=== PATIENT | female | born 1955 | race Caucasian/White ===

== ENCOUNTER 2023-04-01 21:32 | Emergency (ER) | payer MEDICARE, MEDICAID, SELFPAY ==
[2023-04-01 21:34] VITALS: BP 179/71; PULSE 70; RESP 16; TEMP 36.4; O2SAT 98
--- NOTE | 2023-04-01 21:51 | PC.NURSE ---
patient states that she had a stroke in October and since that time has been bounced around from place to place . She was at [facility] in [place], and recently moved into [facility]. Patient states that she has had this rash for several months, it is slightly painful when she walks currently, only because she has scratched open a small spot on the bottom of her right foot. She has been applying a topical salve but is unsure of the name. It has not helped.
--- NOTE | 2023-04-02 01:35 | ED_ITS ---
HPI - General Adult General Chief complaint: Skin/Abscess/Foreign Body Stated complaint: RED, SWOLLEN FEET Time Seen by Provider: 04/01/23 21:45 Source: patient Mode of arrival: ambulance History of Present Illness HPI narrative: The patient presented to the ER with bilateral feet irritation and itching that been going on at least since July last year she denies any fever chills or any new injury She mentioned that she was prescribed a cream by her primary care doctor that did not help and she denies any other concerns Related Data Previous Rx's Medication Instructions Recorded clocortolone pivalate 0.1 % 1 applic topical DAILY #45 grams 04/01/23 topical cream (Cloderm) Allergies Allergy/AdvReac Type Severity Reaction Status Date / Time Sulfa (Sulfonamide Allergy Severe Verified 04/01/23 21:37 Antibiotics) Tetanus Vaccines and Toxoid Allergy Severe Verified 04/01/23 21:38 Review of Systems ROS Status of ROS 10 or more systems reviewed and unremarkable except as noted in history and below [facility] Medical History (Updated 04/01/23 @ 21:54 by Linda Bennett MD) Exam Narrative Exam Narrative: Nurses notes and vital signs reviewed and patient is not hypoxic. General: Well-appearing and in no apparent distress. Skin: Warm, dry, no pallor noted. No rash. Head: Normocephalic, atraumatic. Neck: Supple, non-tender. Eye: Pupils are equal, round and EOMI. No scleral icterus. Ears, Nose, Mouth, and Throat: TM are clear, no nasal mucosal hypertrophy. Oral mucosa is moist, no posterior oropharynx erythema, uvula is mid-line Cardiovascular: Regular Rate and Rhythm without murmur, gallop or rub. Respiratory: No accessory muscle use or respiratory distress. Lungs are clear to auscultation, no wheezing, rales or rhonchi Chest Wall: no tenderness Back: No midline thoracic or lumbar vertebral tenderness. No CVA tenderness Musculoskeletal: normal ROM, no calf or popliteal tenderness, no lower extremity edema/swelling, on the dorsum of both feet the patient have dry erythematous rash that is chronic mostly GI: Abdomen is soft, non-distended. Normal bowel sounds. No masses appreciated. No tenderness to palpation. No rebound, guarding, or rigidity noted. Neurological: A&O x4. No cranial nerve dysfunction observed. No truncal ataxia. Moves all extremities. Sensation intact. Psychiatric: Cooperative and interactive. Normal mood and affect. Constitutional Vital Signs, click to edit/add: Last Vital Signs Temp 97.5 F L 04/01/23 21:34 Pulse 70 04/01/23 21:34 Resp 16 04/01/23 21:34 BP 179/71 H 04/01/23 21:34 Pulse Ox 98 04/01/23 21:34 O2 Del Method Room Air 04/01/23 21:34 Course Vital Signs Vital signs: Vital Signs Temperature 97.5 F L 04/01/23 21:34 Pulse Rate 70 04/01/23 21:34 Respiratory Rate 16 04/01/23 21:34 Blood Pressure 179/71 H 04/01/23 21:34 Pulse Oximetry 98 04/01/23 21:34 Oxygen Delivery Method Room Air 04/01/23 21:34 Temperature 97.5 F L 04/01/23 21:34 Pulse Rate 70 04/01/23 21:34 Respiratory Rate 16 04/01/23 21:34 Blood Pressure 179/71 H 04/01/23 21:34 Pulse Oximetry 98 04/01/23 21:34 Oxygen Delivery Method Room Air 04/01/23 21:34 Medical Decision Making [facility] Narrative Medical decision making narrative: The patient examination shows possible eczema Right now the patient will be treated with steroid cream with medium potency and she is to follow-up with her doctor for any new concern The patient is to follow up with primary care physician in next 2-3 days or to return to the emergency department should any of the signs or symptoms worsen or new symptoms develop. The patient agrees with the following Diagnosis and Treatment plan and the patient will be discharged home. Discharge Plan Discharge Chief Complaint: Skin/Abscess/Foreign Body Clinical Impression: Dermatitis Patient Disposition: Home, Self-Care Time of Disposition Decision: 21:52 Condition: Good Mode of Transportation: Private Vehicle Prescriptions / Home Meds: New clocortolone pivalate [Cloderm] 0.1 % cream 1 applic topical DAILY Qty: 45 0RF Rx Instructions: for 10 days Instructions: Dermatitis (ED) Stand Alone Forms: Portal Instructions Referrals: SHEREEN DUENAS [Primary Care Provider] - 1 week Discharge Date/Time: 04/01/23 22:30
== END 2023-04-01 22:30 | disposition home or self-care (01) ==
PROVIDERS: Emergency Provider Emergency Medicine; PCP Family Medicine
DX: L30.9 Dermatitis, unspecified (principal)
CPT/HCPCS: 99283

== ENCOUNTER 2023-07-15 12:25 | Outpatient (OUT) | payer MEDICARE, MEDICAID, SELFPAY ==
--- NOTE | 2023-07-15 12:36 | US_ITS ---
The [address] [address] Patient Name: RAMIRO HUSSEIN MRN: [id number] date: 1955 Sex: F Assigned Patient Location: [place] Current Patient Location: Accession/Order Number: [id number] Exam Date: 07/15/2023 12:45 Report Date: 07/18/2023 07:07 At the request of: JOHN LOWERY Procedure: US thyroid EXAMINATION: US thyroid HISTORY: Multiple Thyroid Nodules COMPARISON: No relevant comparison available. FINDINGS: RIGHT LOBE: Homogeneous echotexture and contains an 8 mm TR 4 nodule within inferior pole and a 9 mm TR 2 nodule within mid body. In addition there are multiple small colloid cysts and nodules. Lobe size: 5.4 x 1.6 x 1.8 cm LEFT LOBE: Homogeneous echotexture and contains an 8 mm TR 4 nodule within inferior pole. Contains several additional small colloid cysts and nodules. Lobe size: 5.0 x 1.4 x 1.5 cm ISTHMUS: Normal size and echotexture. Thickness: 2 mm US/US thyroid IMPRESSION: 1. Multiple small nodules and colloid cysts bilaterally with most notable consisting of an 8 mm TR 4 nodule within the right lobe and an 8 mm TR 4 nodule within left lobe. Follow-up in 2 years is recommended. TR4 (moderately suspicious): If > 1.0 cm, follow-up ultrasound in 1, 2, 3, and 5 years. If > 1.5 cm, fine needle aspiration (FNA). Electronically authenticated by: BAL GALVEZ Date: 07/18/2023 07:07
== END 2023-07-15 12:26 | disposition home or self-care (01) ==
LOC: US 12:26
PROVIDERS: PCP Family Medicine; Visit Provider Psychiatry & Neurology Neurology
DX: E04.2 Nontoxic multinodular goiter (principal)
CPT/HCPCS: 76536

== ENCOUNTER 2023-11-15 20:00 | Outpatient (REF) | payer MEDICARE, MEDICAID, SELFPAY ==
--- OUTSIDE RECORDS SUMMARY | 2023-11-16 01:23 | XMS_ITS | CCD ---
Author Name Unknown Address [id number] [place] [address] Organization [facility] Care Team Providers Care Fiberline Supervisor Name Role Phone PROVIDER, UNKNOWN Attending Unavailable PROVIDER, UNKNOWN Admitting Unavailable NON STAFF Primary Care Provider Unavailayo e MD Stewart Carlton Admit Provider MD Stewart Carlton Attending Provider KAROLINA Silvestre Other Provider Unavailable KAROLINA Menendez Other Provider Unavailable KRAOLINA Mercado Other Provider Unavailable KAROLINA Oliveira Other Provider Unavailable KAROLINA Ho Other Provider Unavailable KAROLINA Elias Other Provider Unavailable MD Daren Limon Other Provider MD Jose Dasilva Other Provider VALE Hernández Other Provider DO Marlen Reaves Other Provider MD Vinayak Taveras Other Provider [phone] DO Rick Babcock Other Provider MD Sidney Rader Other Provider MD Kassidy Treviño Other Provider David, ANP-BC Gaby Other Provider MD Hussain Salomon Other Provider MD David Staley Other Provider MD Crystal Meléndez Other Provider MD Marciano Weeks Other Provider DO Amrit Acosta Other Provider MD Winston Skinner Other Provider MD Reji Hawkins Other Provider PAOLA Fragoso Other Provider MD Brian New Other Provider MD Owen Chadwick Other Provider MD Diomedes Auguste Other Provider DO Lara Rojas Other Provider DO Alberto Dias Other Provider DO Alfredo Green Other Provider [phone] VALE Baker Other Provider DO Delvin eBltrán Other Provider MD Diana Eubanks Other Provider VALE Beltran Other Provider [phone] KAROLINA Carvalho Other Provider Unavailable Stewart Carlton Admitting Unavailable Stewart Carlton Attending Unavailable NON STAFF Primary Care Unavailable Kaur Silvestre Consulting Unavailable Gearmali, Cathryn Consulting Unavailable Belkis Mercado Consulting Unavailable Densrao, Genie Consulting Unavailable Georgia, Luz Marina Consulting Unavailable Jada, Michell Consulting Unavailable Massouh, Rafik Consulting Unavailable Brown, Jose K Consulting Unavailable Dials, Uma M Consulting Unavailable Jelly, Ronobir Consulting Unavailable Nitin, Vinayak Consulting Unavailable Linddeepali Rick Consulting UnavailSidney Goyal Consulting Unavailable Hudson Kassidy Consulting Unavailable Gaby Hernandez Consulting Unavailable Hussain Salomon Consulting Unavailable David Staley Consulting Unavailable Crystal Meléndez Consulting Unavailable Marciano Weeks Consulting Unavailable Amrit Acosta Consulting Unavailable Winston Skinner Consulting Unavailable Reji Hawkins Consulting Unavailable Kirstin Fragoso Consulting Unavailable Brian New Consulting Unavailab Owen Melton Consulting Unavailable Diomedes Auguste Consulting Unavailable Lara Rojas Consulting Unavailable Alberto Dias Consulting Unavailable Alfredo Green Consulting Unavailable Afua Baker Unavailable Delvin Beltrán Consulting Unavailable Diana Eubanks Consulting Unavailable Rajwinder Beltran Consulting Unavailable Irene Carvalho Consulting Unavailable Allergies Allergy Classification Reported Allergen(s) Allergy Type Date of Onset Reaction(s) Facility (2 sources) Sulfonamides (Antibiotic); Translations: [Sulfa (Sulfonamide Antibiotics)] Propensity to adverse reactions 3 Unknown Reaction [facility] (2 sources) Tetanus Vaccines and Toxoid; Translations: [Tetanus Vaccines and Toxoid] Propensity to adverse reactions 3 Swelling [facility] Medications Current Medications Medication Drug Class(es) Dates Sig (Normalized) Sig (Original) acetaminophen 500 mg oral tablet (1 source) Start: 11-15-2022 take 500 mg by mouth every four hours Acetaminophen Active 500 MG PO Q4H 0 November 15, 2022 12:00am aspirin 81 mg chewable tablet (2 sources) Platelet Aggregation Inhibitor, Nonsteroidal Anti-inflammatory Drug Start: 10-25-2022 End: 11-15-2022 take 1 tablet by mouth once daily Aspirin (Children's Aspirin) 81 mg Tablet,Chewable Active 81 MG PO Daily 0 November 15, 2022 12:00am calcium carbonate 1250 mg oral tablet (2 sources) Start: 10-25-2022 End: 11-15-2022 Calcium Carbonate (Oyster Shell Calcium 500) 500 mg calcium (1,250 mg) Tablet Active 500 MG PO Daily 0 November 15, 2022 12:00am diclofenac sodium 0.01 mg/mg topical gel (1 source) Nonsteroidal Anti-inflammatory Drug Start: 11-15-2022 apply 2 g topically twice daily Diclofenac Sodium Active 2 GM TOPICAL Twice daily 0 November 15, 2022 12:00am docusate sodium 100 mg oral capsule (1 source) Start: 11-15-2022 take 100 mg by mouth twice daily Docusate Sodium Active 100 MG PO Twice daily 0 November 15, 2022 12:00am famotidine 20 mg oral tablet (2 sources) Histamine-2 Receptor Antagonist Start: 11-15-2022 take 20 mg by mouth once daily Famotidine Active 20 MG PO Daily 0 November 15, 2022 12:00am Start: 10-25-2022 End: 11-15-2022 take 20 mg by mouth twice daily Famotidine Discontinued 20 MG PO Twice daily October 25, 2022 1:00am November 15, 2022 3:04pm lactulose 667 mg/ml oral solution (1 source) Osmotic Laxative Start: 11-15-2022 take 30 g by mouth once daily Lactulose Active 30 GM PO Daily 0 November 15, 2022 12:00am Lanolin Sxcfbqp-Wz-I.Pet-C eres (Minerin Creme) Cream (1 source) Start: 11-15-2022 Lanolin Lqqllwe-Cn-Z.Pet- [place] (Minerin Creme) Cream Active 1 APPLIC TOPICAL Daily 0 November 15, 2022 12:00am lidocaine 0.04 mg/mg medicated patch (1 source) Antiarrhythmic, Amide Local Anesthetic Start: 11-15-2022 apply 1 dose topically once daily Lidocaine (Lidocaine Pain Relief) 4 % Adhesive Patch,Medicated Active 1 PATCH TOPICAL Daily 0 November 15, 2022 12:00am magnesium oxide 400 mg oral tablet (2 sources) Start: 10-25-2022 End: 11-15-2022 take 400 mg by mouth once daily Magnesium Oxide Active 400 MG PO Daily 0 November 15, 2022 12:00am metoprolol tartrate 50 mg oral tablet (2 sources) beta-Adrenergic Curtis Start: 10-25-2022 End: 11-15-2022 take 50 mg by mouth twice daily Metoprolol Tartrate Active 50 MG PO Twice daily 0 November 15, 2022 12:00am Multivitamin With Folic Acid (Thera) 400 mcg Tablet (1 source) Start: 11-15-2022 take 1 tablet by mouth once daily Multivitamin With Folic Acid (Thera) 400 mcg Tablet Active 1 TAB PO Daily 0 November 15, 2022 12:00am NIFEdipine 90 mg osmotic 24 hr extended release oral tablet (2 sources) Dihydropyridine Calcium Channel Curtis Start: 11-15-2022 take 1 tablet by mouth once daily Nifedipine (Procardia Xl) 90 mg Tablet Extended Release 24hr Active 90 MG PO Daily 0 November 15, 2022 12:00am Start: 10-25-2022 End: 11-15-2022 Nifedipine (Nifedical Xl) 60 mg Tablet Extended Release 24hr Discontinued 90 MG PO Daily October 25, 2022 1:00am November 15, 2022 3:04pm potassium chloride 10 meq extended release oral tablet (2 sources) Start: 10-25-2022 End: 11-15-2022 Potassium Chloride (Klor-Con 10) 10 mEq Tablet Extended Release Active 10 MEQ PO Daily 0 November 15, 2022 12:00am ticagrelor 90 mg oral tablet (2 sources) Start: 10-25-2022 End: 11-15-2022 take 1 tablet by mouth twice daily Ticagrelor (Brilinta) 90 mg Tablet Active 90 MG PO Twice daily 0 November 15, 2022 12:00am traZODone hydrochloride 50 mg oral tablet (1 source) Serotonin Reuptake Inhibitor Start: 11-15-2022 take 50 mg by mouth once daily at bedtime Trazodone Active 50 MG PO Daily at bedtime 0 November 15, 2022 12:00am triamcinolone acetonide 5 mg/ml topical cream (2 sources) Corticosteroid Start: 11-15-2022 Triamcinolone Acetonide Active 1 APPLIC TOPICAL Twice daily 0 November 15, 2022 12:00am Start: 10-25-2022 End: 11-15-2022 Triamcinolone Acetonide (Thien alog) 0.5 % Cream Discontinued 1 APPLIC TOPICAL Daily October 25, 2022 1:00am November 15, 2022 3:04pm vitamin b12 1 mg oral tablet (2 sources) Vitamin B12 Start: 10-25-2022 End: 11-15-2022 take 1000 ug by mouth once daily Cyanocobalamin (Vitamin B-12) Active 1000 MCG PO Daily 0 November 15, 2022 12:00am Completed/Discontinued Medications Medication Drug Class(es) Dates Sig (Normalized) Sig (Original) [id number] 200 actuat albuterol 0.09 mg/actuat metered dose inhaler (1 source) beta2-Adrenergic Agonist Start: 10-25-2022 End: 11-15-2022 take 1 puff(s) by inhalation every four hours Albuterol Sulfate (Ventolin Hfa) 90 mcg/actuation Hfa Aerosol Inhaler Discontinued 2 PUFF INHALATION Q4H October 25, 2022 1:00am November 15, 2022 3:04pm gabapentin 100 mg oral capsule (1 source) Anti-epileptic Agent Start: 10-25-2022 End: 11-15-2022 take 100 mg by mouth three times daily Gabapentin Discontinued 100 MG PO Three times daily October 25, 2022 1:00am November 15, 2022 3:04pm Multivitamin preparation (1 source) Start: 10-25-2022 End: 11-15-2022 take 1 tablet by mouth once daily Multivitamin Discontinued 1 TAB PO Daily October 25, 2022 1:00am November 15, 2022 3:04pm Problems Problem Classification Problem Date Documented Da te Episodic/Chronic Acute cerebrovascular disease (7 sources) Aphasia; Translations: [Cerebral infarction, unspecified] Onset: 10-25-2022 10-26-2022 Chronic Administrative/social admission (3 sources) Other reduced mobility; Translations: [Impaired mobility and activities of daily living] Onset: 10-25-2022 10-26-2022 Episodic Anxiety disorders (3 sources) Anxiety; Translations: [Anxiety disorder, unspecified] Onset: 10-25-2022 10-26-2022 Chronic Essential hypertension (3 sources) Hypertensive disorder; Translations: [Essential (primary) hypertension] Onset: 10-25-2022 10-26-2022 Chronic Fluid and electrolyte disorders (3 sources) Chronic hyponatremia; Translations: [Hypo-osmolality and hyponatremia] Onset: 10-25-2022 10-26-2022 Episodic Other gastrointestinal disorders (1 source) Oropharyngeal dysphagia; Translations: [Dysphagia, oropharyngeal phase] 10-26-2022 Episodic Other gastrointestinal disorders (2 sources) Dysphagia, oropharyngeal phase; Translations: [Dysphagia, oropharyngeal phase] Onset: 10-25-2022 11-18-2022 Episodic Other hereditary and degenerative nervous system conditions (1 source) Impaired cognition; Translations: [Mild cognitive impairment, so stated] 10-26-2022 Chronic Other hereditary and degenerative nervous system conditions (2 sources) Mild cognitive impairment, so stated; Translations: [Mild cognitive impairment, so stated] Onset: 10-25-2022 11-18-2022 Chronic Other nervous system disorders (1 source) Aphasia; Translations: [Aphasia] Onset: 10-25-2022 Chronic Other nervous system disorders (1 source) Gait apraxia; 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] 10-26-2022 Episodic Other nervous system disorders (2 sources) Apraxia; 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 dysfunction] Onset: 10-25-2022 11-18-2022 Episodic Paralysis (3 sources) Right hemiplegia; Translations: [Hemiplegia, unspecified affecting right dominant side] Onset: 10-25-2022 10-26-2022 Chronic Residual codes; unclassified (2 sources) Current drinker; Translations: [Chronic alcohol use] 10-26-2022 Episodic Residual codes; unclassified (1 source) Other specified health status; Translations: [Other specified health status] Onset: 10-25-2022 Episodic Unclassified (1 source) Cerebral infarction due to unspecified occlusion or stenosis of left carotid arteries; Translations: [Cerebral infarction due to unspecified occlusion or stenosis of left carotid arteries] Onset: 10-25-2022 Unclassified (1 source) Alcohol use, unspecified, uncomplicated; Translations: [Alcohol use, unspecified, uncomplicated] Onset: 10-25-2022 Results Test Name Value Interpretation Reference Range Facility Basic Metabolic Panelon 11-03 Anion gap [Moles/Vol] 12.8 mmol/L Normal 6.0-15.0 [facility] Comment on above: Performed By: #### C BC, BMP #### [facility] [address] Calcium [Mass/Vol] 10.5 mg/dL High 8.6-10.3 [facility] Comment on above: Performed By: #### C BC, BMP #### [facility] [address] [place] [address] [place] Chloride [Moles/Vol] 102 mmol/L Normal 98-[address] [facility] Comment on above: Performed By: #### C BC, BMP #### [facility] [address] [place] [address] [facility] CO2 [Moles/Vol] 26.2 mmol/L Normal 21.0-31.0 [facility] Comment on above: Performed By: #### C BC, BMP #### [facility] [address] [place] [id number] [place] Creatinine [Mass/Vol] 0.53 mg/dL Low 0.60-1.20 [facility] Comment on above: Performed By: #### C BC, BMP #### [place] [address] [place] Creatinine Clr Calc Pharmacy 52.90 Normal [facility] Comment on above: Result Comment: PERF ORMED BY: [place] [address] PATHOLOGIST DESIGN/ANIMATION INSTRUCTOR LOLA BURGER M.D. Performed By: #### C BC, BMP #### [place] [address] [place] GFR/1.73 sq M.predicted MDRD (S/P/Bld) [Vol rate/Area] mL/min/{1.73_m2} Normal [facility] Comment on above: Performed By: #### C BC, BMP #### [address] Glucose [Mass/Vol] 101 mg/dL Normal 74-109 [facility] Comment on above: Result Comment: [facility] Glucose Reference Range is dependent on time and content of last meal. Glucose of more than 200 mg/dL in a nonstressed, ambulatory subject supports the diagnosis of Diabetes Mellitus. ADA recommended reference range Performed By: #### C BC, BMP #### [address] Potassium [Moles/Vol] 4.0 mmol/L Normal 3.5-5.1 [facility] Comment on above: Performed By: #### C BC, BMP #### [address] Sodium [Moles/Vol] 137 mmol/L Normal 136-145 [facility] Comment on above: Performed By: #### C BC, BMP #### [address] Urea nitrogen [Mass/Vol] 15 mg/dL Normal 7-25 [facility] Comment on above: Performed By: #### C BC, BMP #### [place] [address] [place] Basophils Auto (Bld) [#/Vol] Ordered By: Kendra Stern on 11-16-2022 Basophils (Bld) [#/Vol] 0.0 10*3/uL 0.0-0.2 [facility] Basophils/100 WBC Auto (Bld) Ordered By: Kendra Stern on 11-16-2022 Basophils/100 WBC (Bld) 0.4 % . [facility] COVID-19 Antigenon COVID-19 Antigen Comment collect today for poss SNF placement 11/16 vs 11/17. Healthcare Worker?: N Reference Range: Negative Negative results, from patients with symptom onset beyond five days, should be treated as presumptive and confirmation with a molecular assay, if necessary, for patient management, may be performed. Negative results do not rule out COVID-19 and should not be used as the sole basis for treatment or patient management decisions, including infection control decisions. Negative results should be considered in the context of a patient's recent exposures, history and the presence of clinical signs and symptoms consistent with COVID-19. The Nory SARS Antigen KAREN does not differentiate between SARS-CoV and SARS-CoV-2. This test was developed and its performance characteristic determined by [facility] and validated at [facility]. This test has not been FDA cleared or approved. This test has been authorized by FDA under an Emergency Use Authorization (EUA). This test has been validated in accordance with the FDA's Guidance Document (Policy for Diagnostics Testing in Laboratories Certified to Perform High Complexity Testing under CLIA prior to Emergency Use Authorization for Coronavirus Disease-2019 during the Public Health Emergency) issued on December 06, 2019. This test is only authorized for the duration of time the declaration that circumstances exist justifying the authorization of the emergency use of in vitro diagnostic tests for detection of SARS-CoV-2 virus and/or diagnosis of COVID-19 infection under section 564(b)(1) of the Act, 21 U.S.C. 360bbb-3(b)(1), unless the authorization is terminated or revoked sooner. SARS-CoV+SARS-CoV-2 (COVID-19) Ag [Presence] in Respiratory specimen by Rapid immunoassay Negative for SARS Antigen by KAREN PERFORMED BY: [facility] [place] [address] PATHOLOGIST DESIGN/ANIMATION INSTRUCTOR LOLA BURGER M.D. Normal [facility] Comment on above: Performed By: #### C OVID-19 NORY, SOFIANEG #### [facility] [address] [place] [address] [place] COVID-19 SOFIAOrdered By: Luz Carlton on 11-16-2022 SARS-CoV+SARS-CoV-2 (COVID-19) Ag IA.rapid Ql (Resp) Negative Negative [facility] Comment on above: This is a duplicate Nory SARS Antigen (KAREN) result to be used for statistical tracking purpose only. Calcium [Mass/volume] in Ser um or PlasmaOrdered By: Kendra Stern on 11-16-2022 Calcium [Mass/Vol] 10.5 mg/dL 8.6-10.3 [facility] Carbon dioxide, total [Moles /volume] in Serum or PlasmaOrdered By: Kendra Stern on 11-16-2022 CO2 [Moles/Vol] 26.2 mmol/L 21.0-31.0 [facility] Chloride [Moles/volume] in S sbaine or PlasmaOrdered By: Kendra Stern on 11-16-2022 Chloride [Moles/Vol] 102 mmol/L 98-[address] [facility] Complete Blood Count Auto Di ffon 11-16-2022 Basophils (Bld) [#/Vol] 0.0 10*3/uL Normal 0.0-0.2 [facility] Comment on above: Result Comment: PERF ORMED BY: [place] [address] PATHOLOGIST DESIGN/ANIMATION INSTRUCTOR LOLA BURGER M.D. Performed By: #### C BC, BMP #### [facility] [address] [place] [address] [place] Basophils/100 WBC (Bld) 0.4 % Normal . [facility] Comment on above: Performed By: #### C BC, BMP #### [facility] [address] [place] [address] [place] Eosinophils (Bld) [#/Vol] 0.1 10*3/uL Normal 0.0-0.45 [facility] Comment on above: Performed By: #### C BC, BMP #### [address] Eosinophils/100 WBC (Bld) 1.5 % Normal . [facility] Comment on above: Performed By: #### C BC, BMP #### [address] Erythrocyte distribution width (RBC) [Ratio] 14.7 % Normal 11.9-15.3 [facility] Comment on above: Performed By: #### C BC, BMP #### [address] Hematocrit (Bld) [Volume fraction] 33.0 % Low 34.0-46.4 [facility] Comment on above: Performed By: #### C BC, BMP #### [address] Hemoglobin (Bld) [Mass/Vol] 11.1 g/dL Low 11.8-15.4 [facility] Comment on above: Performed By: #### C BC, BMP #### [address] Lymphocytes (Bld) [#/Vol] 1.0 10*3/uL Normal 1.00-4.8 [facility] Comment on above: Performed By: #### C BC, BMP #### [address] Lymphocytes/100 WBC (Bld) 21.5 % Normal . [facility] Comment on above: Performed By: #### C BC, BMP #### [address] MCH (RBC) [Entitic mass] 29.5 pg Normal 24.7-34.3 [facility] Comment on above: Performed By: #### C BC, BMP #### [address] MCV (RBC) [Entitic vol] 88.0 fL Normal 80-100 [facility] Comment on above: Performed By: #### C BC, BMP #### [facility] [address] Mean Corpuscular HGB Conc 33.5 g/dL Normal 32.0-35.0 [facility] Comment on above: Performed By: #### C BC, BMP #### [facility] [address] [place] [address] [place] Monocytes (Bld) [#/Vol] 0.5 10*3/uL Normal 0.0-0.8 [facility] Comment on above: Performed By: #### C BC, BMP #### [facility] [address] [place] [address] [place] Monocytes/100 WBC (Bld) 11.3 % Normal . [facility] Comment on above: Performed By: #### C BC, BMP #### [facility] [address] Neutrophils (Bld) [#/Vol] 2.9 10*3/uL Normal 1.8-7.7 [facility] Comment on above: Performed By: #### C BC, BMP #### [facility] [address] [place] [address] [place] Neutrophils/100 WBC (Bld) 65.3 % Normal . [facility] Comment on above: Performed By: #### C BC, BMP #### [facility] [address] [place] [address] [place] NRBC% 0.1 /100{WBC} Normal 0-0.5 [facility] Comment on above: Performed By: #### C BC, BMP #### [facility] [address] [place] [address] [place] Platelet mean volume (Bld) [Entitic vol] 7.2 fL Normal 6.3-10.7 [facility] Comment on above: Performed By: #### C BC, BMP #### [facility] [address] [place] [id number] [place] Platelets (Bld) [#/Vol] 364 10*3/uL Normal 150-450 [facility] Comment on above: Performed By: #### C BC, BMP #### [facility] [address] RBC (Bld) [#/Vol] 3.75 10*6/uL Normal 3.60-5.00 [facility] Comment on above: Performed By: #### C BC, BMP #### [facility] [address] [place] [id number] [facility] WBC (Bld) [#/Vol] 4.5 10*3/uL Normal 3.8-11.6 [facility] Comment on above: Performed By: #### C BC, BMP #### [facility] [address] [place] [id number] [facility] Creatinine [Mass/volume] in Serum or PlasmaOrdered By: Kendra Stern on 11-16-2022 Creatinine [Mass/Vol] 0.53 mg/dL 0.60-1.20 [facility] Eosinophils Auto (Bld) [#/Vo l]Ordered By: Kendra Stern on 11-16-2022 Eosinophils (Bld) [#/Vol] 0.1 10*3/uL 0.0-0.45 [facility] Eosinophils/100 WBC Auto (Bl d)Ordered By: Kendra Stern on 11-16-2022 Eosinophils/100 WBC (Bld) 1.5 % . [facility] Erythrocyte distribution wid th Auto (RBC) [Ratio]Ordered By: Kendra Stern on 11-16-2022 Erythrocyte distribution width (RBC) [Ratio] 14.7 % 11.9-15.3 [facility] Glucose [Mass/volume] in Ser um or PlasmaOrdered By: Kendra Stern on 11-16-2022 Glucose [Mass/Vol] 101 mg/dL 74-109 [facility] Comment on above: ADA recommended refe rence rangeRandom Glucose Reference Range is dependent on time and content of last meal. Glucose of more than 200 mg/dL in a nonstressed, ambulatory subject supports the diagnosis of Diabetes Mellitus. Hematocrit Auto (Bld) [Volum e fraction]Ordered By: Kendra Stern on 11-16-2022 Hematocrit (Bld) [Volume fraction] 33.0 % 34.0-46.4 [facility] Hemoglobin [Mass/volume] in BloodOrdered By: Kendra Stern on 11-16-2022 Hemoglobin (Bld) [Mass/Vol] 11.1 g/dL 11.8-15.4 [facility] Laboratory - Chemistry and C hemistry - challengeOrdered By: Kendra Stern on 11-16-2022 GFR/1.73 sq M.predicted MDRD (S/P/Bld) [Vol rate/Area] mL/min/{1.73_m2} [facility] Leukocytes [#/volume] correc zuleika for nucleated erythrocytes in Blood by Automated counOrdered By: Kendra Stern on 11-16-2022 WBC corrected for nucl RBC Auto (Bld) [#/Vol] 4.5 10*3/uL 3.8-11.6 [facility] Lymphocytes Auto (Bld) [#/Vo l]Ordered By: Kendra Stern on 11-16-2022 Lymphocytes (Bld) [#/Vol] 1.0 10*3/uL 1.00-4.8 [facility] Lymphocytes/100 WBC Auto (Bl d)Ordered By: Kendra Stern on 11-16-2022 Lymphocytes/100 WBC (Bld) 21.5 % . [facility] MCH Auto (RBC) [Entitic mass ]Ordered By: Kendra Stern on 11-16-2022 MCH (RBC) [Entitic mass] 29.5 pg 24.7-34.3 [facility] MCHC Auto (RBC) [Mass/Vol]Or dered By: Kendra Stern on 11-16-2022 MCHC (RBC) [Mass/Vol] 33.5 g/dL 32.0-35.0 [facility] MCV Auto (RBC) [Entitic vol] Ordered By: Kendra Stern on 11-16-2022 MCV (RBC) [Entitic vol] 88.0 fL 80-100 [facility] Monocytes Auto (Bld) [#/Vol] Ordered By: Kendra Stern on 11-16-2022 Monocytes (Bld) [#/Vol] 0.5 10*3/uL 0.0-0.8 [facility] Monocytes/100 WBC Auto (Bld) Ordered By: Kendra Stern on 11-16-2022 Monocytes/100 WBC (Bld) 11.3 % . [facility] Neutrophils Auto (Bld) [#/Vo l]Ordered By: Kendra Stern on 11-16-2022 Neutrophils (Bld) [#/Vol] 2.9 10*3/uL 1.8-7.7 [facility] Neutrophils/100 WBC Auto (Bl d)Ordered By: Kendra Stern on 11-16-2022 Neutrophils/100 WBC (Bld) 65.3 % . [facility] No Panel InformationOrdered By: Stewart Carlton on 11-16-2022 SARS Antigen (LFIA) [facility] No Panel InformationOrdered By: Kendra Stern on 11-16-2022 Pharmacy Creatinine Clearance (Chem 52.90 [facility] Nucleated erythrocytes [Pres ence] in Blood by Automated countOrdered By: Kendra Stern on 11-16-2022 Nucleated RBC Auto Ql (Bld) 0.1 /100{WBC} 0-0.5 [facility] Platelet mean volume Auto (B ld) [Entitic vol]Ordered By: Kendra Stern on 11-16-2022 Platelet mean volume (Bld) [Entitic vol] 7.2 fL 6.3-10.7 [facility] Platelets Auto (Bld) [#/Vol] Ordered By: Kendra Stern on 11-16-2022 Platelets (Bld) [#/Vol] 364 10*3/uL 150-450 [facility] Potassium [Moles/volume] in Serum or PlasmaOrdered By: Kendra Stern on 11-16-2022 Potassium [Moles/Vol] 4.0 mmol/L 3.5-5.1 [facility] RBC Auto (Bld) [#/Vol]Ordere d By: Kendra Stern on 11-16-2022 RBC (Bld) [#/Vol] 3.75 10*6/uL 3.60-5.00 [facility] Serum or plasma anion gap de terminationOrdered By: Kendra Stern on 11-16-2022 Anion gap [Moles/Vol] 12.8 mmol/L 6.0-15.0 [facility] Sodium [Moles/volume] in Ser um or PlasmaOrdered By: Kendra Stern on 11-16-2022 Sodium [Moles/Vol] 137 mmol/L 136-145 [facility] Nory Ag Negativeon 11-17-19 Nory Ag Negative Negative Normal Negative [facility] Comment on above: Result Comment: This is a duplicate Nory SARS Antigen (KAREN) result to be used for statistical tracking purpose only. PERFORMED BY: [place] [address] PATHOLOGIST DESIGN/ANIMATION INSTRUCTOR LOLA BURGER M.D. Performed By: #### C OVID-19 NORY, SOFIANEG #### [facility] [address] Urea nitrogen [Mass/volume] in Serum or PlasmaOrdered By: Kendra Stern on 11-16-2022 Urea nitrogen [Mass/Vol] 15 mg/dL 7-25 [facility] WBC Auto (Bld) [#/Vol]Ordere d By: Kendra Stern on 11-16-2022 WBC (Bld) [#/Vol] 4.5 10*3/uL 3.8-11.[address] [facility] [address] head/brain wo conon 11-11 CT head/brain wo con [facility] [place] [address] [place] [address] CT Scan Report Signed Patient: Gilma Mock MR#: [id number] 37 : 1955 Acct:[id number] Age/Sex: 67 / F ADM Date: 10/25/22 Loc: Room: 2K4630-7 Type: ADM IN Attending Dr: Stewart Carlton MD Copies to: Stewart Carlton MD Ordering Provider: Stewart Carlton MD Date of Service: 11/11/22 CT/CT head/brain wo con: interval with h/o SAH, ? resolved. CT BRAIN WITHOUT CONTRAST: CLINICAL HISTORY: Outside CT brain 10/19/2022 COMPARISON: Reevaluate subarachnoid hemorrhage TECHNIQUE: Contiguous axial unenhanced images were obtained through the brain. This CT exam was performed using one or more following dose reduction techniques: Automated exposure control, adjustment of the mA and/or kV according to patient size, or use of iterative reconstruction technique. FINDINGS: The previously identified subarachnoid hemorrhage involving the left frontal lobe appears to have resolved. No new midline shift, transtentorial herniation, hemorrhage or hematoma. Cortical atrophy with chronic microvascular ischemic changes. Posterior fossa appears unremarkable. Visualized intraorbital contents demonstrate no acute findings. Partially visualized right maxillary sinus disease. The surrounding soft tissues are normal. CT/CT head/brain wo con IMPRESSION: PREVIOUSLY IDENTIFIED SUBARACHNOID HEMORRHAGE INVOLVING THE LEFT FRONTAL LOBE APPEARS TO HAVE RESOLVED. NO NEW AREAS OF HEMORRHAGE, MIDLINE SHIFT OR TRANSTENTORIAL HERNIATION IS SEEN. Impression dictated by: Stewart Royal Jr., D.O.11/11/2022 12:12 PM Dictation Location: [place] [address] Transcribed By: [facility] 11/11/22 1212 Dictated By: Stewart Royal Jr, DO 11/11/22 1210 Signed By: 11/11/22 1212 Normal [facility] Basic Metabolic Panelon Anion gap [Moles/Vol] 13.8 mmol/L Normal 6.0-15.0 [facility] Comment on above: Performed By: #### C BC, BMP #### [facility] [address] [place] [address] [place] Calcium [Mass/Vol] 9.9 mg/dL Normal 8.2-10.2 [facility] Comment on above: Performed By: #### C BC, BMP #### [facility] [address] [place] [address] [place] Chloride [Moles/Vol] 99 mmol/L Normal 95-[address] [facility] Comment on above: Performed By: #### C BC, BMP #### [facility] [address] [place] [address] [place] CO2 [Moles/Vol] 24.0 mmol/L Normal 22.0-30.0 [facility] Comment on above: Performed By: #### C BC, BMP #### [facility] [address] Creatinine [Mass/Vol] 0.74 mg/dL Normal 0.44-1.03 [facility] Comment on above: Performed By: #### C BC, BMP #### [address] Creatinine Clr Calc Pharmacy 52.90 [facility] Comment on above: Result Comment: PERF ORMED BY: [place] [address] PATHOLOGIST DESIGN/ANIMATION INSTRUCTOR LOLA BURGER M.D. Performed By: #### C BC, BMP #### [address] Estimated GFR ( Tea > 60 [facility] Comment on above: Result Comment: GFR estimated reference range: According to KDOQI guidelines, <60 ml/min/1.73m2 is sufficient to diagnose a patient with chronic kidney disease. Performed By: #### C BC, BMP #### [address] Estimated GFR (Non- Am > 60 [facility] Comment on above: Performed By: #### C BC, BMP #### [address] Glucose [Mass/Vol] 198 mg/dL High 70-100 [facility] Comment on above: Result Comment: [place] Glucose Reference Range is dependent on time and content of last meal. Glucose of more than 200 mg/dL in a nonstressed, ambulatory subject supports the diagnosis of Diabetes Mellitus. ADA recommended reference range Performed By: #### C BC, BMP #### [address] Potassium [Moles/Vol] 3.8 mmol/L Normal 3.5-5.1 [facility] Comment on above: Performed By: #### C BC, BMP #### [place] [address] [place] Sodium [Moles/Vol] 133 mmol/L Low 136-146 [facility] Comment on above: Performed By: #### C BC, BMP #### [facility] [address] Urea nitrogen [Mass/Vol] 13 mg/dL Normal 9-23 [facility] Comment on above: Performed By: #### C BC, BMP #### [facility] [address] Bilirubin Test strip Ql (U)O rdered By: Kendra Stern on 11-09-2022 Bilirubin Ql (U) Negative Negative [facility] Color Auto (U)Ordered By: Nav Stern on 11-09-2022 Color (U) Yellow Yellow [facility] Complete Blood Count Auto Di ffon 11-09-2022 Basophils (Bld) [#/Vol] 0.0 10*3/uL Normal 0.0-0.2 [facility] Comment on above: Result Comment: PERF ORMED BY: [facility] [address] [place] [address] PATHOLOGIST DESIGN/ANIMATION INSTRUCTOR LOLA BURGER M.D. Performed By: #### C BC, BMP #### [facility] [address] Basophils/100 WBC (Bld) 0.5 % Normal . [facility] Comment on above: Performed By: #### C BC, BMP #### [facility] [address] [place] [address] [place] Eosinophils (Bld) [#/Vol] 0.1 10*3/uL Normal 0.0-0.45 [facility] Comment on above: Performed By: #### C BC, BMP #### [facility] [address] [place] [address] [place] Eosinophils/100 WBC (Bld) 1.3 % Normal . [facility] Comment on above: Performed By: #### C BC, BMP #### [facility] [address] Erythrocyte distribution width (RBC) [Ratio] 14.7 % Normal 11.9-15.3 [facility] Comment on above: Performed By: #### C BC, BMP #### [facility] [address] Hematocrit (Bld) [Volume fraction] 31.8 % Low 34.0-46.4 [facility] Comment on above: Performed By: #### C BC, BMP #### [facility] [address] Hemoglobin (Bld) [Mass/Vol] 10.7 g/dL Low 11.8-15.4 [facility] Comment on above: Performed By: #### C BC, BMP #### [facility] [address] Lymphocytes (Bld) [#/Vol] 1.3 10*3/uL Normal 1.00-4.8 [facility] Comment on above: Performed By: #### C BC, BMP #### [address] Lymphocytes/100 WBC (Bld) 17.1 % Normal . [facility] Comment on above: Performed By: #### C BC, BMP #### [facility] [address] MCH (RBC) [Entitic mass] 29.7 pg Normal 24.7-34.3 [facility] Comment on above: Performed By: #### C BC, BMP #### [address] MCV (RBC) [Entitic vol] 88.2 fL Normal 80-100 [facility] Comment on above: Performed By: #### C BC, BMP #### [facility] [address] Mean Corpuscular HGB Conc 33.6 g/dL Normal 32.0-35.0 [facility] Comment on above: Performed By: #### C BC, BMP #### [address] Monocytes (Bld) [#/Vol] 0.7 10*3/uL Normal 0.0-0.8 [facility] Comment on above: Performed By: #### C BC, BMP #### [facility] [address] [place] [address] [place] Monocytes/100 WBC (Bld) 9.6 % Normal . [facility] Comment on above: Performed By: #### C BC, BMP #### [facility] [address] [place] [address] [place] Neutrophils (Bld) [#/Vol] 5.3 10*3/uL Normal 1.8-7.7 [facility] Comment on above: Performed By: #### C BC, BMP #### [facility] [address] [place] [address] [facility] Neutrophils/100 WBC (Bld) 71.5 % Normal . [facility] Comment on above: Performed By: #### C BC, BMP #### [facility] [address] NRBC% 0.0 /100{WBC} Normal 0-0.5 [facility] Comment on above: Performed By: #### C BC, BMP #### [facility] [address] [place] [id number] [place] Platelet mean volume (Bld) [Entitic vol] 7.3 fL Normal 6.3-10.7 [facility] Comment on above: Performed By: #### C BC, BMP #### [facility] [address] [place] [address] [place] Platelets (Bld) [#/Vol] 404 10*3/uL Normal 150-450 [facility] Comment on above: Performed By: #### C BC, BMP #### [facility] [address] [place] [address] [place] RBC (Bld) [#/Vol] 3.60 10*6/uL Normal 3.60-5.00 [facility] Comment on above: Performed By: #### C BC, BMP #### [facility] [address] [place] [address] [place] WBC (Bld) [#/Vol] 7.5 10*3/uL Normal 3.8-11.6 [facility] Comment on above: Performed By: #### C BC, BMP #### [facility] [address] [place] [id number] [place] Estimated glomerular filtrat ion rate (GFR) non- AmericanOrdered By: Stewart Carlton on 11-09-2022 GFR/1.73 sq M.predicted among non-blacks MDRD (S/P/Bld) [Vol rate/Area] > 60 mL/Min [facility] Ketones Auto test strip (U) [Mass/Vol]Ordered By: Kendra Stern on 11-09-2022 Ketones (U) [Mass/Vol] Negative Negative [facility] Nitrite Test strip Ql (U)Ord ered By: Kendra Stern on 11-09-2022 Nitrite Ql (U) Negative Negative [facility] No Panel InformationOrdered By: Stewart Carlton on 11-09-2022 Estimated GFR () > 60 mL/Min [facility] Comment on above: GFR estimated refere nce range: According to KDOQI guidelines, <60 ml/min/1.73m2 is sufficient to diagnose a patient with chronic kidney disease. Protein Auto test strip (U) [Mass/Vol]Ordered By: Kendra Stern on 11-09-2022 Protein (U) [Mass/Vol] Negative Negative [facility] Specific gravity Auto test s trip (U) [Rel density]Ordered By: Kendra Stern on 11-09-2022 Specific gravity (U) [Rel density] 1.007 1.001-1.030 [facility] Urinalysison 11-09-2022 Appearance (U) Clear Normal Clear [facility] Comment on above: Order Comment: Name Collection Type:: Clean-Voided Midstream Performed By: #### U A #### [facility] [address] [place] [id number] [place] Bilirubin,Urine Negative Normal Negative [facility] Comment on above: Order Comment: Name Collection Type:: Clean-Voided Midstream Performed By: #### U A #### [facility] [address] [place] [id number] [place] Color (U) Yellow Normal Yellow [facility] Comment on above: Order Comment: Name Collection Type:: Clean-Voided Midstream Performed By: #### U A #### [facility] [address] Glucose Ql (U) Normal Normal Normal [facility] Comment on above: Order Comment: Name Collection Type:: Clean-Voided Midstream Performed By: #### U A #### [facility] [address] Ketones Ql (U) Negative Normal Negative [facility] Comment on above: Order Comment: Name Collection Type:: Clean-Voided Midstream Performed By: #### U A #### [address] Leukocyte esterase Test strip Ql (U) Negative Normal Negative [facility] Comment on above: Order Comment: Name Collection Type:: Clean-Voided Midstream Performed By: #### U A #### [place] [address] [place] Nitrite,Urine Negative Normal Negative [facility] Comment on above: Order Comment: Name Collection Type:: Clean-Voided Midstream Performed By: #### U A #### [place] [address] [place] Occult Blood,Urine Negative Normal Negative [facility] Comment on above: Order Comment: Name Collection Type:: Clean-Voided Midstream Result Comment: PERF ORMED BY: [place] [address] PATHOLOGIST DESIGN/ANIMATION INSTRUCTOR LOLA BURGER M.D. Performed By: #### U A #### [facility] [address] [place] [address] [place] pH (U) 6.5 [pH] Normal 5.0-9.0 [facility] Comment on above: Order Comment: Name Collection Type:: Clean-Voided Midstream Performed By: #### U A #### [facility] [address] [place] [address] [place] Protein,Urine Negative Normal Negative [facility] Comment on above: Order Comment: Name Collection Type:: Clean-Voided Midstream Performed By: #### U A #### [facility] [address] [place] [id number] [facility] Specificy Jermyn,Urine 1.007 Normal 1.001-1.030 [facility] Comment on above: Order Comment: Name Collection Type:: Clean-Voided Midstream Performed By: #### U A #### [facility] [address] Urobilinogen,Urine Normal Normal Normal [facility] Comment on above: Order Comment: Name Collection Type:: Clean-Voided Midstream Performed By: #### U A #### [facility] [address] Urine clarity by refractomet ry automatedOrdered By: Kendra Stern on 11-09-2022 Clarity Refractometry automated (U) Clear Clear [facility] Urine glucose measurement by automated test strip (mass/volume)Ordered By: Kendra Stern on 11-09-2022 Glucose Auto test strip (U) [Mass/Vol] Normal mg/dL Normal [facility] Urine hemoglobin detection b y automated test stripOrdered By: Kendra Stern on 11-09-2022 Hemoglobin Auto test strip Ql (U) Negative Negative [facility] Urine leukocyte esterase det ection by automated test stripOrdered By: Kendra Stern on 11-09-2022 Leukocyte esterase Auto test strip Ql (U) Negative Negative [facility] Urobilinogen Auto test strip (U) [Mass/Vol]Ordered By: Kendra Stern on 11-09-2022 Urobilinogen (U) [Mass/Vol] Normal mg/dL Normal [facility] pH Auto test strip (U)Ordere d By: Kendra Stern on 11-09-2022 pH (U) 6.5 [pH] 5.0-9.0 [facility] Sodiumon 11-01-2022 Sodium [Moles/Vol] 133 mmol/L Low 136-146 [facility] Comment on above: Result Comment: PERF ORMED BY: [facility] [address] [place] [address] PATHOLOGIST DESIGN/ANIMATION INSTRUCTOR JIANLAN SUN M.D. Performed By: #### C BC, BMP #### [facility] [address] Basic Metabolic Panelon 10-07 Anion gap [Moles/Vol] 11.2 mmol/L Normal 6.0-15.0 [facility] Comment on above: Performed By: #### B MP, CBC #### [facility] [address] Calcium [Mass/Vol] 9.3 mg/dL Normal 8.2-10.2 [facility] Comment on above: Performed By: #### B MP, CBC #### [facility] [address] Chloride [Moles/Vol] 97 mmol/L Normal 95-[address] [facility] Comment on above: Performed By: #### B MP, CBC #### [facility] [address] CO2 [Moles/Vol] 24.7 mmol/L Normal 22.0-30.0 [facility] Comment on above: Performed By: #### B MP, CBC #### [facility] [address] Creatinine [Mass/Vol] 0.58 mg/dL Normal 0.44-1.03 [facility] Comment on above: Performed By: #### B MP, CBC #### [address] Creatinine Clr Calc Pharmacy 52.90 [facility] Comment on above: Result Comment: PERF ORMED BY: [place] [address] PATHOLOGIST DESIGN/ANIMATION INSTRUCTOR LOLA BURGER M.D. Performed By: #### B MP, CBC #### [address] Estimated GFR ( Tea > 60 Normal [facility] Comment on above: Result Comment: GFR estimated reference range: According to KDOQI guidelines, <60 ml/min/1.73m2 is sufficient to diagnose a patient with chronic kidney disease. Performed By: #### B MP, CBC #### [facility] [address] Estimated GFR (Non- Am > 60 Normal [facility] Comment on above: Performed By: #### B MP, CBC #### [facility] [address] Glucose [Mass/Vol] 112 mg/dL High 70-100 [facility] Comment on above: Result Comment: [place] Glucose Reference Range is dependent on time and content of last meal. Glucose of more than 200 mg/dL in a nonstressed, ambulatory subject supports the diagnosis of Diabetes Mellitus. ADA recommended reference range Performed By: #### B MP, CBC #### [address] Potassium [Moles/Vol] 3.9 mmol/L Normal 3.5-5.1 [facility] Comment on above: Performed By: #### B MP, CBC #### [address] Sodium [Moles/Vol] 129 mmol/L Low 136-146 [facility] Comment on above: Performed By: #### B MP, CBC #### [address] Urea nitrogen [Mass/Vol] 11 mg/dL Normal 9-23 [facility] Comment on above: Performed By: #### B MP, CBC #### [address] Complete Blood Count Auto Di ffon 10-30-2022 Basophils (Bld) [#/Vol] 0.0 10*3/uL Normal 0.0-0.2 [facility] Comment on above: Result Comment: PERF ORMED BY: [place] [address] PATHOLOGIST DESIGN/ANIMATION INSTRUCTOR LOLA BURGER M.D. Performed By: #### B MP, CBC #### [place] [address] [place] Basophils/100 WBC (Bld) 0.5 % Normal . [facility] Comment on above: Performed By: #### B MP, CBC #### [facility] [address] [place] [address] [place] Eosinophils (Bld) [#/Vol] 0.0 10*3/uL Normal 0.0-0.45 [facility] Comment on above: Performed By: #### B MP, CBC #### [facility] [address] Eosinophils/100 WBC (Bld) 0.2 % Normal . [facility] Comment on above: Performed By: #### B MP, CBC #### [facility] [address] Erythrocyte distribution width (RBC) [Ratio] 14.4 % Normal 11.9-15.3 [facility] Comment on above: Performed By: #### B MP, CBC #### [facility] [address] Hematocrit (Bld) [Volume fraction] 33.1 % Low 34.0-46.4 [facility] Comment on above: Performed By: #### B MP, CBC #### [facility] [address] [place] [address] [place] Hemoglobin (Bld) [Mass/Vol] 11.1 g/dL Low 11.8-15.4 [facility] Comment on above: Performed By: #### B MP, CBC #### [facility] [address] [place] [address] [place] Lymphocytes (Bld) [#/Vol] 0.6 10*3/uL Low 1.00-4.8 [facility] Comment on above: Performed By: #### B MP, CBC #### [facility] [address] [place] [address] [place] Lymphocytes/100 WBC (Bld) 6.7 % Normal . [facility] Comment on above: Performed By: #### B MP, CBC #### [facility] [address] MCH (RBC) [Entitic mass] 30.0 pg Normal 24.7-34.3 [facility] Comment on above: Performed By: #### B MP, CBC #### [facility] [address] MCV (RBC) [Entitic vol] 89.9 fL Normal 80-100 [facility] Comment on above: Performed By: #### B MP, CBC #### [facility] [address] Mean Corpuscular HGB Conc 33.4 g/dL Normal 32.0-35.0 [facility] Comment on above: Performed By: #### B MP, CBC #### [facility] [address] [place] [address] [place] Monocytes (Bld) [#/Vol] 0.7 10*3/uL Normal 0.0-0.8 [facility] Comment on above: Performed By: #### B MP, CBC #### [facility] [address] [place] [address] [place] Monocytes/100 WBC (Bld) 7.7 % Normal . [facility] Comment on above: Performed By: #### B MP, CBC #### [facility] [address] [place] [address] [place] Neutrophils (Bld) [#/Vol] 8.1 10*3/uL High 1.8-7.7 [facility] Comment on above: Performed By: #### B MP, CBC #### [facility] [address] [place] [id number] [place] Neutrophils/100 WBC (Bld) 84.9 % Normal . [facility] Comment on above: Performed By: #### B MP, CBC #### [facility] [address] [place] [address] [place] NRBC% 0.0 /100{WBC} Normal 0-0.5 [facility] Comment on above: Performed By: #### B MP, CBC #### [facility] [address] Platelet mean volume (Bld) [Entitic vol] 6.7 fL Normal 6.3-10.7 [facility] Comment on above: Performed By: #### B MP, CBC #### [facility] [address] Platelets (Bld) [#/Vol] 633 10*3/uL High 150-450 [facility] Comment on above: Performed By: #### B MP, CBC #### [facility] [address] RBC (Bld) [#/Vol] 3.69 10*6/uL Normal 3.60-5.00 [facility] Comment on above: Performed By: #### B MP, CBC #### [facility] [address] WBC (Bld) [#/Vol] 9.6 10*3/uL Normal 3.8-11.6 [facility] Comment on above: Performed By: #### B MP, CBC #### [facility] [address] Albumin [Mass/volume] in Ser um or PlasmaOrdered By: Stewart Carlton on 10-26-2022 Albumin [Mass/Vol] 2.6 g/dL 3.2-5.5 [facility] Alkaline phosphatase [Enzyma tic activity/volume] in Serum or PlasmaOrdered By: Stewart Carlton on 10-26-2022 ALP [Catalytic activity/Vol] 80 U/L 32-92 [facility] Aspartate aminotransferase [ Enzymatic activity/volume] in Serum or PlasmaOrdered By: Stewart Carlton on 10-26-2022 AST [Catalytic activity/Vol] 24 U/L 10-42 [facility] Bilirubin.total [Mass/volume ] in Serum or PlasmaOrdered By: Stewart Carlton on 10-26-2022 Bilirubin [Mass/Vol] 0.4 mg/dL 0.3-1.[address] [facility] Complete Blood Count Auto Di ffon 10-26-2022 Basophils (Bld) [#/Vol] 0.0 10*3/uL Normal 0.0-0.2 [facility] Comment on above: Result Comment: PERF ORMED BY: [place] [address] PATHOLOGIST DESIGN/ANIMATION INSTRUCTOR LOLA BURGER M.D. Performed By: #### C BC, BMP #### [facility] [address] [place] [address] [place] Basophils/100 WBC (Bld) 0.4 % Normal . [facility] Comment on above: Performed By: #### C BC, BMP #### [facility] [address] [place] [address] [place] Eosinophils (Bld) [#/Vol] 0.0 10*3/uL Normal 0.0-0.45 [facility] Comment on above: Performed By: #### C BC, BMP #### [facility] [address] [place] [address] [place] Eosinophils/100 WBC (Bld) 0.6 % Normal . [facility] Comment on above: Performed By: #### C BC, BMP #### [facility] [address] Erythrocyte distribution width (RBC) [Ratio] 14.3 % Normal 11.9-15.3 [facility] Comment on above: Performed By: #### C BC, BMP #### [facility] [address] [place] [address] [place] Hematocrit (Bld) [Volume fraction] 36.2 % Normal 34.0-46.4 [facility] Comment on above: Performed By: #### C BC, BMP #### [facility] [address] [place] [address] [place] Hemoglobin (Bld) [Mass/Vol] 12.3 g/dL Normal 11.8-15.4 [facility] Comment on above: Performed By: #### C BC, BMP #### [facility] [address] [place] [address] [place] Lymphocytes (Bld) [#/Vol] 0.7 10*3/uL Low 1.00-4.8 [facility] Comment on above: Performed By: #### C BC, BMP #### [facility] [address] [place] [address] [place] Lymphocytes/100 WBC (Bld) 8.8 % Normal . [facility] Comment on above: Performed By: #### C BC, BMP #### [facility] [address] MCH (RBC) [Entitic mass] 30.6 pg Normal 24.7-34.3 [facility] Comment on above: Performed By: #### C BC, BMP #### [facility] [address] MCV (RBC) [Entitic vol] 89.8 fL Normal 80-100 [facility] Comment on above: Performed By: #### C BC, BMP #### [facility] [address] Mean Corpuscular HGB Conc 34.0 g/dL Normal 32.0-35.0 [facility] Comment on above: Performed By: #### C BC, BMP #### [facility] [address] Monocytes (Bld) [#/Vol] 0.8 10*3/uL Normal 0.0-0.8 [facility] Comment on above: Performed By: #### C BC, BMP #### [facility] [address] [place] [address] [place] Monocytes/100 WBC (Bld) 9.8 % Normal . [facility] Comment on above: Performed By: #### C BC, BMP #### [facility] [address] Neutrophils (Bld) [#/Vol] 6.8 10*3/uL Normal 1.8-7.7 [facility] Comment on above: Performed By: #### C BC, BMP #### [facility] [address] [place] [address] [place] Neutrophils/100 WBC (Bld) 80.4 % Normal . [facility] Comment on above: Performed By: #### C BC, BMP #### [facility] [address] [place] [address] [place] NRBC% 0.0 /100{WBC} Normal 0-0.5 [facility] Comment on above: Performed By: #### C BC, BMP #### [facility] [address] Platelet mean volume (Bld) [Entitic vol] 6.8 fL Normal 6.3-10.7 [facility] Comment on above: Performed By: #### C BC, BMP #### [facility] [address] Platelets (Bld) [#/Vol] 591 10*3/uL High 150-450 [facility] Comment on above: Performed By: #### C BC, BMP #### [address] RBC (Bld) [#/Vol] 4.03 10*6/uL Normal 3.60-5.00 [facility] Comment on above: Performed By: #### C BC, BMP #### [address] WBC (Bld) [#/Vol] 8.4 10*3/uL Normal 3.8-11.6 [facility] Comment on above: Performed By: #### C BC, BMP #### [address] Comprehensive Metabolic Pane gabi 10-26-2022 Albumin [Mass/Vol] 2.6 g/dL Low 3.2-5.5 [facility] Comment on above: Performed By: #### C BC, CMP, PAB #### [facility] [address] [place] [address] Albumin/Globulin [Mass ratio] 0.6 {ratio} Normal [facility] Comment on above: Performed By: #### C BC, CMP, PAB #### [facility] [address] [place] [address] [place] ALP [Catalytic activity/Vol] 80 U/L Normal 32-92 [facility] Comment on above: Performed By: #### C BC, CMP, PAB #### [facility] [address] [place], [place] [id number] [facility] ALT [Catalytic activity/Vol] 24 U/L Normal 10-60 [facility] Comment on above: Performed By: #### C BC, CMP, PAB #### [facility] [address] [place] [id number] [place] Anion gap [Moles/Vol] 12.0 mmol/L Normal 6.0-15.0 [facility] Comment on above: Performed By: #### C BC, CMP, PAB #### [facility] [address] [place] [id number] [place] AST [Catalytic activity/Vol] 24 U/L Normal 10-42 [facility] Comment on above: Performed By: #### C BC, CMP, PAB #### [facility] [address] [place] [address] [place] Bilirubin [Mass/Vol] 0.4 mg/dL Normal 0.3-1.[address] [facility] Comment on above: Performed By: #### C BC, CMP, PAB #### [facility] [address] [place] [id number] [place] Calcium [Mass/Vol] 9.7 mg/dL Normal 8.2-10.2 [facility] Comment on above: Performed By: #### C BC, CMP, PAB #### [facility] [address] [place] [id number] [place] Chloride [Moles/Vol] 96 mmol/L Normal 95-[address] [facility] Comment on above: Performed By: #### C BC, CMP, PAB #### [facility] [address] [place] [id number] [place] CO2 [Moles/Vol] 25.2 mmol/L Normal 22.0-30.0 [facility] Comment on above: Performed By: #### C BC, CMP, PAB #### [facility] [address] [place] [id number] [place] Creatinine [Mass/Vol] 0.63 mg/dL Normal 0.44-1.03 [facility] Comment on above: Performed By: #### C BC, CMP, PAB #### [facility] [address] [place] [id number] [place] Creatinine Clr Calc Pharmacy 52.90 Normal [facility] Comment on above: Performed By: #### C BC, CMP, PAB #### [facility] [address] [place] [address] [place] Estimated GFR ( Tea > 60 Normal [facility] Comment on above: Result Comment: GFR estimated reference range: According to KDOQI guidelines, <60 ml/min/1.73m2 is sufficient to diagnose a patient with chronic kidney disease. Performed By: #### C BHAKTI CMP, PAB #### [facility] [address] Estimated GFR (Non- Am > 60 Normal [facility] Comment on above: Performed By: #### C LOUISA YA, PAB #### [facility] [address] Globulin (S) [Mass/Vol] 4.2 g/dL Normal [facility] Comment on above: Performed By: #### C LOUISA YA, PAB #### [facility] [address] Glucose [Mass/Vol] 107 mg/dL High 70-100 [facility] Comment on above: Result Comment: [place] Glucose Reference Range is dependent on time and content of last meal. Glucose of more than 200 mg/dL in a nonstressed, ambulatory subject supports the diagnosis of Diabetes Mellitus. ADA recommended reference range Performed By: #### C LOUISA YA, PAB #### [facility] [address] Potassium [Moles/Vol] 4.2 mmol/L Normal 3.5-5.1 [facility] Comment on above: Performed By: #### C LOUISA YA, PAB #### [facility] [address] Protein [Mass/Vol] 6.8 g/dL Normal 6.1-7.9 [facility] Comment on above: Performed By: #### C LOUISA YA, PAB #### [facility] [address] Sodium [Moles/Vol] 129 mmol/L Low 136-146 [facility] Comment on above: Performed By: #### C LOUISA YA, PAB #### [facility] [address] Urea nitrogen [Mass/Vol] 7 mg/dL Low 9-23 [facility] Comment on above: Performed By: #### C BC, CMP, PAB #### [facility] [address] Globulin Calc (S) [Mass/Vol] Ordered By: Stewart Carlton on 10-26-2022 Globulin (S) [Mass/Vol] 4.2 g/dL [facility] Prealbuminon 10-26-2022 Prealbumin [Mass/Vol] 7.9 mg/dL Low 18.0-38.0 [facility] Comment on above: Result Comment: PERF ORMED BY: [place] [address] PATHOLOGIST DESIGN/ANIMATION INSTRUCTOR LOLA BURGER M.D. Performed By: #### C BC, CMP, PAB #### [address] Prealbumin [Mass/volume] in Serum or PlasmaOrdered By: Stewart Carlton on 10-26-2022 Prealbumin [Mass/Vol] 7.9 mg/dL 18.0-38.0 [facility] Protein [Mass/volume] in Ser um or PlasmaOrdered By: Stewart Carlton on 10-26-2022 Protein [Mass/Vol] 6.8 g/dL 6.1-7.9 [facility] Serum or plasma alanine johnson otransferase measurement without P-5'-P (enzymatic activiOrdered By: Stewart Carlton on 10-26-2022 ALT No additional P-5'-P [Catalytic activity/Vol] 24 U/L 10-60 [facility] Serum or plasma albumin/glob ulin mass ratioOrdered By: Stewart Carlton on 10-26-2022 Albumin/Globulin [Mass ratio] 0.6 {ratio} [facility] Basic Metabolic Panelon 11-03 Anion gap [Moles/Vol] 16 mmol/L Normal 12-20 [facility] [place] [employer] Comment on above: Result Comment: Effe ctive 09/10/2019 reference range changed. Performed By: #### C BCAD, CMP, LIPD, TSH, GGT #### [facility] [address] [place], [place] [id number] Calcium [Mass/Vol] 10.1 mg/dL Normal 8.6-10.2 Lizzeth garcía [place] [employer] Comment on above: Performed By: #### C BCAD, CMP, LIPD, TSH, GGT #### [facility] [address] [place], [place] [id number] Chloride [Moles/Vol] 96 mmol/L Low 98-107 [facility] Comment on above: Performed By: #### C BCAD, CMP, LIPD, TSH, GGT #### [facility] [address] [place], [place] [id number] CO2 [Moles/Vol] 25 mmol/L Normal 20-[address] [facility] Comment on above: Performed By: #### C BCAD, CMP, LIPD, TSH, GGT #### [facility] [address] [place], [place] [id number] Creatinine [Mass/Vol] 0.6 mg/dL Normal 0.6-1.4 [facility] Comment on above: Performed By: #### C BCAD, CMP, LIPD, TSH, GGT #### [facility] [address] [place], [place] [id number] eGFRAA 124 mL/min/1.73m2 Normal >60 [facility] Specialist Comment on above: Performed By: #### C BCAD, CMP, LIPD, TSH, GGT #### [facility] [address] [place], [place] [id number] eGFRNAA 103 mL/min/1.73m2 Normal >60 [facility] Specialist Comment on above: Performed By: #### C BCAD, CMP, LIPD, TSH, GGT #### [facility] [address] [place], [place] [id number] Glucose [Mass/Vol] 143 mg/dL High 65-99 Lizzeth garcía [place] [employer] Comment on above: Result Comment: For FASTING Glucose --- ADA reference ranges: Normal 65-99 mg/dl Prediabetes 100-125 Diabetes >/= 126 Performed By: #### C BCAD, CMP, LIPD, TSH, GGT #### [facility] [address] [place], [place] [id number] Potassium [Moles/Vol] 4.3 mmol/L Normal 3.5-5.5 [facility] Comment on above: Performed By: #### C BCAD, CMP, LIPD, TSH, GGT #### [facility] [address] [place], [place] [id number] Sodium [Moles/Vol] 133 mmol/L Low 135-146 [facility] Comment on above: Performed By: #### C BCAD, CMP, LIPD, TSH, GGT #### [facility] [address] [place], [place] [id number] Urea nitrogen [Mass/Vol] 8 mg/dL Normal 7-[address] [facility] Comment on above: Performed By: #### C BCAD, CMP, LIPD, TSH, GGT #### [facility] [address] [place], [place] [id number] Magnesiumon 11-17-2021 Magnesium [Mass/Vol] 1.8 mg/dL Normal 1.5-2.3 [facility] Comment on above: Performed By: #### C BCAD, CMP, LIPD, TSH, GGT #### [facility] [address] [place], [place] [id number] Q - CMV AB (IGG,IGM)on 11-17 CYTOMEGALOVIRUS ANTIBODY (IGG) <0.[address] [facility] Comment on above: Order Comment: [facility] performed at: [employer], [facility], [address] [place] [address], [address] [place] [address], [phone], Space Systems Operations Superintendent: Jeffrey Leary MDQuest Collection Date/Time: [id number] Results Received Date/Time: [id number] Reported Date/Time: Result Comment: U/mL Interpretation ----- <0.60 Negative 0.60-0.69 Equivocal > or = 0.70 Positive A positive result indicates that the patient has antibody to CMV. It does not differentiate between an active or past infection. Performed By: #### C BCAD, CMP, LIPD, TSH, GGT #### [facility] [address] [place], [place] [id number] CYTOMEGALOVIRUS ANTIBODY (IGM) <30.00 Normal [facility] Specialist Comment on above: Order Comment: [facility] performed at: [employer], [facility], [address] [facility], [address] [place] [address], [phone], Space Systems Operations Superintendent: Jeffrey Will Collection Date/Time: [id number] Results Received Date/Time: [id number] Reported Date/Time: Result Comment: AU/m L Interpretation ----- <30.00 No Antibody Detected 30.00-34.99 Equivocal > or = 35.00 Antibody Detected Results from any one IgM assay should not be used as a sole determinant of a current or recent infection. Because an IgM test can yield false positive results and low level IgM antibody may persist for more than 12 months post infection, reliance on a single test result could be misleading. Acute infection is best diagnosed by demonstrating the conversion of IgG from negative to positive. If an acute infection is suspected, consider obtaining a new specimen and submit for both IgG and IgM testing in two or more weeks. Performed By: #### C BCAD, CMP, LIPD, TSH, GGT #### [facility] [address] [place], [place] [id number] Q - EBV NUCLEAR AG (EBNA) AB (IGG)on 11-17-2021 EBV NUCLEAR AG (EBNA) AB (IGG) 328.00 U/mL High [facility] [employer] Comment on above: Order Comment: [facility] performed at: [facility], [address] [facility], [address] [place] [address], [phone], Space Systems Operations Superintendent: Jeffrey Will Collection Date/Time: [id number] Results Received Date/Time: [id number] Reported Date/Time: Result Comment: U/mL Interpretation ---- <18.00 Negative 18.00-21.99 Equivocal >21.99 Positive Performed By: #### C BCAD, CMP, LIPD, TSH, GGT #### [facility] [address] [place], [place] [id number] Q - LYME DISEASE AB screen W /REFLEX TO IgG IgMon 11-17-2021 LYME AB SCREEN <0.90 Normal [facility] [employer] Comment on above: Order Comment: [facility] performed at: [facility], [address] , [address] [place] [address], [phone], Space Systems Operations Superintendent: Jeffrey Leary MDQuest Collection Date/Time: [id number] Results Received Date/Time: [id number] Reported Date/Time: Result Comment: Inde x Interpretation ----- < 0.90 Negative 0.90-1.09 Equivocal > 1.09 Positive As recommended by the Food and Drug Administration (FDA), all samples with positive or equivocal results in a Borrelia burgdorferi antibody screen will be tested using a blot method. Positive or equivocal screening test results should not be interpreted as truly positive until verified as such using a supplemental assay (e.g., B. burgdorferi blot). The screening test and/or blot for B. burgdorferi antibodies may be falsely negative in early stages of Lyme disease, including the period when erythema migrans is apparent. Performed By: #### C BCAD, CMP, LIPD, TSH, GGT #### [facility] [address] [place], [place] [id number] Q - RPR (MONITOR) W/RFX TITE Kike 11-17-2021 RPR (MONITOR) W/REFL TITER Non-Reactive Normal NON-REACTIVE [facility] [employer] Comment on above: Order Comment: [facility] performed at: [facility], [address], [address] [place] [address], [phone], Space Systems Operations Superintendent: Jeffrey Leary MDQuest Collection Date/Time: [id number] Results Received Date/Time: [id number] Reported Date/Time: Performed By: #### C BCAD, CMP, LIPD, TSH, GGT #### [facility] [address] [place], [place] [id number] Q - VITAMIN Sky 11-17-2021 ALPHA-TOCOPHEROL 10.7 mg/L Normal 5.7-19.9 [facility] Specialist Comment on above: Order Comment: [facility] performed at: [facility], [address] [address], [place], [place], , Space Systems Operations Superintendent: Richard Tarango M.D.,PhDQuest Collection Date/Time: [id number] Results Received Date/Time: [id number] Reported Date/Time: Result Comment: Leve ls of alpha-tocopherol <5 mg/L are consistent with Vitamin E deficiency in adults. Performed By: #### C BCAD, CMP, LIPD, TSH, GGT #### [facility] [address] [place], [place] [id number] 1.9 mg/L Normal <=4.3 [facility] Comment on above: Order Comment: [facility] performed at: [facility], [address], [place], [place], , Space Systems Operations Superintendent: Richard Tarango M.D.,PhDQuest Collection Date/Time: [id number] Results Received Date/Time: [id number] Reported Date/Time: Result Comment: Deonna min supplementation within 24 hours prior to blood draw may affect the accuracy of the results. This test was developed and its analytical performance characteristics have been determined by [facility] [place], [place]. It has not been cleared or approved by the U.S. Food and Drug Administration. This assay has been validated pursuant to the CLIA regulations and is used for clinical purposes. Performed By: #### C BCAD, CMP, LIPD, TSH, GGT #### [facility] [address] [place], [place] [id number] Q - ZINCon 11-17-2021 ZINC 58 mcg/dL Low 60-130 [facility] Software [employer] Comment on above: Order Comment: [facility] performed at: [facility], [facility], [address] [address], [place], [place], , Space Systems Operations Superintendent: Richard Tarango M.D.,PhD [facility] Date/Time: [id number] [facility] Results Received Date/Time: [facility] Reported Date/Time: Result Comment: This test was developed and its analytical performance characteristics have been determined by [facility] [place], [place]. It has not been cleared or approved by the U.S. Food and Drug Administration. This assay has been validated pursuant to the CLIA regulations and is used for clinical purposes. Performed By: #### 1 149T, 931X, 6646, 9928T, 945X, 8564X #### [facility] [address] [place] [address] SCREENING MAMMOGRAM W/EVAN, BILATERAL*on 11-17-2021 SCREENING MAMMOGRAM W/EVAN, BILATERAL* CLINICAL HISTORY: Screening Mammogram COMPARISON: Dating back to December 31, 2009 TECHNIQUE: 2D and 3D Tomosynthesis of the right and left breasts was performed. FINDINGS: Breast composition demonstrates scattered fibroglandular densities. No suspicious microcalcifications , asymmetry, architectural distortion, or associated features are present. Overall appearance is stable. IMPRESSION: BIRADS 1: Negative mammogram Board Certified Radiologist. Accredited by the ACR and FDA. MAMMOGRAPHY IS VERY IMPORTANT TO YOUR HEALTH. THE CURRENT [place] [employer] AND [employer] GUIDELINES RECOMMENDS ANNUAL MAMMOGRAPHY BEGINNING AT AGE 40 THIS FACILITY USES A REMINDER SYSTEM TO ENSURE ALL PATIENTS RECEIVE REMINDER NOTIFICATIONS AT THE APPROPRIATE TIME BASED ON THE RECOMMENDATIONS OF THIS EXAM. Report reported and signed by Stewart Martinez on 11/17/2021 1105 Normal [facility] [employer] XR Bone Density (DEXA)on XR Bone Density (DEXA) EXAM: Dual Femur Bone Density FINDINGS: Dual Femur bone density obtained with a iCopyright whole body system: RegionBMDYoung-Adul tAge-Matched Total(g/cm2)(%)T-Sc ore(%)Z-Score Mean0.23268-4.797-0 .2 Impression: The mean BMD and corresponding T-score indicated above indicate Low Bone Mass (Osteopenia) and places the patient at a mild to moderate increased risk for fracture. There may be a future risk of developing osteoporosis. EXAM: AP Lumbar Bone Density FINDINGS: AP Spine bone density obtained with a LumiyigEstrogen Gene Test whole body system: RegionBMDYoung-Adul tAge-Matched Total(g/cm2)(%)T-Sc ore(%)Z-Score L1-L41.4461200.7911 2.9 Impression: The mean BMD and corresponding T-score indicated above indicate Normal Bone Mass and places the patient no significant risk for fracture. This information can serve as a baseline with which to compare future studies. Comment: The T-score is the primary focus of the interpretation of a patient???s bone mineral density measurement. The T-score is the number of standard deviations an individual is above or below the mean value for a young female having normal bone mass. The WHO defines osteoporosis based on the T-score value??? +1.0 to ???0.9: Normal bone mass -1.0 to -2.5: Osteopenia and thus may be at future risk of fracture -2.6 to ???5: Osteoporosis and ???at significantly increased risk of fracture??? A Z-Score of -2.0 or lower is defined as ???below the expected range for age??? and a Z-Score above -2.0 is ???within the expected range for age.??? Osteoporosis cannot be diagnosed in men under the age of 50 on the basis of BMD alone. Per 2019 ISCD guidelines, Z-Scores (not T-Scores) are preferred when reporting data in premenopausal females and males less than 50 years of age. Report reported and signed by Stewart Martinez on 11/17/2021 0954 Normal [facility] [employer] Complete Blood Count with Au to Diffon 11-10-2021 Basophils (Bld) [#/Vol] 0.03 10*3/uL Normal 0.00-0.20 [facility] [employer] Comment on above: Performed By: #### C BCAD, CMP, LIPD, TSH, GGT #### [facility] [address] [place], [place] [id number] Basophils/100 WBC (Bld) 0.4 % Normal N [facility] Comment on above: Performed By: #### C BCAD, CMP, LIPD, TSH, GGT #### [facility] [address] [place], [place] [id number] Eosinophils (Bld) [#/Vol] 0.11 10*3/uL Normal 0.02-0.50 [facility] Specialist Comment on above: Performed By: #### C BCAD, CMP, LIPD, TSH, GGT #### [facility] [address] [place], [place] [id number] Eosinophils/100 WBC (Bld) 1.4 % Normal [facility] Comment on above: Performed By: #### C BCAD, CMP, LIPD, TSH, GGT #### [facility] [address] [place], [place] [id number] Erythrocyte distribution width (RBC) [Ratio] 13.2 % Normal 11.0-15.0 [facility] Comment on above: Performed By: #### C BCAD, CMP, LIPD, TSH, GGT #### [facility] [address] [place], [place] [id number] Hematocrit (Bld) [Volume fraction] 41.4 % Normal 35.0-47.0 [facility] Specialist Comment on above: Performed By: #### C BCAD, CMP, LIPD, TSH, GGT #### [facility] [address] [place], [place] [id number] Hemoglobin (Bld) [Mass/Vol] 14.7 g/dL Normal 11.6-15.5 [facility] Specialist Comment on above: Performed By: #### C BCAD, CMP, LIPD, TSH, GGT #### [facility] [address] [place], [place] [id number] Lymphocytes (Bld) [#/Vol] 1.1 10*3/uL Normal 0.9-3.9 [facility] Specialist Comment on above: Performed By: #### C BCAD, CMP, LIPD, TSH, GGT #### [facility] [address] [place], [place] [id number] Lymphocytes/100 WBC (Bld) 14.7 % Normal [facility] Comment on above: Performed By: #### C BCAD, CMP, LIPD, TSH, GGT #### [facility] [address] [place], [place] [id number] MCH (RBC) [Entitic mass] 31.8 pg Normal 27.0-33.[address] [facility] Comment on above: Performed By: #### C BCAD, CMP, LIPD, TSH, GGT #### [facility] [address] [place], [place] [id number] MCHC (RBC) [Mass/Vol] 35.5 g/dL Normal 32.0-36.0 [facility] Comment on above: Performed By: #### C BCAD, CMP, LIPD, TSH, GGT #### [facility] [address] [place], [place] [id number] MCV (RBC) [Entitic vol] 90 fL Normal 80-100 [facility] Comment on above: Performed By: #### C BCAD, CMP, LIPD, TSH, GGT #### [facility] [address] [place], [place] [id number] Monocytes (Bld) [#/Vol] 0.7 10*3/uL Normal 0.2-0.[address] [facility] Comment on above: Performed By: #### C BCAD, CMP, LIPD, TSH, GGT #### [facility] [address] [place], [place] [id number] Monocytes/100 WBC (Bld) 9.2 % Normal [facility] Comment on above: Performed By: #### C BCAD, CMP, LIPD, TSH, GGT #### [facility] [address] [place], [place] [id number] Neutrophils (Bld) [#/Vol] 5.7 10*3/uL Normal 1.5-7.[address] [facility] Comment on above: Performed By: #### C BCAD, CMP, LIPD, TSH, GGT #### [facility] [address] [place], [place] [id number] Neutrophils/100 WBC (Bld) 73.6 % Normal [facility] Comment on above: Performed By: #### C BCAD, CMP, LIPD, TSH, GGT #### [facility] [address] [place], [place] [id number] Platelet mean volume (Bld) [Entitic vol] 9.20 fL Normal 7.50-12.50 [facility] Comment on above: Performed By: #### C BCAD, CMP, LIPD, TSH, GGT #### [facility] [address] [place], [place] [id number] Platelets (Bld) [#/Vol] 309 10*3/uL Normal 140-400 [facility] Specialist Comment on above: Performed By: #### C BCAD, CMP, LIPD, TSH, GGT #### [facility] [address] [place], [place] [id number] RBC (Bld) [#/Vol] 4.62 10*6/uL Normal 3.90-5.20 [facility] Specialist Comment on above: Performed By: #### C BCAD, CMP, LIPD, TSH, GGT #### [facility] [address] [place], [place] [id number] RDW-SD 43.1 fL Normal 37.0-50.0 [facility] Specialist Comment on above: Performed By: #### C BCAD, CMP, LIPD, TSH, GGT #### [facility] [address] [place], [place] [id number] WBC (Bld) [#/Vol] 7.7 10*3/uL Normal 3.8-11.0 [facility] Software [employer] Comment on above: Performed By: #### C BCAD, CMP, LIPD, TSH, GGT #### [facility] [address] [place], [place] [id number] Comprehensive Metabolic Pane gabi 11-10-2021 Albumin [Mass/Vol] 4.9 g/dL Normal 3.6-5.1 [facility] Comment on above: Performed By: #### C BCAD, CMP, LIPD, TSH, GGT #### [facility] [address] [place], [place] [id number] Albumin/Globulin [Mass ratio] 1.7 {ratio} Normal 1.0-2.5 [facility] Specialist Comment on above: Performed By: #### C BCAD, CMP, LIPD, TSH, GGT #### [facility] [address] [place], [place] [id number] ALP [Catalytic activity/Vol] 85 U/L Normal 35-[address] [facility] Comment on above: Performed By: #### C BCAD, CMP, LIPD, TSH, GGT #### [facility] [address] [place], [place] [id number] ALT [Catalytic activity/Vol] 14 U/L Normal 6-[address] [facility] Comment on above: Result Comment: 08/05 Female reference range changed. Performed By: #### C BCAD, CMP, LIPD, TSH, GGT #### [facility] [address] [place], [place] [id number] Anion gap [Moles/Vol] 24 mmol/L High 12-20 [facility] Comment on above: Result Comment: Effe ctive 09/10/2019 reference range changed. Performed By: #### C BCAD, CMP, LIPD, TSH, GGT #### [facility] [address] [place], [place] [id number] AST [Catalytic activity/Vol] 22 U/L Normal 9-[address] [facility] Comment on above: Performed By: #### C BCAD, CMP, LIPD, TSH, GGT #### [facility] [address] [place], [place] [id number] Bilirubin [Mass/Vol] 0.62 mg/dL Normal 0.30-1.20 [facility] Comment on above: Performed By: #### C BCAD, CMP, LIPD, TSH, GGT #### [facility] [address] [place], [place] [id number] BUN/CREA 17 Ratio Normal 6-[address] [facility] Comment on above: Performed By: #### C BCAD, CMP, LIPD, TSH, GGT #### [facility] [address] [place], [place] [id number] Calcium [Mass/Vol] 10.4 mg/dL High 8.6-10.2 [facility] Comment on above: Performed By: #### C BCAD, CMP, LIPD, TSH, GGT #### [facility] [address], [place] [id number] Chloride [Moles/Vol] 90 mmol/L Low 98-107 [facility] Comment on above: Performed By: #### C BCAD, CMP, LIPD, TSH, GGT #### [facility] [address], [place] [id number] CO2 [Moles/Vol] 20 mmol/L Normal 20-[address] [facility] Comment on above: Performed By: #### C BCAD, CMP, LIPD, TSH, GGT #### [facility] [address], [place] [id number] Creatinine [Mass/Vol] 0.4 mg/dL Low 0.6-1.4 [facility] Comment on above: Performed By: #### C BCAD, CMP, LIPD, TSH, GGT #### [facility] [address], [place] [id number] eGFRAA 179 mL/min/1.73m2 Normal >60 [facility] Comment on above: Performed By: #### C BCAD, CMP, LIPD, TSH, GGT #### [facility] [address], [place] [id number] eGFRNAA 148 mL/min/1.73m2 Normal >60 [facility] Comment on above: Performed By: #### C BCAD, CMP, LIPD, TSH, GGT #### [facility] [address], [place] [id number] Globulin (S) [Mass/Vol] 2.9 g/dL Normal 1.9-3.7 [facility] Comment on above: Performed By: #### C BCAD, CMP, LIPD, TSH, GGT #### [facility] [address], [place] [id number] Glucose [Mass/Vol] 100 mg/dL High 65-99 [facility] Comment on above: Result Comment: For FASTING Glucose --- ADA reference ranges: Normal 65-99 mg/dl Prediabetes 100-125 Diabetes >/= 126 Performed By: #### C BCAD, CMP, LIPD, TSH, GGT #### [facility] [address], [place] [id number] Potassium [Moles/Vol] 4.4 mmol/L Normal 3.5-5.5 [facility] Comment on above: Performed By: #### C BCAD, CMP, LIPD, TSH, GGT #### [facility] [address], [place] [id number] Protein [Mass/Vol] 7.8 g/dL Normal 6.1-8.1 Lizzeth garcía [place] [employer] Comment on above: Performed By: #### C BCAD, CMP, LIPD, TSH, GGT #### [facility] [address], [place] [id number] Sodium [Moles/Vol] 130 mmol/L Low 135-146 Lizzeth garcía [place] [employer] Comment on above: Performed By: #### C BCAD, CMP, LIPD, TSH, GGT #### [facility] [address], [place] [id number] Urea nitrogen [Mass/Vol] 7 mg/dL Normal 7-25 [facility] [employer] Comment on above: Performed By: #### C BCAD, CMP, LIPD, TSH, GGT #### [facility] [address], [place] [id number] GGTon 11-10-2021 Gamma glutamyl transferase [Catalytic activity/Vol] 28 U/L Normal 5-36 [facility] Comment on above: Performed By: #### C BCAD, CMP, LIPD, TSH, GGT #### [facility] [address], [place] [id number] Lipid Panelon 11-10-2021 Cholesterol [Mass/Vol] 186 mg/dL Normal 125-[address] [facility] Comment on above: Result Comment: Low risk < 200mg/dL Borderline risk 201-239 mg/dl High risk > or equal to 240 Performed By: #### C BCAD, CMP, LIPD, TSH, GGT #### [facility] [address], [place] [id number] Cholesterol in HDL [Mass/Vol] 116 mg/dL Normal >40 [facility] [employer] Comment on above: Result Comment: High Cardiovascular Risk HDL <40 mg/dL Low Cardiovascular Risk HDL > or equal to 60 mg/dl Performed By: #### C BCAD, CMP, LIPD, TSH, GGT #### [facility] [address], [place] [id number] Cholesterol in LDL [Mass/Vol] 61 mg/dL Normal [facility] Comment on above: Result Comment: LDL ATP III CLASSIFICATION LDL less than 100 mg/dl Optimal LDL 100-129 mg/dl Near or above optimal LDL 130-159 Borderline high LDL 160-189 High LDL greater than 189 mg/dl Very High Performed By: #### C BCAD, CMP, LIPD, TSH, GGT #### [facility] [address], [place] [id number] Cholesterol in VLDL [Mass/Vol] 9 mg/dL Normal [facility] Comment on above: Performed By: #### C BCAD, CMP, LIPD, TSH, GGT #### [facility] [address], [place] [id number] Cholesterol.total/Choles terol in HDL [Mass ratio] 2 {ratio} Normal [facility] Comment on above: Performed By: #### C BCAD, CMP, LIPD, TSH, GGT #### [facility] [address], [place] [id number] Triglyceride [Mass/Vol] 47 mg/dL Normal 30-150 [facility] Comment on above: Result Comment: TRIG ATPIII CLASSIFICATIONS TRIG less than 150 mg/dl Normal TRIG 150-199 mg/dl Borderline High TRIG 200-500 mg/dl High TRIG greather than 500 mg/dl Very High Performed By: #### C BCAD, CMP, LIPD, TSH, GGT #### [facility] [address], [place] [id number] Q - AMMONIA,PLASMAon 022 Ammonia (P) [Moles/Vol] 32 umol/L Normal < OR = 72 [facility] Comment on above: Order Comment: [facility] performed at: [facility], [facility], [address] [facility], [address] [place] [address], [place], [address], Space Systems Operations Superintendent: Jeffrey Leary MD [facility] Collection Date/Time: [id number] [facility] Results Received Date/Time: [id number] [facility] Reported Date/Time: Performed By: #### 5 [id number] #### [facility] [address] [place] [address] Q - VITAMIN B1 (THIAMINE),BL OODon 11-10-2021 VITAMIN B1 (THIAMINE), BLOOD, LC/MS/MS 98 nmol/L Normal 78-185 [facility] Comment on above: Order Comment: [facility] performed at: [facility], [address], [place], [place], , Space Systems Operations Superintendent: Richard Tarango M.D.,PhDQuest Collection Date/Time: [id number] Results Received Date/Time: [id number] Reported Date/Time: Result Comment: Deonna min supplementation within 24 hours prior to blood draw may affect the accuracy of the results. This test was developed and its analytical performance characteristics have been determined by [employer] [place], [place]. It has not been cleared or approved by the U.S. Food and Drug Administration. This assay has been validated pursuant to the CLIA regulations and is used for clinical purposes. Performed By: #### C BCAD, CMP, LIPD, TSH, GGT #### [facility] [address], [place] [id number] Q - VITAMIN B2 (RIBOFLAVIN)o n 11-10-2021 VITAMIN B2 (RIBOFLAVIN), PLASMA TNP Normal [facility] Comment on above: Order Comment: [facility] performed at: [facility], [facility] [place], [address] , [place], [address], [employer] Systems Operations Superintendent: Shar Aggarwal M.D.[facility] Collection Date/Time: [id number] Results Received Date/Time: [id number] Reported Date/Time: Result Comment: TEST NOT PERFORMED No suitable specimen received. Please review the test requirements at [email or web address] Performed By: #### C BCAD, CMP, LIPD, TSH, GGT #### [facility] [address] [facility] [place] [id number] TSHon 11-10-2021 TSH 1.070 uIU/mL Normal 0.400-4.500 [facility] Comment on above: Performed By: #### C BCAD, CMP, LIPD, TSH, GGT #### [facility] [address], [place] [id number] Vitamin B12on 11-10-2021 Cobalamin (Vitamin B12) [Mass/Vol] 398 pg/mL Normal 211-946 [facility] Comment on above: Performed By: #### B 12 #### [facility] [address], [place] [id number] Vital Signs Date Time Vital Sign Value Performing Clinician Faci lity 11-18-2022 05:00-0400 Body temperature 98.2 [degF] [facility] 11-18-2022 05:00-0400 Diastolic blood pressure 82 mm[Hg] [facility] 11-18-2022 05:00-0400 Heart rate 74 /min [facility] 11-18-2022 05:00-0400 Respiratory rate 18 /min [facility] 11-18-2022 05:00-0400 SaO2% (BldA) [Mass fraction] 97 % [facility] 11-18-2022 05:00-0400 Systolic blood pressure 140 mm[Hg] [facility] 11-17-2022 08:05-0400 Body height 154.94 cm [facility] 11-14-2022 06:00-0400 Body weight 55.7 kg [facility] Encounters Encounter Date Encounter Type Care Provider Facility Start: 10-25-2022 End: 11-18-2022 Evaluation and management of inpatient Stewart Carlton Facility:[facility] Start: 10-25-2022 End: 11-18-2022 Evaluation and management of inpatient [facility] Work Phone: Start: 10-19-2022 End: 10-19-2022 ambulatory UNKNOWN PROVIDER Facility:[facility] Procedures Date Procedure Procedure Detail Performing Clinician Start: 11-16-2022 SARS Antigen (LFIA) Start: 11-11-2022 CT of head without contrast Plan of Treatment Date Care Activity Detail Author Start: 11-18-2022 [facility] Start: 10-26-2022 Administration of pr ophylactic treatment [facility] Start: 10-25-2022 [facility] Start: 10-25-2022 Hospital admission [facility] Start: 10-25-2022 Referral to clinical berry picker [facility] Patient referral [facility] Work Phone: Payers Date Payer Category Payer Medicare [id number] 2022 Self-pay 2022 Medicaid [id number] 2022 Unknown [id number] 1955 Unknown [id number] Unknown [id number] Social History Date Type Detail Facility Start: 10-26-2022 Tobacco smoking stat [facility] Smoker (finding) [facility] Start: 1955 Sex Assigned At Female F [facility] Goals Date Patient Goal Desired Activity /State Functional Status Date Assessment Result Facility 11-18-2022 Functional status Patient is Pro gressing Toward [facility] Work Phone: 10-25-2022 Functional status Disability Sta tus Patient is Progressing Toward Baseline [facility] Work Phone: Mental Status Date Assessment Result Facility 11-18-2022 Cognitive function Cognitive Sta tus Patient at Baseline [facility] Work Phone: Clinical Notes 10-26-2022 to 11-17-2022 Note Date & Type Note Facility 11-17-2022 Progress note Note Date/Time November 15, 2022 9:56am [facility] [address] [place] [address] Physiatry(Rehab) Progress Note Signed Patient: Gilma Mock MR#: [id number] : 1955 Acct:[id number] Age/Sex: 67 / F Adm Date: 3 Loc: 5T Room: 6I0898-8 Type: ADM IN Attending Dr: Stewart Carlton MD Copies to: ~ Date of Service: 11/15/2022 Subjective Subjective Narrative: Ms. Mock is a 67 year old female presenting to inpatient rehab for functional impairments related to acute CVA. Patient's past medical history is notable foralcohol abuse (drinks~6 beers a day), hypertension, cigarette smoking, depression. Apparently, patient was found confused with right-sided weakness by her family, LKW 3 days prior. She was brought to [place] emergency department. Initial NIH was 18. CT imaging demonstrated left ICA occlusion as well as left common carotid artery and right carotid bulb stenosis, which prompted a transfer to tertiary care center. MRI of the brain at [facility] demonstrated acute to subacute watershed infarct in the left COLE/MCA territory, as well as punctate focus of acute ischemia in the left caudate head and subarachnoid hemorrhage. She was taken for an emergent angioplasty and stent placement to the left ICA. Repeat CT of the head demonstrated stable subarachnoid hemorrhage. Echo is notable for hyperdynamic systolic function with ejection fraction over 70%. Patient has been hyponatremic throughout admission, which is a chronic issue. She has been asymptomatic requiring no correction. Interval history: Continues to improve. Progressing towards functional goals. Will likely need several weeks of additional therapy and would benefit tremendously. Chronic conditions stable. Review of Systems Review of Systems All other systems reviewed & are negative unless noted below or in HPI Exam Physical Exam Vital Signs: Temp Pulse Resp BP Pulse Ox O2 Del Method 98.6 F 73 15 117/73 98 Room Air 11/15/22 05:00 11/15/22 05:00 11/15/22 05:00 11/15/22 05:00 11/15/22 05:00 11/15/22 05:00 Narrative: Const General: cooperative, comfortable, no acute distress, cachectic Nutritional Appearance: Cachectic, sent Orientation: alert, awake and oriented to person and place HEENT Head: normal to inspection, normocephalic and atraumatic Ears: hearing grossly normal bilaterally Nose: external nose normal Face and sinus: normal facial exam Eyes General: appearance normal, both eyes and all related structures. Wears glasses. Pupils: PERRL EOM: EOM intact bilaterally Neck Neck: normal visual inspection, full ROM, no lymphadenopathy and trachea midline Neck mass: No Chest Chest palpation & inspection: normal inspection of the chest Resp Effort & Inspection: normal respiratory effort, able to speak in complete sentences, symmetric chest movement and no cough Auscultation: clear to auscultation bilaterally Cardio Jugular venous pressure: no JVD Rhythm: Regular rhythm and rate GI: Inspection: normal to inspection Palpation: soft, no hepatosplenomegaly and nontender Auscultation: normal bowel sounds Musc Cervical Spine: normal cervical lordosis and cervical ROM normal Thoracic/Lumbar Spine: thoraco-lumbar ROM normal Skin General: no rashes or lesions noted Neuro General: patient alert, oriented x2, moves all extremities. Resolving right hemiplegia Cranial Nerves: PERRL Speech: speech normal Extrem Other: Right-sided weakness. Right foot drop. Psych Appearance: grossly normal Mental Status: WNL Mood: congruent mood Affect: normal affect Speech and Movement: speech and movement normal Attitude: cooperative Insight: Limited Judgment: Limited Objective Labs 11/09/22 04:43 11/09/22 04:43 Medications and Allergies Allergies and Active Meds: Allergies Sulfa (Sulfonamide Antibiotics) Adverse Reaction (Verified 10/25/22 20:00) Unknown Reaction Tetanus Vaccines and Toxoid Adverse Reaction (Verified 10/25/22 20:13) Swelling Active Medications Generic Name Dose Route Start Last Admin Trade Name Freq PRN Reason Stop Dose Admin Acetaminophen 500 mg 10/25/22 19:50 11/07/22 07:48 Acetaminophen 500 Mg Tablet PO 10/25/23 19:49 500 mg Q4H PRN Administration Pain Al Hydrox/Mg Hydrox/Simethicone 30 ml 10/25/22 19:50 10/26/22 16:56 Mag Hydrox/Al Hydrox/Simeth 30 Ml Udc PO 10/25/23 19:49 30 ml Q4H PRN Administration Indigestion Albuterol 2 puff 10/25/22 19:55 Albuterol Hfa 60 Puff/8 Gram Inhaler INHALATION 10/25/23 19:54 Q4H PRN Wheezing Aspirin 81 mg 10/26/22 09:00 11/15/22 08:28 Aspirin 81 Mg Tab.Chew PO 10/26/23 08:59 81 mg DAILY ELI Administration Bisacodyl 10 mg 10/25/22 19:50 Bisacodyl 10 Mg Supp.Rect NC 10/25/23 19:49 DAILY PRN Constipation Calcium Carbonate 500 mg 10/26/22 09:00 11/15/22 08:27 Calcium Carbonate 500 Mg Tablet PO 10/26/23 08:59 500 mg DAILY ELI Administration Cyanocobalamin 1,000 mcg 10/26/22 09:00 11/15/22 08:28 Cyanocobalamin 1,000 Mcg Tablet PO 10/26/23 08:59 1,000 mcg DAILY ELI Administration Diclofenac Sodium 2 gm 11/01/22 09:55 Diclofenac Sodium 1% Gel 100 Gm Tube TOPICAL 11/01/23 20:59 BID PRN neck pain Diclofenac Sodium 2 gm 11/04/22 08:35 Diclofenac Sodium 1% Gel 100 Gm Tube TOPICAL 11/04/23 08:34 TID PRN Pain Docusate Sodium 100 mg 10/25/22 19:50 11/11/22 20:06 Docusate 100 Mg Capsule PO 10/25/23 19:49 100 mg BID PRN Administration Constipation Docusate Sodium 283 mg 10/25/22 19:50 Docusate Enema 283 Mg/5 Ml Enema NC 10/25/23 19:49 DAILY PRN Constipation Famotidine 20 mg 10/27/22 09:00 11/15/22 08:28 Famotidine 20 Mg Tablet PO 10/25/23 20:59 20 mg DAILY ELI Administration Hydralazine HCl 25 mg 10/25/22 20:45 Hydralazine 25 Mg Tablet PO 10/25/23 20:44 Q6H PRN hypertention Lactulose 30 gm 10/25/22 19:50 11/12/22 15:30 Lactulose 20 Gm/30 Ml Udc PO 10/25/23 19:49 30 gm DAILY PRN Administration Constipation Lidocaine 1 patch 11/03/22 09:00 11/15/22 08:29 Lidocaine 4% Adh..Patch TOPICAL 11/03/23 08:59 1 patch DAILY ELI Administration Magnesium Oxide 400 mg 10/26/22 09:00 11/15/22 08:27 Magnesium Oxide 400 Mg Tablet PO 10/26/23 08:59 400 mg DAILY ELI Administration Metoprolol Tartrate 50 mg 10/25/22 21:00 11/15/22 08:27 Metoprolol Tartrate 50 Mg Tablet PO 10/25/23 20:59 50 mg BID ELI Administration Multi-Ingredient Cream 1 applic 10/27/22 09:00 11/14/22 08:38 Lanolin Alcohol/Mo/W.Pet/[place] (Minerin) 454 Gm Jar TOPICAL 10/27/23 08:59 1 applic DAILY ELI Administration Multivitamins 1 tab 10/26/22 09:00 11/15/22 08:28 Multivitamin 1 Tab Tablet PO 10/26/23 08:59 1 tab DAILY ELI Administration Nifedipine 90 mg 10/26/22 09:00 11/15/22 08:27 Nifedipine Er.24hr 90 Mg Tab.Er.24 PO 10/26/23 08:59 90 mg DAILY ELI Administration Potassium Chloride 10 meq 10/26/22 09:00 11/15/22 08:27 Potassium Chloride Er 10 Meq Tablet.Er PO 10/26/23 08:59 10 meq DAILY ELI Administration Sennosides 2 tab 10/26/22 12:00 11/09/22 08:16 Sennosides 8.6 Mg Tablet PO 10/26/23 11:59 2 tab DAILY@12 PRN Administration If no BM in 2 days Sodium Chloride 0 ml 10/25/22 19:50 Sodium Chloride 0.9 % 10 Ml Syringe IV-PUSH 10/25/23 19:49 PRN PRN Flush Ticagrelor 90 mg 10/25/22 21:00 11/15/22 08:28 Ticagrelor 90 Mg Tablet PO 10/25/23 20:59 90 mg BID ELI Administration Trazodone HCl 50 mg 10/26/22 09:17 11/14/22 20:35 Trazodone 50 Mg Tablet PO 10/26/23 21:59 50 mg QHS PRN Administration Sleep Triamcinolone Acetonide 1 applic 11/11/22 21:00 11/14/22 20:35 Triamcinolone 0.5% Cream 15 Gm Tube TOPICAL 11/25/22 20:59 1 applic BID ELI Administration Assessment/Plan Assessment/Plan (1) Subarachnoid hemorrhage: Plan: PT to improve pt's strength, endurance, bed mobility, transfers (sit-stand), standing balance, gait quality on level surfaces and stairs, coordination and functional ADL skills. Will also work to improve pt's safety awareness during transfers and ambulation. OT for basic ADL re-training (bathing, dressing, toileting, continence, grooming, feeding, transferring), to increase activity tolerance and functional mobility and to evaluate for adaptive and assistive devices. Will work to improve pt's endurance and educate pt on fall prevention and energy conservationtechniques-pacing strategies and proper breathing techniques during functional tasks. Patient education Pressure ulcer prophylaxis; encourage mobilization, frequent postural changes, pressure-relief techniques DVT prophylaxis Encourage deep breathing exercise incentive spirometry. Monitor bladder. Toileting schedule. Continue current bladder management, with scans as needed and CIC if needed. Start bowel care program every day to obtain continence, prevent ileus. Maintain fall precautions Gait and balance retraining Provision of the necessary gait aids and functional adaptive equipment to enhance the patient's a functional holiness Encourage deep breathing exercises and incentive spirometry RD evaluation Ensure adequate nutrition and hydration Discharge planning. Code(s): I60.9 - Nontraumatic subarachnoid hemorrhage, unspecified Status: Acute (2) Cerebrovascular accident (CVA) due to occlusion of left carotid artery: Code(s): I63.232 - Cerebral infarction due to unspecified occlusion or stenosis of left carotid arteries Status: Acute (3) Anxiety: Code(s): F41.9 - Anxiety disorder, unspecified Status: Acute (4) HTN (hypertension): Code(s): I10 - Essential (primary) hypertension Status: Acute (5) Impaired mobility and activities of daily living: Code(s): Z74.09 - Other reduced mobility; Z78.9 - Other specified health status Status: Acute (6) Chronic hyponatremia: Code(s): E87.1 - Hypo-osmolality and hyponatremia Status: Acute (7) Chronic alcohol use: Code(s): F10.90 - Alcohol use, unspecified, uncomplicated Status: Acute (8) Right hemiplegia: Code(s): G81.91 - Hemiplegia, unspecified affecting right dominant side Status: Acute (9) Oropharyngeal dysphagia: Code(s): R13.12 - Dysphagia, oropharyngeal phase Status: Acute (10) Mild cognitive impairment: Code(s): G31.84 - Mild cognitive impairment of uncertain or unknown etiology Status: Acute (11) 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 * Progressing towards goals. * Hopeful for SNF placement, she'd continue to benefit from additional therapy as she recovers. Patient education Pressure ulcer prophylaxis; encourage mobilization, frequent postural changes, pressure-relief techniques Encourage deep breathing exercise incentive spirometry. Monitor bladder. Toileting schedule. Continue current bladder management, with scans as needed and CIC if needed. Start bowel care program every day to obtain continence, prevent ileus. Maintain fall precautions Gait and balance retraining Functional training and self-care and home management, including activities of daily living and instrumental activities of daily living Provision of the necessary gait aids and functional adaptive equipment to enhance the patient's a functional holiness Ensure adequate nutrition and hydration Sleep: Continues trazodone 50 mg at bedtime Pain: No issues Discharge planning: SNF v home with son. I spent greater than 15 minutes for services, including [id number] encounter with the patient, discussion of the case, plan of care, and exam; and [id number] activities, such as reviewing pertinent pension consultant documentation, recent therapy notes, laboratory and radiology studies, and discussion of case with care team including physician, nursing, upper caser, and therapists. More than 50 % of time was spent on patient/family counseling or coordination ofcare. Plan: I completed a substantive portion of this encounter, the medical decision makingportion of this note in its entirety, including Allied health note review, nursing note review, pension consultant note review, discussion with nursing and case management, and more than 50% of my time was spent on counseling and coordination of care, time spent 25 minutes Patient was personally seen by me, Dr. Carlton, on the day of encounter, reviewed the history and the relevant portions of the chart, including current orders, allied health and pension consultant notes, labs/imaging and performed bhagat elements of exam and I formulated the plan of care and facilitated the medical decision making. Documented By: Stewart Carlton MD 11/15/22 0956 Signed By: <Electronically signed by Stewart Carlton MD> 11/17/22 [address] [facility] Work Phone: [phone]) 384-461103-15-2023 Progress note Author Stewart Carlton [facility] November 17, 2022 2:47pm Note Date/Time November 17, 2022 12: 57pm [facility] [address] [place] [address] Physiatry(Rehab) Progress Note Signed Patient: Gilma oMck MR#: [id number] : 1955 Acct:[id number] Age/Sex: 67 / F Adm Date: 3 Loc: Room: [address] [place] [address] Type: ADM IN Attending Dr: Stewart Carlton MD Copies to: ~ Date of Service: 11/17/2022 Subjective Subjective Narrative: Ms. Mock is a 67 year old female presenting to inpatient rehab for functional impairments related to acute CVA. Patient's past medical history is notable foralcohol abuse (drinks~6 beers a day), hypertension, cigarette smoking, depression. Apparently, patient was found confused with right-sided weakness by her family, LKW 3 days prior. She was brought to [place] emergency department. Initial NIH was 18. CT imaging demonstrated left ICA occlusion as well as left common carotid artery and right carotid bulb stenosis, which prompted a transfer to tertiary care center. MRI of the brain at [facility] demonstrated acute to subacute watershed infarct in the left COLE/MCA territory, as well as punctate focus of acute ischemia in the left caudate head and subarachnoid hemorrhage. She was taken for an emergent angioplasty and stent placement to the left ICA. Repeat CT of the head demonstrated stable subarachnoid hemorrhage. Echo is notable for hyperdynamic systolic function with ejection fraction over 70%. Patient has been hyponatremic throughout admission, which is a chronic issue. She has been asymptomatic requiring no correction. Interval history: She reports 2 bouts of diarrhea this morning. Upon chart review, she recently did not receive any bowel meds. She is not really complaining of any abdominal pain, nausea, vomiting. Will just monitor for now. Otherwise, offers no complaints. Working with therapy, ambulatory 320 feet witha rolling walker, standby/contact-guard assist. Standby to contact-guard assistfor transfers and bed mobility. She is asking about group home facility placement, updated on current status. She was denied by her insurance company, even after a peer to peer. Appeal was submitted, awaiting updates. Chronic conditions stable. Exam Physical Exam Vital Signs: Temp Pulse Resp BP Pulse Ox O2 Del Method 98.1 F 66 16 142/80 H 98 Room Air 11/17/22 04:54 11/17/22 04:54 11/17/22 04:54 11/17/22 04:54 11/17/22 04:54 11/17/22 07:30 Narrative: Const General: cooperative, comfortable, no acute distress, cachectic Nutritional Appearance: Cachectic, sent Orientation: alert, awake and oriented to person and place Limitations: Confused, memory loss HEENT Head: normal to inspection, normocephalic and atraumatic Ears: hearing grossly normal bilaterally Nose: external nose normal Face and sinus: normal facial exam Eyes General: appearance normal, both eyes and all related structures. Wears glasses. Pupils: PERRL EOM: EOM intact bilaterally Neck Neck: normal visual inspection, full ROM, no lymphadenopathy and trachea midline Neck mass: No Chest Chest palpation & inspection: normal inspection of the chest Resp Effort & Inspection: normal respiratory effort, able to speak in complete sentences, symmetric chest movement and no cough Auscultation: clear to auscultation bilaterally Cardio Jugular venous pressure: no JVD Rhythm: Regular rhythm and rate GI: Inspection: normal to inspection Palpation: soft, no hepatosplenomegaly and nontender Auscultation: normal bowel sounds Musc Cervical Spine: normal cervical lordosis and cervical ROM normal Thoracic/Lumbar Spine: thoraco-lumbar ROM normal Skin General: no rashes or lesions noted Neuro General: patient alert, oriented x2, moves all extremities. Notable weakness inthe right upper and lower extremity Cranial Nerves: PERRL Speech: speech normal Extrem Other: Right-sided weakness. Right foot drop. Psych Appearance: grossly normal Mental Status: WNL Mood: congruent mood Affect: normal affect Speech and Movement: speech and movement normal Attitude: cooperative Insight: Limited Judgment: Limited Objective Labs 11/16/22 05:27 11/16/22 05:27 Labs: Laboratory Results - last 24 hr 11/16/22 12:15 SARS Antigen (LFIA) Negative Medications and Allergies Allergies and Active Meds: Allergies Sulfa (Sulfonamide Antibiotics) Adverse Reaction (Verified 10/25/22 20:00) Unknown Reaction Tetanus Vaccines and Toxoid Adverse Reaction (Verified 10/25/22 20:13) Swelling Active Medications Generic Name Dose Route Start Last Admin Trade Name Freq PRN Reason Stop Dose Admin Acetaminophen 500 mg 10/25/22 19:50 11/16/22 20:57 Acetaminophen 500 Mg Tablet PO 10/25/23 19:49 500 mg Q4H PRN Administration Pain Al Hydrox/Mg Hydrox/Simethicone 30 ml 10/25/22 19:50 10/26/22 16:56 Mag Hydrox/Al Hydrox/Simeth 30 Ml Udc PO 10/25/23 19:49 30 ml Q4H PRN Administration Indigestion Albuterol 2 puff 10/25/22 19:55 Albuterol Hfa 60 Puff/8 Gram Inhaler INHALATION 10/25/23 19:54 Q4H PRN Wheezing Aspirin 81 mg 10/26/22 09:00 11/17/22 08:19 Aspirin 81 Mg Tab.Chew PO 10/26/23 08:59 81 mg DAILY ELI Administration Bisacodyl 10 mg 10/25/22 19:50 Bisacodyl 10 Mg Supp.Rect NC 10/25/23 19:49 DAILY PRN Constipation Calcium Carbonate 500 mg 10/26/22 09:00 11/17/22 08:20 Calcium Carbonate 500 Mg Tablet PO 10/26/23 08:59 500 mg DAILY ELI Administration Cyanocobalamin 1,000 mcg 10/26/22 09:00 11/17/22 08:19 Cyanocobalamin 1,000 Mcg Tablet PO 10/26/23 08:59 1,000 mcg DAILY ELI Administration Diclofenac Sodium 2 gm 11/01/22 09:55 Diclofenac Sodium 1% Gel 100 Gm Tube TOPICAL 11/01/23 20:59 BID PRN neck pain Diclofenac Sodium 2 gm 11/04/22 08:35 Diclofenac Sodium 1% Gel 100 Gm Tube TOPICAL 11/04/23 08:34 TID PRN Pain Docusate Sodium 100 mg 10/25/22 19:50 11/11/22 20:06 Docusate 100 Mg Capsule PO 10/25/23 19:49 100 mg BID PRN Administration Constipation Docusate Sodium 283 mg 10/25/22 19:50 Docusate Enema 283 Mg/5 Ml Enema NC 10/25/23 19:49 DAILY PRN Constipation Famotidine 20 mg 10/27/22 09:00 11/17/22 08:19 Famotidine 20 Mg Tablet PO 10/25/23 20:59 20 mg DAILY ELI Administration Hydralazine HCl 25 mg 10/25/22 20:45 Hydralazine 25 Mg Tablet PO 10/25/23 20:44 Q6H PRN hypertention Lactulose 30 gm 10/25/22 19:50 11/12/22 15:30 Lactulose 20 Gm/30 Ml Udc PO 10/25/23 19:49 30 gm DAILY PRN Administration Constipation Lidocaine 1 patch 11/03/22 09:00 11/17/22 08:20 Lidocaine 4% Adh..Patch TOPICAL 11/03/23 08:59 1 patch DAILY ELI Administration Magnesium Oxide 400 mg 10/26/22 09:00 11/17/22 08:20 Magnesium Oxide 400 Mg Tablet PO 10/26/23 08:59 400 mg DAILY ELI Administration Metoprolol Tartrate 50 mg 10/25/22 21:00 11/17/22 08:20 Metoprolol Tartrate 50 Mg Tablet PO 10/25/23 20:59 50 mg BID ELI Administration Multi-Ingredient Cream 1 applic 10/27/22 09:00 11/17/22 08:21 Lanolin Alcohol/Mo/W.Pet/[place] (Minerin) 454 Gm Jar TOPICAL 10/27/23 08:59 1 applic DAILY ELI Administration Multivitamins 1 tab 10/26/22 09:00 11/17/22 08:20 Multivitamin 1 Tab Tablet PO 10/26/23 08:59 1 tab DAILY ELI Administration Nifedipine 90 mg 10/26/22 09:00 11/17/22 08:19 Nifedipine Er.24hr 90 Mg Tab.Er.24 PO 10/26/23 08:59 90 mg DAILY ELI Administration Potassium Chloride 10 meq 10/26/22 09:00 11/17/22 08:19 Potassium Chloride Er 10 Meq Tablet.Er PO 10/26/23 08:59 10 meq DAILY ELI Administration Sennosides 2 tab 10/26/22 12:00 11/09/22 08:16 Sennosides 8.6 Mg Tablet PO 10/26/23 11:59 2 tab DAILY@12 PRN Administration If no BM in 2 days Sodium Chloride 0 ml 10/25/22 19:50 Sodium Chloride 0.9 % 10 Ml Syringe IV-PUSH 10/25/23 19:49 PRN PRN Flush Ticagrelor 90 mg 10/25/22 21:00 11/17/22 08:20 Ticagrelor 90 Mg Tablet PO 10/25/23 20:59 90 mg BID ELI Administration Trazodone HCl 50 mg 10/26/22 09:17 11/16/22 20:57 Trazodone 50 Mg Tablet PO 10/26/23 21:59 50 mg QHS PRN Administration Sleep Triamcinolone Acetonide 1 applic 11/11/22 21:00 11/17/22 08:21 Triamcinolone 0.5% Cream 15 Gm Tube TOPICAL 11/25/22 20:59 1 applic BID ELI Administration Assessment/Plan Assessment/Plan (1) Subarachnoid hemorrhage: Plan: PT to improve pt's strength, endurance, bed mobility, transfers (sit-stand), standing balance, gait quality on level surfaces and stairs, coordination and functional ADL skills. Will also work to improve pt's safety awareness during transfers and ambulation. OT for basic ADL re-training (bathing, dressing, toileting, continence, grooming, feeding, transferring), to increase activity tolerance and functional mobility and to evaluate for adaptive and assistive devices. Will work to improve pt's endurance and educate pt on fall prevention and energy conservation techniques-pacing strategies and proper breathing techniques during functional tasks. Patient education Pressure ulcer prophylaxis; encourage mobilization, frequent postural changes, pressure-relief techniques DVT prophylaxis Encourage deep breathing exercise incentive spirometry. Monitor bladder. Toileting schedule. Continue current bladder management, with scans as needed and CIC if needed. Start bowel care program every day to obtain continence, prevent ileus. Maintain fall precautions Gait and balance retraining Provision of the necessary gait aids and functional adaptive equipment to enhance the patient's a functional holiness Encourage deep breathing exercises and incentive spirometry RD evaluation Ensure adequate nutrition and hydration Discharge planning. Code(s): I60.9 - Nontraumatic subarachnoid hemorrhage, unspecified Status: Acute (2) Cerebrovascular accident (CVA) due to occlusion of left carotid artery: Code(s): I63.232 - Cerebral infarction due to unspecified occlusion or stenosis of left carotid arteries Status: Acute (3) Anxiety: Code(s): F41.9 - Anxiety disorder, unspecified Status: Acute (4) HTN (hypertension): Code(s): I10 - Essential (primary) hypertension Status: Acute (5) Impaired mobility and activities of daily living: Code(s): Z74.09 - Other reduced mobility; Z78.9 - Other specified health status Status: Acute (6) Chronic hyponatremia: Code(s): E87.1 - Hypo-osmolality and hyponatremia Status: Acute (7) Chronic alcohol use: Code(s): F10.90 - Alcohol use, unspecified, uncomplicated Status: Acute (8) Right hemiplegia: Code(s): G81.91 - Hemiplegia, unspecified affecting right dominant side Status: Acute (9) Oropharyngeal dysphagia: Code(s): R13.12 - Dysphagia, oropharyngeal phase Status: Acute (10) Mild cognitive impairment: Code(s): G31.84 - Mild cognitive impairment of uncertain or unknown etiology Status: Acute (11) 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 * Few episodes of diarrhea today without other GI complaints. Monitor for now. * Denied SNF placement by insurance, upheld in a [id number]. Appeal submitted. Patient education Pressure ulcer prophylaxis; encourage mobilization, frequent postural changes, pressure-relief techniques DVT prophylaxis: Continue aspirin and Brilinta. No further pharmacologic prophylaxis due to subarachnoid hemorrhage. Encourage deep breathing exercise incentive spirometry. Monitor bladder. Toileting schedule. Continue current bladder management, with scans as needed and CIC if needed. Start bowel care program every day to obtain continence, prevent ileus. Maintain fall precautions Gait and balance retraining Functional training and self-care and home management, including activities of daily living and instrumental activities of daily living Provision of the necessary gait aids and functional adaptive equipment to enhance the patient's a functional holiness Ensure adequate nutrition and hydration Sleep: Continues trazodone 50 mg at bedtime Pain: No issues Discharge planning: [place] as soon as approved I spent greater than 15 minutes for services, including [id number] encounter with the patient, discussion of the case, plan of care, and exam; and [id number] activities, such as reviewing pertinent pension consultant documentation, recent therapy notes, laboratory and radiology studies, and discussion of case with care team including physician, nursing, upper caser, and therapists. More than 50 % of time was spent on patient/family counseling or coordination ofcare. I completed a substantive portion of this encounter, the medical decision makingportion of this note in its entirety, including Allied health note review, nursing note review, pension consultant note review, discussion with nursing and case management, and more than 50% of my time was spent on counseling and coordinationof care, time spent 24 minutes Patient was personally seen by me, Dr. Carlton, on the day of encounter, reviewed the history and the relevant portions of the chart, including current orders, allied health and pension consultant notes, labs/imaging and performed bhagat elements of exam and I formulated the plan of care and facilitated the medical decision making. Documented By: Kendra Stern APRN 11/17/22 1 256 Signed By: <Electronically signed by VALE Stern> 11/17/22 1321 <Electronically signed by Stewart Carlton MD> 11/17/22 [id number] [facility] Work Phone: [phone] Progress note Author Stewart Carlton [facility] November 16, 2022 3:27pm Note Date/Time November 16, 2022 2:0 7pm [facility] [address] [place] [address] Physiatry(Rehab) Progress Note Signed Patient: Gilma Mock MR#: [id number] : 1955 Acct:[id number] Age/Sex: 67 / F Adm Date: 3 Loc: Room: [address] [place] [address] Type: ADM IN Attending Dr: Stewart Carlton MD Copies to: ~ Date of Service: 11/16/2022 Subjective Subjective Narrative: Ms. Mock is a 67 year old female presenting to inpatient rehab for functional impairments related to acute CVA. Patient's past medical history is notable foralcohol abuse (drinks~6 beers a day), hypertension, cigarette smoking, depression. Apparently, patient was found confused with right-sided weakness by her family, LKW 3 days prior. She was brought to [place] emergency department. Initial NIH was 18. CT imaging demonstrated left ICA occlusion as well as left common carotid artery and right carotid bulb stenosis, which prompted a transfer to tertiary care center. MRI of the brain at [facility] demonstrated acute to subacute watershed infarct in the left COLE/MCA territory, as well as punctate focus of acute ischemia in the left caudate head and subarachnoid hemorrhage. She was taken for an emergent angioplasty and stent placement to the left ICA. Repeat CT of the head demonstrated stable subarachnoid hemorrhage. Echo is notable for hyperdynamic systolic function with ejection fraction over 70%. Patient has been hyponatremic throughout admission, which is a chronic issue. She has been asymptomatic requiring no correction. Interval history: She offers no complaints or concerns. Lower extremity itching seems to be improving topical steroid. She has no pain or discomfort. Her deficits are gradually resolving. She has better coordination of the right arm, strength is near baseline. She continues to work with therapy. Walking throughout the hallways with a wheeled walker, SBA from therapy. Able to go up and down some stairs. Standby assist for transfers. Awaiting SNF approval. Chronic conditions stable. Review of Systems Review of Systems All other systems reviewed & are negative unless noted below or in HPI Exam Physical Exam Vital Signs: Temp Pulse Resp BP Pulse Ox O2 Del Method 98.4 F 73 17 136/78 97 Room Air 11/16/22 06:21 11/16/22 06:21 11/16/22 06:21 11/16/22 06:21 11/16/22 06:21 11/16/22 07:30 Narrative: Const General: cooperative, comfortable, no acute distress, cachectic Nutritional Appearance: Cachectic, sent Orientation: alert, awake and oriented to person and place Limitations: Confused, memory loss HEENT Head: normal to inspection, normocephalic and atraumatic Ears: hearing grossly normal bilaterally Nose: external nose normal Face and sinus: normal facial exam Eyes General: appearance normal, both eyes and all related structures. Wears glasses. Pupils: PERRL EOM: EOM intact bilaterally Neck Neck: normal visual inspection, full ROM, no lymphadenopathy and trachea midline Neck mass: No Chest Chest palpation & inspection: normal inspection of the chest Resp Effort & Inspection: normal respiratory effort, able to speak in complete sentences, symmetric chest movement and no cough Auscultation: clear to auscultation bilaterally Cardio Jugular venous pressure: no JVD Rhythm: Regular rhythm and rate GI: Inspection: normal to inspection Palpation: soft, no hepatosplenomegaly and nontender Auscultation: normal bowel sounds Musc Cervical Spine: normal cervical lordosis and cervical ROM normal Thoracic/Lumbar Spine: thoraco-lumbar ROM normal Skin General: no rashes or lesions noted Neuro General: patient alert, oriented x2, moves all extremities. Notable weakness inthe right upper and lower extremity Cranial Nerves: PERRL Speech: speech normal Extrem Other: Right-sided weakness. Right foot drop. Psych Appearance: grossly normal Mental Status: WNL Mood: congruent mood Affect: normal affect Speech and Movement: speech and movement normal Attitude: cooperative Insight: Limited Judgment: Limited Objective Labs 11/16/22 05:27 11/16/22 05:27 Labs: Laboratory Results - last 24 hr 11/16/22 11/16/22 11/16/22 05:27 05:27 12:15 Corrected WBC 4.5 Uncorrected WBC Count 4.5 RBC 3.75 Hgb 11.1 L Hct 33.0 L MCV 88.0 MCH 29.5 MCHC 33.5 RDW 14.7 Plt Count 364 MPV 7.2 Neut % (Auto) 65.3 Lymph % (Auto) 21.5 [place] % (Auto) 11.3 Eos % (Auto) 1.5 Baso % (Auto) 0.4 Nucleat RBC Rel Count 0.1 Neut # (Auto) 2.9 Lymph # (Auto) 1.0 [place] # (Auto) 0.5 Eos # (Auto) 0.1 Baso # (Auto) 0.0 PHA Creatinine Clear 52.90 Sodium 137 Potassium 4.0 Chloride 102 Carbon Dioxide 26.2 Anion Gap 12.8 BUN 15 Creatinine 0.53 L Est GFR (CKD-EPI) > 60.0 Glucose 101 Calcium 10.5 H SARS Antigen (LFIA) Negative Medications and Allergies Allergies and Active Meds: Allergies Sulfa (Sulfonamide Antibiotics) Adverse Reaction (Verified 10/25/22 20:00) Unknown Reaction Tetanus Vaccines and Toxoid Adverse Reaction (Verified 10/25/22 20:13) Swelling Active Medications Generic Name Dose Route Start Last Admin Trade Name Freq PRN Reason Stop Dose Admin Acetaminophen 500 mg 10/25/22 19:50 11/15/22 20:33 Acetaminophen 500 Mg Tablet PO 10/25/23 19:49 500 mg Q4H PRN Administration Pain Al Hydrox/Mg Hydrox/Simethicone 30 ml 10/25/22 19:50 10/26/22 16:56 Mag Hydrox/Al Hydrox/Simeth 30 Ml Udc PO 10/25/23 19:49 30 ml Q4H PRN Administration Indigestion Albuterol 2 puff 10/25/22 19:55 Albuterol Hfa 60 Puff/8 Gram Inhaler INHALATION 10/25/23 19:54 Q4H PRN Wheezing Aspirin 81 mg 10/26/22 09:00 11/16/22 10:00 Aspirin 81 Mg Tab.Chew PO 10/26/23 08:59 81 mg DAILY ELI Administration Bisacodyl 10 mg 10/25/22 19:50 Bisacodyl 10 Mg Supp.Rect NC 10/25/23 19:49 DAILY PRN Constipation Calcium Carbonate 500 mg 10/26/22 09:00 11/16/22 09:59 Calcium Carbonate 500 Mg Tablet PO 10/26/23 08:59 500 mg DAILY ELI Administration Cyanocobalamin 1,000 mcg 10/26/22 09:00 11/16/22 09:59 Cyanocobalamin 1,000 Mcg Tablet PO 10/26/23 08:59 1,000 mcg DAILY ELI Administration Diclofenac Sodium 2 gm 11/01/22 09:55 Diclofenac Sodium 1% Gel 100 Gm Tube TOPICAL 11/01/23 20:59 BID PRN neck pain Diclofenac Sodium 2 gm 11/04/22 08:35 Diclofenac Sodium 1% Gel 100 Gm Tube TOPICAL 11/04/23 08:34 TID PRN Pain Docusate Sodium 100 mg 10/25/22 19:50 11/11/22 20:06 Docusate 100 Mg Capsule PO 10/25/23 19:49 100 mg BID PRN Administration Constipation Docusate Sodium 283 mg 10/25/22 19:50 Docusate Enema 283 Mg/5 Ml Enema NC 10/25/23 19:49 DAILY PRN Constipation Famotidine 20 mg 10/27/22 09:00 11/16/22 10:00 Famotidine 20 Mg Tablet PO 10/25/23 20:59 20 mg DAILY ELI Administration Hydralazine HCl 25 mg 10/25/22 20:45 Hydralazine 25 Mg Tablet PO 10/25/23 20:44 Q6H PRN hypertention Lactulose 30 gm 10/25/22 19:50 11/12/22 15:30 Lactulose 20 Gm/30 Ml Udc PO 10/25/23 19:49 30 gm DAILY PRN Administration Constipation Lidocaine 1 patch 11/03/22 09:00 11/16/22 10:01 Lidocaine 4% Adh..Patch TOPICAL 11/03/23 08:59 1 patch DAILY ELI Administration Magnesium Oxide 400 mg 10/26/22 09:00 11/16/22 09:59 Magnesium Oxide 400 Mg Tablet PO 10/26/23 08:59 400 mg DAILY ELI Administration Metoprolol Tartrate 50 mg 10/25/22 21:00 11/16/22 10:00 Metoprolol Tartrate 50 Mg Tablet PO 10/25/23 20:59 50 mg BID ELI Administration Multi-Ingredient Cream 1 applic 10/27/22 09:00 11/16/22 12:04 Lanolin Alcohol/Mo/W.Pet/[place] (Minerin) 454 Gm Jar TOPICAL 10/27/23 08:59 1 applic DAILY ELI Administration Multivitamins 1 tab 10/26/22 09:00 11/16/22 10:00 Multivitamin 1 Tab Tablet PO 10/26/23 08:59 1 tab DAILY ELI Administration Nifedipine 90 mg 10/26/22 09:00 11/16/22 09:59 Nifedipine Er.24hr 90 Mg Tab.Er.24 PO 10/26/23 08:59 90 mg DAILY ELI Administration Potassium Chloride 10 meq 10/26/22 09:00 11/16/22 09:59 Potassium Chloride Er 10 Meq Tablet.Er PO 10/26/23 08:59 10 meq DAILY ELI Administration Sennosides 2 tab 10/26/22 12:00 11/09/22 08:16 Sennosides 8.6 Mg Tablet PO 10/26/23 11:59 2 tab DAILY@12 PRN Administration If no BM in 2 days Sodium Chloride 0 ml 10/25/22 19:50 Sodium Chloride 0.9 % 10 Ml Syringe IV-PUSH 10/25/23 19:49 PRN PRN Flush Ticagrelor 90 mg 10/25/22 21:00 11/16/22 09:59 Ticagrelor 90 Mg Tablet PO 10/25/23 20:59 90 mg BID ELI Administration Trazodone HCl 50 mg 10/26/22 09:17 11/15/22 20:33 Trazodone 50 Mg Tablet PO 10/26/23 21:59 50 mg QHS PRN Administration Sleep Triamcinolone Acetonide 1 applic 11/11/22 21:00 11/16/22 12:04 Triamcinolone 0.5% Cream 15 Gm Tube TOPICAL 11/25/22 20:59 1 applic BID ELI Administration Assessment/Plan Assessment/Plan (1) Subarachnoid hemorrhage: Plan: PT to improve pt's strength, endurance, bed mobility, transfers (sit-stand), standing balance, gait quality on level surfaces and stairs, coordination and functional ADL skills. Will also work to improve pt's safety awareness during transfers and ambulation. OT for basic ADL re-training (bathing, dressing, toileting, continence, grooming, feeding, transferring), to increase activity tolerance and functional mobility and to evaluate for adaptive and assistive devices. Will work to improve pt's endurance and educate pt on fall prevention and energy conservation techniques-pacing strategies and proper breathing techniques during functional tasks. Patient education Pressure ulcer prophylaxis; encourage mobilization, frequent postural changes, pressure-relief techniques DVT prophylaxis Encourage deep breathing exercise incentive spirometry. Monitor bladder. Toileting schedule. Continue current bladder management, with scans as needed and CIC if needed. Start bowel care program every day to obtain continence, prevent ileus. Maintain fall precautions Gait and balance retraining Provision of the necessary gait aids and functional adaptive equipment to enhance the patient's a functional holiness Encourage deep breathing exercises and incentive spirometry RD evaluation Ensure adequate nutrition and hydration Discharge planning. Code(s): I60.9 - Nontraumatic subarachnoid hemorrhage, unspecified Status: Acute (2) Cerebrovascular accident (CVA) due to occlusion of left carotid artery: Code(s): I63.232 - Cerebral infarction due to unspecified occlusion or stenosis of left carotid arteries Status: Acute (3) Anxiety: Code(s): F41.9 - Anxiety disorder, unspecified Status: Acute (4) HTN (hypertension): Code(s): I10 - Essential (primary) hypertension Status: Acute (5) Impaired mobility and activities of daily living: Code(s): Z74.09 - Other reduced mobility; Z78.9 - Other specified health status Status: Acute (6) Chronic hyponatremia: Code(s): E87.1 - Hypo-osmolality and hyponatremia Status: Acute (7) Chronic alcohol use: Code(s): F10.90 - Alcohol use, unspecified, uncomplicated Status: Acute (8) Right hemiplegia: Code(s): G81.91 - Hemiplegia, unspecified affecting right dominant side Status: Acute (9) Oropharyngeal dysphagia: Code(s): R13.12 - Dysphagia, oropharyngeal phase Status: Acute (10) Mild cognitive impairment: Code(s): G31.84 - Mild cognitive impairment of uncertain or unknown etiology Status: Acute (11) 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 * Repeat labs reviewed. No significant abnormality noted. H&H stable, no leukocytosis. Platelets are back to normal at 364. * Her vital signs are stable. BP within normal limits. * DC to [facility] as soon as approved. Patient education Pressure ulcer prophylaxis; encourage mobilization, frequent postural changes, pressure-relief techniques DVT prophylaxis: Continue aspirin and Brilinta. No further pharmacologic prophylaxis due to subarachnoid hemorrhage. Encourage deep breathing exercise incentive spirometry. Monitor bladder. Toileting schedule. Continue current bladder management, with scans as needed and CIC if needed. Start bowel care program every day to obtain continence, prevent ileus. Maintain fall precautions Gait and balance retraining Functional training and self-care and home management, including activities of daily living and instrumental activities of daily living Provision of the necessary gait aids and functional adaptive equipment to enhance the patient's a functional holiness Ensure adequate nutrition and hydration Sleep: Continues trazodone 50 mg at bedtime Pain: No issues Discharge planning: [place] as soon as approved I spent greater than 15 minutes for services, including [id number] encounter with the patient, discussion of the case, plan of care, and exam; and [id number] activities, such as reviewing pertinent pension consultant documentation, recent therapy notes, laboratory and radiology studies, and discussion of case with care team including physician, nursing, upper caser, and therapists. More than 50 % of time was spent on patient/family counseling or coordination ofcare. I reviewed the history and the relevant portions of the chart, including currentorders, allied health and pension consultant notes, labs/imaging and plan of care as above. Documented By: Kendra Stern APRN 11/16/22 1 401 Signed By: <Electronically signed by VALE Stern> 11/16/22 1407 <Electronically signed by Stewart Carlton MD> 11/16/22 1529 [facility] Work Phone: 1(441) 958-182403-10-2023 Progress note Author Stewart Carlton [facility] November 12, 2022 2:43pm Note Date/Time November 11, 2022 2:13 pm [facility] [address] [place] [address] Physiatry(Rehab) Progress Note Signed Patient: Gilma Mock MR#: [id number] : 1955 Acct:[id number] Age/Sex: 67 / F Adm Date: 3 Loc: Room: [address] [place] [address] Type: ADM IN Attending Dr: Stewart Carlton MD Copies to: ~ Date of Service: 11/11/2022 Subjective Subjective Narrative: Ms. Mock is a 67 year old female presenting to inpatient rehab for functional impairments related to acute CVA. Patient's past medical history is notable foralcohol abuse (drinks~6 beers a day), hypertension, cigarette smoking, depression. Apparently, patient was found confused with right-sided weakness by her family, LKW 3 days prior. She was brought to [place] emergency department. Initial NIH was 18. CT imaging demonstrated left ICA occlusion as well as left common carotid artery and right carotid bulb stenosis, which prompted a transfer to tertiary care center. MRI of the brain at [facility] demonstrated acute to subacute watershed infarct in the left OCLE/MCA territory, as well as punctate focus of acute ischemia in the left caudate head and subarachnoid hemorrhage. She was taken for an emergent angioplasty and stent placement to the left ICA. Repeat CT of the head demonstrated stable subarachnoid hemorrhage. Echo is notable for hyperdynamic systolic function with ejection fraction over 70%. Patient has been hyponatremic throughout admission, which is a chronic issue. She has been asymptomatic requiring no correction. Interval history: Continues to complain of bilateral lower extremity itching, there are some scratch chavarria to lower legs. Nursing has been applying lanolin based ointment without much improvement. Will initiate on steroid cream. Otherwise, no issues. Denies pain. Vitals are stable. Appetite is appropriate. Moving bowels and bladder. Repeat head CT results reviewed. Chronic conditions stable. Review of Systems Review of Systems All other systems reviewed & are negative unless noted below or in HPI Exam Physical Exam Vital Signs: Temp Pulse Resp BP Pulse Ox O2 Del Method 97.0 F L 80 16 125/77 98 Room Air 11/11/22 06:19 11/11/22 06:19 11/11/22 06:19 11/11/22 06:19 11/11/22 06:19 11/11/22 08:53 Narrative: Const General: cooperative, comfortable, no acute distress, cachectic Nutritional Appearance: Cachectic, sent Orientation: alert, awake and oriented to person and place Limitations: Confused, memory loss HEENT Head: normal to inspection, normocephalic and atraumatic Ears: hearing grossly normal bilaterally Nose: external nose normal Face and sinus: normal facial exam Eyes General: appearance normal, both eyes and all related structures. Wears glasses. Pupils: PERRL EOM: EOM intact bilaterally Neck Neck: normal visual inspection, full ROM, no lymphadenopathy and trachea midline Neck mass: No Chest Chest palpation & inspection: normal inspection of the chest Resp Effort & Inspection: normal respiratory effort, able to speak in complete sentences, symmetric chest movement and no cough Auscultation: clear to auscultation bilaterally Cardio Jugular venous pressure: no JVD Rhythm: Regular rhythm and rate GI: Inspection: normal to inspection Palpation: soft, no hepatosplenomegaly and nontender Auscultation: normal bowel sounds Musc Cervical Spine: normal cervical lordosis and cervical ROM normal Thoracic/Lumbar Spine: thoraco-lumbar ROM normal Skin General: no rashes or lesions noted Neuro General: patient alert, oriented x2, moves all extremities. Notable weakness inthe right upper and lower extremity Cranial Nerves: PERRL Speech: speech normal Extrem Other: Right-sided weakness. Right foot drop. Psych Appearance: grossly normal Mental Status: WNL Mood: congruent mood Affect: normal affect Speech and Movement: speech and movement normal Attitude: cooperative Insight: Limited Judgment: Limited Objective Labs 11/09/22 04:43 11/09/22 04:43 Medications and Allergies Allergies and Active Meds: Allergies Sulfa (Sulfonamide Antibiotics) Adverse Reaction (Verified 10/25/22 20:00) Unknown Reaction Tetanus Vaccines and Toxoid Adverse Reaction (Verified 10/25/22 20:13) Swelling Active Medications Generic Name Dose Route Start Last Admin Trade Name Freq PRN Reason Stop Dose Admin Acetaminophen 500 mg 10/25/22 19:50 11/07/22 07:48 Acetaminophen 500 Mg Tablet PO 10/25/23 19:49 500 mg Q4H PRN Administration Pain Al Hydrox/Mg Hydrox/Simethicone 30 ml 10/25/22 19:50 10/26/22 16:56 Mag Hydrox/Al Hydrox/Simeth 30 Ml Udc PO 10/25/23 19:49 30 ml Q4H PRN Administration Indigestion Albuterol 2 puff 10/25/22 19:55 Albuterol Hfa 60 Puff/8 Gram Inhaler INHALATION 10/25/23 19:54 Q4H PRN Wheezing Aspirin 81 mg 10/26/22 09:00 11/11/22 08:58 Aspirin 81 Mg Tab.Chew PO 10/26/23 08:59 81 mg DAILY ELI Administration Bisacodyl 10 mg 10/25/22 19:50 Bisacodyl 10 Mg Supp.Rect NC 10/25/23 19:49 DAILY PRN Constipation Calcium Carbonate 500 mg 10/26/22 09:00 11/11/22 08:57 Calcium Carbonate 500 Mg Tablet PO 10/26/23 08:59 500 mg DAILY ELI Administration Cyanocobalamin 1,000 mcg 10/26/22 09:00 11/11/22 08:58 Cyanocobalamin 1,000 Mcg Tablet PO 10/26/23 08:59 1,000 mcg DAILY ELI Administration Diclofenac Sodium 2 gm 11/01/22 09:55 Diclofenac Sodium 1% Gel 100 Gm Tube TOPICAL 11/01/23 20:59 BID PRN neck pain Diclofenac Sodium 2 gm 11/04/22 08:35 Diclofenac Sodium 1% Gel 100 Gm Tube TOPICAL 11/04/23 08:34 TID PRN Pain Docusate Sodium 100 mg 10/25/22 19:50 11/10/22 20:26 Docusate 100 Mg Capsule PO 10/25/23 19:49 100 mg BID PRN Administration Constipation Docusate Sodium 283 mg 10/25/22 19:50 Docusate Enema 283 Mg/5 Ml Enema NC 10/25/23 19:49 DAILY PRN Constipation Famotidine 20 mg 10/27/22 09:00 11/11/22 08:58 Famotidine 20 Mg Tablet PO 10/25/23 20:59 20 mg DAILY ELI Administration Hydralazine HCl 25 mg 10/25/22 20:45 Hydralazine 25 Mg Tablet PO 10/25/23 20:44 Q6H PRN hypertention Lactulose 30 gm 10/25/22 19:50 Lactulose 20 Gm/30 Ml Udc PO 10/25/23 19:49 DAILY PRN Constipation Lidocaine 1 patch 11/03/22 09:00 11/11/22 08:58 Lidocaine 4% Adh..Patch TOPICAL 11/03/23 08:59 Not Given DAILY ELI Magnesium Oxide 400 mg 10/26/22 09:00 11/11/22 08:58 Magnesium Oxide 400 Mg Tablet PO 10/26/23 08:59 400 mg DAILY ELI Administration Metoprolol Tartrate 50 mg 10/25/22 21:00 11/11/22 08:58 Metoprolol Tartrate 50 Mg Tablet PO 10/25/23 20:59 50 mg BID ELI Administration Multi-Ingredient Cream 1 applic 10/27/22 09:00 11/11/22 08:58 Lanolin Alcohol/Mo/W.Pet/[place] (Minerin) 454 Gm Jar TOPICAL 10/27/23 08:59 1 applic DAILY ELI Administration Multivitamins 1 tab 10/26/22 09:00 11/11/22 08:58 Multivitamin 1 Tab Tablet PO 10/26/23 08:59 1 tab DAILY ELI Administration Nifedipine 90 mg 10/26/22 09:00 11/11/22 08:58 Nifedipine Er.24hr 90 Mg Tab.Er.24 PO 10/26/23 08:59 90 mg DAILY ELI Administration Potassium Chloride 10 meq 10/26/22 09:00 11/11/22 08:58 Potassium Chloride Er 10 Meq Tablet.Er PO 10/26/23 08:59 10 meq DAILY ELI Administration Sennosides 2 tab 10/26/22 12:00 11/09/22 08:16 Sennosides 8.6 Mg Tablet PO 10/26/23 11:59 2 tab DAILY@12 PRN Administration If no BM in 2 days Sodium Chloride 0 ml 10/25/22 19:50 Sodium Chloride 0.9 % 10 Ml Syringe IV-PUSH 10/25/23 19:49 PRN PRN Flush Ticagrelor 90 mg 10/25/22 21:00 11/11/22 08:58 Ticagrelor 90 Mg Tablet PO 10/25/23 20:59 90 mg BID ELI Administration Trazodone HCl 50 mg 10/26/22 09:17 11/10/22 20:26 Trazodone 50 Mg Tablet PO 10/26/23 21:59 50 mg QHS PRN Administration Sleep Triamcinolone Acetonide 1 applic 10/25/22 19:55 Triamcinolone 0.5% Cream 15 Gm Tube TOPICAL 10/25/23 19:54 DAILY PRN Rash Assessment/Plan Assessment/Plan (1) Subarachnoid hemorrhage: Plan: PT to improve pt's strength, endurance, bed mobility, transfers (sit-stand), standing balance, gait quality on level surfaces and stairs, coordination and functional ADL skills. Will also work to improve pt's safety awareness during transfers and ambulation. OT for basic ADL re-training (bathing, dressing, toileting, continence, grooming, feeding, transferring), to increase activity tolerance and functional mobility and to evaluate for adaptive and assistive devices. Will work to improve pt's endurance and educate pt on fall prevention and energy conservationtechniques-pacing strategies and proper breathing techniques during functional tasks. Patient education Pressure ulcer prophylaxis; encourage mobilization, frequent postural changes, pressure-relief techniques DVT prophylaxis Encourage deep breathing exercise incentive spirometry. Monitor bladder. Toileting schedule. Continue current bladder management, with scans as needed and CIC if needed. Start bowel care program every day to obtain continence, prevent ileus. Maintain fall precautions Gait and balance retraining Provision of the necessary gait aids and functional adaptive equipment to enhance the patient's a functional holiness Encourage deep breathing exercises and incentive spirometry RD evaluation Ensure adequate nutrition and hydration Discharge planning. Code(s): I60.9 - Nontraumatic subarachnoid hemorrhage, unspecified Status: Acute (2) Cerebrovascular accident (CVA) due to occlusion of left carotid artery: Code(s): I63.232 - Cerebral infarction due to unspecified occlusion or stenosis of left carotid arteries Status: Acute (3) Anxiety: Code(s): F41.9 - Anxiety disorder, unspecified Status: Acute (4) HTN (hypertension): Code(s): I10 - Essential (primary) hypertension Status: Acute (5) Impaired mobility and activities of daily living: Code(s): Z74.09 - Other reduced mobility; Z78.9 - Other specified health status Status: Acute (6) Chronic hyponatremia: Code(s): E87.1 - Hypo-osmolality and hyponatremia Status: Acute (7) Chronic alcohol use: Code(s): F10.90 - Alcohol use, unspecified, uncomplicated Status: Acute (8) Right hemiplegia: Code(s): G81.91 - Hemiplegia, unspecified affecting right dominant side Status: Acute (9) Oropharyngeal dysphagia: Code(s): R13.12 - Dysphagia, oropharyngeal phase Status: Acute (10) Mild cognitive impairment: Code(s): G31.84 - Mild cognitive impairment of uncertain or unknown etiology Status: Acute (11) 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 * Change triamcinolone cream to twice daily x7 to 14 days for atopic dermatitis. Continue applying moisturizing ointment to BLE. * Repeat head CT results are as follows: Previously identified SAH in the left frontal lobe appears to have resolved, no new areas of hemorrhage. Patient education Pressure ulcer prophylaxis; encourage mobilization, frequent postural changes, pressure-relief techniques DVT prophylaxis: Continue aspirin and Brilinta. No further pharmacologic prophylaxis due to subarachnoid hemorrhage. Encourage deep breathing exercise incentive spirometry. Monitor bladder. Toileting schedule. Continue current bladder management, with scans as needed and CIC if needed. Start bowel care program every day to obtain continence, prevent ileus. Maintain fall precautions Gait and balance retraining Functional training and self-care and home management, including activities of daily living and instrumental activities of daily living Provision of the necessary gait aids and functional adaptive equipment to enhance the patient's a functional holiness Ensure adequate nutrition and hydration Sleep: Continues trazodone 50 mg at bedtime Pain: No issues Discharge planning: SNF v home with son. I spent greater than 15 minutes for services, including [id number] encounter with the patient, discussion of the case, plan of care, and exam; and [id number] activities, such as reviewing pertinent pension consultant documentation, recent therapy notes, laboratory and radiology studies, and discussion of case with care team including physician, nursing, upper caser, and therapists. More than 50 % of time was spent on patient/family counseling or coordination ofcare. I completed a substantive portion of this encounter, the medical decision makingportion of this note in its entirety, including Allied health note review, nursing note review, pension consultant note review, discussion with nursing and case management, and more than 50% of my time was spent on counseling and coordination of care, time spent 23 minutes Patient was personally seen by me, Dr. Carlton, on the day of encounter, reviewed the history and the relevant portions of the chart, including current orders, allied health and pension consultant notes, labs/imaging and performed bhagat elements of exam and I formulated the plan of care and facilitated the medical decision making. CT head with resolved hemorrhage. Documented By: Kendra Stern APRN 11/11/22 1 410 Signed By: <Electronically signed by VALE Stern> 11/11/22 1424 <Electronically signed by Stewart Carlton MD> 11/12/22 1443 [facility] Work Phone: 1(794) 189-418403-09-2023 Progress note Author Stewart Carlton [facility] November 10, 2022 11:05pm Note Date/Time November 10, 2022 11:0 5pm [facility] [address] [place] [address] Physiatry(Rehab) Progress Note Signed Patient: Gilma Mock MR#: [id number] : 1955 Acct:[id number] Age/Sex: 67 / F Adm Date: 3 Loc: Room: 1L2852-9 Type: ADM IN Attending Dr: Stewart Carlton MD Copies to: ~ Date of Service: 11/09/2022 Subjective Subjective Narrative: Ms. Mock is a 67 year old female presenting to inpatient rehab for functional impairments related to acute CVA. Patient's past medical history is notable foralcohol abuse (drinks~6 beers a day), hypertension, cigarette smoking, depression. Apparently, patient was found confused with right-sided weakness by her family, LKW 3 days prior. She was brought to [place] emergency department. Initial NIH was 18. CT imaging demonstrated left ICA occlusion as well as left common carotid artery and right carotid bulb stenosis, which prompted a transfer to tertiary care center. MRI of the brain at [facility] demonstrated acute to subacute watershed infarct in the left COLE/MCA territory, as well as punctate focus of acute ischemia in the left caudate head and subarachnoid hemorrhage. She was taken for an emergent angioplasty and stent placement to the left ICA. Repeat CT of the head demonstrated stable subarachnoid hemorrhage. Echo is notable for hyperdynamic systolic function with ejection fraction over 70%. Patient has been hyponatremic throughout admission, which is a chronic issue. She has been asymptomatic requiring no correction. Interval history: BP stable. Cognition improving. Patient progressing towards goals. Ambulatory with assist. FI tomorrow. Chronic conditions stable. Review of Systems Review of Systems All other systems reviewed & are negative unless noted below or in HPI Exam Physical Exam Vital Signs: Temp Pulse Resp BP Pulse Ox O2 Del Method 98.1 F 80 16 132/58 L 98 Room Air 11/10/22 16:22 11/10/22 16:22 11/10/22 16:22 11/10/22 16:22 11/10/22 16:22 11/10/22 16:22 Narrative: Const General: cooperative, comfortable, no acute distress, cachectic Nutritional Appearance: Cachectic, sent Orientation: alert, awake and oriented to person and place Limitations: Confused, memory loss HEENT Head: normal to inspection, normocephalic and atraumatic Ears: hearing grossly normal bilaterally Nose: external nose normal Face and sinus: normal facial exam Eyes General: appearance normal, both eyes and all related structures. Wears glasses. Pupils: PERRL EOM: EOM intact bilaterally Neck Neck: normal visual inspection, full ROM, no lymphadenopathy and trachea midline Neck mass: No Chest Chest palpation & inspection: normal inspection of the chest Resp Effort & Inspection: normal respiratory effort, able to speak in complete sentences, symmetric chest movement and no cough Auscultation: clear to auscultation bilaterally Cardio Jugular venous pressure: no JVD Rhythm: Regular rhythm and rate GI: Inspection: normal to inspection Palpation: soft, no hepatosplenomegaly and nontender Auscultation: normal bowel sounds Musc Cervical Spine: normal cervical lordosis and cervical ROM normal Thoracic/Lumbar Spine: thoraco-lumbar ROM normal Skin General: no rashes or lesions noted Neuro General: patient alert, oriented x2, moves all extremities. Notable weakness inthe right upper and lower extremity Cranial Nerves: PERRL Speech: speech normal Extrem Other: Right-sided weakness. Right foot drop. Psych Appearance: grossly normal Mental Status: WNL Mood: congruent mood Affect: normal affect Speech and Movement: speech and movement normal Attitude: cooperative Insight: Limited Judgment: Limited Objective Labs 11/09/22 04:43 11/09/22 04:43 Medications and Allergies Allergies and Active Meds: Allergies Sulfa (Sulfonamide Antibiotics) Adverse Reaction (Verified 10/25/22 20:00) Unknown Reaction Tetanus Vaccines and Toxoid Adverse Reaction (Verified 10/25/22 20:13) Swelling Active Medications Generic Name Dose Route Start Last Admin Trade Name Freq PRN Reason Stop Dose Admin Acetaminophen 500 mg 10/25/22 19:50 11/07/22 07:48 Acetaminophen 500 Mg Tablet PO 10/25/23 19:49 500 mg Q4H PRN Administration Pain Al Hydrox/Mg Hydrox/Simethicone 30 ml 10/25/22 19:50 10/26/22 16:56 Mag Hydrox/Al Hydrox/Simeth 30 Ml Udc PO 10/25/23 19:49 30 ml Q4H PRN Administration Indigestion Albuterol 2 puff 10/25/22 19:55 Albuterol Hfa 60 Puff/8 Gram Inhaler INHALATION 10/25/23 19:54 Q4H PRN Wheezing Aspirin 81 mg 10/26/22 09:00 11/10/22 08:09 Aspirin 81 Mg Tab.Chew PO 10/26/23 08:59 81 mg DAILY ELI Administration Bisacodyl 10 mg 10/25/22 19:50 Bisacodyl 10 Mg Supp.Rect NC 10/25/23 19:49 DAILY PRN Constipation Calcium Carbonate 500 mg 10/26/22 09:00 11/10/22 08:09 Calcium Carbonate 500 Mg Tablet PO 10/26/23 08:59 500 mg DAILY ELI Administration Cyanocobalamin 1,000 mcg 10/26/22 09:00 11/10/22 08:09 Cyanocobalamin 1,000 Mcg Tablet PO 10/26/23 08:59 1,000 mcg DAILY ELI Administration Diclofenac Sodium 2 gm 11/01/22 09:55 Diclofenac Sodium 1% Gel 100 Gm Tube TOPICAL 11/01/23 20:59 BID PRN neck pain Diclofenac Sodium 2 gm 11/04/22 08:35 Diclofenac Sodium 1% Gel 100 Gm Tube TOPICAL 11/04/23 08:34 TID PRN Pain Docusate Sodium 100 mg 10/25/22 19:50 11/10/22 20:26 Docusate 100 Mg Capsule PO 10/25/23 19:49 100 mg BID PRN Administration Constipation Docusate Sodium 283 mg 10/25/22 19:50 Docusate Enema 283 Mg/5 Ml Enema NC 10/25/23 19:49 DAILY PRN Constipation Famotidine 20 mg 10/27/22 09:00 11/10/22 08:08 Famotidine 20 Mg Tablet PO 10/25/23 20:59 20 mg DAILY ELI Administration Hydralazine HCl 25 mg 10/25/22 20:45 Hydralazine 25 Mg Tablet PO 10/25/23 20:44 Q6H PRN hypertention Lactulose 30 gm 10/25/22 19:50 Lactulose 20 Gm/30 Ml Udc PO 10/25/23 19:49 DAILY PRN Constipation Lidocaine 1 patch 11/03/22 09:00 11/10/22 08:09 Lidocaine 4% Adh..Patch TOPICAL 11/03/23 08:59 Not Given DAILY ELI Magnesium Oxide 400 mg 10/26/22 09:00 11/10/22 08:08 Magnesium Oxide 400 Mg Tablet PO 10/26/23 08:59 400 mg DAILY ELI Administration Metoprolol Tartrate 50 mg 10/25/22 21:00 11/10/22 20:23 Metoprolol Tartrate 50 Mg Tablet PO 10/25/23 20:59 50 mg BID ELI Administration Multi-Ingredient Cream 1 applic 10/27/22 09:00 11/10/22 08:09 Lanolin Alcohol/Mo/W.Pet/[place] (Minerin) 454 Gm Jar TOPICAL 10/27/23 08:59 1 applic DAILY ELI Administration Multivitamins 1 tab 10/26/22 09:00 11/10/22 08:09 Multivitamin 1 Tab Tablet PO 10/26/23 08:59 1 tab DAILY ELI Administration Nifedipine 90 mg 10/26/22 09:00 11/10/22 08:08 Nifedipine Er.24hr 90 Mg Tab.Er.24 PO 10/26/23 08:59 90 mg DAILY ELI Administration Potassium Chloride 10 meq 10/26/22 09:00 11/10/22 08:09 Potassium Chloride Er 10 Meq Tablet.Er PO 10/26/23 08:59 10 meq DAILY ELI Administration Sennosides 2 tab 10/26/22 12:00 11/09/22 08:16 Sennosides 8.6 Mg Tablet PO 10/26/23 11:59 2 tab DAILY@12 PRN Administration If no BM in 2 days Sodium Chloride 0 ml 10/25/22 19:50 Sodium Chloride 0.9 % 10 Ml Syringe IV-PUSH 10/25/23 19:49 PRN PRN Flush Ticagrelor 90 mg 10/25/22 21:00 11/10/22 20:23 Ticagrelor 90 Mg Tablet PO 10/25/23 20:59 90 mg BID ELI Administration Trazodone HCl 50 mg 10/26/22 09:17 11/10/22 20:26 Trazodone 50 Mg Tablet PO 10/26/23 21:59 50 mg QHS PRN Administration Sleep Triamcinolone Acetonide 1 applic 10/25/22 19:55 Triamcinolone 0.5% Cream 15 Gm Tube TOPICAL 10/25/23 19:54 DAILY PRN Rash Assessment/Plan Assessment/Plan (1) Subarachnoid hemorrhage: Plan: PT to improve pt's strength, endurance, bed mobility, transfers (sit-stand), standing balance, gait quality on level surfaces and stairs, coordination and functional ADL skills. Will also work to improve pt's safety awareness during transfers and ambulation. OT for basic ADL re-training (bathing, dressing, toileting, continence, grooming, feeding, transferring), to increase activity tolerance and functional mobility and to evaluate for adaptive and assistive devices. Will work to improve pt's endurance and educate pt on fall prevention and energy conservationtechniques-pacing strategies and proper breathing techniques during functional tasks. Patient education Pressure ulcer prophylaxis; encourage mobilization, frequent postural changes, pressure-relief techniques DVT prophylaxis Encourage deep breathing exercise incentive spirometry. Monitor bladder. Toileting schedule. Continue current bladder management, with scans as needed and CIC if needed. Start bowel care program every day to obtain continence, prevent ileus. Maintain fall precautions Gait and balance retraining Provision of the necessary gait aids and functional adaptive equipment to enhance the patient's a functional holiness Encourage deep breathing exercises and incentive spirometry RD evaluation Ensure adequate nutrition and hydration Discharge planning. Code(s): I60.9 - Nontraumatic subarachnoid hemorrhage, unspecified Status: Acute (2) Cerebrovascular accident (CVA) due to occlusion of left carotid artery: Code(s): I63.232 - Cerebral infarction due to unspecified occlusion or stenosis of left carotid arteries Status: Acute (3) Anxiety: Code(s): F41.9 - Anxiety disorder, unspecified Status: Acute (4) HTN (hypertension): Code(s): I10 - Essential (primary) hypertension Status: Acute (5) Impaired mobility and activities of daily living: Code(s): Z74.09 - Other reduced mobility; Z78.9 - Other specified health status Status: Acute (6) Chronic hyponatremia: Code(s): E87.1 - Hypo-osmolality and hyponatremia Status: Acute (7) Chronic alcohol use: Code(s): F10.90 - Alcohol use, unspecified, uncomplicated Status: Acute (8) Right hemiplegia: Code(s): G81.91 - Hemiplegia, unspecified affecting right dominant side Status: Acute (9) Oropharyngeal dysphagia: Code(s): R13.12 - Dysphagia, oropharyngeal phase Status: Acute (10) Mild cognitive impairment: Code(s): G31.84 - Mild cognitive impairment of uncertain or unknown etiology Status: Acute (11) 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 * Continue current plan of care * FI tomorrow. * Repeat CT to eval SAH. Patient education Pressure ulcer prophylaxis; encourage mobilization, frequent postural changes, pressure-relief techniques DVT prophylaxis: Continue aspirin and Brilinta. No further pharmacologic prophylaxis due to subarachnoid hemorrhage. Encourage deep breathing exercise incentive spirometry. Monitor bladder. Toileting schedule. Continue current bladder management, with scans as needed and CIC if needed. Start bowel care program every day to obtain continence, prevent ileus. Maintain fall precautions Gait and balance retraining Functional training and self-care and home management, including activities of daily living and instrumental activities of daily living Provision of the necessary gait aids and functional adaptive equipment to enhance the patient's a functional holiness Ensure adequate nutrition and hydration Sleep: Continues trazodone 50 mg at bedtime Pain: No issues Discharge planning: SNF v home with son. Plan: I completed a substantive portion of this encounter, the medical decision makingportion of this note in its entirety, including Allied health note review, nursing note review, pension consultant note review, discussion with nursing and case management, and more than 50% of my time was spent on counseling and coordination of care, time spent 25 minutes Patient was personally seen by me, Dr. Carlton, on the day of encounter, reviewed the history and the relevant portions of the chart, including current orders, allied health and pension consultant notes, labs/imaging and performed bhagat elements of exam and I formulated the plan of care and facilitated the medical decision making. Documented By: Stewart Carlton MD 11/10/222302 Signed By: <Electronically signed by Stewart Carlton MD> 11/10/222304 [facility] Work Phone: [phone]) 297-164703-08-2023 Progress note Author Stewart Carlton [facility] November 10, 2022 9:55pm Note Date/Time November 10, 2022 2:18 pm [facility] [address] [place] [address] Physiatry(Rehab) Progress Note Signed Patient: Gilma Mock MR#: [id number] : 1955 Acct:[id number] Age/Sex: 67 / F Adm Date: 3 Loc: 5T Room: 6Q0038-0 Type: ADM IN Attending Dr: Stewart Carlton MD Copies to: ~ Date of Service: 11/10/2022 Subjective Subjective Narrative: Ms. Mock is a 67 year old female presenting to inpatient rehab for functional impairments related to acute CVA. Patient's past medical history is notable foralcohol abuse (drinks~6 beers a day), hypertension, cigarette smoking, depression. Apparently, patient was found confused with right-sided weakness by her family, LKW 3 days prior. She was brought to [place] emergency department. Initial NIH was 18. CT imaging demonstrated left ICA occlusion as well as left common carotid artery and right carotid bulb stenosis, which prompted a transfer to tertiary care center. MRI of the brain at [facility] demonstrated acute to subacute watershed infarct in the left COLE/MCA territory, as well as punctate focus of acute ischemia in the left caudate head and subarachnoid hemorrhage. She was taken for an emergent angioplasty and stent placement to the left ICA. Repeat CT of the head demonstrated stable subarachnoid hemorrhage. Echo is notable for hyperdynamic systolic function with ejection fraction over 70%. Patient has been hyponatremic throughout admission, which is a chronic issue. She has been asymptomatic requiring no correction. Interval history: Patient offers no complaints or concerns. Seems to be improving cognitively. Right-sided deficits are also resolving. Her vital signs remain within normal limits. Lab work is unremarkable. Observed while ambulating with a wheeled walker during PT session. Does requiresome cues from therapist but is able to walk household and community distances with SBA/CGA. She did have an FI with son this afternoon. Son wants to have the patient continue rehabilitation at a SNF. Patient seems to be agreeable to this also, although does state that she is doing very well physically. Referrals are beingmade by CM. Chronic conditions stable. Review of Systems Review of Systems All other systems reviewed & are negative unless noted below or in HPI Exam Physical Exam Vital Signs: Temp Pulse Resp BP Pulse Ox O2 Del Method 98.0 F 80 18 107/71 98 Room Air 11/10/22 04:25 11/10/22 04:25 11/10/22 04:25 11/10/22 04:25 11/10/22 04:25 11/10/22 10:41 Narrative: Const General: cooperative, comfortable, no acute distress, cachectic Nutritional Appearance: Cachectic, sent Orientation: alert, awake and oriented to person and place Limitations: Confused, memory loss HEENT Head: normal to inspection, normocephalic and atraumatic Ears: hearing grossly normal bilaterally Nose: external nose normal Face and sinus: normal facial exam Eyes General: appearance normal, both eyes and all related structures. Wears glasses. Pupils: PERRL EOM: EOM intact bilaterally Neck Neck: normal visual inspection, full ROM, no lymphadenopathy and trachea midline Neck mass: No Chest Chest palpation & inspection: normal inspection of the chest Resp Effort & Inspection: normal respiratory effort, able to speak in complete sentences, symmetric chest movement and no cough Auscultation: clear to auscultation bilaterally Cardio Jugular venous pressure: no JVD Rhythm: Regular rhythm and rate GI: Inspection: normal to inspection Palpation: soft, no hepatosplenomegaly and nontender Auscultation: normal bowel sounds Musc Cervical Spine: normal cervical lordosis and cervical ROM normal Thoracic/Lumbar Spine: thoraco-lumbar ROM normal Skin General: no rashes or lesions noted Neuro General: patient alert, oriented x2, moves all extremities. Notable weakness inthe right upper and lower extremity Cranial Nerves: PERRL Speech: speech normal Extrem Other: Right-sided weakness. Right foot drop. Psych Appearance: grossly normal Mental Status: WNL Mood: congruent mood Affect: normal affect Speech and Movement: speech and movement normal Attitude: cooperative Insight: Limited Judgment: Limited Objective Labs 11/09/22 04:43 11/09/22 04:43 Medications and Allergies Allergies and Active Meds: Allergies Sulfa (Sulfonamide Antibiotics) Adverse Reaction (Verified 10/25/22 20:00) Unknown Reaction Tetanus Vaccines and Toxoid Adverse Reaction (Verified 10/25/22 20:13) Swelling Active Medications Generic Name Dose Route Start Last Admin Trade Name Freq PRN Reason Stop Dose Admin Acetaminophen 500 mg 10/25/22 19:50 11/07/22 07:48 Acetaminophen 500 Mg Tablet PO 10/25/23 19:49 500 mg Q4H PRN Administration Pain Al Hydrox/Mg Hydrox/Simethicone 30 ml 10/25/22 19:50 10/26/22 16:56 Mag Hydrox/Al Hydrox/Simeth 30 Ml Udc PO 10/25/23 19:49 30 ml Q4H PRN Administration Indigestion Albuterol 2 puff 10/25/22 19:55 Albuterol Hfa 60 Puff/8 Gram Inhaler INHALATION 10/25/23 19:54 Q4H PRN Wheezing Aspirin 81 mg 10/26/22 09:00 11/10/22 08:09 Aspirin 81 Mg Tab.Chew PO 10/26/23 08:59 81 mg DAILY ELI Administration Bisacodyl 10 mg 10/25/22 19:50 Bisacodyl 10 Mg Supp.Rect NC 10/25/23 19:49 DAILY PRN Constipation Calcium Carbonate 500 mg 10/26/22 09:00 11/10/22 08:09 Calcium Carbonate 500 Mg Tablet PO 10/26/23 08:59 500 mg DAILY ELI Administration Cyanocobalamin 1,000 mcg 10/26/22 09:00 11/10/22 08:09 Cyanocobalamin 1,000 Mcg Tablet PO 10/26/23 08:59 1,000 mcg DAILY ELI Administration Diclofenac Sodium 2 gm 11/01/22 09:55 Diclofenac Sodium 1% Gel 100 Gm Tube TOPICAL 11/01/23 20:59 BID PRN neck pain Diclofenac Sodium 2 gm 11/04/22 08:35 Diclofenac Sodium 1% Gel 100 Gm Tube TOPICAL 11/04/23 08:34 TID PRN Pain Docusate Sodium 100 mg 10/25/22 19:50 Docusate 100 Mg Capsule PO 10/25/23 19:49 BID PRN Constipation Docusate Sodium 283 mg 10/25/22 19:50 Docusate Enema 283 Mg/5 Ml Enema NC 10/25/23 19:49 DAILY PRN Constipation Famotidine 20 mg 10/27/22 09:00 11/10/22 08:08 Famotidine 20 Mg Tablet PO 10/25/23 20:59 20 mg DAILY ELI Administration Hydralazine HCl 25 mg 10/25/22 20:45 Hydralazine 25 Mg Tablet PO 10/25/23 20:44 Q6H PRN hypertention Lactulose 30 gm 10/25/22 19:50 Lactulose 20 Gm/30 Ml Udc PO 10/25/23 19:49 DAILY PRN Constipation Lidocaine 1 patch 11/03/22 09:00 11/10/22 08:09 Lidocaine 4% Adh..Patch TOPICAL 11/03/23 08:59 Not Given DAILY ELI Magnesium Oxide 400 mg 10/26/22 09:00 11/10/22 08:08 Magnesium Oxide 400 Mg Tablet PO 10/26/23 08:59 400 mg DAILY ELI Administration Metoprolol Tartrate 50 mg 10/25/22 21:00 11/10/22 08:08 Metoprolol Tartrate 50 Mg Tablet PO 10/25/23 20:59 50 mg BID ELI Administration Multi-Ingredient Cream 1 applic 10/27/22 09:00 11/10/22 08:09 Lanolin Alcohol/Mo/W.Pet/[place] (Minerin) 454 Gm Jar TOPICAL 10/27/23 08:59 1 applic DAILY ELI Administration Multivitamins 1 tab 10/26/22 09:00 11/10/22 08:09 Multivitamin 1 Tab Tablet PO 10/26/23 08:59 1 tab DAILY ELI Administration Nifedipine 90 mg 10/26/22 09:00 11/10/22 08:08 Nifedipine Er.24hr 90 Mg Tab.Er.24 PO 10/26/23 08:59 90 mg DAILY ELI Administration Potassium Chloride 10 meq 10/26/22 09:00 11/10/22 08:09 Potassium Chloride Er 10 Meq Tablet.Er PO 10/26/23 08:59 10 meq DAILY ELI Administration Sennosides 2 tab 10/26/22 12:00 11/09/22 08:16 Sennosides 8.6 Mg Tablet PO 10/26/23 11:59 2 tab DAILY@12 PRN Administration If no BM in 2 days Sodium Chloride 0 ml 10/25/22 19:50 Sodium Chloride 0.9 % 10 Ml Syringe IV-PUSH 10/25/23 19:49 PRN PRN Flush Ticagrelor 90 mg 10/25/22 21:00 11/10/22 08:08 Ticagrelor 90 Mg Tablet PO 10/25/23 20:59 90 mg BID ELI Administration Trazodone HCl 50 mg 10/26/22 09:17 11/08/22 20:08 Trazodone 50 Mg Tablet PO 10/26/23 21:59 50 mg QHS PRN Administration Sleep Triamcinolone Acetonide 1 applic 10/25/22 19:55 Triamcinolone 0.5% Cream 15 Gm Tube TOPICAL 10/25/23 19:54 DAILY PRN Rash Assessment/Plan Assessment/Plan (1) Subarachnoid hemorrhage: Plan: PT to improve pt's strength, endurance, bed mobility, transfers (sit-stand), standing balance, gait quality on level surfaces and stairs, coordination and functional ADL skills. Will also work to improve pt's safety awareness during transfers and ambulation. OT for basic ADL re-training (bathing, dressing, toileting, continence, grooming, feeding, transferring), to increase activity tolerance and functional mobility and to evaluate for adaptive and assistive devices. Will work to improve pt's endurance and educate pt on fall prevention and energy conservationtechniques-pacing strategies and proper breathing techniques during functional tasks. Patient education Pressure ulcer prophylaxis; encourage mobilization, frequent postural changes, pressure-relief techniques DVT prophylaxis Encourage deep breathing exercise incentive spirometry. Monitor bladder. Toileting schedule. Continue current bladder management, with scans as needed and CIC if needed. Start bowel care program every day to obtain continence, prevent ileus. Maintain fall precautions Gait and balance retraining Provision of the necessary gait aids and functional adaptive equipment to enhance the patient's a functional holiness Encourage deep breathing exercises and incentive spirometry RD evaluation Ensure adequate nutrition and hydration Discharge planning. Code(s): I60.9 - Nontraumatic subarachnoid hemorrhage, unspecified Status: Acute (2) Cerebrovascular accident (CVA) due to occlusion of left carotid artery: Code(s): I63.232 - Cerebral infarction due to unspecified occlusion or stenosis of left carotid arteries Status: Acute (3) Anxiety: Code(s): F41.9 - Anxiety disorder, unspecified Status: Acute (4) HTN (hypertension): Code(s): I10 - Essential (primary) hypertension Status: Acute (5) Impaired mobility and activities of daily living: Code(s): Z74.09 - Other reduced mobility; Z78.9 - Other specified health status Status: Acute (6) Chronic hyponatremia: Code(s): E87.1 - Hypo-osmolality and hyponatremia Status: Acute (7) Chronic alcohol use: Code(s): F10.90 - Alcohol use, unspecified, uncomplicated Status: Acute (8) Right hemiplegia: Code(s): G81.91 - Hemiplegia, unspecified affecting right dominant side Status: Acute (9) Oropharyngeal dysphagia: Code(s): R13.12 - Dysphagia, oropharyngeal phase Status: Acute (10) Mild cognitive impairment: Code(s): G31.84 - Mild cognitive impairment of uncertain or unknown etiology Status: Acute (11) 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 * Neurological deficits continue to improve. Mental status is also improving. * Recent labs are unremarkable. Hyponatremia is improving, 133 * Family is requesting SNF placement, referrals are being made. Patient education Pressure ulcer prophylaxis; encourage mobilization, frequent postural changes, pressure-relief techniques DVT prophylaxis: Continue aspirin and Brilinta. No further pharmacologic prophylaxis due to subarachnoid hemorrhage. Encourage deep breathing exercise incentive spirometry. Monitor bladder. Toileting schedule. Continue current bladder management, with scans as needed and CIC if needed. Start bowel care program every day to obtain continence, prevent ileus. Maintain fall precautions Gait and balance retraining Functional training and self-care and home management, including activities of daily living and instrumental activities of daily living Provision of the necessary gait aids and functional adaptive equipment to enhance the patient's a functional holiness Ensure adequate nutrition and hydration Sleep: Continues trazodone 50 mg at bedtime Pain: No issues Discharge planning: Son is requesting SNF and insurance approval. I spent greater than 15 minutes for services, including [id number] encounter with the patient, discussion of the case, plan of care, and exam; and [id number] activities, such as reviewing pertinent pension consultant documentation, recent therapy notes, laboratory and radiology studies, and discussion of case with care team including physician, nursing, upper caser, and therapists. More than 50 % of time was spent on patient/family counseling or coordination ofcare. Plan: I completed a substantive portion of this encounter, the medical decision makingportion of this note in its entirety, including Allied health note review, nursing note review, pension consultant note review, discussion with nursing and case management, and more than 50% of my time was spent on counseling and coordination of care, time spent 25 minutes Patient was personally seen by me, Dr. Carlton, on the day of encounter, reviewed the history and the relevant portions of the chart, including current orders, allied health and pension consultant notes, labs/imaging and performed bhagat elements of exam and I formulated the plan of care and facilitated the medical decision making. Documented By: Kendra Stern APRN 11/10/22 1 409 Signed By: <Electronically signed by VALE Stern> 11/10/22 1418 <Electronically signed by Stewart Carlton MD> 11/10/22 [address] [facility] Work Phone: [phone]) 361-986203-06-2023 Progress note Author Stewart Carlton [facility] November 08, 2022 5:04pm Note Date/Time November 08, 2022 5:04 pm [facility] [address] [place] [address] Physiatry(Rehab) Progress Note Signed Patient: Gilma Mock MR#: [id number] : 1955 Acct:[id number] Age/Sex: 67 / F Adm Date: 3 Loc: Room: [address] [place] [address] Type: ADM IN Attending Dr: Stewart Carlton MD Copies to: ~ Date of Service: 11/08/2022 Subjective Subjective Narrative: Ms. Mock is a 67 year old female presenting to inpatient rehab for functional impairments related to acute CVA. Patient's past medical history is notable foralcohol abuse (drinks~6 beers a day), hypertension, cigarette smoking, depression. Apparently, patient was found confused with right-sided weakness by her family, LKW 3 days prior. She was brought to [place] emergency department. Initial NIH was 18. CT imaging demonstrated left ICA occlusion as well as left common carotid artery and right carotid bulb stenosis, which prompted a transfer to tertiary care center. MRI of the brain at [facility] demonstrated acute to subacute watershed infarct in the left COLE/MCA territory, as well as punctate focus of acute ischemia in the left caudate head and subarachnoid hemorrhage. She was taken for an emergent angioplasty and stent placement to the left ICA. Repeat CT of the head demonstrated stable subarachnoid hemorrhage. Echo is notable for hyperdynamic systolic function with ejection fraction over 70%. Patient has been hyponatremic throughout admission, which is a chronic issue. She has been asymptomatic requiring no correction. Interval history: Continues to improve. Vitals are stable. No acute events over the weekend. Still requires assistance with mobility and self-care. Cognition nearly back topremorbid baseline. Chronic conditions stable. Review of Systems Review of Systems All other systems reviewed & are negative unless noted below or in HPI Exam Physical Exam Vital Signs: Temp Pulse Resp BP Pulse Ox O2 Del Method 98.2 F 91 H 16 121/71 98 Room Air 11/08/22 16:06 11/08/22 16:06 11/08/22 16:06 11/08/22 16:06 11/08/22 16:06 11/08/22 16:06 Narrative: Const General: cooperative, comfortable, no acute distress, cachectic Nutritional Appearance: Cachectic, sent Orientation: alert, awake and oriented to person and place Limitations: Confused, memory loss HEENT Head: normal to inspection, normocephalic and atraumatic Ears: hearing grossly normal bilaterally Nose: external nose normal Face and sinus: normal facial exam Eyes General: appearance normal, both eyes and all related structures. Wears glasses. Pupils: PERRL EOM: EOM intact bilaterally Neck Neck: normal visual inspection, full ROM, no lymphadenopathy and trachea midline Neck mass: No Chest Chest palpation & inspection: normal inspection of the chest Resp Effort & Inspection: normal respiratory effort, able to speak in complete sentences, symmetric chest movement and no cough Auscultation: clear to auscultation bilaterally Cardio Jugular venous pressure: no JVD Rhythm: Regular rhythm and rate GI: Inspection: normal to inspection Palpation: soft, no hepatosplenomegaly and nontender Auscultation: normal bowel sounds Musc Cervical Spine: normal cervical lordosis and cervical ROM normal Thoracic/Lumbar Spine: thoraco-lumbar ROM normal Skin General: no rashes or lesions noted Neuro General: patient alert, oriented x2, moves all extremities. Notable weakness inthe right upper and lower extremity Cranial Nerves: PERRL Speech: speech normal Extrem Other: Right-sided weakness. Right foot drop. Psych Appearance: grossly normal Mental Status: WNL Mood: congruent mood Affect: normal affect Speech and Movement: speech and movement normal Attitude: cooperative Insight: Limited Judgment: Limited Objective Labs 10/30/22 06:31 11/01/22 05:35 Medications and Allergies Allergies and Active Meds: Allergies Sulfa (Sulfonamide Antibiotics) Adverse Reaction (Verified 10/25/22 20:00) Unknown Reaction Tetanus Vaccines and Toxoid Adverse Reaction (Verified 10/25/22 20:13) Swelling Active Medications Generic Name Dose Route Start Last Admin Trade Name Freq PRN Reason Stop Dose Admin Acetaminophen 500 mg 10/25/22 19:50 11/07/22 07:48 Acetaminophen 500 Mg Tablet PO 10/25/23 19:49 500 mg Q4H PRN Administration Pain Al Hydrox/Mg Hydrox/Simethicone 30 ml 10/25/22 19:50 10/26/22 16:56 Mag Hydrox/Al Hydrox/Simeth 30 Ml Udc PO 10/25/23 19:49 30 ml Q4H PRN Administration Indigestion Albuterol 2 puff 10/25/22 19:55 Albuterol Hfa 60 Puff/8 Gram Inhaler INHALATION 10/25/23 19:54 Q4H PRN Wheezing Aspirin 81 mg 10/26/22 09:00 11/08/22 08:34 Aspirin 81 Mg Tab.Chew PO 10/26/23 08:59 81 mg DAILY ELI Administration Bisacodyl 10 mg 10/25/22 19:50 Bisacodyl 10 Mg Supp.Rect NC 10/25/23 19:49 DAILY PRN Constipation Calcium Carbonate 500 mg 10/26/22 09:00 11/08/22 08:34 Calcium Carbonate 500 Mg Tablet PO 10/26/23 08:59 500 mg DAILY ELI Administration Cyanocobalamin 1,000 mcg 10/26/22 09:00 11/08/22 08:34 Cyanocobalamin 1,000 Mcg Tablet PO 10/26/23 08:59 1,000 mcg DAILY ELI Administration Diclofenac Sodium 2 gm 11/01/22 09:55 Diclofenac Sodium 1% Gel 100 Gm Tube TOPICAL 11/01/23 20:59 BID PRN neck pain Diclofenac Sodium 2 gm 11/04/22 08:35 Diclofenac Sodium 1% Gel 100 Gm Tube TOPICAL 11/04/23 08:34 TID PRN Pain Docusate Sodium 100 mg 10/25/22 19:50 Docusate 100 Mg Capsule PO 10/25/23 19:49 BID PRN Constipation Docusate Sodium 283 mg 10/25/22 19:50 Docusate Enema 283 Mg/5 Ml Enema NC 10/25/23 19:49 DAILY PRN Constipation Famotidine 20 mg 10/27/22 09:00 11/08/22 08:33 Famotidine 20 Mg Tablet PO 10/25/23 20:59 20 mg DAILY ELI Administration Hydralazine HCl 25 mg 10/25/22 20:45 Hydralazine 25 Mg Tablet PO 10/25/23 20:44 Q6H PRN hypertention Lactulose 30 gm 10/25/22 19:50 Lactulose 20 Gm/30 Ml Udc PO 10/25/23 19:49 DAILY PRN Constipation Lidocaine 1 patch 11/03/22 09:00 11/08/22 08:34 Lidocaine 4% Adh..Patch TOPICAL 11/03/23 08:59 1 patch DAILY [facility] Administration Magnesium Oxide 400 mg 10/26/22 09:00 11/08/22 08:33 Magnesium Oxide 400 Mg Tablet PO 10/26/23 08:59 400 mg DAILY ELI Administration Metoprolol Tartrate 50 mg 10/25/22 21:00 11/08/22 08:34 Metoprolol Tartrate 50 Mg Tablet PO 10/25/23 20:59 50 mg BID ELI Administration Multi-Ingredient Cream 1 applic 10/27/22 09:00 11/08/22 08:34 Lanolin Alcohol/Mo/W.Pet/[place] (Minerin) 454 Gm Jar TOPICAL 10/27/23 08:59 Not Given DAILY ELI Multivitamins 1 tab 10/26/22 09:00 11/08/22 08:33 Multivitamin 1 Tab Tablet PO 10/26/23 08:59 1 tab DAILY ELI Administration Nifedipine 90 mg 10/26/22 09:00 11/08/22 08:34 Nifedipine Er.24hr 90 Mg Tab.Er.24 PO 10/26/23 08:59 90 mg DAILY ELI Administration Potassium Chloride 10 meq 10/26/22 09:00 11/08/22 08:33 Potassium Chloride Er 10 Meq Tablet.Er PO 10/26/23 08:59 10 meq DAILY ELI Administration Sennosides 2 tab 10/26/22 12:00 10/31/22 08:53 Sennosides 8.6 Mg Tablet PO 10/26/23 11:59 2 tab DAILY@12 PRN Administration If no BM in 2 days Sodium Chloride 0 ml 10/25/22 19:50 Sodium Chloride 0.9 % 10 Ml Syringe IV-PUSH 10/25/23 19:49 PRN PRN Flush Ticagrelor 90 mg 10/25/22 21:00 11/08/22 08:34 Ticagrelor 90 Mg Tablet PO 10/25/23 20:59 90 mg BID ELI Administration Trazodone HCl 50 mg 10/26/22 09:17 11/07/22 20:11 Trazodone 50 Mg Tablet PO 10/26/23 21:59 50 mg QHS PRN Administration Sleep Triamcinolone Acetonide 1 applic 10/25/22 19:55 Triamcinolone 0.5% Cream 15 Gm Tube TOPICAL 10/25/23 19:54 DAILY PRN Rash Assessment/Plan Assessment/Plan (1) Subarachnoid hemorrhage: Plan: PT to improve pt's strength, endurance, bed mobility, transfers (sit-stand), standing balance, gait quality on level surfaces and stairs, coordination and functional ADL skills. Will also work to improve pt's safety awareness during transfers and ambulation. OT for basic ADL re-training (bathing, dressing, toileting, continence, grooming, feeding, transferring), to increase activity tolerance and functional mobility and to evaluate for adaptive and assistive devices. Will work to improve pt's endurance and educate pt on fall prevention and energy conservationtechniques-pacing strategies and proper breathing techniques during functional tasks. Patient education Pressure ulcer prophylaxis; encourage mobilization, frequent postural changes, pressure-relief techniques DVT prophylaxis Encourage deep breathing exercise incentive spirometry. Monitor bladder. Toileting schedule. Continue current bladder management, with scans as needed and CIC if needed. Start bowel care program every day to obtain continence, prevent ileus. Maintain fall precautions Gait and balance retraining Provision of the necessary gait aids and functional adaptive equipment to enhance the patient's a functional holiness Encourage deep breathing exercises and incentive spirometry RD evaluation Ensure adequate nutrition and hydration Discharge planning. Code(s): I60.9 - Nontraumatic subarachnoid hemorrhage, unspecified Status: Acute (2) Cerebrovascular accident (CVA) due to occlusion of left carotid artery: Code(s): I63.232 - Cerebral infarction due to unspecified occlusion or stenosis of left carotid arteries Status: Acute (3) Anxiety: Code(s): F41.9 - Anxiety disorder, unspecified Status: Acute (4) HTN (hypertension): Code(s): I10 - Essential (primary) hypertension Status: Acute (5) Impaired mobility and activities of daily living: Code(s): Z74.09 - Other reduced mobility; Z78.9 - Other specified health status Status: Acute (6) Chronic hyponatremia: Code(s): E87.1 - Hypo-osmolality and hyponatremia Status: Acute (7) Chronic alcohol use: Code(s): F10.90 - Alcohol use, unspecified, uncomplicated Status: Acute (8) Right hemiplegia: Code(s): G81.91 - Hemiplegia, unspecified affecting right dominant side Status: Acute (9) Oropharyngeal dysphagia: Code(s): R13.12 - Dysphagia, oropharyngeal phase Status: Acute (10) Mild cognitive impairment: Code(s): G31.84 - Mild cognitive impairment of uncertain or unknown etiology Status: Acute (11) 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 * Improving daily * Progressing towards goals * Repeat CBC and BMP tomorrow Patient education Pressure ulcer prophylaxis; encourage mobilization, frequent postural changes, pressure-relief techniques DVT prophylaxis: Continue aspirin and Brilinta. No further pharmacologic prophylaxis due to subarachnoid hemorrhage. Encourage deep breathing exercise incentive spirometry. Monitor bladder. Toileting schedule. Continue current bladder management, with scans as needed and CIC if needed. Start bowel care program every day to obtain continence, prevent ileus. Maintain fall precautions Gait and balance retraining Functional training and self-care and home management, including activities of daily living and instrumental activities of daily living Provision of the necessary gait aids and functional adaptive equipment to enhance the patient's a functional holiness Ensure adequate nutrition and hydration Sleep: Continues trazodone 50 mg at bedtime Pain: No issues Discharge planning: Home, possibly with son, in a week or 2, pending insurance recert Plan: I completed a substantive portion of this encounter, the medical decision makingportion of this note in its entirety, including Allied health note review, nursing note review, pension consultant note review, discussion with nursing and case management, and more than 50% of my time was spent on counseling and coordination of care, time spent 25 minutes Patient was personally seen by me, Dr. Carlton, on the day of encounter, reviewed the history and the relevant portions of the chart, including current orders, allied health and pension consultant notes, labs/imaging and performed bhagat elements of exam and I formulated the plan of care and facilitated the medical decision making. Documented By: Stewart Carlton MD 11/08/221702 Signed By: <Electronically signed by Stewart Carlton MD> 11/08/221703 [facility] Work Phone: 1([phone]) 198-325203-05-2023 Progress note Author Gaby Hernandez [facility] November 07, 2022 4:49pm Note Date/Time November 07, 2022 4:49 pm [facility] [address] [place] [address] Hospitalist Progress Note Signed Patient: Gilma Mock MR#: [id number] : 1955 Acct:[id number] Age/Sex: 67 / F Adm Date: 3 Loc: 5T Room: [address] [place] [address] Type: ADM IN Attending Dr: Stewart Carlton MD Copies to: ~ Date of Service: 11/06/2022 Subjective Subjective Narrative: Patient is seen and examined on follow-up. She continues to work with therapy. Vitals reviewed blood pressures are controlled, afebrile no hypoxia. Labs reviewed last from 10/30 mild anemia hemoglobin 11.1, BMP from 11/01 sodium at 133. Hyponatremia is reported as chronic. Patient endorses no significant complaints. Continues with right-sided weakness. Exam Physical Exam Vital Signs: Temp Pulse Resp BP Pulse Ox O2 Del Method 97.6 F 73 18 124/55 L 96 Room Air 11/06/22 13:10 11/06/22 13:10 11/06/22 13:10 11/06/22 13:10 11/06/22 13:10 11/06/22 13:10 Narrative: CONST- alert, in bed, no distress at rest CARD- RRR no abnormal heart tones PULM- dimin without wheeze or rhonchi, RA ABD- S/NT, NABS EXTREM- no edema BLE, calves nontender Neuromuscular?oriented x3, right-sided weakness, right facial droop, speech clear, oriented x2/3 Objective Lab Results 10/30/22 06:31 11/01/22 05:35 Meds Allergies and Active Meds Allergies Sulfa (Sulfonamide Antibiotics) Adverse Reaction (Verified 10/25/22 20:00) Unknown Reaction Tetanus Vaccines and Toxoid Adverse Reaction (Verified 10/25/22 20:13) Swelling Active Meds: Active Medications Generic Name Dose Route Start Last Admin Trade Name Freq PRN Reason Stop Dose Admin Acetaminophen 500 mg 10/25/22 19:50 11/04/22 21:28 Acetaminophen 500 Mg Tablet PO 10/25/23 19:49 500 mg Q4H PRN Administration Pain Al Hydrox/Mg Hydrox/Simethicone 30 ml 10/25/22 19:50 10/26/22 16:56 Mag Hydrox/Al Hydrox/Simeth 30 Ml Udc PO 10/25/23 19:49 30 ml Q4H PRN Administration Indigestion Albuterol 2 puff 10/25/22 19:55 Albuterol Hfa 60 Puff/8 Gram Inhaler INHALATION 10/25/23 19:54 Q4H PRN Wheezing Aspirin 81 mg 10/26/22 09:00 11/06/22 09:14 Aspirin 81 Mg Tab.Chew PO 10/26/23 08:59 81 mg DAILY ELI Administration Bisacodyl 10 mg 10/25/22 19:50 Bisacodyl 10 Mg Supp.Rect NC 10/25/23 19:49 DAILY PRN Constipation Calcium Carbonate 500 mg 10/26/22 09:00 11/06/22 09:14 Calcium Carbonate 500 Mg Tablet PO 10/26/23 08:59 500 mg DAILY ELI Administration Cyanocobalamin 1,000 mcg 10/26/22 09:00 11/06/22 09:14 Cyanocobalamin 1,000 Mcg Tablet PO 10/26/23 08:59 1,000 mcg DAILY ELI Administration Diclofenac Sodium 2 gm 11/01/22 09:55 Diclofenac Sodium 1% Gel 100 Gm Tube TOPICAL 11/01/23 20:59 BID PRN neck pain Diclofenac Sodium 2 gm 11/04/22 08:35 Diclofenac Sodium 1% Gel 100 Gm Tube TOPICAL 11/04/23 08:34 TID PRN Pain Docusate Sodium 100 mg 10/25/22 19:50 Docusate 100 Mg Capsule PO 10/25/23 19:49 BID PRN Constipation Docusate Sodium 283 mg 10/25/22 19:50 Docusate Enema 283 Mg/5 Ml Enema NC 10/25/23 19:49 DAILY PRN Constipation Famotidine 20 mg 10/27/22 09:00 11/06/22 09:14 Famotidine 20 Mg Tablet PO 10/25/23 20:59 20 mg DAILY ELI Administration Hydralazine HCl 25 mg 10/25/22 20:45 Hydralazine 25 Mg Tablet PO 10/25/23 20:44 Q6H PRN hypertention Lactulose 30 gm 10/25/22 19:50 Lactulose 20 Gm/30 Ml Udc PO 10/25/23 19:49 DAILY PRN Constipation Lidocaine 1 patch 11/03/22 09:00 11/06/22 09:14 Lidocaine 4% Adh..Patch TOPICAL 11/03/23 08:59 Not Given DAILY ELI Magnesium Oxide 400 mg 10/26/22 09:00 11/06/22 09:14 Magnesium Oxide 400 Mg Tablet PO 10/26/23 08:59 400 mg DAILY ELI Administration Metoprolol Tartrate 50 mg 10/25/22 21:00 11/06/22 09:13 Metoprolol Tartrate 50 Mg Tablet PO 10/25/23 20:59 50 mg BID ELI Administration Multi-Ingredient Cream 1 applic 10/27/22 09:00 11/06/22 09:14 Lanolin Alcohol/Mo/W.Pet/[place] (Minerin) 454 Gm Jar TOPICAL 10/27/23 08:59 1 applic DAILY ELI Administration Multivitamins 1 tab 10/26/22 09:00 11/06/22 09:14 Multivitamin 1 Tab Tablet PO 10/26/23 08:59 1 tab DAILY ELI Administration Nifedipine 90 mg 10/26/22 09:00 11/06/22 09:13 Nifedipine Er.24hr 90 Mg Tab.Er.24 PO 10/26/23 08:59 90 mg DAILY ELI Administration Potassium Chloride 10 meq 10/26/22 09:00 11/06/22 09:14 Potassium Chloride Er 10 Meq Tablet.Er PO 10/26/23 08:59 10 meq DAILY ELI Administration Sennosides 2 tab 10/26/22 12:00 10/31/22 08:53 Sennosides 8.6 Mg Tablet PO 10/26/23 11:59 2 tab DAILY@12 PRN Administration If no BM in 2 days Sodium Chloride 0 ml 10/25/22 19:50 Sodium Chloride 0.9 % 10 Ml Syringe IV-PUSH 10/25/23 19:49 PRN PRN Flush Ticagrelor 90 mg 10/25/22 21:00 11/06/22 09:14 Ticagrelor 90 Mg Tablet PO 10/25/23 20:59 90 mg BID ELI Administration Trazodone HCl 50 mg 10/26/22 09:17 11/05/22 20:15 Trazodone 50 Mg Tablet PO 10/26/23 21:59 50 mg QHS PRN Administration Sleep Triamcinolone Acetonide 1 applic 10/25/22 19:55 Triamcinolone 0.5% Cream 15 Gm Tube TOPICAL 10/25/23 19:54 DAILY PRN Rash A&P - Hospitalist Assessment/Plan (1) Right hemiplegia: (2) Cerebrovascular accident (CVA) due to occlusion of left carotid artery: (3) HTN (hypertension): (4) Chronic hyponatremia: Plan Cerebrovascular accident (CVA) due to occlusion of left carotid artery Right hemiplegia ? Further POC per PMR team for rehabilitative therapy post stroke, pain control bowel regimen, DVT PPx ?On Brilinta and aspirin Chronic conditions 1.Hypertension? metoprolol, Procardia 2.Anxiety/depression 3.Chronic alcohol use 4.Tobacco abuse 5.Chronic hyponatremia likely due to beer consumption?monitor sodium Documented By: HUY Quiles 3 [id number] Signed By: <Electronically signed by HUY Hernandez> 11/07/22 1640 [facility] Work Phone: 1([phone]) 548-675703-01-2023 Progress note Author Stewart Carlton [facility] November 03, 2022 9:27pm Note Date/Time November 03, 2022 9:27 pm [facility] [address] [place] [address] Physiatry(Rehab) Progress Note Signed Patient: Gilma Mock MR#: [id number] : 1955 Acct:[id number] Age/Sex: 67 / F Adm Date: 3 Loc: Room: [address] [place] [address] Type: ADM IN Attending Dr: Stewart Carlton MD Copies to: ~ Date of Service: 11/03/2022 Subjective Subjective Narrative: Ms. Mock is a 67 year old female presenting to inpatient rehab for functional impairments related to acute CVA. Patient's past medical history is notable foralcohol abuse (drinks~6 beers a day), hypertension, cigarette smoking, depression. Apparently, patient was found confused with right-sided weakness by her family, LKW 3 days prior. She was brought to [place] emergency department. Initial NIH was 18. CT imaging demonstrated left ICA occlusion as well as left common carotid artery and right carotid bulb stenosis, which prompted a transfer to tertiary care center. MRI of the brain at [facility] demonstrated acute to subacute watershed infarct in the left COLE/MCA territory, as well as punctate focus of acute ischemia in the left caudate head and subarachnoid hemorrhage. She was taken for an emergent angioplasty and stent placement to the left ICA. Repeat CT of the head demonstrated stable subarachnoid hemorrhage. Echo is notable for hyperdynamic systolic function with ejection fraction over 70%. Patient has been hyponatremic throughout admission, which is a chronic issue. She has been asymptomatic requiring no correction. Interval history: Improving. Vitals stable. See CM note for discussion with family. Continues to tolerate therapy. Walking 60'. Chronic conditions stable. Review of Systems Review of Systems All other systems reviewed & are negative unless noted below or in HPI Exam Physical Exam Vital Signs: Temp Pulse Resp BP Pulse Ox O2 Del Method 98.3 F 72 20 126/67 97 Room Air 11/03/22 15:04 11/03/22 15:04 11/03/22 15:04 11/03/22 15:04 11/03/22 15:04 11/03/22 15:04 Narrative: Const General: cooperative, comfortable, no acute distress, cachectic Nutritional Appearance: Cachectic, sent Orientation: alert, awake and oriented to person and place Limitations: Confused, memory loss HEENT Head: normal to inspection, normocephalic and atraumatic Ears: hearing grossly normal bilaterally Nose: external nose normal Face and sinus: normal facial exam Eyes General: appearance normal, both eyes and all related structures. Wears glasses. Pupils: PERRL EOM: EOM intact bilaterally Neck Neck: normal visual inspection, full ROM, no lymphadenopathy and trachea midline Neck mass: No Chest Chest palpation & inspection: normal inspection of the chest Resp Effort & Inspection: normal respiratory effort, able to speak in complete sentences, symmetric chest movement and no cough Auscultation: clear to auscultation bilaterally Cardio Jugular venous pressure: no JVD Rhythm: Regular rhythm and rate GI: Inspection: normal to inspection Palpation: soft, no hepatosplenomegaly and nontender Auscultation: normal bowel sounds Musc Cervical Spine: normal cervical lordosis and cervical ROM normal Thoracic/Lumbar Spine: thoraco-lumbar ROM normal Skin General: no rashes or lesions noted Neuro General: patient alert, oriented x2, moves all extremities. Notable weakness inthe right upper and lower extremity Cranial Nerves: PERRL Speech: speech normal Extrem Other: Right-sided weakness. Right foot drop. Psych Appearance: grossly normal Mental Status: WNL Mood: congruent mood Affect: normal affect Speech and Movement: speech and movement normal Attitude: cooperative Insight: Limited Judgment: Limited Objective Labs 10/30/22 06:31 11/01/22 05:35 Medications and Allergies Allergies and Active Meds: Allergies Sulfa (Sulfonamide Antibiotics) Adverse Reaction (Verified 10/25/22 20:00) Unknown Reaction Tetanus Vaccines and Toxoid Adverse Reaction (Verified 10/25/22 20:13) Swelling Active Medications Generic Name Dose Route Start Last Admin Trade Name Freq PRN Reason Stop Dose Admin Acetaminophen 500 mg 10/25/22 19:50 11/02/22 20:19 Acetaminophen 500 Mg Tablet PO 10/25/23 19:49 500 mg Q4H PRN Administration Pain Al Hydrox/Mg Hydrox/Simethicone 30 ml 10/25/22 19:50 10/26/22 16:56 Mag Hydrox/Al Hydrox/Simeth 30 Ml Udc PO 10/25/23 19:49 30 ml Q4H PRN Administration Indigestion Albuterol 2 puff 10/25/22 19:55 Albuterol Hfa 60 Puff/8 Gram Inhaler INHALATION 10/25/23 19:54 Q4H PRN Wheezing Aspirin 81 mg 10/26/22 09:00 11/03/22 09:47 Aspirin 81 Mg Tab.Chew PO 10/26/23 08:59 81 mg DAILY ELI Administration Bisacodyl 10 mg 10/25/22 19:50 Bisacodyl 10 Mg Supp.Rect NC 10/25/23 19:49 DAILY PRN Constipation Calcium Carbonate 500 mg 10/26/22 09:00 11/03/22 09:46 Calcium Carbonate 500 Mg Tablet PO 10/26/23 08:59 500 mg DAILY ELI Administration Cyanocobalamin 1,000 mcg 10/26/22 09:00 11/03/22 09:46 Cyanocobalamin 1,000 Mcg Tablet PO 10/26/23 08:59 1,000 mcg DAILY ELI Administration Diclofenac Sodium 2 gm 11/01/22 09:55 Diclofenac Sodium 1% Gel 100 Gm Tube TOPICAL 11/01/23 20:59 BID PRN neck pain Docusate Sodium 100 mg 10/25/22 19:50 Docusate 100 Mg Capsule PO 10/25/23 19:49 BID PRN Constipation Docusate Sodium 283 mg 10/25/22 19:50 Docusate Enema 283 Mg/5 Ml Enema NC 10/25/23 19:49 DAILY PRN Constipation Famotidine 20 mg 10/27/22 09:00 11/03/22 09:47 Famotidine 20 Mg Tablet PO 10/25/23 20:59 20 mg DAILY ELI Administration Hydralazine HCl 25 mg 10/25/22 20:45 Hydralazine 25 Mg Tablet PO 10/25/23 20:44 Q6H PRN hypertention Lactulose 30 gm 10/25/22 19:50 Lactulose 20 Gm/30 Ml Udc PO 10/25/23 19:49 DAILY PRN Constipation Lidocaine 1 patch 11/03/22 09:00 11/03/22 09:47 Lidocaine 4% Adh..Patch TOPICAL 11/03/23 08:59 Not Given DAILY ELI Magnesium Oxide 400 mg 10/26/22 09:00 11/03/22 09:46 Magnesium Oxide 400 Mg Tablet PO 10/26/23 08:59 400 mg DAILY ELI Administration Metoprolol Tartrate 50 mg 10/25/22 21:00 11/03/22 20:13 Metoprolol Tartrate 50 Mg Tablet PO 10/25/23 20:59 50 mg BID ELI Administration Multi-Ingredient Cream 1 applic 10/27/22 09:00 11/03/22 09:47 Lanolin Alcohol/Mo/W.Pet/[place] (Minerin) 454 Gm Jar TOPICAL 10/27/23 08:59 1 applic DAILY ELI Administration Multivitamins 1 tab 10/26/22 09:00 11/03/22 09:46 Multivitamin 1 Tab Tablet PO 10/26/23 08:59 1 tab DAILY ELI Administration Nifedipine 90 mg 10/26/22 09:00 11/03/22 09:46 Nifedipine Er.24hr 90 Mg Tab.Er.24 PO 10/26/23 08:59 90 mg DAILY ELI Administration Potassium Chloride 10 meq 10/26/22 09:00 11/03/22 09:47 Potassium Chloride Er 10 Meq Tablet.Er PO 10/26/23 08:59 10 meq DAILY ELI Administration Sennosides 2 tab 10/26/22 12:00 10/31/22 08:53 Sennosides 8.6 Mg Tablet PO 10/26/23 11:59 2 tab DAILY@12 PRN Administration If no BM in 2 days Sodium Chloride 0 ml 10/25/22 19:50 Sodium Chloride 0.9 % 10 Ml Syringe IV-PUSH 10/25/23 19:49 PRN PRN Flush Ticagrelor 90 mg 10/25/22 21:00 11/03/22 20:13 Ticagrelor 90 Mg Tablet PO 10/25/23 20:59 90 mg BID ELI Administration Trazodone HCl 50 mg 10/26/22 09:17 11/02/22 20:19 Trazodone 50 Mg Tablet PO 10/26/23 21:59 50 mg QHS PRN Administration Sleep Triamcinolone Acetonide 1 applic 10/25/22 19:55 Triamcinolone 0.5% Cream 15 Gm Tube TOPICAL 10/25/23 19:54 DAILY PRN Rash Assessment/Plan Assessment/Plan (1) Subarachnoid hemorrhage: Plan: PT to improve pt's strength, endurance, bed mobility, transfers (sit-stand), standing balance, gait quality on level surfaces and stairs, coordination and functional ADL skills. Will also work to improve pt's safety awareness during transfers and ambulation. OT for basic ADL re-training (bathing, dressing, toileting, continence, grooming, feeding, transferring), to increase activity tolerance and functional mobility and to evaluate for adaptive and assistive devices. Will work to improve pt's endurance and educate pt on fall prevention and energy conservationtechniques-pacing strategies and proper breathing techniques during functional tasks. Patient education Pressure ulcer prophylaxis; encourage mobilization, frequent postural changes, pressure-relief techniques DVT prophylaxis Encourage deep breathing exercise incentive spirometry. Monitor bladder. Toileting schedule. Continue current bladder management, with scans as needed and CIC if needed. Start bowel care program every day to obtain continence, prevent ileus. Maintain fall precautions Gait and balance retraining Provision of the necessary gait aids and functional adaptive equipment to enhance the patient's a functional holiness Encourage deep breathing exercises and incentive spirometry RD evaluation Ensure adequate nutrition and hydration Discharge planning. Code(s): I60.9 - Nontraumatic subarachnoid hemorrhage, unspecified Status: Acute (2) Cerebrovascular accident (CVA) due to occlusion of left carotid artery: Code(s): I63.232 - Cerebral infarction due to unspecified occlusion or stenosis of left carotid arteries Status: Acute (3) Anxiety: Code(s): F41.9 - Anxiety disorder, unspecified Status: Acute (4) HTN (hypertension): Code(s): I10 - Essential (primary) hypertension Status: Acute (5) Impaired mobility and activities of daily living: Code(s): Z74.09 - Other reduced mobility; Z78.9 - Other specified health status Status: Acute (6) Chronic hyponatremia: Code(s): E87.1 - Hypo-osmolality and hyponatremia Status: Acute (7) Chronic alcohol use: Code(s): F10.90 - Alcohol use, unspecified, uncomplicated Status: Acute (8) Right hemiplegia: Code(s): G81.91 - Hemiplegia, unspecified affecting right dominant side Status: Acute (9) Oropharyngeal dysphagia: Code(s): R13.12 - Dysphagia, oropharyngeal phase Status: Acute (10) Mild cognitive impairment: Code(s): G31.84 - Mild cognitive impairment of uncertain or unknown etiology Status: Acute (11) 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 * Improving daily * Progressing towards goals * Labs/vitals stable Patient education Pressure ulcer prophylaxis; encourage mobilization, frequent postural changes, pressure-relief techniques DVT prophylaxis: Continue aspirin and Brilinta. No further pharmacologic prophylaxis due to subarachnoid hemorrhage. Encourage deep breathing exercise incentive spirometry. Monitor bladder. Toileting schedule. Continue current bladder management, with scans as needed and CIC if needed. Start bowel care program every day to obtain continence, prevent ileus. Maintain fall precautions Gait and balance retraining Functional training and self-care and home management, including activities of daily living and instrumental activities of daily living Provision of the necessary gait aids and functional adaptive equipment to enhance the patient's a functional holiness Ensure adequate nutrition and hydration Sleep: Continues trazodone 50 mg at bedtime Pain: No issues Discharge planning: Home v. SNF Pending progress. Plan: I completed a substantive portion of this encounter, the medical decision makingportion of this note in its entirety, including Allied health note review, nursing note review, pension consultant note review, discussion with nursing and case management, and more than 50% of my time was spent on counseling and coordination of care, time spent 28 minutes Patient was personally seen by me, Dr. Carlton, on the day of encounter, reviewed the history and the relevant portions of the chart, including current orders, allied health and pension consultant notes, labs/imaging and performed bhagat elements of exam and I formulated the plan of care and facilitated the medical decision making. Documented By: Stewart Carlton MD 11/03/222124 Signed By: <Electronically signed by Stewart Carlton MD> 11/03/222126 [facility] Work Phone: 1(764) 628-777502-28-2023 Progress note Author Stewart Carlton [facility] November 02, 2022 3:07pm Note Date/Time November 02, 2022 10:32am [facility] [address] [place] [address] Physiatry(Rehab) Progress Note Signed Patient: Gilma Mock MR#: [id number] : 1955 Acct:[id number] Age/Sex: 67 / F Adm Date: 3 Loc: Room: [address] [place] [address] Type: ADM IN Attending Dr: Stewart Carlton MD Copies to: ~ <Kendra Stern APRN - Last Filed: 11/02/22 10:32> Date of Service: 11/02/2022 Subjective <Kendra Stern APRN - Last Filed: 11/02/22 10:32> Subjective Narrative: Ms. Mock is a 67 year old female presenting to inpatient rehab for functional impairments related to acute CVA. Patient's past medical history is notable foralcohol abuse (drinks~6 beers a day), hypertension, cigarette smoking, depression. Apparently, patient was found confused with right-sided weakness by her family, LKW 3 days prior. She was brought to [place] emergency department. Initial NIH was 18. CT imaging demonstrated left ICA occlusion as well as left common carotid artery and right carotid bulb stenosis, which prompted a transfer to tertiary care center. MRI of the brain at [facility] demonstrated acute to subacute watershed infarct in the left COLE/MCA territory, as well as punctate focus of acute ischemia in the left caudate head and subarachnoid hemorrhage. She was taken for an emergent angioplasty and stent placement to the left ICA. Repeat CT of the head demonstrated stable subarachnoid hemorrhage. Echo is notable for hyperdynamic systolic function with ejection fraction over 70%. Patient has been hyponatremic throughout admission, which is a chronic issue. She has been asymptomatic requiring no correction. Interval history: Patient seen and examined in her room. She is resting in bed quietly. No acutedistress noted. Continues to endorse right-sided neck pain, unsure if she received topical Voltaren today. Vitals remain within normal limits. She is afebrile. Denies shortness of breath or chest pain, her lung sounds are clear, heart RRR. Continues to tolerate therapy. Ambulates short distances with a walker and min assist, contact-guard to min assist for bed mobility and transfers. Chronic conditions stable. Review of Systems <Kendra Stern APRN - Last Filed: 11/02/22 10:32> Review of Systems All other systems reviewed & are negative unless noted below or in HPI Exam <Kendra Stern APRN - Last Filed: 11/02/22 10:32> Physical Exam Vital Signs: Temp Pulse Resp BP Pulse Ox O2 Del Method 97.4 F L 90 18 131/74 95 Room Air 11/02/22 09:39 11/02/22 09:39 11/02/22 09:39 11/02/22 09:39 11/02/22 09:39 11/02/22 09:39 Narrative: Const General: cooperative, comfortable, no acute distress, cachectic Nutritional Appearance: Cachectic, sent Orientation: alert, awake and oriented to person and place Limitations: Confused, memory loss HEENT Head: normal to inspection, normocephalic and atraumatic Ears: hearing grossly normal bilaterally Nose: external nose normal Face and sinus: normal facial exam Eyes General: appearance normal, both eyes and all related structures. Wears glasses. Pupils: PERRL EOM: EOM intact bilaterally Neck Neck: normal visual inspection, full ROM, no lymphadenopathy and trachea midline Neck mass: No Chest Chest palpation & inspection: normal inspection of the chest Resp Effort & Inspection: normal respiratory effort, able to speak in complete sentences, symmetric chest movement and no cough Auscultation: clear to auscultation bilaterally Cardio Jugular venous pressure: no JVD Rhythm: Regular rhythm and rate GI: Inspection: normal to inspection Palpation: soft, no hepatosplenomegaly and nontender Auscultation: normal bowel sounds Musc Cervical Spine: normal cervical lordosis and cervical ROM normal Thoracic/Lumbar Spine: thoraco-lumbar ROM normal Skin General: no rashes or lesions noted Neuro General: patient alert, oriented x2, moves all extremities. Notable weakness inthe right upper and lower extremity Cranial Nerves: PERRL Speech: speech normal Extrem Other: Right-sided weakness. Right foot drop. Psych Appearance: grossly normal Mental Status: WNL Mood: congruent mood Affect: normal affect Speech and Movement: speech and movement normal Attitude: cooperative Insight: Limited Judgment: Limited Objective <Kendra Stern APRN - Last Filed: 11/02/22 10:32> Labs 10/30/22 06:31 11/01/22 05:35 Medications and Allergies Allergies and Active Meds: Allergies Sulfa (Sulfonamide Antibiotics) Adverse Reaction (Verified 10/25/22 20:00) Unknown Reaction Tetanus Vaccines and Toxoid Adverse Reaction (Verified 10/25/22 20:13) Swelling Active Medications Generic Name Dose Route Start Last Admin Trade Name Freq PRN Reason Stop Dose Admin Acetaminophen 500 mg 10/25/22 19:50 11/01/22 09:18 Acetaminophen 500 Mg Tablet PO 10/25/23 19:49 500 mg Q4H PRN Administration Pain Al Hydrox/Mg Hydrox/Simethicone 30 ml 10/25/22 19:50 10/26/22 16:56 Mag Hydrox/Al Hydrox/Simeth 30 Ml Udc PO 10/25/23 19:49 30 ml Q4H PRN Administration Indigestion Albuterol 2 puff 10/25/22 19:55 Albuterol Hfa 60 Puff/8 Gram Inhaler INHALATION 10/25/23 19:54 Q4H PRN Wheezing Aspirin 81 mg 10/26/22 09:00 11/02/22 09:40 Aspirin 81 Mg Tab.Chew PO 10/26/23 08:59 81 mg DAILY ELI Administration Bisacodyl 10 mg 10/25/22 19:50 Bisacodyl 10 Mg Supp.Rect NC 10/25/23 19:49 DAILY PRN Constipation Calcium Carbonate 500 mg 10/26/22 09:00 11/02/22 09:41 Calcium Carbonate 500 Mg Tablet PO 10/26/23 08:59 500 mg DAILY ELI Administration Cyanocobalamin 1,000 mcg 10/26/22 09:00 11/02/22 09:40 Cyanocobalamin 1,000 Mcg Tablet PO 10/26/23 08:59 1,000 mcg DAILY ELI Administration Diclofenac Sodium 2 gm 11/01/22 09:55 Diclofenac Sodium 1% Gel 100 Gm Tube TOPICAL 11/01/23 20:59 BID PRN neck pain Docusate Sodium 100 mg 10/25/22 19:50 Docusate 100 Mg Capsule PO 10/25/23 19:49 BID PRN Constipation Docusate Sodium 283 mg 10/25/22 19:50 Docusate Enema 283 Mg/5 Ml Enema NC 10/25/23 19:49 DAILY PRN Constipation Famotidine 20 mg 10/27/22 09:00 11/02/22 09:41 Famotidine 20 Mg Tablet PO 10/25/23 20:59 20 mg DAILY ELI Administration Hydralazine HCl 25 mg 10/25/22 20:45 Hydralazine 25 Mg Tablet PO 10/25/23 20:44 Q6H PRN hypertention Lactulose 30 gm 10/25/22 19:50 Lactulose 20 Gm/30 Ml Udc PO 10/25/23 19:49 DAILY PRN Constipation Lidocaine 1 patch 11/03/22 09:00 Lidocaine 4% Adh..Patch TOPICAL 11/03/23 08:59 DAILY ELI Magnesium Oxide 400 mg 10/26/22 09:00 11/02/22 09:40 Magnesium Oxide 400 Mg Tablet PO 10/26/23 08:59 400 mg DAILY ELI Administration Metoprolol Tartrate 50 mg 10/25/22 21:00 11/02/22 09:40 Metoprolol Tartrate 50 Mg Tablet PO 10/25/23 20:59 50 mg BID ELI Administration Multi-Ingredient Cream 1 applic 10/27/22 09:00 11/02/22 09:41 Lanolin Alcohol/Mo/W.Pet/[place] (Minerin) 454 Gm Jar TOPICAL 10/27/23 08:59 1 applic DAILY ELI Administration Multivitamins 1 tab 10/26/22 09:00 11/02/22 09:40 Multivitamin 1 Tab Tablet PO 10/26/23 08:59 1 tab DAILY ELI Administration Nifedipine 90 mg 10/26/22 09:00 11/02/22 09:40 Nifedipine Er.24hr 90 Mg Tab.Er.24 PO 10/26/23 08:59 90 mg DAILY ELI Administration Potassium Chloride 10 meq 10/26/22 09:00 11/02/22 09:43 Potassium Chloride Er 10 Meq Tablet.Er PO 10/26/23 08:59 10 meq DAILY ELI Administration Sennosides 2 tab 10/26/22 12:00 10/31/22 08:53 Sennosides 8.6 Mg Tablet PO 10/26/23 11:59 2 tab DAILY@12 PRN Administration If no BM in 2 days Sodium Chloride 0 ml 10/25/22 19:50 Sodium Chloride 0.9 % 10 Ml Syringe IV-PUSH 10/25/23 19:49 PRN PRN Flush Ticagrelor 90 mg 10/25/22 21:00 11/02/22 09:40 Ticagrelor 90 Mg Tablet PO 10/25/23 20:59 90 mg BID ELI Administration Trazodone HCl 50 mg 10/26/22 09:17 11/01/22 20:10 Trazodone 50 Mg Tablet PO 10/26/23 21:59 50 mg QHS PRN Administration Sleep Triamcinolone Acetonide 1 applic 10/25/22 19:55 Triamcinolone 0.5% Cream 15 Gm Tube TOPICAL 10/25/23 19:54 DAILY PRN Rash Assessment/Plan <Kendra Stern APRN - Last Filed: 11/02/22 10:32> Assessment/Plan (1) Subarachnoid hemorrhage: Plan: PT to improve pt's strength, endurance, bed mobility, transfers (sit-stand), standing balance, gait quality on level surfaces and stairs, coordination and functional ADL skills. Will also work to improve pt's safety awareness during transfers and ambulation. OT for basic ADL re-training (bathing, dressing, toileting, continence, grooming, feeding, transferring), to increase activity tolerance and functional mobility and to evaluate for adaptive and assistive devices. Will work to improve pt's endurance and educate pt on fall prevention and energy conservationtechniques-pacing strategies and proper breathing techniques during functional tasks. Patient education Pressure ulcer prophylaxis; encourage mobilization, frequent postural changes, pressure-relief techniques DVT prophylaxis Encourage deep breathing exercise incentive spirometry. Monitor bladder. Toileting schedule. Continue current bladder management, with scans as needed and CIC if needed. Start bowel care program every day to obtain continence, prevent ileus. Maintain fall precautions Gait and balance retraining Provision of the necessary gait aids and functional adaptive equipment to enhance the patient's a functional holiness Encourage deep breathing exercises and incentive spirometry RD evaluation Ensure adequate nutrition and hydration Discharge planning. Code(s): I60.9 - Nontraumatic subarachnoid hemorrhage, unspecified Status: Acute (2) Cerebrovascular accident (CVA) due to occlusion of left carotid artery: Code(s): I63.232 - Cerebral infarction due to unspecified occlusion or stenosis of left carotid arteries Status: Acute (3) Anxiety: Code(s): F41.9 - Anxiety disorder, unspecified Status: Acute (4) HTN (hypertension): Code(s): I10 - Essential (primary) hypertension Status: Acute (5) Impaired mobility and activities of daily living: Code(s): Z74.09 - Other reduced mobility; Z78.9 - Other specified health status Status: Acute (6) Chronic hyponatremia: Code(s): E87.1 - Hypo-osmolality and hyponatremia Status: Acute (7) Chronic alcohol use: Code(s): F10.90 - Alcohol use, unspecified, uncomplicated Status: Acute (8) Right hemiplegia: Code(s): G81.91 - Hemiplegia, unspecified affecting right dominant side Status: Acute (9) Oropharyngeal dysphagia: Code(s): R13.12 - Dysphagia, oropharyngeal phase Status: Acute (10) Mild cognitive impairment: Code(s): G31.84 - Mild cognitive impairment of uncertain or unknown etiology Status: Acute (11) 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 * Lidoderm patch added for complaints of neck pain. She may also have acetaminophen as needed. * Tolerating therapy. Continues to walk short functional distances with a walker. * Lab recheck in a few days. Patient education Pressure ulcer prophylaxis; encourage mobilization, frequent postural changes, pressure-relief techniques DVT prophylaxis: Continue aspirin and Brilinta. No further pharmacologic prophylaxis due to subarachnoid hemorrhage. Encourage deep breathing exercise incentive spirometry. Monitor bladder. Toileting schedule. Continue current bladder management, with scans as needed and CIC if needed. Start bowel care program every day to obtain continence, prevent ileus. Maintain fall precautions Gait and balance retraining Functional training and self-care and home management, including activities of daily living and instrumental activities of daily living Provision of the necessary gait aids and functional adaptive equipment to enhance the patient's a functional holiness Ensure adequate nutrition and hydration Sleep: Start trazodone 50 mg at bedtime Pain: No issues Discharge planning: Home with family in 3 weeks due to extensive residual deficits. I spent greater than 15 minutes for services, including [id number] encounter with the patient, discussion of the case, plan of care, and exam; and [id number] activities, such as reviewing pertinent pension consultant documentation, recent therapy notes, laboratory and radiology studies, and discussion of case with care team including physician, nursing, upper caser, and therapists. More than 50 % of time was spent on patient/family counseling or coordination ofcare. <Stewart Carlton MD - Last Filed: 11/02/22 15:07> Assessment/Plan (1) Subarachnoid hemorrhage: Plan: PT to improve pt's strength, endurance, bed mobility, transfers (sit-stand), standing balance, gait quality on level surfaces and stairs, coordination and functional ADL skills. Will also work to improve pt's safety awareness during transfers and ambulation. OT for basic ADL re-training (bathing, dressing, toileting, continence, grooming, feeding, transferring), to increase activity tolerance and functional mobility and to evaluate for adaptive and assistive devices. Will work to improve pt's endurance and educate pt on fall prevention and energy conservationtechniques-pacing strategies and proper breathing techniques during functional tasks. Patient education Pressure ulcer prophylaxis; encourage mobilization, frequent postural changes, pressure-relief techniques DVT prophylaxis Encourage deep breathing exercise incentive spirometry. Monitor bladder. Toileting schedule. Continue current bladder management, with scans as needed and CIC if needed. Start bowel care program every day to obtain continence, prevent ileus. Maintain fall precautions Gait and balance retraining Provision of the necessary gait aids and functional adaptive equipment to enhance the patient's a functional holiness Encourage deep breathing exercises and incentive spirometry RD evaluation Ensure adequate nutrition and hydration Discharge planning. 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 Carlton, on the day of encounter, reviewed the history and the relevant portions of the chart, including current orders, allied health and pension consultant notes, labs/imaging and performed bhagat elements of exam and I formulated the plan of care and facilitated the medical decision making. Documented By: Kendra Stern APRN 11/02/22 1 026 Signed By: <Electronically signed by VALE Stern> 11/02/22 1032 <Electronically signed by Stewart Carlton MD> 11/02/22 1500 [facility] Work Phone: [phone] Progress note Author Stewart Carlton [facility] November 01, 2022 4:02pm Note Date/Time October 30, 2022 12:02pm [facility] [address] [place] [address] Physiatry(Rehab) Progress Note Signed Patient: Gilma Mock MR#: [id number] : 1955 Acct:[id number] Age/Sex: 67 / F Adm Date: 3 Loc: Room: 3P3466-8 Type: ADM IN Attending Dr: Stewart Carlton MD Copies to: ~ Date of Service: 10/30/2022 Subjective Subjective Narrative: Ms. Mock is a 67 year old female presenting to inpatient rehab for functional impairments related to acute CVA. Patient's past medical history is notable foralcohol abuse (drinks~6 beers a day), hypertension, cigarette smoking, depression. Apparently, patient was found confused with right-sided weakness by her family, LKW 3 days prior. She was brought to [place] emergency department. Initial NIH was 18. CT imaging demonstrated left ICA occlusion as well as left common carotid artery and right carotid bulb stenosis, which prompted a transfer to tertiary care center. MRI of the brain at [facility] demonstrated acute to subacute watershed infarct in the left COLE/MCA territory, as well as punctate focus of acute ischemia in the left caudate head and subarachnoid hemorrhage. She was taken for an emergent angioplasty and stent placement to the left ICA. Repeat CT of the head demonstrated stable subarachnoid hemorrhage. Echo is notable for hyperdynamic systolic function with ejection fraction over 70%. Patient has been hyponatremic throughout admission, which is a chronic issue. She has been asymptomatic requiring no correction. Interval history: She is seen and examined in her room this morning. She is alert and oriented toperson and place. Offers no complaints of pain or discomfort. States her back bothers her intermittently but feels fine now. Her appetite is adequate. She is drinking fluids. No GI/ complaints. Right-sided deficits appear to be improving slowly. She is ambulating ten +20 x 2 feet with a wheeled walker and min assist, gets fatigued fairly quickly. Requires standby to contact-guard/min assist for bed mobility and transfers. Chronic conditions stable. Review of Systems Review of Systems All other systems reviewed & are negative unless noted below or in HPI Exam Physical Exam Vital Signs: Temp Pulse Resp BP Pulse Ox O2 Del Method 98.4 F 72 18 125/72 94 L Room Air 10/30/22 06:11 10/30/22 06:11 10/30/22 06:11 10/30/22 06:11 10/30/22 06:11 10/30/22 07:30 Narrative: Const General: cooperative, comfortable, no acute distress, cachectic Nutritional Appearance: Cachectic, sent Orientation: alert, awake and oriented to person and place Limitations: Confused, memory loss HEENT Head: normal to inspection, normocephalic and atraumatic Ears: hearing grossly normal bilaterally Nose: external nose normal Face and sinus: normal facial exam Eyes General: appearance normal, both eyes and all related structures. Wears glasses. Pupils: PERRL EOM: EOM intact bilaterally Neck Neck: normal visual inspection, full ROM, no lymphadenopathy and trachea midline Neck mass: No Chest Chest palpation & inspection: normal inspection of the chest Resp Effort & Inspection: normal respiratory effort, able to speak in complete sentences, symmetric chest movement and no cough Auscultation: clear to auscultation bilaterally Cardio Jugular venous pressure: no JVD Rhythm: Regular rhythm and rate GI: Inspection: normal to inspection Palpation: soft, no hepatosplenomegaly and nontender Auscultation: normal bowel sounds Musc Cervical Spine: normal cervical lordosis and cervical ROM normal Thoracic/Lumbar Spine: thoraco-lumbar ROM normal Skin General: no rashes or lesions noted Neuro General: patient alert, oriented x2, moves all extremities. Notable weakness inthe right upper and lower extremity Cranial Nerves: PERRL Speech: speech normal Extrem Other: Right-sided weakness. Right foot drop. Psych Appearance: grossly normal Mental Status: WNL Mood: congruent mood Affect: normal affect Speech and Movement: speech and movement normal Attitude: cooperative Insight: Limited Judgment: Limited Objective Labs 10/30/22 06:31 10/30/22 06:31 Labs: Laboratory Results - last 24 hr 10/30/22 10/30/22 06:31 06:31 Corrected WBC 9.6 Uncorrected WBC Count 9.6 RBC 3.69 Hgb 11.1 L Hct 33.1 L MCV 89.9 MCH 30.0 MCHC 33.4 RDW 14.4 Plt Count 633 H MPV 6.7 Neut % (Auto) 84.9 Lymph % (Auto) 6.7 [place] % (Auto) 7.7 Eos % (Auto) 0.2 Baso % (Auto) 0.5 Nucleat RBC Rel Count 0.0 Neut # (Auto) 8.1 H Lymph # (Auto) 0.6 L [place] # (Auto) 0.7 Eos # (Auto) 0.0 Baso # (Auto) 0.0 PHA Creatinine Clear 52.90 Sodium 129 L Potassium 3.9 Chloride 97 Carbon Dioxide 24.7 Anion Gap 11.2 BUN 11 Creatinine 0.58 Est GFR ( Amer) > 60 Est GFR (Non-Af Amer) > 60 Glucose 112 H Calcium 9.3 Additional Results Results Comments: I reviewed clinical lab tests, radiology reports and obtained and summated medical records and have ordered follow up lab tests and imaging studies as needed for rehabilitation care. Medications and Allergies Allergies and Active Meds: Allergies Sulfa (Sulfonamide Antibiotics) Adverse Reaction (Verified 10/25/22 20:00) Unknown Reaction Tetanus Vaccines and Toxoid Adverse Reaction (Verified 10/25/22 20:13) Swelling Active Medications Generic Name Dose Route Start Last Admin Trade Name Freq PRN Reason Stop Dose Admin Acetaminophen 500 mg 10/25/22 19:50 10/28/22 21:36 Acetaminophen 500 Mg Tablet PO 10/25/23 19:49 500 mg Q4H PRN Administration Pain Al Hydrox/Mg Hydrox/Simethicone 30 ml 10/25/22 19:50 10/26/22 16:56 Mag Hydrox/Al Hydrox/Simeth 30 Ml Udc PO 10/25/23 19:49 30 ml Q4H PRN Administration Indigestion Albuterol 2 puff 10/25/22 19:55 Albuterol Hfa 60 Puff/8 Gram Inhaler INHALATION 10/25/23 19:54 Q4H PRN Wheezing Aspirin 81 mg 10/26/22 09:00 10/30/22 08:15 Aspirin 81 Mg Tab.Chew PO 10/26/23 08:59 81 mg DAILY ELI Administration Bisacodyl 10 mg 10/25/22 19:50 Bisacodyl 10 Mg Supp.Rect NC 10/25/23 19:49 DAILY PRN Constipation Calcium Carbonate 500 mg 10/26/22 09:00 10/30/22 08:15 Calcium Carbonate 500 Mg Tablet PO 10/26/23 08:59 500 mg DAILY ELI Administration Cyanocobalamin 1,000 mcg 10/26/22 09:00 10/30/22 08:14 Cyanocobalamin 1,000 Mcg Tablet PO 10/26/23 08:59 1,000 mcg DAILY ELI Administration Docusate Sodium 100 mg 10/25/22 19:50 Docusate 100 Mg Capsule PO 10/25/23 19:49 BID PRN Constipation Docusate Sodium 283 mg 10/25/22 19:50 Docusate Enema 283 Mg/5 Ml Enema NC 10/25/23 19:49 DAILY PRN Constipation Famotidine 20 mg 10/27/22 09:00 10/30/22 08:14 Famotidine 20 Mg Tablet PO 10/25/23 20:59 20 mg DAILY ELI Administration Hydralazine HCl 25 mg 10/25/22 20:45 Hydralazine 25 Mg Tablet PO 10/25/23 20:44 Q6H PRN hypertention Lactulose 30 gm 10/25/22 19:50 Lactulose 20 Gm/30 Ml Udc PO 10/25/23 19:49 DAILY PRN Constipation Magnesium Oxide 400 mg 10/26/22 09:00 10/30/22 08:14 Magnesium Oxide 400 Mg Tablet PO 10/26/23 08:59 400 mg DAILY ELI Administration Metoprolol Tartrate 50 mg 10/25/22 21:00 10/30/22 08:14 Metoprolol Tartrate 50 Mg Tablet PO 10/25/23 20:59 50 mg BID ELI Administration Multi-Ingredient Cream 1 applic 10/27/22 09:00 10/30/22 08:16 Lanolin Alcohol/Mo/W.Pet/[place] (Minerin) 454 Gm Jar TOPICAL 10/27/23 08:59 1 applic DAILY ELI Administration Multivitamins 1 tab 10/26/22 09:00 10/30/22 08:15 Multivitamin 1 Tab Tablet PO 10/26/23 08:59 1 tab DAILY ELI Administration Nifedipine 90 mg 10/26/22 09:00 10/30/22 08:15 Nifedipine Er.24hr 90 Mg Tab.Er.24 PO 10/26/23 08:59 90 mg DAILY ELI Administration Potassium Chloride 10 meq 10/26/22 09:00 10/30/22 08:14 Potassium Chloride Er 10 Meq Tablet.Er PO 10/26/23 08:59 10 meq DAILY ELI Administration Sennosides 2 tab 10/26/22 12:00 Sennosides 8.6 Mg Tablet PO 10/26/23 11:59 DAILY@12 PRN If no BM in 2 days Sodium Chloride 0 ml 10/25/22 19:50 Sodium Chloride 0.9 % 10 Ml Syringe IV-PUSH 10/25/23 19:49 PRN PRN Flush Ticagrelor 90 mg 10/25/22 21:00 10/30/22 08:14 Ticagrelor 90 Mg Tablet PO 10/25/23 20:59 90 mg BID ELI Administration Trazodone HCl 50 mg 10/26/22 09:17 10/28/22 21:36 Trazodone 50 Mg Tablet PO 10/26/23 21:59 50 mg QHS PRN Administration Sleep Triamcinolone Acetonide 1 applic 10/25/22 19:55 Triamcinolone 0.5% Cream 15 Gm Tube TOPICAL 10/25/23 19:54 DAILY PRN Rash Assessment/Plan Assessment/Plan (1) Subarachnoid hemorrhage: Plan: PT to improve pt's strength, endurance, bed mobility, transfers (sit-stand), standing balance, gait quality on level surfaces and stairs, coordination and functional ADL skills. Will also work to improve pt's safety awareness during transfers and ambulation. OT for basic ADL re-training (bathing, dressing, toileting, continence, grooming, feeding, transferring), to increase activity tolerance and functional mobility and to evaluate for adaptive and assistive devices. Will work to improve pt's endurance and educate pt on fall prevention and energy conservationtechniques-pacing strategies and proper breathing techniques during functional tasks. Patient education Pressure ulcer prophylaxis; encourage mobilization, frequent postural changes, pressure-relief techniques DVT prophylaxis Encourage deep breathing exercise incentive spirometry. Monitor bladder. Toileting schedule. Continue current bladder management, with scans as needed and CIC if needed. Start bowel care program every day to obtain continence, prevent ileus. Maintain fall precautions Gait and balance retraining Provision of the necessary gait aids and functional adaptive equipment to enhance the patient's a functional holiness Encourage deep breathing exercises and incentive spirometry RD evaluation Ensure adequate nutrition and hydration Discharge planning. Code(s): I60.9 - Nontraumatic subarachnoid hemorrhage, unspecified Status: Acute (2) Cerebrovascular accident (CVA) due to occlusion of left carotid artery: Code(s): I63.232 - Cerebral infarction due to unspecified occlusion or stenosis of left carotid arteries Status: Acute (3) Anxiety: Code(s): F41.9 - Anxiety disorder, unspecified Status: Acute (4) HTN (hypertension): Code(s): I10 - Essential (primary) hypertension Status: Acute (5) Impaired mobility and activities of daily living: Code(s): Z74.09 - Other reduced mobility; Z78.9 - Other specified health status Status: Acute (6) Chronic hyponatremia: Code(s): E87.1 - Hypo-osmolality and hyponatremia Status: Acute (7) Chronic alcohol use: Code(s): F10.90 - Alcohol use, unspecified, uncomplicated Status: Acute (8) Right hemiplegia: Code(s): G81.91 - Hemiplegia, unspecified affecting right dominant side Status: Acute (9) Oropharyngeal dysphagia: Code(s): R13.12 - Dysphagia, oropharyngeal phase Status: Acute (10) Mild cognitive impairment: Code(s): G31.84 - Mild cognitive impairment of uncertain or unknown etiology Status: Acute (11) 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 * Repeat lab work reviewed. Remains hyponatremic at 129, unchanged. CBC is notable for elevated platelet count at 633, slightly higher than previously. Otherwise unremarkable. * Neurodeficits appear to be improving. Right-sided weakness is less pronounced. Receptive aphasia is also marginally better. Patient education Pressure ulcer prophylaxis; encourage mobilization, frequent postural changes, pressure-relief techniques DVT prophylaxis: Continue aspirin and Brilinta. No further pharmacologic prophylaxis due to subarachnoid hemorrhage. Encourage deep breathing exercise incentive spirometry. Monitor bladder. Toileting schedule. Continue current bladder management, with scans as needed and CIC if needed. Start bowel care program every day to obtain continence, prevent ileus. Maintain fall precautions Gait and balance retraining Functional training and self-care and home management, including activities of daily living and instrumental activities of daily living Provision of the necessary gait aids and functional adaptive equipment to enhance the patient's a functional holiness Ensure adequate nutrition and hydration Sleep: Start trazodone 50 mg at bedtime Pain: No issues Discharge planning: Home with family in 3 weeks due to extensive residual deficits. I spent greater than 15 minutes for services, including [id number] encounter with the patient, discussion of the case, plan of care, and exam; and [id number] activities, such as reviewing pertinent pension consultant documentation, recent therapy notes, laboratory and radiology studies, and discussion of case with care team including physician, nursing, upper caser, and therapists. More than 50 % of time was spent on patient/family counseling or coordination ofcare. I reviewed the history and the relevant portions of the chart, including currentorders, allied health and pension consultant notes, labs/imaging and plan of care as above. Documented By: Kendra Stern APRN 10/30/22 1 157 Signed By: <Electronically signed by VALE Stern> 10/30/22 1202 <Electronically signed by Stewart Carlton MD> 11/01/22 [address] [facility] Work Phone: [phone]) 857-330002-27-2023 Progress note Author Stewart Carlton [facility] November 01, 2022 2:57pm Note Date/Time November 01, 2022 12:00pm [facility] [address] [place] [address] Physiatry(Rehab) Progress Note Signed Patient: Gilma Mock MR#: [id number] : 1955 Acct:[id number] Age/Sex: 67 / F Adm Date: 3 Loc: Room: [address] [place] [address] Type: ADM IN Attending Dr: Stewart Carlton MD Copies to: ~ <Kendra Stern APRN - Last Filed: 11/01/22 12:06> Date of Service: 11/01/2022 Subjective <Kendra Stern APRN - Last Filed: 11/01/22 12:06> Subjective Narrative: Ms. Mock is a 67 year old female presenting to inpatient rehab for functional impairments related to acute CVA. Patient's past medical history is notable foralcohol abuse (drinks~6 beers a day), hypertension, cigarette smoking, depression. Apparently, patient was found confused with right-sided weakness by her family, LKW 3 days prior. She was brought to [place] emergency department. Initial NIH was 18. CT imaging demonstrated left ICA occlusion as well as left common carotid artery and right carotid bulb stenosis, which prompted a transfer to tertiary care center. MRI of the brain at [facility] demonstrated acute to subacute watershed infarct in the left COLE/MCA territory, as well as punctate focus of acute ischemia in the left caudate head and subarachnoid hemorrhage. She was taken for an emergent angioplasty and stent placement to the left ICA. Repeat CT of the head demonstrated stable subarachnoid hemorrhage. Echo is notable for hyperdynamic systolic function with ejection fraction over 70%. Patient has been hyponatremic throughout admission, which is a chronic issue. She has been asymptomatic requiring no correction. Interval history: No acute events over the weekend. Patient is sitting up in bed on exam this morning. She is calm and cooperative with exam. Answers most assessment questions appropriately, although responses continue to be delayed; receptive/expressive aphasia persists. Right-sided neurodeficits are slowly improving though. She denies any pain or discomfort currently but did have some neck spasms/pain earlier. She can have topical medications as needed for her symptoms. Otherwise, no complaints. Her vital signs are within normal limits. Her appetite is good, she is drinking plenty of fluids. Moving bowels and bladder. Chronic conditions stable. Review of Systems <Kendra Stern APRN - Last Filed: 11/01/22 12:06> Review of Systems All other systems reviewed & are negative unless noted below or in HPI Exam <Kednra Stern APRN - Last Filed: 11/01/22 12:06> Physical Exam Vital Signs: Temp Pulse Resp BP Pulse Ox O2 Del Method 98.5 F 88 17 131/83 94 L Room Air 11/01/22 05:00 11/01/22 05:00 11/01/22 05:00 11/01/22 05:00 11/01/22 05:00 11/01/22 09:27 Narrative: Const General: cooperative, comfortable, no acute distress, cachectic Nutritional Appearance: Cachectic, sent Orientation: alert, awake and oriented to person and place Limitations: Confused, memory loss HEENT Head: normal to inspection, normocephalic and atraumatic Ears: hearing grossly normal bilaterally Nose: external nose normal Face and sinus: normal facial exam Eyes General: appearance normal, both eyes and all related structures. Wears glasses. Pupils: PERRL EOM: EOM intact bilaterally Neck Neck: normal visual inspection, full ROM, no lymphadenopathy and trachea midline Neck mass: No Chest Chest palpation & inspection: normal inspection of the chest Resp Effort & Inspection: normal respiratory effort, able to speak in complete sentences, symmetric chest movement and no cough Auscultation: clear to auscultation bilaterally Cardio Jugular venous pressure: no JVD Rhythm: Regular rhythm and rate GI: Inspection: normal to inspection Palpation: soft, no hepatosplenomegaly and nontender Auscultation: normal bowel sounds Musc Cervical Spine: normal cervical lordosis and cervical ROM normal Thoracic/Lumbar Spine: thoraco-lumbar ROM normal Skin General: no rashes or lesions noted Neuro General: patient alert, oriented x2, moves all extremities. Notable weakness inthe right upper and lower extremity Cranial Nerves: PERRL Speech: speech normal Extrem Other: Right-sided weakness. Right foot drop. Psych Appearance: grossly normal Mental Status: WNL Mood: congruent mood Affect: normal affect Speech and Movement: speech and movement normal Attitude: cooperative Insight: Limited Judgment: Limited Objective <Kendra Stern APRN - Last Filed: 11/01/22 12:06> Labs 10/30/22 06:31 11/01/22 05:35 Labs: Laboratory Results - last 24 hr 11/01/22 05:35 Sodium 133 L Additional Results Results Comments: I reviewed clinical lab tests, radiology reports and obtained and summated medical records and have ordered follow up lab tests and imaging studies as needed for rehabilitation care. Medications and Allergies Allergies and Active Meds: Allergies Sulfa (Sulfonamide Antibiotics) Adverse Reaction (Verified 10/25/22 20:00) Unknown Reaction Tetanus Vaccines and Toxoid Adverse Reaction (Verified 10/25/22 20:13) Swelling Active Medications Generic Name Dose Route Start Last Admin Trade Name Freq PRN Reason Stop Dose Admin Acetaminophen 500 mg 10/25/22 19:50 11/01/22 09:18 Acetaminophen 500 Mg Tablet PO 10/25/23 19:49 500 mg Q4H PRN Administration Pain Al Hydrox/Mg Hydrox/Simethicone 30 ml 10/25/22 19:50 10/26/22 16:56 Mag Hydrox/Al Hydrox/Simeth 30 Ml Udc PO 10/25/23 19:49 30 ml Q4H PRN Administration Indigestion Albuterol 2 puff 10/25/22 19:55 Albuterol Hfa 60 Puff/8 Gram Inhaler INHALATION 10/25/23 19:54 Q4H PRN Wheezing Aspirin 81 mg 10/26/22 09:00 11/01/22 09:11 Aspirin 81 Mg Tab.Chew PO 10/26/23 08:59 81 mg DAILY ELI Administration Bisacodyl 10 mg 10/25/22 19:50 Bisacodyl 10 Mg Supp.Rect NC 10/25/23 19:49 DAILY PRN Constipation Calcium Carbonate 500 mg 10/26/22 09:00 11/01/22 09:10 Calcium Carbonate 500 Mg Tablet PO 10/26/23 08:59 500 mg DAILY ELI Administration Cyanocobalamin 1,000 mcg 10/26/22 09:00 11/01/22 09:11 Cyanocobalamin 1,000 Mcg Tablet PO 10/26/23 08:59 1,000 mcg DAILY ELI Administration Diclofenac Sodium 2 gm 11/01/22 09:55 Diclofenac Sodium 1% Gel 100 Gm Tube TOPICAL 11/01/23 20:59 BID PRN neck pain Docusate Sodium 100 mg 10/25/22 19:50 Docusate 100 Mg Capsule PO 10/25/23 19:49 BID PRN Constipation Docusate Sodium 283 mg 10/25/22 19:50 Docusate Enema 283 Mg/5 Ml Enema NC 10/25/23 19:49 DAILY PRN Constipation Famotidine 20 mg 10/27/22 09:00 11/01/22 09:11 Famotidine 20 Mg Tablet PO 10/25/23 20:59 20 mg DAILY ELI Administration Hydralazine HCl 25 mg 10/25/22 20:45 Hydralazine 25 Mg Tablet PO 10/25/23 20:44 Q6H PRN hypertention Lactulose 30 gm 10/25/22 19:50 Lactulose 20 Gm/30 Ml Udc PO 10/25/23 19:49 DAILY PRN Constipation Magnesium Oxide 400 mg 10/26/22 09:00 11/01/22 09:11 Magnesium Oxide 400 Mg Tablet PO 10/26/23 08:59 400 mg DAILY ELI Administration Metoprolol Tartrate 50 mg 10/25/22 21:00 11/01/22 09:11 Metoprolol Tartrate 50 Mg Tablet PO 10/25/23 20:59 50 mg BID EIL Administration Multi-Ingredient Cream 1 applic 10/27/22 09:00 11/01/22 09:11 Lanolin Alcohol/Mo/W.Pet/[place] (Minerin) 454 Gm Jar TOPICAL 10/27/23 08:59 1 applic DAILY ELI Administration Multivitamins 1 tab 10/26/22 09:00 11/01/22 09:11 Multivitamin 1 Tab Tablet PO 10/26/23 08:59 1 tab DAILY ELI Administration Nifedipine 90 mg 10/26/22 09:00 11/01/22 09:10 Nifedipine Er.24hr 90 Mg Tab.Er.24 PO 10/26/23 08:59 90 mg DAILY ELI Administration Potassium Chloride 10 meq 10/26/22 09:00 11/01/22 09:11 Potassium Chloride Er 10 Meq Tablet.Er PO 10/26/23 08:59 10 meq DAILY ELI Administration Sennosides 2 tab 10/26/22 12:00 10/31/22 08:53 Sennosides 8.6 Mg Tablet PO 10/26/23 11:59 2 tab DAILY@12 PRN Administration If no BM in 2 days Sodium Chloride 0 ml 10/25/22 19:50 Sodium Chloride 0.9 % 10 Ml Syringe IV-PUSH 10/25/23 19:49 PRN PRN Flush Ticagrelor 90 mg 10/25/22 21:00 11/01/22 09:10 Ticagrelor 90 Mg Tablet PO 10/25/23 20:59 90 mg BID ELI Administration Trazodone HCl 50 mg 10/26/22 09:17 10/31/22 20:15 Trazodone 50 Mg Tablet PO 10/26/23 21:59 50 mg QHS PRN Administration Sleep Triamcinolone Acetonide 1 applic 10/25/22 19:55 Triamcinolone 0.5% Cream 15 Gm Tube TOPICAL 10/25/23 19:54 DAILY PRN Rash Assessment/Plan <Kendra Stern APRN - Last Filed: 11/01/22 12:06> Assessment/Plan (1) Subarachnoid hemorrhage: Plan: PT to improve pt's strength, endurance, bed mobility, transfers (sit-stand), standing balance, gait quality on level surfaces and stairs, coordination and functional ADL skills. Will also work to improve pt's safety awareness during transfers and ambulation. OT for basic ADL re-training (bathing, dressing, toileting, continence, grooming, feeding, transferring), to increase activity tolerance and functional mobility and to evaluate for adaptive and assistive devices. Will work to improve pt's endurance and educate pt on fall prevention and energy conservationtechniques-pacing strategies and proper breathing techniques during functional tasks. Patient education Pressure ulcer prophylaxis; encourage mobilization, frequent postural changes, pressure-relief techniques DVT prophylaxis Encourage deep breathing exercise incentive spirometry. Monitor bladder. Toileting schedule. Continue current bladder management, with scans as needed and CIC if needed. Start bowel care program every day to obtain continence, prevent ileus. Maintain fall precautions Gait and balance retraining Provision of the necessary gait aids and functional adaptive equipment to enhance the patient's a functional holiness Encourage deep breathing exercises and incentive spirometry RD evaluation Ensure adequate nutrition and hydration Discharge planning. Code(s): I60.9 - Nontraumatic subarachnoid hemorrhage, unspecified Status: Acute (2) Cerebrovascular accident (CVA) due to occlusion of left carotid artery: Code(s): I63.232 - Cerebral infarction due to unspecified occlusion or stenosis of left carotid arteries Status: Acute (3) Anxiety: Code(s): F41.9 - Anxiety disorder, unspecified Status: Acute (4) HTN (hypertension): Code(s): I10 - Essential (primary) hypertension Status: Acute (5) Impaired mobility and activities of daily living: Code(s): Z74.09 - Other reduced mobility; Z78.9 - Other specified health status Status: Acute (6) Chronic hyponatremia: Code(s): E87.1 - Hypo-osmolality and hyponatremia Status: Acute (7) Chronic alcohol use: Code(s): F10.90 - Alcohol use, unspecified, uncomplicated Status: Acute (8) Right hemiplegia: Code(s): G81.91 - Hemiplegia, unspecified affecting right dominant side Status: Acute (9) Oropharyngeal dysphagia: Code(s): R13.12 - Dysphagia, oropharyngeal phase Status: Acute (10) Mild cognitive impairment: Code(s): G31.84 - Mild cognitive impairment of uncertain or unknown etiology Status: Acute (11) 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 * Sodium level improved to 133 on recheck. Continue to trend. * Patient can have Voltaren gel to neck/back as needed for pain. * Insurance recert today. Patient would benefit from additional acute rehab time. Patient education Pressure ulcer prophylaxis; encourage mobilization, frequent postural changes, pressure-relief techniques DVT prophylaxis: Continue aspirin and Brilinta. No further pharmacologic prophylaxis due to subarachnoid hemorrhage. Encourage deep breathing exercise incentive spirometry. Monitor bladder. Toileting schedule. Continue current bladder management, with scans as needed and CIC if needed. Start bowel care program every day to obtain continence, prevent ileus. Maintain fall precautions Gait and balance retraining Functional training and self-care and home management, including activities of daily living and instrumental activities of daily living Provision of the necessary gait aids and functional adaptive equipment to enhance the patient's a functional holiness Ensure adequate nutrition and hydration Sleep: Start trazodone 50 mg at bedtime Pain: No issues Discharge planning: Home with family in 3 weeks due to extensive residual deficits. I spent greater than 15 minutes for services, including [id number] encounter with the patient, discussion of the case, plan of care, and exam; and [id number] activities, such as reviewing pertinent pension consultant documentation, recent therapy notes, laboratory and radiology studies, and discussion of case with care team including physician, nursing, upper caser, and therapists. More than 50 % of time was spent on patient/family counseling or coordination ofcare. <Stewart Carlton MD - Last Filed: 11/01/22 14:57> Assessment/Plan (1) Subarachnoid hemorrhage: (2) Cerebrovascular accident (CVA) due to occlusion of left carotid artery: (3) Anxiety: (4) HTN (hypertension): (5) Impaired mobility and activities of daily living: (6) Chronic hyponatremia: (7) Chronic alcohol use: (8) Right hemiplegia: (9) Oropharyngeal dysphagia: (10) Mild cognitive impairment: (11) Aphasia due to acute stroke: (12) Gait apraxia: Plan: I completed a substantive portion of this encounter, the medical decision makingportion of this note in its entirety, including Allied health note review, nursing note review, pension consultant note review, discussion with nursing and case management, and more than 50% of my time was spent on counseling and coordination of care, time spent 28 minutes Patient was personally seen by me, Dr. Carlton, on the day of encounter, reviewed the history and the relevant portions of the chart, including current orders, allied health and pension consultant notes, labs/imaging and performed bhagat elements of exam and I formulated the plan of care and facilitated the medical decision making. Sodium stable, she is progressing towards functional goals. Walking a short distance with therapy.. Documented By: Kendra Stern APRN 11/01/22 1 156 Signed By: <Electronically signed by VALE Stern> 11/01/22 1206 <Electronically signed by Stewart Carlton MD> 11/01/22 [address] [facility] Work Phone: 1(480) 476-978502-22-2023 Progress note Author Stewart Carlton [facility] October 27, 2022 1:17pm Note Date/Time October 27, 2022 1:17pm [facility] [address] [place] [address] Physiatry(Rehab) Progress Note Signed Patient: Gilma Mock MR#: [id number] : 1955 Acct:[id number] Age/Sex: 67 / F Adm Date: 3 Loc: Room: 9I0043-0 Type: ADM IN Attending Dr: Stewart Carlton MD Copies to: ~ Date of Service: 10/27/2022 Subjective Subjective Narrative: Ms. Mock is a 67 year old female presenting to inpatient rehab for functional impairments related to acute CVA. Patient's past medical history is notable foralcohol abuse (drinks~6 beers a day), hypertension, cigarette smoking, depression. Apparently, patient was found confused with right-sided weakness by her family, LKW 3 days prior. She was brought to [place] emergency department. Initial NIH was 18. CT imaging demonstrated left ICA occlusion as well as left common carotid artery and right carotid bulb stenosis, which prompted a transfer to tertiary care center. MRI of the brain at [facility] demonstrated acute to subacute watershed infarct in the left COLE/MCA territory, as well as punctate focus of acute ischemia in the left caudate head and subarachnoid hemorrhage. She was taken for an emergent angioplasty and stent placement to the left ICA. Repeat CT of the head demonstrated stable subarachnoid hemorrhage. Echo is notable for hyperdynamic systolic function with ejection fraction over 70%. Patient has been hyponatremic throughout admission, which is a chronic issue. She has been asymptomatic requiring no correction. Interval history: Mild to moderate cognitive impairment, discussed with speech therapy. She can ambulate 10 to 20 feet with significant assistance with from therapy. Requires cues. Chronic conditions stable. Review of Systems Review of Systems All other systems reviewed & are negative unless noted below or in HPI Exam Physical Exam Vital Signs: Temp Pulse Resp BP Pulse Ox O2 Del Method 97.8 F 65 20 124/85 96 Room Air 10/27/22 08:20 10/27/22 08:20 10/27/22 08:20 10/27/22 08:20 10/27/22 08:20 10/27/22 08:20 Narrative: Const General: cooperative, comfortable, no acute distress, cachectic Nutritional Appearance: Cachectic, sent Orientation: alert, awake and oriented to person and place Limitations: Confused, memory loss HEENT Head: normal to inspection, normocephalic and atraumatic Ears: hearing grossly normal bilaterally Nose: external nose normal Face and sinus: normal facial exam Eyes General: appearance normal, both eyes and all related structures. Wears glasses. Pupils: PERRL EOM: EOM intact bilaterally Neck Neck: normal visual inspection, full ROM, no lymphadenopathy and trachea midline Neck mass: No Chest Chest palpation & inspection: normal inspection of the chest Resp Effort & Inspection: normal respiratory effort, able to speak in complete sentences, symmetric chest movement and no cough Auscultation: clear to auscultation bilaterally Cardio Jugular venous pressure: no JVD Rhythm: Regular rhythm and rate GI: Inspection: normal to inspection Palpation: soft, no hepatosplenomegaly and nontender Auscultation: normal bowel sounds Musc Cervical Spine: normal cervical lordosis and cervical ROM normal Thoracic/Lumbar Spine: thoraco-lumbar ROM normal Skin General: no rashes or lesions noted Neuro General: patient alert, oriented x2, moves all extremities. Notable weakness inthe right upper and lower extremity Cranial Nerves: PERRL Speech: speech normal Extrem Other: Right-sided weakness. Right foot drop. Psych Appearance: grossly normal Mental Status: WNL Mood: congruent mood Affect: normal affect Speech and Movement: speech and movement normal Attitude: cooperative Insight: Limited Judgment: Limited Objective Labs 10/26/22 06:42 10/26/22 06:42 Medications and Allergies Allergies and Active Meds: Allergies Sulfa (Sulfonamide Antibiotics) Adverse Reaction (Verified 10/25/22 20:00) Unknown Reaction Tetanus Vaccines and Toxoid Adverse Reaction (Verified 10/25/22 20:13) Swelling Active Medications Generic Name Dose Route Start Last Admin Trade Name Freq PRN Reason Stop Dose Admin Acetaminophen 500 mg 10/25/22 19:50 Acetaminophen 500 Mg Tablet PO 10/25/23 19:49 Q4H PRN Pain Al Hydrox/Mg Hydrox/Simethicone 30 ml 10/25/22 19:50 10/26/22 16:56 Mag Hydrox/Al Hydrox/Simeth 30 Ml Udc PO 10/25/23 19:49 30 ml Q4H PRN Administration Indigestion Albuterol 2 puff 10/25/22 19:55 Albuterol Hfa 60 Puff/8 Gram Inhaler INHALATION 10/25/23 19:54 Q4H PRN Wheezing Aspirin 81 mg 10/26/22 09:00 10/27/22 08:07 Aspirin 81 Mg Tab.Chew PO 10/26/23 08:59 81 mg DAILY ELI Administration Bisacodyl 10 mg 10/25/22 19:50 Bisacodyl 10 Mg Supp.Rect NC 10/25/23 19:49 DAILY PRN Constipation Calcium Carbonate 500 mg 10/26/22 09:00 10/27/22 08:07 Calcium Carbonate 500 Mg Tablet PO 10/26/23 08:59 500 mg DAILY ELI Administration Cyanocobalamin 1,000 mcg 10/26/22 09:00 10/27/22 08:07 Cyanocobalamin 1,000 Mcg Tablet PO 10/26/23 08:59 1,000 mcg DAILY ELI Administration Docusate Sodium 100 mg 10/25/22 19:50 Docusate 100 Mg Capsule PO 10/25/23 19:49 BID PRN Constipation Docusate Sodium 283 mg 10/25/22 19:50 Docusate Enema 283 Mg/5 Ml Enema NC 10/25/23 19:49 DAILY PRN Constipation Famotidine 20 mg 10/27/22 09:00 10/27/22 08:08 Famotidine 20 Mg Tablet PO 10/25/23 20:59 20 mg DAILY ELI Administration Hydralazine HCl 25 mg 10/25/22 20:45 Hydralazine 25 Mg Tablet PO 10/25/23 20:44 Q6H PRN hypertention Lactulose 30 gm 10/25/22 19:50 Lactulose 20 Gm/30 Ml Udc PO 10/25/23 19:49 DAILY PRN Constipation Magnesium Oxide 400 mg 10/26/22 09:00 10/27/22 08:07 Magnesium Oxide 400 Mg Tablet PO 10/26/23 08:59 400 mg DAILY ELI Administration Metoprolol Tartrate 50 mg 10/25/22 21:00 10/27/22 08:08 Metoprolol Tartrate 50 Mg Tablet PO 10/25/23 20:59 50 mg BID ELI Administration Multi-Ingredient Cream 1 applic 10/27/22 09:00 10/27/22 08:08 Lanolin Alcohol/Mo/W.Pet/[place] (Minerin) 454 Gm Jar TOPICAL 10/27/23 08:59 1 applic DAILY ELI Administration Multivitamins 1 tab 10/26/22 09:00 10/27/22 08:07 Multivitamin 1 Tab Tablet PO 10/26/23 08:59 1 tab DAILY ELI Administration Nifedipine 90 mg 10/26/22 09:00 10/27/22 08:08 Nifedipine Er.24hr 90 Mg Tab.Er.24 PO 10/26/23 08:59 90 mg DAILY ELI Administration Potassium Chloride 10 meq 10/26/22 09:00 10/27/22 08:07 Potassium Chloride Er 10 Meq Tablet.Er PO 10/26/23 08:59 10 meq DAILY ELI Administration Sennosides 2 tab 10/26/22 12:00 Sennosides 8.6 Mg Tablet PO 10/26/23 11:59 DAILY@12 PRN If no BM in 2 days Sodium Chloride 0 ml 10/25/22 19:50 Sodium Chloride 0.9 % 10 Ml Syringe IV-PUSH 10/25/23 19:49 PRN PRN Flush Ticagrelor 90 mg 10/25/22 21:00 10/27/22 08:07 Ticagrelor 90 Mg Tablet PO 10/25/23 20:59 90 mg BID ELI Administration Trazodone HCl 50 mg 10/26/22 09:17 10/26/22 20:46 Trazodone 50 Mg Tablet PO 10/26/23 21:59 50 mg QHS PRN Administration Sleep Triamcinolone Acetonide 1 applic 10/25/22 19:55 Triamcinolone 0.5% Cream 15 Gm Tube TOPICAL 10/25/23 19:54 DAILY PRN Rash Assessment/Plan Assessment/Plan (1) Subarachnoid hemorrhage: Plan: PT to improve pt's strength, endurance, bed mobility, transfers (sit-stand), standing balance, gait quality on level surfaces and stairs, coordination and functional ADL skills. Will also work to improve pt's safety awareness during transfers and ambulation. OT for basic ADL re-training (bathing, dressing, toileting, continence, grooming, feeding, transferring), to increase activity tolerance and functional mobility and to evaluate for adaptive and assistive devices. Will work to improve pt's endurance and educate pt on fall prevention and energy conservationtechniques-pacing strategies and proper breathing techniques during functional tasks. Patient education Pressure ulcer prophylaxis; encourage mobilization, frequent postural changes, pressure-relief techniques DVT prophylaxis Encourage deep breathing exercise incentive spirometry. Monitor bladder. Toileting schedule. Continue current bladder management, with scans as needed and CIC if needed. Start bowel care program every day to obtain continence, prevent ileus. Maintain fall precautions Gait and balance retraining Provision of the necessary gait aids and functional adaptive equipment to enhance the patient's a functional holiness Encourage deep breathing exercises and incentive spirometry RD evaluation Ensure adequate nutrition and hydration Discharge planning. Code(s): I60.9 - Nontraumatic subarachnoid hemorrhage, unspecified Status: Acute (2) Cerebrovascular accident (CVA) due to occlusion of left carotid artery: Code(s): I63.232 - Cerebral infarction due to unspecified occlusion or stenosis of left carotid arteries Status: Acute (3) Anxiety: Code(s): F41.9 - Anxiety disorder, unspecified Status: Acute (4) HTN (hypertension): Code(s): I10 - Essential (primary) hypertension Status: Acute (5) Impaired mobility and activities of daily living: Code(s): Z74.09 - Other reduced mobility; Z78.9 - Other specified health status Status: Acute (6) Chronic hyponatremia: Code(s): E87.1 - Hypo-osmolality and hyponatremia Status: Acute (7) Chronic alcohol use: Code(s): F10.90 - Alcohol use, unspecified, uncomplicated Status: Acute (8) Right hemiplegia: Code(s): G81.91 - Hemiplegia, unspecified affecting right dominant side Status: Acute (9) Oropharyngeal dysphagia: Code(s): R13.12 - Dysphagia, oropharyngeal phase Status: Acute (10) Mild cognitive impairment: Code(s): G31.84 - Mild cognitive impairment of uncertain or unknown etiology Status: Acute (11) 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 * No acute events overnight. * Continue current management and plan of care. * Progressing towards functional goals. * Moderate cognitive impairment. Aphasic, receptive greater than expressive. Ambulating a short distance with significant assistance. Patient education Pressure ulcer prophylaxis; encourage mobilization, frequent postural changes, pressure-relief techniques DVT prophylaxis: Continue aspirin and Brilinta. No further pharmacologic prophylaxis due to subarachnoid hemorrhage. Encourage deep breathing exercise incentive spirometry. Monitor bladder. Toileting schedule. Continue current bladder management, with scans as needed and CIC if needed. Start bowel care program every day to obtain continence, prevent ileus. Maintain fall precautions Gait and balance retraining Functional training and self-care and home management, including activities of daily living and instrumental activities of daily living Provision of the necessary gait aids and functional adaptive equipment to enhance the patient's a functional holiness Ensure adequate nutrition and hydration Sleep: Start trazodone 50 mg at bedtime Pain: No issues Discharge planning: Home with family in 3 weeks due to extensive residual deficits. Plan: I completed a substantive portion of this encounter, the medical decision makingportion of this note in its entirety, including Allied health note review, nursing note review, pension consultant note review, discussion with nursing and case management, and more than 50% of my time was spent on counseling and coordination of care, time spent 25 minutes Patient was personally seen by me, Dr. Carlton, on the day of encounter, reviewed the history and the relevant portions of the chart, including current orders, allied health and pension consultant notes, labs/imaging and performed bhagat elements of exam and I formulated the plan of care and facilitated the medical decision making. Documented By: Stewart Carlton MD 10/27/221313 Signed By: <Electronically signed by Stewart Carlton MD> 10/27/226 [facility] Work Phone: 1(286) 409-975702-22-2023 Consult note Author Crystal Meléndez [facility] October 27, 2022 7:00am Note Date/Time October 26, 2022 2:02pm [facility] [address] [place] [address] Hospitalist Consult Note Signed Patient: Gilma Mock MR#: [id number] : 1955 Acct:[id number] Age/Sex: 67 / F Adm Date: 3 Loc: 5T Room: [address] [place] [address] Type: ADM IN Attending Dr: Stewart Carlton MD Copies to: NON STAFF MD Afua Wick, VALE Meléndez MD~ HPI DATE OF CONSULTATION: 10/26/22 REQUESTING PROVIDER: Stewart Carlton Consult Narrative Reason for Consult: Etoh abuse, HTN, Tobacco abuse, depression, CVA HPI: Ms. Gilma Mock is a 67-year-old female with a past medical history of hypertension, alcohol abuse, tobacco abuse and depression who initially presented to [place] emergency department after she was found confused with right-sided weakness by her family. Initial NIH score was 18. CT head/neck showed left COLE occlusion as well as left common carotid artery and right carotid bulb stenosis and patient was transferred to a tertiary care center. MRI of the brain at [facility] showed an acute to subacute watershed infarct in the left COLE/MCA territory as well as panctate focus of acute ischemia in the left caudate head and subarachnoid hemorrhage. She was taken for an emergent angioplasty and stent placement of the left ICA. Repeat CT of the head demonstrated stable subarachnoid hemorrhage. Echocardiogram showed an EF of 70%. She was also noted to be hyponatremia throughoutadmission, which is a chronic issue. She presented to our inpatient rehab for functional impairment related to the acute CVA. The hospitalist team has been consulted for medical management of hypertension and all other comorbidities. Patient seen and examined. Patient is resting comfortably in bed, reports continued right arm weakness, however able to tolerate physical therapy well. Denies chest pain or palpitation. No cough, dyspnea, or pain with inspiration. No abdominal pain or indigestion, constipation or diarrhea, nausea or vomiting. No dysuria or retention. No headache or dizziness. No fevers. Vitals reviewed, labs reviewed. Sodium of 129, which is chronic likely secondary to beer consumption. PMFSH Vaccinated for COVID-19?: Yes Medical History (Updated 10/26/22 @ 14:11 by Stewart Carlton MD) Anxiety Cerebrovascular accident (CVA) due to occlusion of left carotid artery Chronic alcohol use Depression HTN (hypertension) Visual impairment Surgical History (Updated 10/25/22 @ 20:12 by Shaniqua Montesinos RN) History of colonoscopy with polypectomy History of hysterectomy Family History (Updated 10/25/22 @ 20:12 by Shaniqua Montesinos RN) Other COPD (chronic obstructive pulmonary disease) Social History Smoking Status: Current every day smoker Tobacco Type: cigarettes Substance Use Type: None Meds Medications and Allergies Allergies Sulfa (Sulfonamide Antibiotics) Adverse Reaction (Verified 10/25/22 20:00) Unknown Reaction Tetanus Vaccines and Toxoid Adverse Reaction (Verified 10/25/22 20:13) Swelling Home Medications albuterol sulfate 90 mcg/actuation aerosol inhaler (Ventolin HFA) 2 puff inhalation Q4H PRN Wheezing 10/25/22 [History Confirmed 10/25/22] aspirin 81 mg chewable tablet 81 mg PO DAILY 10/25/22 [History Confirmed 10/25/22] calcium carbonate 500 mg calcium (1,250 mg) tablet 500 mg PO DAILY 10/25/22 [History Confirmed 10/25/22] cyanocobalamin (vitamin B-12) 1,000 mcg tablet (Vitamin B-12) 1,000 mcg PO DAILY10/25/22 [History Confirmed 10/25/22] famotidine 20 mg tablet 20 mg PO BID 10/25/22 [History Confirmed 10/25/22] gabapentin 100 mg capsule 100 mg PO TID 10/25/22 [History Confirmed 10/25/22] magnesium oxide 400 mg PO DAILY 10/25/22 [History Confirmed 10/25/22] metoprolol tartrate 50 mg tablet 50 mg PO BID 10/25/22 [History Confirmed 10/25/22] multivitamin 1 tab PO DAILY 10/25/22 [History Confirmed 10/25/22] nifedipine 60 mg tablet,extended release 24 hr 90 mg PO DAILY 10/25/22 [History Confirmed 10/25/22] potassium chloride 10 mEq tablet,extended release 10 meq PO DAILY 10/25/22 [History Confirmed 10/25/22] ticagrelor 90 mg tablet 90 mg PO BID 10/25/22 [History Confirmed 10/25/22] triamcinolone acetonide 0.5 % topical cream 1 applic topical DAILY PRN Rash 10/25/22 [History Confirmed 10/25/22] Active Medications: Active Medications Generic Name Dose Route Start Last Admin Trade Name Freq PRN Reason Stop Dose Admin Acetaminophen 500 mg 10/25/22 19:50 Acetaminophen 500 Mg Tablet PO 10/25/23 19:49 Q4H PRN Pain Al Hydrox/Mg Hydrox/Simethicone 30 ml 10/25/22 19:50 Mag Hydrox/Al Hydrox/Simeth 30 Ml Udc PO 10/25/23 19:49 Q4H PRN Indigestion Albuterol 2 puff 10/25/22 19:55 Albuterol Hfa 60 Puff/8 Gram Inhaler INHALATION 10/25/23 19:54 Q4H PRN Wheezing Aspirin 81 mg 10/26/22 09:00 10/26/22 09:05 Aspirin 81 Mg Tab.Chew PO 10/26/23 08:59 81 mg DAILY ELI Administration Bisacodyl 10 mg 10/25/22 19:50 Bisacodyl 10 Mg Supp.Rect NC 10/25/23 19:49 DAILY PRN Constipation Calcium Carbonate 500 mg 10/26/22 09:00 10/26/22 09:05 Calcium Carbonate 500 Mg Tablet PO 10/26/23 08:59 500 mg DAILY ELI Administration Cyanocobalamin 1,000 mcg 10/26/22 09:00 10/26/22 09:05 Cyanocobalamin 1,000 Mcg Tablet PO 10/26/23 08:59 1,000 mcg DAILY ELI Administration Docusate Sodium 100 mg 10/25/22 19:50 Docusate 100 Mg Capsule PO 10/25/23 19:49 BID PRN Constipation Docusate Sodium 283 mg 10/25/22 19:50 Docusate Enema 283 Mg/5 Ml Enema NC 10/25/23 19:49 DAILY PRN Constipation Famotidine 20 mg 10/25/22 21:00 10/26/22 09:04 Famotidine 20 Mg Tablet PO 10/25/23 20:59 20 mg BID ELI Administration Hydralazine HCl 25 mg 10/25/22 20:45 Hydralazine 25 Mg Tablet PO 10/25/23 20:44 Q6H PRN hypertention Lactulose 30 gm 10/25/22 19:50 Lactulose 20 Gm/30 Ml Udc PO 10/25/23 19:49 DAILY PRN Constipation Magnesium Oxide 400 mg 10/26/22 09:00 10/26/22 09:05 Magnesium Oxide 400 Mg Tablet PO 10/26/23 08:59 400 mg DAILY ELI Administration Metoprolol Tartrate 50 mg 10/25/22 21:00 10/26/22 09:04 Metoprolol Tartrate 50 Mg Tablet PO 10/25/23 20:59 50 mg BID ELI Administration Multivitamins 1 tab 10/26/22 09:00 10/26/22 09:04 Multivitamin 1 Tab Tablet PO 10/26/23 08:59 1 tab DAILY ELI Administration Nifedipine 90 mg 10/26/22 09:00 10/26/22 09:04 Nifedipine Er.24hr 90 Mg Tab.Er.24 PO 10/26/23 08:59 90 mg DAILY ELI Administration Potassium Chloride 10 meq 10/26/22 09:00 10/26/22 09:05 Potassium Chloride Er 10 Meq Tablet.Er PO 10/26/23 08:59 10 meq DAILY ELI Administration Sennosides 2 tab 10/26/22 12:00 Sennosides 8.6 Mg Tablet PO 10/26/23 11:59 DAILY@12 PRN If no BM in 2 days Sodium Chloride 0 ml 10/25/22 19:50 Sodium Chloride 0.9 % 10 Ml Syringe IV-PUSH 10/25/23 19:49 PRN PRN Flush Ticagrelor 90 mg 10/25/22 21:00 10/26/22 09:05 Ticagrelor 90 Mg Tablet PO 10/25/23 20:59 90 mg BID ELI Administration Trazodone HCl 50 mg 10/26/22 09:17 Trazodone 50 Mg Tablet PO 10/26/23 21:59 QHS PRN Sleep Triamcinolone Acetonide 1 applic 10/25/22 19:55 Triamcinolone 0.5% Cream 15 Gm Tube TOPICAL 10/25/23 19:54 DAILY PRN Rash Exam Physical Exam Vital Signs: Temp Pulse Resp BP Pulse Ox O2 Del Method 98.6 F 73 18 135/87 97 Room Air 10/26/22 05:00 10/26/22 05:00 10/26/22 05:00 10/26/22 05:00 10/26/22 05:00 10/26/22 07:30 Narrative: CONST-thin looking no acute distress. HEAD - Normocephalic and atraumatic EENT-Sclera nonicteric and conjunctive are nonerythemic, moist oral mucosa, pharynx clear NECK-Supple, no cervical lymphadenopathy CARDIAC-normal rate, regular rhythm, normal S1 & S2. PULM-clear without wheeze or rhonchi, RA, no accessory muscle use or cough noted ABD - Soft. Bowel sounds are normal. No distention No tenderness EXTREM-no edema BLE calves nontender SKIN-scattered bruising MS- MAEX4 spontaneously with equal with equal strength NEURO- A&Ox3 speech clear and tongue midline, equal facial symmetry no focal motor deficits PSYCH-Mood, affect and behavior appropriate Results Lab Results Labs: Laboratory Results - last 72 hr 10/26/22 06:42: PHA Creatinine Clear 52.90, Sodium 129 L, Potassium 4.2, Chloride 96, Carbon Dioxide 25.2, Anion Gap 12.0, BUN 7 L, Creatinine 0.63, Est GFR ( Amer) > 60, Est GFR (Non-Af Amer) > 60, Glucose 107 H, Calcium 9.7,Total Bilirubin 0.4, AST 24, ALT 24, Alkaline Phosphatase 80, Total Protein 6.8,Albumin 2.6 L, Globulin 4.2, Albumin/Globulin Ratio 0.6, Prealbumin 7.9 L 10/26/22 06:42: Corrected WBC 8.4, Uncorrected WBC Count 8.4, RBC 4.03, Hgb 12.3, Hct 36.2, MCV 89.8, MCH 30.6, MCHC 34.0, RDW 14.3, Plt Count 591 H, MPV 6.8, Neut % (Auto) 80.4, Lymph % (Auto) 8.8, [place] % (Auto) 9.8, Eos % (Auto) 0.6, Baso % (Auto) 0.4, Nucleat RBC Rel Count 0.0, Neut # (Auto) 6.8, Lymph # (Auto) 0.7 L, [place] # (Auto) 0.8, Eos # (Auto) 0.0, Baso # (Auto) 0.0 A&P - Hospitalist Assessment/Plan (1) Cerebrovascular accident (CVA) due to occlusion of left carotid artery: (2) Right hemiplegia: (3) Chronic alcohol use: (4) Chronic hyponatremia: (5) Subarachnoid hemorrhage: (6) HTN (hypertension): (7) Anxiety: (8) Impaired mobility and activities of daily living: Plan Cerebrovascular accident (CVA) due to occlusion of left carotid artery Right hemiplegia Impaired mobility and activities of daily living ?Plan of care for rehabilitation, PT/OT, DVT prophylaxis, bowel regimen per PM&Rteam ?On Brilinta and aspirin Chronic conditions 1.Hypertension?on metoprolol, Procardia 2.Anxiety/depression 3.Chronic alcohol use 4.Tobacco abuse 5. Chronic hyponatremia likely due to beer consumption?monitor sodium Documented By: Afua Baker APRN 10/26/22 1400 Signed By: <Electronically signed by VALE Baker> 10/26/22 1600 <Electronically signed by Crystal Meléndez MD> 10/27/22 0700 [facility] Work Phone: 1(295) 805-233102-21-2023 History and physical note Author Stewart Carlton [facility] October 26, 2022 2:11pm Note Date/Time October 26, 2022 8:50am [facility] [address] [place] [address] Physiatry (Rehab) H&P Signed Patient: Gilma Mock MR#: [id number] : 1955 Acct:[id number] Age/Sex: 67 / F Adm Date: 3 Loc: Room: 7O5331-7 Type: ADM IN Attending Dr: Stewart Carlton MD Copies to: NON STAFF VALE Soto MD~ <Kendra Stern APRN - Last Filed: 10/26/22 11:41> Date of Service: 10/26/2022 HPI <Kendra Stern APRN - Last Filed: 10/26/22 11:41> The patient was seen and examined on: 10/26/22 History of Present Illness: Ms. Mock is a 67 year old female presenting to inpatient rehab for functional impairments related to acute CVA. Patient's past medical history is notable foralcohol abuse (drinks~6 beers a day), hypertension, cigarette smoking, depression. Apparently, patient was found confused with right-sided weakness by her family, LKW 3 days prior. She was brought to [place] emergency department. Initial NIH was 18. CT imaging demonstrated left ICA occlusion as well as left common carotid artery and right carotid bulb stenosis, which prompted a transfer to tertiary care center. MRI of the brain at [facility] demonstrated acute to subacute watershed infarct in the left COLE/MCA territory, as well as punctate focus of acute ischemia in the left caudate head and subarachnoid hemorrhage. She was taken for an emergent angioplasty and stent placement to the left ICA. Repeat CT of the head demonstrated stable subarachnoid hemorrhage. Echo is notable for hyperdynamic systolic function with ejection fraction over 70%. Patient has been hyponatremic throughout admission, which is a chronic issue. She has been asymptomatic requiring no correction. On admission to rehab patient is alert and oriented to person and place. Has a degree of expressive/receptive aphasia. She has trouble recalling events preceding admission or symptoms she was having at that time. She endorses right-sided weakness, no visual disturbances, no facial droop, paresthesias, headache, dizziness, or lightheadedness. Her deficits are gradually improving. Overall, she is feeling well today. She denies any pain or discomfort. No shortness of breath or chest pain. No GI or complaints. Her vital signs arewithin normal limits. 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 She lives with a significant other. PMFSH <Kendra Stern APRN - Last Filed: 10/26/22 11:41> Vaccinated for COVID-19?: Yes Medical History (Updated 10/26/22 @ 14:11 by Stewart Carlton MD) Anxiety Cerebrovascular accident (CVA) due to occlusion of left carotid artery Chronic alcohol use Depression HTN (hypertension) Visual impairment Surgical History (Updated 10/25/22 @ 20:12 by Shaniqua Montesinos RN) History of colonoscopy with polypectomy History of hysterectomy Family History (Updated 10/25/22 @ 20:12 by Shaniqua Montesinos RN) Other COPD (chronic obstructive pulmonary disease) Social History Smoking Status: Current every day smoker Tobacco Type: cigarettes Substance Use Type: None Review of Systems <Kendra Stern APRN - Last Filed: 10/26/22 11:41> Review of Systems All other systems reviewed & are negative unless noted below or in HPI Meds <Kendra Stern APRN - Last Filed: 10/26/22 11:41> Medications and Allergies Allergies Sulfa (Sulfonamide Antibiotics) Adverse Reaction (Verified 10/25/22 20:00) Unknown Reaction Tetanus Vaccines and Toxoid Adverse Reaction (Verified 10/25/22 20:13) Swelling Home and Active Meds: Home Medications albuterol sulfate 90 mcg/actuation aerosol inhaler (Ventolin HFA) 2 puff inhalation Q4H PRN Wheezing 10/25/22 [History Confirmed 10/25/22] aspirin 81 mg chewable tablet 81 mg PO DAILY 10/25/22 [History Confirmed 10/25/22] calcium carbonate 500 mg calcium (1,250 mg) tablet 500 mg PO DAILY 10/25/22 [History Confirmed 10/25/22] cyanocobalamin (vitamin B-12) 1,000 mcg tablet (Vitamin B-12) 1,000 mcg PO DAILY10/25/22 [History Confirmed 10/25/22] famotidine 20 mg tablet 20 mg PO BID 10/25/22 [History Confirmed 10/25/22] gabapentin 100 mg capsule 100 mg PO TID 10/25/22 [History Confirmed 10/25/22] magnesium oxide 400 mg PO DAILY 10/25/22 [History Confirmed 10/25/22] metoprolol tartrate 50 mg tablet 50 mg PO BID 10/25/22 [History Confirmed 10/25/22] multivitamin 1 tab PO DAILY 10/25/22 [History Confirmed 10/25/22] nifedipine 60 mg tablet,extended release 24 hr 90 mg PO DAILY 10/25/22 [History Confirmed 10/25/22] potassium chloride 10 mEq tablet,extended release 10 meq PO DAILY 10/25/22 [History Confirmed 10/25/22] ticagrelor 90 mg tablet 90 mg PO BID 10/25/22 [History Confirmed 10/25/22] triamcinolone acetonide 0.5 % topical cream 1 applic topical DAILY PRN Rash 10/25/22 [History Confirmed 10/25/22] Active Medications Acetaminophen (Acetaminophen 500 Mg Tablet) 500 mg PO Q4H PRN PRN Reason: Pain Stop: 10/25/23 19:49 Al Hydrox/Mg Hydrox/Simethicone (Mag Hydrox/Al Hydrox/Simeth 30 Ml Udc) 30 ml PO Q4H PRN PRN Reason: Indigestion Stop: 10/25/23 19:49 Albuterol (Albuterol Hfa 60 Puff/8 Gram Inhaler) 2 puff INHALATION Q4H PRN PRN Reason: Wheezing Stop: 10/25/23 19:54 Aspirin (Aspirin 81 Mg Tab.Chew) 81 mg PO DAILY ELI Stop: 10/26/23 08:59 Bisacodyl (Bisacodyl 10 Mg Supp.Rect) 10 mg NC DAILY PRN PRN Reason: Constipation Stop: 10/25/23 19:49 Calcium Carbonate (Calcium Carbonate 500 Mg Tablet) 500 mg PO DAILY ELI Stop: 10/26/23 08:59 Cyanocobalamin (Cyanocobalamin 1,000 Mcg Tablet) 1,000 mcg PO DAILY ELI Stop: 10/26/23 08:59 Docusate Sodium (Docusate 100 Mg Capsule) 100 mg PO BID PRN PRN Reason: Constipation Stop: 10/25/23 19:49 Docusate Sodium (Docusate Enema 283 Mg/5 Ml Enema) 283 mg NC DAILY PRN PRN Reason: Constipation Stop: 10/25/23 19:49 Famotidine (Famotidine 20 Mg Tablet) 20 mg PO BID ELI Stop: 10/25/23 20:59 Last Admin: 10/25/22 21:37 Dose: 20 mg Hydralazine HCl (Hydralazine 25 Mg Tablet) 25 mg PO Q6H PRN PRN Reason: hypertention Stop: 10/25/23 20:44 Lactulose (Lactulose 20 Gm/30 Ml Udc) 30 gm PO DAILY PRN PRN Reason: Constipation Stop: 10/25/23 19:49 Magnesium Oxide (Magnesium Oxide 400 Mg Tablet) 400 mg PO DAILY ELI Stop: 10/26/23 08:59 Metoprolol Tartrate (Metoprolol Tartrate 50 Mg Tablet) 50 mg PO BID ELI Stop: 10/25/23 20:59 Last Admin: 10/25/22 21:37 Dose: 50 mg Multivitamins (Multivitamin 1 Tab Tablet) 1 tab PO DAILY [facility] Stop: 10/26/23 08:59 Nifedipine (Nifedipine Er.24hr 90 Mg Tab.Er.24) 90 mg PO DAILY ELI Stop: 10/26/23 08:59 Potassium Chloride (Potassium Chloride Er 10 Meq Tablet.Er) 10 meq PO DAILY ELI Stop: 02/21/24 08:59 Sennosides (Sennosides 8.6 Mg Tablet) 2 tab PO DAILY@12 PRN PRN Reason: If no BM in 2 days Stop: 10/26/23 11:59 Sodium Chloride (Sodium Chloride 0.9 % 10 Ml Syringe) 0 ml IV-PUSH PRN PRN PRN Reason: Flush Stop: 10/25/23 19:49 Ticagrelor (Ticagrelor 90 Mg Tablet) 90 mg PO BID ELI Stop: 10/25/23 20:59 Last Admin: 10/25/22 21:37 Dose: 90 mg Triamcinolone Acetonide (Triamcinolone 0.5% Cream 15 Gm Tube) 1 applic TOPICAL DAILY PRN PRN Reason: Rash Stop: 10/25/23 19:54 Exam <Knedra Stern APRN - Last Filed: 10/26/22 11:41> Physical Exam Vital Signs: Temp Pulse Resp BP Pulse Ox O2 Del Method 98.6 F 73 18 135/87 97 Room Air 10/26/22 05:00 10/26/22 05:00 10/26/22 05:00 10/26/22 05:00 10/26/22 05:00 10/26/22 07:30 Narrative: Const General: cooperative, comfortable, no acute distress, cachectic Nutritional Appearance: Cachectic, sent Orientation: alert, awake and oriented to person and place Limitations: Confused, memory loss HEENT Head: normal to inspection, normocephalic and atraumatic Ears: hearing grossly normal bilaterally Nose: external nose normal Face and sinus: normal facial exam Eyes General: appearance normal, both eyes and all related structures. Wears glasses. Pupils: PERRL EOM: EOM intact bilaterally Neck Neck: normal visual inspection, full ROM, no lymphadenopathy and trachea midline Neck mass: No Chest Chest palpation & inspection: normal inspection of the chest Resp Effort & Inspection: normal respiratory effort, able to speak in complete sentences, symmetric chest movement and no cough Auscultation: clear to auscultation bilaterally Cardio Jugular venous pressure: no JVD Rhythm: Regular rhythm and rate GI: Inspection: normal to inspection Palpation: soft, no hepatosplenomegaly and nontender Auscultation: normal bowel sounds Musc Cervical Spine: normal cervical lordosis and cervical ROM normal Thoracic/Lumbar Spine: thoraco-lumbar ROM normal Skin General: no rashes or lesions noted Neuro General: patient alert, oriented x2, moves all extremities. Notable weakness inthe right upper and lower extremity Cranial Nerves: PERRL Speech: speech normal Extrem Other: Right-sided weakness. Right foot drop. Psych Appearance: grossly normal Mental Status: WNL Mood: congruent mood Affect: normal affect Speech and Movement: speech and movement normal Attitude: cooperative Insight: Limited Judgment: Limited Results <Kendra Stern APRN - Last Filed: 10/26/22 11:41> Labs Labs: Laboratory Results - last 24 hr 10/26/22 10/26/22 06:42 06:42 Corrected WBC 8.4 Uncorrected WBC Count 8.4 RBC 4.03 Hgb 12.3 Hct 36.2 MCV 89.8 MCH 30.6 MCHC 34.0 RDW 14.3 Plt Count 591 H MPV 6.8 Neut % (Auto) 80.4 Lymph % (Auto) 8.8 [place] % (Auto) 9.8 Eos % (Auto) 0.6 Baso % (Auto) 0.4 Nucleat RBC Rel Count 0.0 Neut # (Auto) 6.8 Lymph # (Auto) 0.7 L [place] # (Auto) 0.8 Eos # (Auto) 0.0 Baso # (Auto) 0.0 PHA Creatinine Clear 52.90 Sodium 129 L Potassium 4.2 Chloride 96 Carbon Dioxide 25.2 Anion Gap 12.0 BUN 7 L Creatinine 0.63 Est GFR ( Amer) > 60 Est GFR (Non-Af Amer) > 60 Glucose 107 H Calcium 9.7 Total Bilirubin 0.4 AST 24 ALT 24 Alkaline Phosphatase 80 Total Protein 6.8 Albumin 2.6 L Globulin 4.2 Albumin/Globulin Ratio 0.6 Prealbumin 7.9 L <Stewart Carlton MD - Last Filed: 10/26/22 14:11> Additional Results Results Comment: I reviewed clinical lab tests, radiology reports and obtained and summated medical records and have ordered follow up lab tests and imaging studies as needed for rehabilitation care. Functional Status <Kendra Stern APRN - Last Filed: 10/26/22 11:41> Prior Level of Function Narrative: Previously independent Current Level of Function Narrative: Supervision for bed mobility, contact-guard assist for sitting to standing and chair to bed transfer. <Stewart Carlton MD - Last Filed: 10/26/22 14:11> Individualized Plan of Care Plan of Care: Individualized Overall Plan of Care: Admit Date/Time: 10/25/2022 Expected LOS: 3 weeks Expected Discharge Destination: Home Rehabilitation [facility]: 01.2 Primary Diagnosis: Left brain stroke right hemiplegia To have patient become more independent and to return home. Medical/ Functional Prognosis: Good Anticipated Functional Outcomes/Goals and Interventions: 1.Therapy Functional Outcome/Goal: Anticipate supervision bed mobility Anticipated interventions: Physician management, PT, OT, DELINQUENCY PREVENTION OFFICER, , Dietitian, RehabNursing, Case management 2. Therapy Functional Outcome/Goal: Anticipate supervision for transfers Anticipated interventions: Physician management, PT, OT, DELINQUENCY PREVENTION OFFICER, Case management, Dietitian, Rehab Nursing 3. Therapy Functional Outcome/Goal: Anticipate supervision for ambulation Anticipated interventions: Physician management, PT, OT, DELINQUENCY PREVENTION OFFICER Case management, Dietitian, Rehab Nursing 4.Therapy Functional Outcome/Goal: Anticipate supervision for self care Anticipated interventions: Physician management, PT, OT, DELINQUENCY PREVENTION OFFICER, Case management, Dietitian, Rehab Nursing 5.Therapy Functional Outcome/Goal: Anticipate supervision for functional communication and swallowing Anticipated interventions: Physician management, PT, OT, DELINQUENCY PREVENTION OFFICER, Case management, Dietitian, Rehab Nursing Required Therapy PT: 1 hour per day at least 5 days per week with additional therapy on as neededbasis. Comments: PT to improve pt's strength, endurance, bed mobility, transfers (sit-stand), standing balance, gait quality on level surfaces and stairs, coordination and functional ADL skills. Will also work to improve pt's safety awareness during transfers and ambulation. OT: 1 hour per day at least 5 days per week with additional therapy on as neededbasis. Comments: OT for basic ADL re-training (bathing, dressing, toileting, continence, grooming, feeding, transferring), to increase activity tolerance andfunctional mobility and to evaluate for adaptive and assistive devices. Will work to improve pt's endurance and educate pt on fall prevention and energy conservation techniques-pacing strategies and proper breathing techniques duringfunctional tasks. Speech/Language - 1 hour per day at least 5 days per week with additional therapy on as needed basis. Comments: DELINQUENCY PREVENTION OFFICER to evaluate and treat patient?s cognition, language and communication skills, assess swallow function. Other: Dietitian, Rehab nursing, Wound, P&O, Neuropsychology as needed RATIONALE FOR IRF ADMISSION: Patient has both medical and functional complexities that require 24 hour daily monitoring and intervention from Camp House[employer] as well as other consulting physicians including internal medicine as well as 24 hour daily sales consulting director nursing - for medical safe / optimal management. Patient requires interdisciplinary therapy team rehabilitation care including OT, PT, DELINQUENCY PREVENTION OFFICER, SW, Psychology, Rehab Nursing, requires and can tolerate at least 3 hours of daily OT and PT therapy at least 5 days weekly. The following medical conditions significantly impact the rehabilitation process andare being addressed daily and can not be managed at home or in a lesser intense medical setting: Refer to above problem oriented plan of care Assessment/Plan <Kendra Stern APRN - Last Filed: 10/26/22 11:41> (1) Subarachnoid hemorrhage: Code(s): I60.9 - Nontraumatic subarachnoid hemorrhage, unspecified Status: Acute (2) Cerebrovascular accident (CVA) due to occlusion of left carotid artery: Code(s): I63.232 - Cerebral infarction due to unspecified occlusion or stenosis of left carotid arteries Status: Acute (3) Anxiety: Code(s): F41.9 - Anxiety disorder, unspecified Status: Acute (4) HTN (hypertension): Code(s): I10 - Essential (primary) hypertension Status: Acute (5) Impaired mobility and activities of daily living: Code(s): Z74.09 - Other reduced mobility; Z78.9 - Other specified health status Status: Acute (6) Chronic hyponatremia: Code(s): E87.1 - Hypo-osmolality and hyponatremia Status: Acute (7) Chronic alcohol use: Code(s): F10.90 - Alcohol use, unspecified, uncomplicated Status: Acute (8) Right hemiplegia: Code(s): G81.91 - Hemiplegia, unspecified affecting right dominant side Status: Acute (9) Oropharyngeal dysphagia: Code(s): R13.12 - Dysphagia, oropharyngeal phase Status: Acute (10) Mild cognitive impairment: Code(s): G31.84 - Mild cognitive impairment of uncertain or unknown etiology Status: Acute (11) 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 * Continue aspirin and Brilinta per neurology orders * Monitor neurological symptoms closely, repeat head CT if warranted * Trend lecture lites. Known chronic hyponatremia, sodium level on admission 129. * Patient education Pressure ulcer prophylaxis; encourage mobilization, frequent postural changes, pressure-relief techniques DVT prophylaxis: Continue aspirin and Brilinta Encourage deep breathing exercise incentive spirometry. Monitor bladder. Toileting schedule. Continue current bladder management, with scans as needed and CIC if needed. Start bowel care program every day to obtain continence, prevent ileus. Maintain fall precautions Gait and balance retraining Functional training and self-care and home management, including activities of daily living and instrumental activities of daily living Provision of the necessary gait aids and functional adaptive equipment to enhance the patient's a functional holiness Ensure adequate nutrition and hydration Sleep: Start trazodone 50 mg at bedtime Pain: No issues Discharge planning: Home with family in 7-10 days. I spent greater than 35 minutes for services, including [id number] encounter with the patient, discussion of the case, plan of care, and exam; and [id number] activities, such as reviewing pertinent pension consultant documentation, recent therapy notes, laboratory and radiology studies, and discussion of case with care team including physician, nursing, upper caser, andtherapists. More than 50 % of time was spent on patient/family counseling or coordination ofcare. <Stewart Carlton MD - Last Filed: 10/26/22 14:11> (1) Subarachnoid hemorrhage: Plan: PT to improve pt's strength, endurance, bed mobility, transfers (sit-stand), standing balance, gait quality on level surfaces and stairs, coordination and functional ADL skills. Will also work to improve pt's safety awareness during transfers and ambulation. OT for basic ADL re-training (bathing, dressing, toileting, continence, grooming, feeding, transferring), to increase activity tolerance and functional mobility and to evaluate for adaptive and assistive devices. Will work to improve pt's endurance and educate pt on fall prevention and energy conservationtechniques-pacing strategies and proper breathing techniques during functional tasks. Patient education Pressure ulcer prophylaxis; encourage mobilization, frequent postural changes, pressure-relief techniques DVT prophylaxis Encourage deep breathing exercise incentive spirometry. Monitor bladder. Toileting schedule. Continue current bladder management, with scans as needed and CIC if needed. Start bowel care program every day to obtain continence, prevent ileus. Maintain fall precautions Gait and balance retraining Provision of the necessary gait aids and functional adaptive equipment to enhance the patient's a functional holiness Encourage deep breathing exercises and incentive spirometry RD evaluation Ensure adequate nutrition and hydration Discharge planning. 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 * Continue aspirin and Brilinta per neurology orders * Monitor neurological symptoms closely, repeat head CT if warranted * Trend electrolytes known chronic hyponatremia, sodium level on admission 129. Patient education Pressure ulcer prophylaxis; encourage mobilization, frequent postural changes, pressure-relief techniques DVT prophylaxis: Continue aspirin and Brilinta. No further pharmacologic prophylaxis due to subarachnoid hemorrhage. Encourage deep breathing exercise incentive spirometry. Monitor bladder. Toileting schedule. Continue current bladder management, with scans as needed and CIC if needed. Start bowel care program every day to obtain continence, prevent ileus. Maintain fall precautions Gait and balance retraining Functional training and self-care and home management, including activities of daily living and instrumental activities of daily living Provision of the necessary gait aids and functional adaptive equipment to enhance the patient's a functional holiness Ensure adequate nutrition and hydration Sleep: Start trazodone 50 mg at bedtime Pain: No issues Discharge planning: Home with family in 3 weeks. I spent greater than 35 minutes for services, including [id number] encounter with the patient, discussion of the case, plan of care, and exam; and [id number] activities, such as reviewing pertinent pension consultant documentation, recent therapy notes, laboratory and radiology studies, and discussion of case with care team including physician, nursing, upper caser, and therapists. More than 50 % of time was spent on patient/family counseling or coordination ofcare. Plan: I completed a substantive portion of this encounter, the medical decision makingportion of this note in its entirety, including Allied health note review, nursing note review, pension consultant note review, discussion with nursing and case management, and more than 50% of my time was spent on counseling and coordination of care, time spent 65 minutes Patient was personally seen by me, Dr. Carlton, on the day of encounter, within 24hours of rehab admission, reviewed the history and the relevant portions of the chart, including current orders, allied health and pension consultant notes, labs/imaging and performed bhagat elements of exam and I formulated the plan of care and facilitated the medical decision making. 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 -Allergies: Sulfa (Sulfonamide Antibiotics), Tetanus Vaccines and Toxoid. -Activity: Weight bearing as tolerated. -Diet: Low fat diet. -Eating strategies: Sit upright at 90 degrees with oral intake, alternate liquids/solids, small bites/sips, built up utensils, intermittent supervision with meals. -Key Sander recommendations: Boost Plus, 1 container, twice daily with meals (or your facility's equivalent). 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 Cerebrovascular accident (CVA) due to occlusion of left carotid artery Chronic alcohol use Chronic hyponatremia Gait apraxia HTN (hypertension) Impaired mobility and activities of daily living Mild cognitive impairment Oropharyngeal dysphagia Right hemiplegia Subarachnoid hemorrhage Additional Source Comments INFORMATION SOURCE (unrecogn ized section and content) DATE CREATED AUTHOR 11/25/2021 [facility] dical Specialist DATE CREATED AUTHOR AUTHOR'S ORGANIZ ATION 10/19/2022 [facility] DATE CREATED AUTHOR AUTHOR'S ORGANIZ ATION 11/30/2022 [facility] Care Teams (unrecognized sec tion and content) Team Status: Active Member Role Status Dates NON STAFF Primary Care Provider Active Team Status: Inactive Member Role Status Dates NON STAFF Primary Care Provider Active Stewart Carlton MD Admit Provider, Attending Provider A ctive Kaur Silvestre , KAROLINA Other Provider Active Cathryn Menendez , KAROLINA Other Provider Active Belkis Mercado , KAROLINA Other Provider Active Geine Oliveira RN Other Provider Active Luz Marina Ho RN Other Provider Active Michell Elias RN Other Provider Active Daren Limon MD Other Provider Active Jose Dasilva MD Other Provider Active Uma Hernández APRN Other Provider Active Marlen Reaves , DO Other Provider Active Vinayak Taveras MD Other Provider Active Rick Babcock , DO Other Provider Active Sidney Rader MD Other Provider Active Kassidy Treviño MD Other Provider Active Gaby Hernandez , ANP-BC Other Provider Active Hussain Salomon MD Other Provider Active David Staley MD Other Provider Active Crystal Meléndez MD Other Provider Active Marciano Weeks MD Other Provider Active Amrit Acosta , DO Other Provider Active Winston Skinner MD Other Provider Active Reji Hawkins MD Other Provider Active Kirstin Fragoso , ENTERPRISE SOFTWARE DEVELOPER-C Other Provider Active Brian New MD Other Provider Active Owen Chadwick MD Other Provider Active Diomedes Auguste MD Other Provider Active Lara Rojas , DO Other Provider Active Alberto Dias , DO Other Provider Active Alfredo Green , DO Other Provider Active Afua Baker APRN Other Provider Active Delvin Beltrán , DO Other Provider Active Diana Eubanks MD Other Provider Active Rajwinder Beltran APRN Other Provider Active Irene Carvalho RN Other Provider Active FOR RECORDS PERTAINING TO PATIENTS WHO ARE OR HAVE BEEN ENROLLED IN A CHEMICAL DEPENDENCY/SUBSTANCEABUSE PROGRAM, SOME INFORMATION MAY BE OMITTED. This clinical summary was aggregated from multiple sources. Caution should be exercised in using it in the provision of clinical care. This summary normalizes information from multiple sources, and as a consequence, information in this document may materially change the coding, format and clinical context of patient data. In addition, data may be omitted in some cases. CLINICAL DECISIONS SHOULD BE BASED ON THE PRIMARY CLINICAL RECORDS. [employer] [facility]. provides no warranty or guarantee of the accuracy or completeness of information in this document.
--- OUTSIDE RECORDS SUMMARY | 2023-11-16 07:33 | XMS_ITS | CCD ---
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 Name Role Phone PROVIDER, UNKNOWN Attending Unavailable PROVIDER, UNKNOWN Admitting Unavailable NON STAFF Primary Care Provider Unavailayo e MD Stewart Carlton Admit Provider MD Stewart Carlton Attending Provider KAROLINA Silvestre Other Provider Unavailable KAROLINA Menendez Other Provider Unavailable KAROLINA Mercado Other Provider Unavailable KAROLINA Oliveira Other Provider Unavailable KAROLINA Ho Other Provider Unavailable KAROLINA Elias Other Provider Unavailable MD Daren Limon Other Provider MD Jose Dasilva Other Provider VALE Hernández Other Provider DO Marlen Reaves Other Provider [phone] MD Vinayak Taveras Other Provider [phone] DO Rick Babcock Other Provider MD Sidney Rader Other Provider [phone] MD Kassidy Treviño Other Provider David, ANP-BC [...] Other Provider DO Alfredo Green Other Provider VALE Baker Other Provider DO Delvin Beltrán Other Provider [phone] MD Diana Eubanks Other Provider VALE Beltran Other Provider KAROLINA Carvalho Other Provider Unavailable Stewart Carlton [...] Propensity to adverse reactions 3 Unknown Reaction [facility] (2 sources) Tetanus Vaccines and Toxoid; Translations: [Tetanus Vaccines and Toxoid] Propensity to adverse reactions 3 Swelling [facility] Medications Current Medications Medication Drug Class(es) Dates [...] Daily 0 November 15, 2022 12:00am Lanolin Hbhzdei-Kt-C.Pet-C eres (Minerin Creme) Cream (1 source) Start: 11-15-2022 Lanolin Ifebfzr-Zp-N.Pet- Rolfe (Minerin Creme) Cream Active 1 APPLIC TOPICAL [...] Drug Class(es) Dates Sig (Normalized) Sig (Original) [id number] 200 actuat albuterol 0.09 mg/actuat metered dose [...] Anion gap [Moles/Vol] 12.8 mmol/L Normal 6.0-15.0 [facility] Comment on above: Performed By: #### C BC, BMP #### [facility] [address] Calcium [Mass/Vol] 10.5 mg/dL High 8.6-10.3 [facility] Comment on above: Performed By: #### C BC, BMP #### [facility] [address] [place] [address] [place] Chloride [Moles/Vol] 102 mmol/L Normal 98-107 [facility] Comment on above: Performed By: #### C BC, BMP #### [facility] [address] [place] [address] [facility] CO2 [Moles/Vol] 26.2 mmol/L Normal 21.0-31.[address] [facility] Comment on above: Performed By: #### C BC, BMP #### [facility] [address] [place] [id number] [place] Creatinine [Mass/Vol] 0.53 mg/dL Low 0.60-1.20 [facility] Comment on above: Performed By: #### C BC, BMP #### [place] [address] [place] Creatinine Clr Calc Pharmacy 52.90 Normal [facility] Comment on above: Result Comment: PERF ORMED BY: [place] [address] PATHOLOGIST AQUARIUM SPECIALIST LOLA BURGER M.D. Performed By: #### C BC, BMP #### [place] [address] [place] GFR/1.73 sq M.predicted MDRD (S/P/Bld) [Vol rate/Area] mL/min/{1.73_m2} Normal [facility] Comment on above: Performed By: #### C BC, BMP #### [address] Glucose [Mass/Vol] 101 mg/dL Normal 74-109 [facility] Comment on above: Result Comment: [facility] Glucose Reference Range is dependent on time and content of last meal. Glucose of more than 200 mg/dL in a nonstressed, ambulatory subject supports the diagnosis of Diabetes Mellitus. ADA recommended reference range Performed By: #### C BC, BMP #### [address] Potassium [Moles/Vol] 4.0 mmol/L Normal 3.5-5.1 [facility] Comment on above: Performed By: #### C BC, BMP #### [address] Sodium [Moles/Vol] 137 mmol/L Normal 136-145 [facility] Comment on above: Performed By: #### C BC, BMP #### [address] Urea nitrogen [Mass/Vol] 15 mg/dL Normal 7-25 [facility] Comment on above: Performed By: #### C BC, BMP #### [place] [address] [place] Basophils Auto (Bld) [#/Vol] Ordered By: Kendra Stern on 11-16-2022 Basophils (Bld) [#/Vol] 0.0 10*3/uL 0.0-0.2 [facility] Basophils/100 WBC Auto (Bld) Ordered By: Kendra Stern on 11-16-2022 Basophils/100 WBC (Bld) 0.4 % . F [facility] COVID-19 Antigenon COVID-19 Antigen Comment collect today [...] developed and its performance characteristic determined by [employer] and validated at [facility]. This test has not been FDA cleared [...] by KAREN PERFORMED BY: [facility] [address] PATHOLOGIST AQUARIUM SPECIALIST LOLA BURGER M.D. Normal [facility] Comment on above: Performed By: #### C OVID-19 NORY, SOFIANEG #### [facility] [address] [place] [address] [place] COVID-19 SOFIAOrdered By: Luz Carlton on 11-16-2022 SARS-CoV+SARS-CoV-2 (COVID-19) Ag IA.rapid Ql (Resp) Negative Negative [facility] Comment on above: This is a duplicate Nory SARS Antigen (KAREN) result to be used for statistical tracking purpose only. Calcium [Mass/volume] in Ser um or PlasmaOrdered By: Kendra Stern on 11-16-2022 Calcium [Mass/Vol] 10.5 mg/dL 8.6-10.3 [facility] Carbon dioxide, total [Moles /volume] in Serum or PlasmaOrdered By: Kendra Stern on 11-16-2022 CO2 [Moles/Vol] 26.2 mmol/L 21.0-31.[address] [facility] Chloride [Moles/volume] in S sabine or PlasmaOrdered By: Kendra Stern on 11-16-2022 Chloride [Moles/Vol] 102 mmol/L 98-107 [facility] Complete Blood Count Auto Di ffon 11-16-2022 Basophils (Bld) [#/Vol] 0.0 10*3/uL Normal 0.0-0.2 [facility] Comment on above: Result Comment: PERF ORMED BY: [place] [address] PATHOLOGIST AQUARIUM SPECIALIST LOLA BURGER M.D. Performed By: #### C BC, BMP #### [facility] [address] [place] [address] [place] Basophils/100 WBC (Bld) 0.4 % Normal . F [facility] Comment on above: Performed By: #### C BC, BMP #### [facility] [address] [place] [address] [place] Eosinophils (Bld) [#/Vol] 0.1 10*3/uL Normal 0.0-0.45 [facility] Comment on above: Performed By: #### C BC, BMP #### [address] Eosinophils/100 WBC (Bld) 1.5 % Normal . [facility] Comment on above: Performed By: #### C BC, BMP #### [address] Erythrocyte distribution width (RBC) [Ratio] 14.7 % Normal 11.9-15.3 [facility] Comment on above: Performed By: #### C BC, BMP #### [address] Hematocrit (Bld) [Volume fraction] 33.0 % Low 34.0-46.4 [facility] Comment on above: Performed By: #### C BC, BMP #### [address] Hemoglobin (Bld) [Mass/Vol] 11.1 g/dL Low 11.8-15.4 [facility] Comment on above: Performed By: #### C BC, BMP #### [address] Lymphocytes (Bld) [#/Vol] 1.0 10*3/uL Normal 1.00-4.8 [facility] Comment on above: Performed By: #### C BC, BMP #### [address] Lymphocytes/100 WBC (Bld) 21.5 % Normal . [facility] Comment on above: Performed By: #### C BC, BMP #### [address] MCH (RBC) [Entitic mass] 29.5 pg Normal 24.7-34.3 [facility] Comment on above: Performed By: #### C BC, BMP #### [address] MCV (RBC) [Entitic vol] 88.0 fL Normal 80-[address] [facility] Comment on above: Performed By: #### C BC, BMP #### [facility] [address] Mean Corpuscular HGB Conc 33.5 g/dL Normal 32.0-35.0 [facility] Comment on above: Performed By: #### C BC, BMP #### [facility] [address] [place] [address] [place] Monocytes (Bld) [#/Vol] 0.5 10*3/uL Normal 0.0-0.8 [facility] Comment on above: Performed By: #### C BC, BMP #### [facility] [address] [place] [address] [place] Monocytes/100 WBC (Bld) 11.3 % Normal . F [facility] Comment on above: Performed By: #### C BC, BMP #### [facility] [address] Neutrophils (Bld) [#/Vol] 2.9 10*3/uL Normal 1.8-7.7 [facility] Comment on above: Performed By: #### C BC, BMP #### [facility] [address] [place] [address] [place] Neutrophils/100 WBC (Bld) 65.3 % Normal . [facility] Comment on above: Performed By: #### C BC, BMP #### [facility] [address] [place] [address] [place] NRBC% 0.1 /100{WBC} Normal 0-0.5 [facility] Comment on above: Performed By: #### C BC, BMP #### [facility] [address] [place] [address] [place] Platelet mean volume (Bld) [Entitic vol] 7.2 fL Normal 6.3-10.7 [facility] Comment on above: Performed By: #### C BC, BMP #### [facility] [address] [place] [id number] [place] Platelets (Bld) [#/Vol] 364 10*3/uL Normal 150-450 [facility] Comment on above: Performed By: #### C BC, BMP #### [facility] [address] RBC (Bld) [#/Vol] 3.75 10*6/uL Normal 3.60-5.00 [facility] Comment on above: Performed By: #### C BC, BMP #### [facility] [address] [place] [id number] [facility] WBC (Bld) [#/Vol] 4.5 10*3/uL Normal 3.8-11.6 [facility] Comment on above: Performed By: #### C BC, BMP #### [facility] [address] [place] [id number] [facility] Creatinine [Mass/volume] in Serum or PlasmaOrdered By: Kendra Stern on 11-16-2022 Creatinine [Mass/Vol] 0.53 mg/dL 0.60-1.20 [facility] Eosinophils Auto (Bld) [#/Vo l]Ordered By: Kendra Stern on 11-16-2022 Eosinophils (Bld) [#/Vol] 0.1 10*3/uL 0.0-0.45 [facility] Eosinophils/100 WBC Auto (Bl d)Ordered By: Kendra Stern on 11-16-2022 Eosinophils/100 WBC (Bld) 1.5 % . [facility] Erythrocyte distribution wid th Auto (RBC) [Ratio]Ordered By: Kendra Stern on 11-16-2022 Erythrocyte distribution width (RBC) [Ratio] 14.7 % 11.9-15.3 [facility] Glucose [Mass/volume] in Ser um or PlasmaOrdered By: Kendra Stern on 11-16-2022 Glucose [Mass/Vol] 101 mg/dL 74-109 [facility] Comment on above: ADA recommended refe rence rangeRandom Glucose Reference Range is dependent on time and content of last meal. Glucose of more than 200 mg/dL in a nonstressed, ambulatory subject supports the diagnosis of Diabetes Mellitus. Hematocrit Auto (Bld) [Volum e fraction]Ordered By: Kendra Stern on 11-16-2022 Hematocrit (Bld) [Volume fraction] 33.0 % 34.0-46.4 [facility] Hemoglobin [Mass/volume] in BloodOrdered By: Kendra Stern on 11-16-2022 Hemoglobin (Bld) [Mass/Vol] 11.1 g/dL 11.8-15.4 [facility] Laboratory - Chemistry and C hemistry - challengeOrdered By: Kendra Stern on 11-16-2022 GFR/1.73 sq M.predicted MDRD (S/P/Bld) [Vol rate/Area] mL/min/{1.73_m2} [facility] Leukocytes [#/volume] correc zuleika for nucleated erythrocytes in Blood by Automated counOrdered By: Kendra Stern on 11-16-2022 WBC corrected for nucl RBC Auto (Bld) [#/Vol] 4.5 10*3/uL 3.8-11.6 [facility] Lymphocytes Auto (Bld) [#/Vo l]Ordered By: Kendra Stern on 11-16-2022 Lymphocytes (Bld) [#/Vol] 1.0 10*3/uL 1.00-4.8 [facility] Lymphocytes/100 WBC Auto (Bl d)Ordered By: Kendra Stern on 11-16-2022 Lymphocytes/100 WBC (Bld) 21.5 % . [facility] MCH Auto (RBC) [Entitic mass ]Ordered By: Kendra Stern on 11-16-2022 MCH (RBC) [Entitic mass] 29.5 pg 24.7-34.3 [facility] MCHC Auto (RBC) [Mass/Vol]Or dered By: Kendra Stern on 11-16-2022 MCHC (RBC) [Mass/Vol] 33.5 g/dL 32.0-35.0 [facility] MCV Auto (RBC) [Entitic vol] Ordered By: Kendra Stern on 11-16-2022 MCV (RBC) [Entitic vol] 88.0 fL 80-[address] [facility] Monocytes Auto (Bld) [#/Vol] Ordered By: Kendra Stern on 11-16-2022 Monocytes (Bld) [#/Vol] 0.5 10*3/uL 0.0-0.8 [facility] Monocytes/100 WBC Auto (Bld) Ordered By: Kendra Stern on 11-16-2022 Monocytes/100 WBC (Bld) 11.3 % . F [facility] Neutrophils Auto (Bld) [#/Vo l]Ordered By: Kendra Stern on 11-16-2022 Neutrophils (Bld) [#/Vol] 2.9 10*3/uL 1.8-7.7 [facility] Neutrophils/100 WBC Auto (Bl d)Ordered By: Kendra Stern on 11-16-2022 Neutrophils/100 WBC (Bld) 65.3 % . [facility] No Panel InformationOrdered By: Stewart Carlton on 11-16-2022 SARS Antigen (LFIA) [facility] No Panel InformationOrdered By: Kendra Stern on 11-16-2022 Pharmacy Creatinine Clearance (Chem 52.90 [facility] Nucleated erythrocytes [Pres ence] in Blood by Automated countOrdered By: Kendra Stern on 11-16-2022 Nucleated RBC Auto Ql (Bld) 0.1 /100{WBC} 0-0.5 [facility] Platelet mean volume Auto (B ld) [Entitic vol]Ordered By: Kendra Stern on 11-16-2022 Platelet mean volume (Bld) [Entitic vol] 7.2 fL 6.3-10.7 [facility] Platelets Auto (Bld) [#/Vol] Ordered By: Kendra Stern on 11-16-2022 Platelets (Bld) [#/Vol] 364 10*3/uL 150-450 [facility] Potassium [Moles/volume] in Serum or PlasmaOrdered By: Kendra Stern on 11-16-2022 Potassium [Moles/Vol] 4.0 mmol/L 3.5-5.1 [facility] RBC Auto (Bld) [#/Vol]Ordere d By: Kendra Stern on 11-16-2022 RBC (Bld) [#/Vol] 3.75 10*6/uL 3.60-5.00 [facility] Serum or plasma anion gap de terminationOrdered By: Kendra Stern on 11-16-2022 Anion gap [Moles/Vol] 12.8 mmol/L 6.0-15.0 [facility] Sodium [Moles/volume] in Ser um or PlasmaOrdered By: Kendra Stern on 11-16-2022 Sodium [Moles/Vol] 137 mmol/L 136-145 [facility] Nory Ag Negativeon 11-17-19 Nory Ag Negative Negative Normal Negative [facility] Comment on above: Result Comment: This is a duplicate Nory SARS Antigen (KAREN) result to be used for statistical tracking purpose only. PERFORMED BY: [place] [address] PATHOLOGIST AQUARIUM SPECIALIST LOLA BURGER M.D. Performed By: #### C OVID-19 NORY, SOFIANEG #### [facility] [address] Urea nitrogen [Mass/volume] in Serum or PlasmaOrdered By: Kendra Stern on 11-16-2022 Urea nitrogen [Mass/Vol] 15 mg/dL 7-25 [facility] WBC Auto (Bld) [#/Vol]Ordere d By: Kendra Stern on 11-16-2022 WBC (Bld) [#/Vol] 4.5 10*3/uL 3.8-11.6 [facility] CT head/brain wo conon 11-11 CT head/brain wo con [facility] Main [place] [address] [place] [address] CT Scan Report Signed Patient: Gilma Mock MR#: [id number] 37 : 1955 Acct:[id number] Age/Sex: 67 / F ADM Date: 10/25/22 Loc: Room: 7P5133-4 Type: ADM IN Attending Dr: Stewart Carlton [...] Royal Jr., D.O.11/11/2022 12:12 PM Dictation Location: [place] [address] Transcribed By: [facility] 11/11/22 1212 Dictated By: Stewart Royal Jr, DO 11/11/22 1210 Signed By: 11/11/22 1212 Normal [facility] Basic Metabolic Panelon Anion gap [Moles/Vol] 13.8 mmol/L Normal 6.0-15.0 [facility] Comment on above: Performed By: #### C BC, BMP #### [facility] [address] [place] [address] [place] Calcium [Mass/Vol] 9.9 mg/dL Normal 8.2-10.2 [facility] Comment on above: Performed By: #### C BC, BMP #### [facility] [address] [place] [address] [place] Chloride [Moles/Vol] 99 mmol/L Normal 95-114 [facility] Comment on above: Performed By: #### C BC, BMP #### [facility] [address] [place] [address] [place] CO2 [Moles/Vol] 24.0 mmol/L Normal 22.0-30.[address] [facility] Comment on above: Performed By: #### C BC, BMP #### [facility] [address] Creatinine [Mass/Vol] 0.74 mg/dL Normal 0.44-1.03 [facility] Comment on above: Performed By: #### C BC, BMP #### [address] Creatinine Clr Calc Pharmacy 52.90 [facility] Comment on above: Result Comment: PERF ORMED BY: [place] [address] PATHOLOGIST AQUARIUM SPECIALIST LOLA BURGER M.D. Performed By: #### C BC, BMP #### [address] Estimated GFR ( Tea > 60 [facility] Comment on above: Result Comment: GFR estimated reference range: According to KDOQI guidelines, <60 ml/min/1.73m2 is sufficient to diagnose a patient with chronic kidney disease. Performed By: #### C BC, BMP #### [address] Estimated GFR (Non- Am > 60 [facility] Comment on above: Performed By: #### C BC, BMP #### [address] Glucose [Mass/Vol] 198 mg/dL High 70-100 [facility] Comment on above: Result Comment: [place] Glucose Reference Range is dependent on time and content of last meal. Glucose of more than 200 mg/dL in a nonstressed, ambulatory subject supports the diagnosis of Diabetes Mellitus. ADA recommended reference range Performed By: #### C BC, BMP #### [address] Potassium [Moles/Vol] 3.8 mmol/L Normal 3.5-5.1 [facility] Comment on above: Performed By: #### C BC, BMP #### [place] [address] [place] Sodium [Moles/Vol] 133 mmol/L Low 136-146 [facility] Comment on above: Performed By: #### C BC, BMP #### [facility] [address] Urea nitrogen [Mass/Vol] 13 mg/dL Normal 9-23 [facility] Comment on above: Performed By: #### C BC, BMP #### [facility] [address] Bilirubin Test strip Ql (U)O rdered By: Kendra Stern on 11-09-2022 Bilirubin Ql (U) Negative Negative [facility] Color Auto (U)Ordered By: Nav Stern on 11-09-2022 Color (U) Yellow Yellow [facility] Complete Blood Count Auto Di ffon 11-09-2022 Basophils (Bld) [#/Vol] 0.0 10*3/uL Normal 0.0-0.2 [facility] Comment on above: Result Comment: PERF ORMED BY: [facility] [address] [place] [address] PATHOLOGIST AQUARIUM SPECIALIST LOLA BURGER M.D. Performed By: #### C BC, BMP #### [facility] [address] Basophils/100 WBC (Bld) 0.5 % Normal . [facility] Comment on above: Performed By: #### C BC, BMP #### [facility] [address] [place] [address] [place] Eosinophils (Bld) [#/Vol] 0.1 10*3/uL Normal 0.0-0.45 [facility] Comment on above: Performed By: #### C BC, BMP #### [facility] [address] [place] [address] [place] Eosinophils/100 WBC (Bld) 1.3 % Normal . [facility] Comment on above: Performed By: #### C BC, BMP #### [facility] [address] Erythrocyte distribution width (RBC) [Ratio] 14.7 % Normal 11.9-15.3 [facility] Comment on above: Performed By: #### C BC, BMP #### [facility] [address] Hematocrit (Bld) [Volume fraction] 31.8 % Low 34.0-46.4 [facility] Comment on above: Performed By: #### C BC, BMP #### [facility] [address] Hemoglobin (Bld) [Mass/Vol] 10.7 g/dL Low 11.8-15.4 [facility] Comment on above: Performed By: #### C BC, BMP #### [facility] [address] Lymphocytes (Bld) [#/Vol] 1.3 10*3/uL Normal 1.00-4.8 [facility] Comment on above: Performed By: #### C BC, BMP #### [address] Lymphocytes/100 WBC (Bld) 17.1 % Normal . [facility] Comment on above: Performed By: #### C BC, BMP #### [facility] [address] MCH (RBC) [Entitic mass] 29.7 pg Normal 24.7-34.3 [facility] Comment on above: Performed By: #### C BC, BMP #### [address] MCV (RBC) [Entitic vol] 88.2 fL Normal 80-[address] [facility] Comment on above: Performed By: #### C BC, BMP #### [facility] [address] Mean Corpuscular HGB Conc 33.6 g/dL Normal 32.0-35.0 [facility] Comment on above: Performed By: #### C BC, BMP #### [address] Monocytes (Bld) [#/Vol] 0.7 10*3/uL Normal 0.0-0.8 [facility] Comment on above: Performed By: #### C BC, BMP #### [facility] [address] [place] [address] [place] Monocytes/100 WBC (Bld) 9.6 % Normal . F [facility] Comment on above: Performed By: #### C BC, BMP #### [facility] [address] [place] [address] [place] Neutrophils (Bld) [#/Vol] 5.3 10*3/uL Normal 1.8-7.7 [facility] Comment on above: Performed By: #### C BC, BMP #### [facility] [address] [place] [address] [facility] Neutrophils/100 WBC (Bld) 71.5 % Normal . [facility] Comment on above: Performed By: #### C BC, BMP #### [facility] [address] NRBC% 0.0 /100{WBC} Normal 0-0.5 [facility] Comment on above: Performed By: #### C BC, BMP #### [facility] [address] [place] [id number] [place] Platelet mean volume (Bld) [Entitic vol] 7.3 fL Normal 6.3-10.7 [facility] Comment on above: Performed By: #### C BC, BMP #### [facility] [address] [place] [address] [place] Platelets (Bld) [#/Vol] 404 10*3/uL Normal 150-450 [facility] Comment on above: Performed By: #### C BC, BMP #### [facility] [address] [place] [address] [place] RBC (Bld) [#/Vol] 3.60 10*6/uL Normal 3.60-5.00 [facility] Comment on above: Performed By: #### C BC, BMP #### [facility] [address] [place] [address] [place] WBC (Bld) [#/Vol] 7.5 10*3/uL Normal 3.8-11.6 [facility] Comment on above: Performed By: #### C BC, BMP #### [facility] [address] [place] [id number] [place] Estimated glomerular filtrat ion rate (GFR) non- AmericanOrdered By: Stewart Carlton on 11-09-2022 GFR/1.73 sq M.predicted among non-blacks MDRD (S/P/Bld) [Vol rate/Area] > 60 mL/Min [facility] Ketones Auto test strip (U) [Mass/Vol]Ordered By: Kendra Stern on 11-09-2022 Ketones (U) [Mass/Vol] Negative Negative Fi [facility] Nitrite Test strip Ql (U)Ord ered By: Kendra Stern on 11-09-2022 Nitrite Ql (U) Negative Negative [facility] No Panel InformationOrdered By: Stewart Carlton on 11-09-2022 Estimated GFR () > 60 mL/Min [facility] Comment on above: GFR estimated refere nce range: According to KDOQI guidelines, <60 ml/min/1.73m2 is sufficient to diagnose a patient with chronic kidney disease. Protein Auto test strip (U) [Mass/Vol]Ordered By: Kendra Stern on 11-09-2022 Protein (U) [Mass/Vol] Negative Negative Fi [facility] Specific gravity Auto test s trip (U) [Rel density]Ordered By: Kendra Stern on 11-09-2022 Specific gravity (U) [Rel density] 1.007 1.001-1.030 [facility] Urinalysison 11-09-2022 Appearance (U) Clear Normal Clear [facility] Comment on above: Order Comment: Name Collection Type:: Clean-Voided Midstream Performed By: #### U A #### [facility] [address] [place] [id number] [place] Bilirubin,Urine Negative Normal Negative [facility] Comment on above: Order Comment: Name Collection Type:: Clean-Voided Midstream Performed By: #### U A #### [facility] [address] [place] [id number] [place] Color (U) Yellow Normal Yellow [facility] Comment on above: Order Comment: Name Collection Type:: Clean-Voided Midstream Performed By: #### U A #### [facility] [address] Glucose Ql (U) Normal Normal Normal [facility] Comment on above: Order Comment: Name Collection Type:: Clean-Voided Midstream Performed By: #### U A #### [facility] [address] Ketones Ql (U) Negative Normal Negative [facility] Comment on above: Order Comment: Name Collection Type:: Clean-Voided Midstream Performed By: #### U A #### [address] Leukocyte esterase Test strip Ql (U) Negative Normal Negative [facility] Comment on above: Order Comment: Name Collection Type:: Clean-Voided Midstream Performed By: #### U A #### [place] [address] [place] Nitrite,Urine Negative Normal Negative [facility] Comment on above: Order Comment: Name Collection Type:: Clean-Voided Midstream Performed By: #### U A #### [place] [address] [place] Occult Blood,Urine Negative Normal Negative [facility] Comment on above: Order Comment: Name Collection Type:: Clean-Voided Midstream Result Comment: PERF ORMED BY: [place] [address] PATHOLOGIST AQUARIUM SPECIALIST LOLA BURGER M.D. Performed By: #### U A #### [facility] [address] [place] [address] [place] pH (U) 6.5 [pH] Normal 5.0-9.0 [facility] Comment on above: Order Comment: Name Collection Type:: Clean-Voided Midstream Performed By: #### U A #### [facility] [address] [place] [address] [place] Protein,Urine Negative Normal Negative [facility] Comment on above: Order Comment: Name Collection Type:: Clean-Voided Midstream Performed By: #### U A #### [facility] [address] [id number] [facility] Specificy [place],Urine 1.007 Normal 1.001-1.030 [facility] Comment on above: Order Comment: Name Collection Type:: Clean-Voided Midstream Performed By: #### U A #### [facility] [address] Urobilinogen,Urine Normal Normal Normal [facility] Comment on above: Order Comment: Name Collection Type:: Clean-Voided Midstream Performed By: #### U A #### [facility] [address] Urine clarity by refractomet ry automatedOrdered By: Kendra Stern on 11-09-2022 Clarity Refractometry automated (U) Clear Clear [facility] Urine glucose measurement by automated test strip (mass/volume)Ordered By: Kendra Stern on 11-09-2022 Glucose Auto test strip (U) [Mass/Vol] Normal mg/dL Normal [facility] Urine hemoglobin detection b y automated test stripOrdered By: Kendra Stern on 11-09-2022 Hemoglobin Auto test strip Ql (U) Negative Negative [facility] Urine leukocyte esterase det ection by automated test stripOrdered By: Kendra Stern on 11-09-2022 Leukocyte esterase Auto test strip Ql (U) Negative Negative [facility] Urobilinogen Auto test strip (U) [Mass/Vol]Ordered By: Kendra Stern on 11-09-2022 Urobilinogen (U) [Mass/Vol] Normal mg/dL Normal [facility] pH Auto test strip (U)Ordere d By: Kendra Stern on 11-09-2022 pH (U) 6.5 [pH] 5.0-9.0 [facility] Sodiumon 11-01-2022 Sodium [Moles/Vol] 133 mmol/L Low 136-146 [facility] Comment on above: Result Comment: PERF ORMED BY: [facility] [address] [place] [address] PATHOLOGIST AQUARIUM SPECIALIST JIANLAN SUN M.D. Performed By: #### C BC, BMP #### [facility] [address] Basic Metabolic Panelon 10-07 Anion gap [Moles/Vol] 11.2 mmol/L Normal 6.0-15.0 [facility] Comment on above: Performed By: #### B MP, CBC #### [facility] [address] Calcium [Mass/Vol] 9.3 mg/dL Normal 8.2-10.2 [facility] Comment on above: Performed By: #### B MP, CBC #### [facility] [address] Chloride [Moles/Vol] 97 mmol/L Normal 95-114 [facility] Comment on above: Performed By: #### B MP, CBC #### [facility] [address] CO2 [Moles/Vol] 24.7 mmol/L Normal 22.0-30.[address] [facility] Comment on above: Performed By: #### B MP, CBC #### [facility] [address] Creatinine [Mass/Vol] 0.58 mg/dL Normal 0.44-1.03 [facility] Comment on above: Performed By: #### B MP, CBC #### [address] Creatinine Clr Calc Pharmacy 52.90 [facility] Comment on above: Result Comment: PERF ORMED BY: [place] [address] PATHOLOGIST AQUARIUM SPECIALIST LOLA BURGER M.D. Performed By: #### B MP, CBC #### [address] Estimated GFR ( Tea > 60 Normal [facility] Comment on above: Result Comment: GFR estimated reference range: According to KDOQI guidelines, <60 ml/min/1.73m2 is sufficient to diagnose a patient with chronic kidney disease. Performed By: #### B MP, CBC #### [facility] [address] Estimated GFR (Non- Am > 60 Normal [facility] Comment on above: Performed By: #### B MP, CBC #### [facility] [address] Glucose [Mass/Vol] 112 mg/dL High 70-100 [facility] Comment on above: Result Comment: [place] Glucose Reference Range is dependent on time and content of last meal. Glucose of more than 200 mg/dL in a nonstressed, ambulatory subject supports the diagnosis of Diabetes Mellitus. ADA recommended reference range Performed By: #### B MP, CBC #### [address] Potassium [Moles/Vol] 3.9 mmol/L Normal 3.5-5.1 [facility] Comment on above: Performed By: #### B MP, CBC #### [address] Sodium [Moles/Vol] 129 mmol/L Low 136-146 [facility] Comment on above: Performed By: #### B MP, CBC #### [address] Urea nitrogen [Mass/Vol] 11 mg/dL Normal 9-23 [facility] Comment on above: Performed By: #### B MP, CBC #### [address] Complete Blood Count Auto Di ffon 10-30-2022 Basophils (Bld) [#/Vol] 0.0 10*3/uL Normal 0.0-0.2 [facility] Comment on above: Result Comment: PERF ORMED BY: [place] [address] PATHOLOGIST AQUARIUM SPECIALIST LOLA BURGER M.D. Performed By: #### B MP, CBC #### [place] [address] [place] Basophils/100 WBC (Bld) 0.5 % Normal . F [facility] Comment on above: Performed By: #### B MP, CBC #### [facility] [address] [place] [address] [place] Eosinophils (Bld) [#/Vol] 0.0 10*3/uL Normal 0.0-0.45 [facility] Comment on above: Performed By: #### B MP, CBC #### [facility] [address] Eosinophils/100 WBC (Bld) 0.2 % Normal . [facility] Comment on above: Performed By: #### B MP, CBC #### [facility] [address] Erythrocyte distribution width (RBC) [Ratio] 14.4 % Normal 11.9-15.3 [facility] Comment on above: Performed By: #### B MP, CBC #### [facility] [address] Hematocrit (Bld) [Volume fraction] 33.1 % Low 34.0-46.4 [facility] Comment on above: Performed By: #### B MP, CBC #### [facility] [address] [place] [address] [place] Hemoglobin (Bld) [Mass/Vol] 11.1 g/dL Low 11.8-15.4 [facility] Comment on above: Performed By: #### B MP, CBC #### [facility] [address] [place] [address] [place] Lymphocytes (Bld) [#/Vol] 0.6 10*3/uL Low 1.00-4.8 [facility] Comment on above: Performed By: #### B MP, CBC #### [facility] [address] [place] [address] [place] Lymphocytes/100 WBC (Bld) 6.7 % Normal . [facility] Comment on above: Performed By: #### B MP, CBC #### [facility] [address] MCH (RBC) [Entitic mass] 30.0 pg Normal 24.7-34.3 [facility] Comment on above: Performed By: #### B MP, CBC #### [facility] [address] MCV (RBC) [Entitic vol] 89.9 fL Normal 80-[address] [facility] Comment on above: Performed By: #### B MP, CBC #### [facility] [address] Mean Corpuscular HGB Conc 33.4 g/dL Normal 32.0-35.0 [facility] Comment on above: Performed By: #### B MP, CBC #### [facility] [address] [place] [address] [place] Monocytes (Bld) [#/Vol] 0.7 10*3/uL Normal 0.0-0.8 [facility] Comment on above: Performed By: #### B MP, CBC #### [facility] [address] [place] [address] [place] Monocytes/100 WBC (Bld) 7.7 % Normal . F [facility] Comment on above: Performed By: #### B MP, CBC #### [facility] [address] [place] [address] [place] Neutrophils (Bld) [#/Vol] 8.1 10*3/uL High 1.8-7.7 [facility] Comment on above: Performed By: #### B MP, CBC #### [facility] [address] [place] [id number] [place] Neutrophils/100 WBC (Bld) 84.9 % Normal . [facility] Comment on above: Performed By: #### B MP, CBC #### [facility] [address] [place] [address] [place] NRBC% 0.0 /100{WBC} Normal 0-0.5 [facility] Comment on above: Performed By: #### B MP, CBC #### [facility] [address] Platelet mean volume (Bld) [Entitic vol] 6.7 fL Normal 6.3-10.7 [facility] Comment on above: Performed By: #### B MP, CBC #### [facility] [address] Platelets (Bld) [#/Vol] 633 10*3/uL High 150-450 [facility] Comment on above: Performed By: #### B MP, CBC #### [facility] [address] RBC (Bld) [#/Vol] 3.69 10*6/uL Normal 3.60-5.00 [facility] Comment on above: Performed By: #### B MP, CBC #### [facility] [address] WBC (Bld) [#/Vol] 9.6 10*3/uL Normal 3.8-11.6 [facility] Comment on above: Performed By: #### B MP, CBC #### [facility] [address] Albumin [Mass/volume] in Ser um or PlasmaOrdered By: Stewart Carlton on 10-26-2022 Albumin [Mass/Vol] 2.6 g/dL 3.2-5.5 [facility] Alkaline phosphatase [Enzyma tic activity/volume] in Serum or PlasmaOrdered By: Stewart Carlton on 10-26-2022 ALP [Catalytic activity/Vol] 80 U/L 32-92 [facility] Aspartate aminotransferase [ Enzymatic activity/volume] in Serum or PlasmaOrdered By: Stewart Carlton on 10-26-2022 AST [Catalytic activity/Vol] 24 U/L 10-42 [facility] Bilirubin.total [Mass/volume ] in Serum or PlasmaOrdered By: Stewart Carlton on 10-26-2022 Bilirubin [Mass/Vol] 0.4 mg/dL 0.3-1.2 [facility] Complete Blood Count Auto Di ffon 10-26-2022 Basophils (Bld) [#/Vol] 0.0 10*3/uL Normal 0.0-0.2 [facility] Comment on above: Result Comment: PERF ORMED BY: [place] [address] PATHOLOGIST AQUARIUM SPECIALIST LOLA BURGER M.D. Performed By: #### C BC, BMP #### [facility] [address] [place] [address] [place] Basophils/100 WBC (Bld) 0.4 % Normal . F [facility] Comment on above: Performed By: #### C BC, BMP #### [facility] [address] [place] [address] [place] Eosinophils (Bld) [#/Vol] 0.0 10*3/uL Normal 0.0-0.45 [facility] Comment on above: Performed By: #### C BC, BMP #### [facility] [address] [place] [address] [place] Eosinophils/100 WBC (Bld) 0.6 % Normal . [facility] Comment on above: Performed By: #### C BC, BMP #### [facility] [address] Erythrocyte distribution width (RBC) [Ratio] 14.3 % Normal 11.9-15.3 [facility] Comment on above: Performed By: #### C BC, BMP #### [facility] [address] [place] [address] [place] Hematocrit (Bld) [Volume fraction] 36.2 % Normal 34.0-46.4 [facility] Comment on above: Performed By: #### C BC, BMP #### [facility] [address] [place] [address] [place] Hemoglobin (Bld) [Mass/Vol] 12.3 g/dL Normal 11.8-15.4 [facility] Comment on above: Performed By: #### C BC, BMP #### [facility] [address] [place] [address] [place] Lymphocytes (Bld) [#/Vol] 0.7 10*3/uL Low 1.00-4.8 [facility] Comment on above: Performed By: #### C BC, BMP #### [facility] [address] [place] [address] [place] Lymphocytes/100 WBC (Bld) 8.8 % Normal . [facility] Comment on above: Performed By: #### C BC, BMP #### [facility] [address] MCH (RBC) [Entitic mass] 30.6 pg Normal 24.7-34.3 [facility] Comment on above: Performed By: #### C BC, BMP #### [facility] [address] MCV (RBC) [Entitic vol] 89.8 fL Normal 80-[address] [facility] Comment on above: Performed By: #### C BC, BMP #### [facility] [address] Mean Corpuscular HGB Conc 34.0 g/dL Normal 32.0-35.0 [facility] Comment on above: Performed By: #### C BC, BMP #### [facility] [address] Monocytes (Bld) [#/Vol] 0.8 10*3/uL Normal 0.0-0.8 [facility] Comment on above: Performed By: #### C BC, BMP #### [facility] [address] [place] [address] [place] Monocytes/100 WBC (Bld) 9.8 % Normal . F [facility] Comment on above: Performed By: #### C BC, BMP #### [facility] [address] Neutrophils (Bld) [#/Vol] 6.8 10*3/uL Normal 1.8-7.7 [facility] Comment on above: Performed By: #### C BC, BMP #### [facility] [address] [place] [address] [place] Neutrophils/100 WBC (Bld) 80.4 % Normal . [facility] Comment on above: Performed By: #### C BC, BMP #### [facility] [address] [place] [address] [place] NRBC% 0.0 /100{WBC} Normal 0-0.5 [facility] Comment on above: Performed By: #### C BC, BMP #### [facility] [address] Platelet mean volume (Bld) [Entitic vol] 6.8 fL Normal 6.3-10.7 [facility] Comment on above: Performed By: #### C BC, BMP #### [facility] [address] Platelets (Bld) [#/Vol] 591 10*3/uL High 150-450 [facility] Comment on above: Performed By: #### C BC, BMP #### [address] RBC (Bld) [#/Vol] 4.03 10*6/uL Normal 3.60-5.00 [facility] Comment on above: Performed By: #### C BC, BMP #### [address] WBC (Bld) [#/Vol] 8.4 10*3/uL Normal 3.8-11.6 [facility] Comment on above: Performed By: #### C BC, BMP #### [address] Comprehensive Metabolic Pane gabi 10-26-2022 Albumin [Mass/Vol] 2.6 g/dL Low 3.2-5.5 [facility] Comment on above: Performed By: #### C BC, CMP, PAB #### [facility] [address] [place] [address] Albumin/Globulin [Mass ratio] 0.6 {ratio} Normal [facility] Comment on above: Performed By: #### C BC, CMP, PAB #### [facility] [address] [place] [address] [place] ALP [Catalytic activity/Vol] 80 U/L Normal 32-92 [facility] Comment on above: Performed By: #### C BC, CMP, PAB #### [facility] [address] [place], [place] [id number] [facility] ALT [Catalytic activity/Vol] 24 U/L Normal 10-60 [facility] Comment on above: Performed By: #### C BC, CMP, PAB #### [facility] [address] [place] [id number] [place] Anion gap [Moles/Vol] 12.0 mmol/L Normal 6.0-15.0 [facility] Comment on above: Performed By: #### C BC, CMP, PAB #### [facility] [address] [place] [id number] [place] AST [Catalytic activity/Vol] 24 U/L Normal 10-42 [facility] Comment on above: Performed By: #### C BC, CMP, PAB #### [facility] [address] [place] [address] [place] Bilirubin [Mass/Vol] 0.4 mg/dL Normal 0.3-1.2 [facility] Comment on above: Performed By: #### C BC, CMP, PAB #### [facility] [address] [place] [id number] [place] Calcium [Mass/Vol] 9.7 mg/dL Normal 8.2-10.2 [facility] Comment on above: Performed By: #### C BC, CMP, PAB #### [facility] [address] [id number] [place] Chloride [Moles/Vol] 96 mmol/L Normal 95-114 [facility] Comment on above: Performed By: #### C BC, CMP, PAB #### [facility] [address] [id number] [place] CO2 [Moles/Vol] 25.2 mmol/L Normal 22.0-30.[address] [facility] Comment on above: Performed By: #### C BC, CMP, PAB #### [facility] [address] [place] [id number] [place] Creatinine [Mass/Vol] 0.63 mg/dL Normal 0.44-1.03 [facility] Comment on above: Performed By: #### C BC, CMP, PAB #### [facility] [address] [id number] [place] Creatinine Clr Calc Pharmacy 52.90 Normal [facility] Comment on above: Performed By: #### C BC, CMP, PAB #### [facility] [address] [place] [address] [place] Estimated GFR ( Tea > 60 Normal [facility] Comment on above: Result Comment: GFR estimated reference range: According to KDOQI guidelines, <60 ml/min/1.73m2 is sufficient to diagnose a patient with chronic kidney disease. Performed By: #### C BHAKTI CMP, PAB #### [facility] [address] Estimated GFR (Non- Am > 60 Normal [facility] Comment on above: Performed By: #### C LOUISA YA, PAB #### [facility] [address] Globulin (S) [Mass/Vol] 4.2 g/dL Normal [facility] Comment on above: Performed By: #### C LOUISA YA, PAB #### [facility] [address] Glucose [Mass/Vol] 107 mg/dL High 70-100 [facility] Comment on above: Result Comment: [place] Glucose Reference Range is dependent on time and content of last meal. Glucose of more than 200 mg/dL in a nonstressed, ambulatory subject supports the diagnosis of Diabetes Mellitus. ADA recommended reference range Performed By: #### C LOUISA YA, PAB #### [facility] [address] Potassium [Moles/Vol] 4.2 mmol/L Normal 3.5-5.1 [facility] Comment on above: Performed By: #### C LOUISA YA, PAB #### [facility] [address] Protein [Mass/Vol] 6.8 g/dL Normal 6.1-7.9 [facility] Comment on above: Performed By: #### C LOUISA YA, PAB #### [facility] [address] Sodium [Moles/Vol] 129 mmol/L Low 136-146 [facility] Comment on above: Performed By: #### C LOUISA YA, PAB #### [facility] [address] Urea nitrogen [Mass/Vol] 7 mg/dL Low 9-23 [facility] Comment on above: Performed By: #### C BC, CMP, PAB #### [facility] [address] Globulin Calc (S) [Mass/Vol] Ordered By: Stewart Carlton on 10-26-2022 Globulin (S) [Mass/Vol] 4.2 g/dL [facility] Prealbuminon 10-26-2022 Prealbumin [Mass/Vol] 7.9 mg/dL Low 18.0-38.0 [facility] Comment on above: Result Comment: PERF ORMED BY: [place] [address] PATHOLOGIST AQUARIUM SPECIALIST LOLA BURGRE M.D. Performed By: #### C BC, CMP, PAB #### [address] Prealbumin [Mass/volume] in Serum or PlasmaOrdered By: Stewart Carlton on 10-26-2022 Prealbumin [Mass/Vol] 7.9 mg/dL 18.0-38.0 [facility] Protein [Mass/volume] in Ser um or PlasmaOrdered By: Stewart Carlton on 10-26-2022 Protein [Mass/Vol] 6.8 g/dL 6.1-7.9 [facility] Serum or plasma alanine johnson otransferase measurement without P-5'-P (enzymatic activiOrdered By: Stewart Carlton on 10-26-2022 ALT No additional P-5'-P [Catalytic activity/Vol] 24 U/L 10-60 [facility] Serum or plasma albumin/glob ulin mass ratioOrdered By: Stewart Carlton on 10-26-2022 Albumin/Globulin [Mass ratio] 0.6 {ratio} [facility] Basic Metabolic Panelon 11-03 Anion gap [Moles/Vol] 16 mmol/L Normal 12-20 [facility] [place] [employer] [employer] Comment on above: Result Comment: Effe ctive 09/10/2019 reference range changed. Performed By: #### C BCAD, CMP, LIPD, TSH, GGT #### [facility] [address] [place], [place] [id number] Calcium [Mass/Vol] 10.1 mg/dL Normal 8.6-10.2 Lizzeth garcía [place] [employer] Comment on above: Performed By: #### C BCAD, CMP, LIPD, TSH, GGT #### [facility] [address] [place], [place] [id number] Chloride [Moles/Vol] 96 mmol/L Low 98-107 [facility] Comment on above: Performed By: #### C BCAD, CMP, LIPD, TSH, GGT #### [facility] [address] [place], [place] [id number] CO2 [Moles/Vol] 25 mmol/L Normal 20-31 [facility] Comment on above: Performed By: #### C BCAD, CMP, LIPD, TSH, GGT #### [facility] [address] [place], [place] [id number] Creatinine [Mass/Vol] 0.6 mg/dL Normal 0.6-1.4 [facility] Comment on above: Performed By: #### C BCAD, CMP, LIPD, TSH, GGT #### [facility] [address] [place], [place] [id number] eGFRAA 124 mL/min/1.73m2 Normal >60 [facility] Specialist Comment on above: Performed By: #### C BCAD, CMP, LIPD, TSH, GGT #### [facility] [address] [place], [place] [id number] eGFRNAA 103 mL/min/1.73m2 Normal >60 [facility] Specialist Comment on above: Performed By: #### C BCAD, CMP, LIPD, TSH, GGT #### [facility] [address] [place], [place] [id number] Glucose [Mass/Vol] 143 mg/dL High 65-99 Lizzeth garcía [place] [employer] Comment on above: Result Comment: For FASTING Glucose --- ADA reference ranges: Normal 65-99 mg/dl Prediabetes 100-125 Diabetes >/= 126 Performed By: #### C BCAD, CMP, LIPD, TSH, GGT #### [facility] [address] [place], [place] [id number] Potassium [Moles/Vol] 4.3 mmol/L Normal 3.5-5.5 [facility] Comment on above: Performed By: #### C BCAD, CMP, LIPD, TSH, GGT #### [facility] [address] [place], [place] [id number] Sodium [Moles/Vol] 133 mmol/L Low 135-146 [facility] Comment on above: Performed By: #### C BCAD, CMP, LIPD, TSH, GGT #### [facility] [address] [place], [place] [id number] Urea nitrogen [Mass/Vol] 8 mg/dL Normal 7-25 [facility] Comment on above: Performed By: #### C BCAD, CMP, LIPD, TSH, GGT #### [facility] [address] [place], [place] [id number] Magnesiumon 11-17-2021 Magnesium [Mass/Vol] 1.8 mg/dL Normal 1.5-2.3 [facility] Comment on above: Performed By: #### C BCAD, CMP, LIPD, TSH, GGT #### [facility] [address] [place], [place] [id number] Q - CMV AB (IGG,IGM)on 11-17 CYTOMEGALOVIRUS ANTIBODY (IGG) <0.60 Normal [facility] Comment on above: Order Comment: [facility] performed at: [employer], [employer], [address] [place] [address], [address] [place] [address], [phone], [employer]sas Developer: Jeffrey Leary MDQuest Collection Date/Time: [id number] Results Received Date/Time: [id number] Reported Date/Time: Result Comment: U/mL Interpretation ----- <0.60 Negative 0.60-0.69 Equivocal > or = 0.70 Positive A positive result indicates that the patient has antibody to CMV. It does not differentiate between an active or past infection. Performed By: #### C BCAD, CMP, LIPD, TSH, GGT #### [facility] [address] [place], [place] [id number] CYTOMEGALOVIRUS ANTIBODY (IGM) <30.00 Normal [facility] Specialist Comment on above: Order Comment: Quest performed at: [employer], [facility], [address] [facility], [address] [place] [address], [phone], Ssas Developer: Jeffrey Will Collection Date/Time: [id number] Results Received Date/Time: [id number] Reported Date/Time: Result Comment: AU/m L Interpretation [...] LIPD, TSH, GGT #### [facility] [address] [place], [place] [id number] Q - EBV NUCLEAR AG (EBNA) AB (IGG)on 11-17-2021 EBV NUCLEAR AG (EBNA) AB (IGG) 328.00 U/mL High [facility] [employer] Comment on above: Order Comment: [facility] performed at: [employer] [facility], [address] [facility], [address] [place] [address], [phone], [employer] Developer: Jeffrey Will Collection Date/Time: [id number] Results Received Date/Time: [id number] Reported Date/Time: Result Comment: U/mL Interpretation ---- <18.00 Negative 18.00-21.99 Equivocal >21.99 Positive Performed By: #### C BCAD, CMP, LIPD, TSH, GGT #### [facility] [address] [place], [place] [id number] Q - LYME DISEASE AB screen W /REFLEX TO IgG IgMon 11-17-2021 LYME AB SCREEN <0.90 Normal [facility] [employer] Comment on above: Order Comment: [facility] performed at: [facility] [facility], [address] [place] , [address] [place] [address], [phone], [employer] Developer: Jeffrey Leary MDQuest Collection Date/Time: [id number] Results Received Date/Time: [id number] Reported Date/Time: Result Comment: Inde x Interpretation [...] LIPD, TSH, GGT #### [facility] [address] [place], [place] [id number] Q - RPR (MONITOR) W/RFX TITE Kike 11-17-2021 RPR (MONITOR) W/REFL TITER Non-Reactive Normal NON-REACTIVE [facility] [employer] Comment on above: Order Comment: Quest performed at: [facility], [address], [address] [place] [address], [address], Ssas Developer: Jeffrey Leary MDQuest Collection Date/Time: [id number] Results Received Date/Time: [id number] Reported Date/Time: Performed By: #### C BCAD, CMP, LIPD, TSH, GGT #### [facility] [address], [place] [id number] Q - VITAMIN Sky 11-17-2021 ALPHA-TOCOPHEROL 10.7 mg/L Normal 5.7-19.9 [facility] Specialist Comment on above: Order Comment: Quest performed at: [facility], [address], [place], [place], , Ssas Developer: Richard Tarango M.D.,PhDQuest Collection Date/Time: [id number] Results Received Date/Time: [id number] Reported Date/Time: Result Comment: Leve ls of alpha-tocopherol <5 mg/L are consistent with Vitamin E deficiency in adults. Performed By: #### C BCAD, CMP, LIPD, TSH, GGT #### [facility] [address], [place] [id number] ZMDT-TLYSO-THUNTQCYUJ 1.9 mg/L Normal <=4.3 [facility] Comment on above: Order Comment: Quest performed at: [facility], [address], [place], [place], , Ssas Developer: Richard Tarango M.D.,PhDQuest Collection Date/Time: [id number] Results Received Date/Time: [id number] Reported Date/Time: Result Comment: Deonna min supplementation within 24 hours prior to blood draw may affect the accuracy of the results. This test was developed and its analytical performance characteristics have been determined by [facility] [place], [place]. It has not been cleared or approved by the U.S. Food and Drug Administration. This assay has been validated pursuant to the CLIA regulations and is used for clinical purposes. Performed By: #### C BCAD, CMP, LIPD, TSH, GGT #### [facility] [address], [place] [id number] Q - ZINCon 11-17-2021 ZINC 58 mcg/dL Low 60-130 [facility] [employer] Comment on above: Order Comment: [employer] [facility] performed at: [facility], [facility], [address], [place], [place], , Ssas Developer: Richard Tarango M.D.,PhD [facility] Collection Date/Time: [id number] [facility] Results Received Date/Time: [facility] Reported Date/Time: Result Comment: This test was developed and its analytical performance characteristics have been determined by [facility] [place]. It has not been cleared or approved by the U.S. Food and Drug Administration. This assay has been validated pursuant to the CLIA regulations and is used for clinical purposes. Performed By: #### 1 149T, 931X, 6646, 9928T, 945X, 8564X #### [facility] [address] [place] [address] SCREENING MAMMOGRAM W/EVAN, BILATERAL*on 11-17-2021 SCREENING MAMMOGRAM [...] VERY IMPORTANT TO YOUR HEALTH. THE CURRENT [employer] [employer] AND [employer]WORK GUIDELINES RECOMMENDS ANNUAL MAMMOGRAPHY BEGINNING AT AGE 40 THIS FACILITY USES A REMINDER SYSTEM TO ENSURE ALL PATIENTS RECEIVE REMINDER NOTIFICATIONS AT THE APPROPRIATE TIME BASED ON THE RECOMMENDATIONS OF THIS EXAM. Report reported and signed by tSewart Martinez on 11/17/2021 1105 Normal [facility] XR Bone Density (DEXA)on XR Bone Density (DEXA) EXAM: Dual Femur Bone Density FINDINGS: Dual Femur bone density obtained with a [employer] whole body system: RegionBMDYoung-Adul tAge-Matched Total(g/cm2)(%)T-Sc ore(%)Z-Score Mean0.94844-9.797-0 .2 Impression: The mean BMD and corresponding T-score indicated above indicate Low Bone Mass (Osteopenia) and places the patient at a mild to moderate increased risk for fracture. There may be a future risk of developing osteoporosis. EXAM: AP Lumbar Bone Density FINDINGS: AP Spine bone density obtained with a [employer] whole body system: RegionBMDYoung-Adul tAge-Matched Total(g/cm2)(%)T-Sc ore(%)Z-Score L1-L41.4630293.7105 2.9 Impression: The mean BMD and corresponding [...] by Stewart Martinez on 11/17/2021 0954 Normal [facility] [employer] Complete Blood Count with Au to Diffon 11-10-2021 Basophils (Bld) [#/Vol] 0.03 10*3/uL Normal 0.00-0.20 [facility] [employer] Comment on above: Performed By: #### C BCAD, CMP, LIPD, TSH, GGT #### [facility] [address] [place], [place] [id number] Basophils/100 WBC (Bld) 0.4 % Normal [facility] Comment on above: Performed By: #### C BCAD, CMP, LIPD, TSH, GGT #### [facility] [address], [place] [id number] Eosinophils (Bld) [#/Vol] 0.11 10*3/uL Normal 0.02-0.50 [facility] Specialist Comment on above: Performed By: #### C BCAD, CMP, LIPD, TSH, GGT #### [facility] [address], [place] [id number] Eosinophils/100 WBC (Bld) 1.4 % Normal [facility] Comment on above: Performed By: #### C BCAD, CMP, LIPD, TSH, GGT #### [facility] [address], [place] [id number] Erythrocyte distribution width (RBC) [Ratio] 13.2 % Normal 11.0-15.0 [facility] Comment on above: Performed By: #### C BCAD, CMP, LIPD, TSH, GGT #### [facility] [address], [place] [id number] Hematocrit (Bld) [Volume fraction] 41.4 % Normal 35.0-47.0 [facility] Specialist Comment on above: Performed By: #### C BCAD, CMP, LIPD, TSH, GGT #### [facility] [address] [place], [place] [id number] Hemoglobin (Bld) [Mass/Vol] 14.7 g/dL Normal 11.6-15.5 [facility] Specialist Comment on above: Performed By: #### C BCAD, CMP, LIPD, TSH, GGT #### [facility] [address], [place] [id number] Lymphocytes (Bld) [#/Vol] 1.1 10*3/uL Normal 0.9-3.9 [facility] Specialist Comment on above: Performed By: #### C BCAD, CMP, LIPD, TSH, GGT #### [facility] [address], [place] [id number] Lymphocytes/100 WBC (Bld) 14.7 % Normal [facility] Comment on above: Performed By: #### C BCAD, CMP, LIPD, TSH, GGT #### [facility] [address], [place] [id number] MCH (RBC) [Entitic mass] 31.8 pg Normal 27.0-33.0 [facility] Comment on above: Performed By: #### C BCAD, CMP, LIPD, TSH, GGT #### [facility] [address] [place], [place] [id number] MCHC (RBC) [Mass/Vol] 35.5 g/dL Normal 32.0-36.0 [facility] Comment on above: Performed By: #### C BCAD, CMP, LIPD, TSH, GGT #### [facility] [address], [place] [id number] MCV (RBC) [Entitic vol] 90 fL Normal 80-100 [facility] Comment on above: Performed By: #### C BCAD, CMP, LIPD, TSH, GGT #### [facility] [address], [place] [id number] Monocytes (Bld) [#/Vol] 0.7 10*3/uL Normal 0.2-0.9 [facility] Comment on above: Performed By: #### C BCAD, CMP, LIPD, TSH, GGT #### [facility] [address], [place] [id number] Monocytes/100 WBC (Bld) 9.2 % Normal [facility] Comment on above: Performed By: #### C BCAD, CMP, LIPD, TSH, GGT #### [facility] [address], [place] [id number] Neutrophils (Bld) [#/Vol] 5.7 10*3/uL Normal 1.5-7.8 [facility] Comment on above: Performed By: #### C BCAD, CMP, LIPD, TSH, GGT #### [facility] [address], [place] [id number] Neutrophils/100 WBC (Bld) 73.6 % Normal [facility] Comment on above: Performed By: #### C BCAD, CMP, LIPD, TSH, GGT #### [facility] [address], [place] [id number] Platelet mean volume (Bld) [Entitic vol] 9.20 fL Normal 7.50-12.50 [facility] Comment on above: Performed By: #### C BCAD, CMP, LIPD, TSH, GGT #### [facility] [address] [place], [place] [id number] Platelets (Bld) [#/Vol] 309 10*3/uL Normal 140-400 [facility] Specialist Comment on above: Performed By: #### C BCAD, CMP, LIPD, TSH, GGT #### [facility] [address], [place] [id number] RBC (Bld) [#/Vol] 4.62 10*6/uL Normal 3.90-5.20 [facility] Specialist Comment on above: Performed By: #### C BCAD, CMP, LIPD, TSH, GGT #### [facility] [address], [place] [id number] RDW-SD 43.1 fL Normal 37.0-50.0 [facility] Specialist Comment on above: Performed By: #### C BCAD, CMP, LIPD, TSH, GGT #### [facility] [address] [place], [place] [id number] WBC (Bld) [#/Vol] 7.7 10*3/uL Normal 3.8-11.0 [facility] Flyer Rep[facility]r Comment on above: Performed By: #### C BCAD, CMP, LIPD, TSH, GGT #### [facility] [address] [place], [place] [id number] Comprehensive Metabolic Pane gabi 11-10-2021 Albumin [Mass/Vol] 4.9 g/dL Normal 3.6-5.1 [facility] Comment on above: Performed By: #### C BCAD, CMP, LIPD, TSH, GGT #### [facility] [address], [place] [id number] Albumin/Globulin [Mass ratio] 1.7 {ratio} Normal 1.0-2.5 [facility] Specialist Comment on above: Performed By: #### C BCAD, CMP, LIPD, TSH, GGT #### [facility] [address], [place] [id number] ALP [Catalytic activity/Vol] 85 U/L Normal 35-119 [facility] Comment on above: Performed By: #### C BCAD, CMP, LIPD, TSH, GGT #### [facility] [address], [place] [id number] ALT [Catalytic activity/Vol] 14 U/L Normal 6-33 [facility] Comment on above: Result Comment: 08/05 Female reference range changed. Performed By: #### C BCAD, CMP, LIPD, TSH, GGT #### [facility] [address] [place], [place] [id number] Anion gap [Moles/Vol] 24 mmol/L High 12-20 [facility] Comment on above: Result Comment: Effe ctive 09/10/2019 reference range changed. Performed By: #### C BCAD, CMP, LIPD, TSH, GGT #### [facility] [address], [place] [id number] AST [Catalytic activity/Vol] 22 U/L Normal 9-34 [facility] Comment on above: Performed By: #### C BCAD, CMP, LIPD, TSH, GGT #### [facility] [address] [place], [place] [id number] Bilirubin [Mass/Vol] 0.62 mg/dL Normal 0.30-1.20 [facility] Comment on above: Performed By: #### C BCAD, CMP, LIPD, TSH, GGT #### [facility] [address] [place], [place] [id number] BUN/CREA 17 Ratio Normal 6-22 [facility] Comment on above: Performed By: #### C BCAD, CMP, LIPD, TSH, GGT #### [facility] [address] [place], [place] [id number] Calcium [Mass/Vol] 10.4 mg/dL High 8.6-10.2 [facility] Comment on above: Performed By: #### C BCAD, CMP, LIPD, TSH, GGT #### [facility] [address] [place], [place] [id number] Chloride [Moles/Vol] 90 mmol/L Low 98-107 [facility] Comment on above: Performed By: #### C BCAD, CMP, LIPD, TSH, GGT #### [facility] [address] [place], [place] [id number] CO2 [Moles/Vol] 20 mmol/L Normal 20-31 [facility] Comment on above: Performed By: #### C BCAD, CMP, LIPD, TSH, GGT #### [facility] [address], [place] [id number] Creatinine [Mass/Vol] 0.4 mg/dL Low 0.6-1.4 [facility] Comment on above: Performed By: #### C BCAD, CMP, LIPD, TSH, GGT #### [facility] [address] [place], [place] [id number] eGFRAA 179 mL/min/1.73m2 Normal >60 [facility] Comment on above: Performed By: #### C BCAD, CMP, LIPD, TSH, GGT #### [facility] [address], [place] [id number] eGFRNAA 148 mL/min/1.73m2 Normal >60 [facility] Comment on above: Performed By: #### C BCAD, CMP, LIPD, TSH, GGT #### [facility] [address] [place], [place] [id number] Globulin (S) [Mass/Vol] 2.9 g/dL Normal 1.9-3.7 [facility] Comment on above: Performed By: #### C BCAD, CMP, LIPD, TSH, GGT #### [facility] [address] [place], [place] [id number] Glucose [Mass/Vol] 100 mg/dL High 65-99 [facility] Comment on above: Result Comment: For FASTING Glucose --- ADA reference ranges: Normal 65-99 mg/dl Prediabetes 100-125 Diabetes >/= 126 Performed By: #### C BCAD, CMP, LIPD, TSH, GGT #### [facility] [address] [place], [place] [id number] Potassium [Moles/Vol] 4.4 mmol/L Normal 3.5-5.5 [facility] Comment on above: Performed By: #### C BCAD, CMP, LIPD, TSH, GGT #### [facility] [address], [place] [id number] Protein [Mass/Vol] 7.8 g/dL Normal 6.1-8.1 Lizzeth garcía [place] [employer] Rep[employer]r Comment on above: Performed By: #### C BCAD, CMP, LIPD, TSH, GGT #### [facility] [address] [place], [place] [id number] Sodium [Moles/Vol] 130 mmol/L Low 135-146 Lizzeth garcía [place] [employer] Rep[employer]r Comment on above: Performed By: #### C BCAD, CMP, LIPD, TSH, GGT #### [facility] [address] [place], [place] [id number] Urea nitrogen [Mass/Vol] 7 mg/dL Normal 7-25 [facility] [employer] Comment on above: Performed By: #### C BCAD, CMP, LIPD, TSH, GGT #### [facility] [address] [place], [place] [id number] GGTon 11-10-2021 Gamma glutamyl transferase [Catalytic activity/Vol] 28 U/L Normal 5-36 [facility] Specialist Comment on above: Performed By: #### C BCAD, CMP, LIPD, TSH, GGT #### [facility] [address] [place], [place] [id number] Lipid Panelon 11-10-2021 Cholesterol [Mass/Vol] 186 mg/dL Normal 125-200 No [facility] Comment on above: Result Comment: Low risk < 200mg/dL Borderline risk 201-239 mg/dl High risk > or equal to 240 Performed By: #### C BCAD, CMP, LIPD, TSH, GGT #### [facility] [address] [place], [place] [id number] Cholesterol in HDL [Mass/Vol] 116 mg/dL Normal >40 [facility] [employer] Comment on above: Result Comment: High Cardiovascular Risk HDL <40 mg/dL Low Cardiovascular Risk HDL > or equal to 60 mg/dl Performed By: #### C BCAD, CMP, LIPD, TSH, GGT #### [facility] [address], [place] [id number] Cholesterol in LDL [Mass/Vol] 61 mg/dL Normal [facility] Specialist Comment on above: Result Comment: LDL ATP III CLASSIFICATION LDL less than 100 mg/dl Optimal LDL 100-129 mg/dl Near or above optimal LDL 130-159 Borderline high LDL 160-189 High LDL greater than 189 mg/dl Very High Performed By: #### C BCAD, CMP, LIPD, TSH, GGT #### [facility] [address] [place], [place] [id number] Cholesterol in VLDL [Mass/Vol] 9 mg/dL Normal [facility] Specialist Comment on above: Performed By: #### C BCAD, CMP, LIPD, TSH, GGT #### [facility] [address] [place], [place] [id number] Cholesterol.total/Choles terol in HDL [Mass ratio] 2 {ratio} Normal [facility] Specialist Comment on above: Performed By: #### C BCAD, CMP, LIPD, TSH, GGT #### [facility] [address] [place], [place] [id number] Triglyceride [Mass/Vol] 47 mg/dL Normal 30-150 N [facility] Specialist Comment on above: Result Comment: TRIG ATPIII CLASSIFICATIONS TRIG less than 150 mg/dl Normal TRIG 150-199 mg/dl Borderline High TRIG 200-500 mg/dl High TRIG greather than 500 mg/dl Very High Performed By: #### C BCAD, CMP, LIPD, TSH, GGT #### [facility] [address] [place], [place] [id number] Q - AMMONIA,PLASMAon 022 Ammonia (P) [Moles/Vol] 32 umol/L Normal < OR = 72 N [facility] Specialist Comment on above: Order Comment: [facility] Testing performed at: [facility] [employer] [facility], [address] [facility], [address] [place] [address], [place], [address], Ssas Developer: Jeffrey Leary MD [facility] Collection Date/Time: [id number] [facility] Results Received Date/Time: [id number] [facility] Reported Date/Time: Performed By: #### 5 509X #### [facility] [address] [place] [address] Q - VITAMIN B1 (THIAMINE),BL OODon 11-10-2021 VITAMIN B1 (THIAMINE), BLOOD, LC/MS/MS 98 nmol/L Normal 78-185 [facility] Specialist Comment on above: Order Comment: [facility] performed at: [facility], [address], [place], [place], , Ssas Developer: Richard Tarango M.D.,PhDQuest Collection Date/Time: [id number] Results Received Date/Time: [id number] Reported Date/Time: Result Comment: Deonna min supplementation within 24 hours prior to blood draw may affect the accuracy of the results. This test was developed and its analytical performance characteristics have been determined by [facility] [place], [place]. It has not been cleared or approved by the U.S. Food and Drug Administration. This assay has been validated pursuant to the CLIA regulations and is used for clinical purposes. Performed By: #### C BCAD, CMP, LIPD, TSH, GGT #### [facility] [address] [place], [place] [id number] Q - VITAMIN B2 (RIBOFLAVIN)o n 11-10-2021 VITAMIN B2 (RIBOFLAVIN), PLASMA TNP Normal [facility] Comment on above: Order Comment: Quest performed at: [facility], [facility], [address] , [place], [address], Ssas Developer: Shar Aggarwal M.D.[facility] Collection Date/Time: [id number] Results Received Date/Time: [id number] Reported Date/Time: Result Comment: TEST NOT PERFORMED No suitable specimen received. Please review the test requirements at [email or web address] Performed By: #### C BCAD, CMP, LIPD, TSH, GGT #### [facility] [address] [facility] [place] [id number] TSHon 11-10-2021 TSH 1.070 uIU/mL Normal 0.400-4.500 [facility] Flyer Repairer Comment on above: Performed By: #### C BCAD, CMP, LIPD, TSH, GGT #### [facility] [address] [place], [place] [id number] Vitamin B12on 11-10-2021 Cobalamin (Vitamin B12) [Mass/Vol] 398 pg/mL Normal 211-946 [facility] Comment on above: Performed By: #### B 12 #### [facility] [address] [place], [place] [id number] Vital Signs Date Time Vital Sign Value Performing Clinician Faci lity 11-18-2022 05:00-0400 Body temperature 98.2 [degF] [facility] 11-18-2022 05:00-0400 Diastolic blood pressure 82 mm[Hg] [facility] 11-18-2022 05:00-0400 Heart rate 74 /min [facility] 11-18-2022 05:00-0400 Respiratory rate 18 /min [facility] 11-18-2022 05:00-0400 SaO2% (BldA) [Mass fraction] 97 % [facility] 11-18-2022 05:00-0400 Systolic blood pressure 140 mm[Hg] [facility] 11-17-2022 08:05-0400 Body height 154.94 cm [facility] 11-14-2022 06:00-0400 Body weight 55.7 kg [facility] Encounters Encounter Date Encounter Type Care Provider Facility Start: 10-25-2022 End: 11-18-2022 Evaluation and management of inpatient Stewart Carlton Facility:[facility] Start: 10-25-2022 End: 11-18-2022 Evaluation and management of inpatient [facility] Work Phone: Start: 10-19-2022 End: 10-19-2022 ambulatory UNKNOWN PROVIDER Facility:[facility] Procedures Date Procedure Procedure Detail Performing Clinician Start: 11-16-2022 SARS Antigen (LFIA) Start: 11-11-2022 CT of head without contrast Plan of Treatment Date Care Activity Detail Author Start: 11-18-2022 [facility] Start: 10-26-2022 Administration of pr ophylactic treatment [facility] Start: 10-25-2022 [facility] Start: 10-25-2022 Hospital admission [facility] Start: 10-25-2022 Referral to clinical cafeteria server [facility] Patient referral [facility] Work Phone: Payers Date Payer Category Payer Medicare [id number] 2022 Self-pay 2022 Medicaid [id number] 2022 Unknown [id number] 1955 Unknown [id number] Unknown [id number] Social History Date Type Detail Facility Start: 10-26-2022 Tobacco smoking stat [facility] Smoker (finding) [facility] Start: 1955 Sex Assigned At Female F [facility] Goals Date Patient Goal Desired Activity /State Functional Status Date Assessment Result Facility 11-18-2022 Functional status Patient is Pro gressing Toward [facility] Work Phone: 10-25-2022 Functional status Disability Sta tus Patient is Progressing Toward [facility] Work Phone: Mental Status Date Assessment Result Facility 11-18-2022 Cognitive function Cognitive Sta tus Patient at [facility] Work Phone: Clinical Notes 10-26-2022 to 11-17-2022 Note Date & Type Note Facility 11-17-2022 Progress note Note Date/Time November 15, 2022 9:56am [facility] [address] [place] [address] Physiatry(Rehab) Progress Note Signed Patient: Gilma Mock MR#: [id number] : 1955 Acct:[id number] Age/Sex: 67 / F Adm Date: 3 Loc: 5T Room: 1D1523-7 Type: ADM IN Attending Dr: Stewart Carlton [...] 3 days prior. She was brought to [place] emergency department. Initial NIH was 18. CT imaging demonstrated left ICA occlusion as well as left common carotid artery and right carotid bulb stenosis, which prompted a transfer to tertiary care center. 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 in [...] mg 10/25/22 19:50 Bisacodyl 10 Mg Supp.Rect NM 10/25/23 19:49 DAILY PRN Constipation Calcium Carbonate [...] 19:50 Docusate Enema 283 Mg/5 Ml Enema NM 10/25/23 19:49 DAILY PRN Constipation Famotidine 20 [...] 1 applic 10/27/22 09:00 11/14/22 08:38 Lanolin Alcohol/Mo/W.Pet/Rolfe (Minerin) 454 Gm Jar TOPICAL 10/27/23 08:59 [...] equipment to enhance the patient's a functional baptism Encourage deep breathing exercises and incentive spirometry [...] equipment to enhance the patient's a functional baptism Ensure adequate nutrition and hydration Sleep: Continues trazodone 50 mg at bedtime Pain: No issues Discharge planning: SNF v home with son. I spent greater than 15 minutes for services, including tjgr-lb-uiez encounter with the patient, discussion of the case, plan of care, and exam; and sygxeea-no-bunj activities, such as reviewing pertinent mainframe consultant documentation, recent therapy notes, laboratory and radiology studies, and discussion of case with care team including physician, nursing, bilingual patient support caseworker, and therapists. More than 50 % of time was spent on patient/family counseling or coordination ofcare. Plan: I completed a substantive portion of this encounter, the medical decision makingportion of this note in its entirety, including Allied health note review, nursing note review, mainframe consultant note review, discussion with nursing and case management, and more than 50% of my time was spent on counseling and coordination of care, time spent 25 minutes Patient was personally seen by me, Dr. Carlton, on the day of encounter, reviewed the history and the relevant portions of the chart, including current orders, allied health and mainframe consultant notes, labs/imaging and performed bhagat elements of exam and I formulated the plan of care and facilitated the medical decision making. Documented By: Stewart Carlton MD 11/15/22 0956 Signed By: <Electronically signed by Stewart Carlton MD> 11/17/22 7075 [facility] Work Phone: 1(559) 707-176903-15-2023 Progress note Author Stewart Carlton [facility] November 17, 2022 2:47pm Note Date/Time November 17, 2022 12: 57pm [facility] [address] [place] [address] Physiatry(Rehab) Progress Note Signed Patient: Gilma Mock MR#: [id number] : 1955 Acct:[id number] Age/Sex: 67 / F Adm Date: 3 Loc: Room: [address] [place] [address] Type: ADM IN Attending Dr: Stewart Carlton [...] 3 days prior. She was brought to [place] emergency department. Initial NIH was 18. CT imaging demonstrated left ICA occlusion as well as left common carotid artery and right carotid bulb stenosis, which prompted a transfer to tertiary care center. 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 She is asking about shelter facility placement, updated on current status. She [...] mg 10/25/22 19:50 Bisacodyl 10 Mg Supp.Rect NM 10/25/23 19:49 DAILY PRN Constipation Calcium Carbonate [...] 19:50 Docusate Enema 283 Mg/5 Ml Enema NM 10/25/23 19:49 DAILY PRN Constipation Famotidine 20 [...] 1 applic 10/27/22 09:00 11/17/22 08:21 Lanolin Alcohol/Mo/W.Pet/Rolfe (Minerin) 454 Gm Jar TOPICAL 10/27/23 08:59 [...] equipment to enhance the patient's a functional baptism Encourage deep breathing exercises and incentive spirometry [...] SNF placement by insurance, upheld in a [id number]. Appeal submitted. Patient education Pressure ulcer prophylaxis; [...] equipment to enhance the patient's a functional baptism Ensure adequate nutrition and hydration Sleep: Continues trazodone 50 mg at bedtime Pain: No issues Discharge planning: [place] as soon as approved I spent greater than 15 minutes for services, including oyya-dk-beox encounter with the patient, discussion of the case, plan of care, and exam; and yzwwatr-mw-nytp activities, such as reviewing pertinent mainframe consultant documentation, recent therapy notes, laboratory and radiology studies, and discussion of case with care team including physician, nursing, bilingual patient support caseworker, and therapists. More than 50 % of time was spent on patient/family counseling or coordination ofcare. I completed a substantive portion of this encounter, the medical decision makingportion of this note in its entirety, including Allied health note review, nursing note review, mainframe consultant note review, discussion with nursing and case management, and more than 50% of my time was spent on counseling and coordinationof care, time spent 24 minutes Patient was personally seen by me, Dr. Carlton, on the day of encounter, reviewed the history and the relevant portions of the chart, including current orders, allied health and mainframe consultant notes, labs/imaging and performed bhagat elements of exam and I formulated the plan of care and facilitated the medical decision making. Documented By: Kendra Stern APRN 11/17/22 1 256 Signed By: <Electronically signed by AVLE Stern> 11/17/22 1321 <Electronically signed by Stewart Carlton MD> 11/17/22 9818 [facility] Work Phone: 1(278) 995-228803-14-2023 Progress note Author Stewart Carlton [facility] November 16, 2022 3:27pm Note Date/Time November 16, 2022 2:0 7pm [facility] [address] [place] [address] Physiatry(Rehab) Progress Note Signed Patient: Gilma Mock MR#: [id number] : 1955 Acct:[id number] Age/Sex: 67 / F Adm Date: 3 Loc: Room: [address] [place] [address] Type: ADM IN Attending Dr: Stewart Carlton [...] 3 days prior. She was brought to [place] emergency department. Initial NIH was 18. CT imaging demonstrated left ICA occlusion as well as left common carotid artery and right carotid bulb stenosis, which prompted a transfer to tertiary care center. 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 in [...] % (Auto) 65.3 Lymph % (Auto) 21.5 Wolfe % (Auto) 11.3 Eos % (Auto) 1.5 Baso % (Auto) 0.4 Nucleat RBC Rel Count 0.1 Neut # (Auto) 2.9 Lymph # (Auto) 1.0 Wolfe # (Auto) 0.5 Eos # (Auto) 0.1 [...] mg 10/25/22 19:50 Bisacodyl 10 Mg Supp.Rect NM 10/25/23 19:49 DAILY PRN Constipation Calcium Carbonate [...] 19:50 Docusate Enema 283 Mg/5 Ml Enema NM 10/25/23 19:49 DAILY PRN Constipation Famotidine 20 [...] 1 applic 10/27/22 09:00 11/16/22 12:04 Lanolin Alcohol/Mo/W.Pet/Rolfe (Minerin) 454 Gm Jar TOPICAL 10/27/23 08:59 [...] equipment to enhance the patient's a functional baptism Encourage deep breathing exercises and incentive spirometry [...] BP within normal limits. * DC to [facility] as soon as approved. Patient [...] equipment to enhance the patient's a functional baptism Ensure adequate nutrition and hydration Sleep: Continues trazodone 50 mg at bedtime Pain: No issues Discharge planning: [place] as soon as approved I spent greater than 15 minutes for services, including mnkb-vo-dfey encounter with the patient, discussion of the case, plan of care, and exam; and ysxpuwc-ek-slgu activities, such as reviewing pertinent mainframe consultant documentation, recent therapy notes, laboratory and radiology studies, and discussion of case with care team including physician, nursing, bilingual patient support caseworker, and therapists. More than 50 % of time was spent on patient/family counseling or coordination ofcare. I reviewed the history and the relevant portions of the chart, including currentorders, allied health and mainframe consultant notes, labs/imaging and plan of care as above. Documented By: Kendra Stern APRN 11/16/22 1 401 Signed By: <Electronically signed by VALE Stern> 11/16/22 1407 <Electronically signed by Stewart Carlton MD> 11/16/22 1521 [facility] Work Phone: 1(579) 394-485203-10-2023 Progress note Author Stewart Carlton [facility] November 12, 2022 2:43pm Note Date/Time November 11, 2022 2:13 pm [facility] [address] [place] [address] Physiatry(Rehab) Progress Note Signed Patient: Gilma Mock MR#: [id number] : 1955 Acct:[id number] Age/Sex: 67 / F Adm Date: 3 Loc: Room: [address] [place] [address] Type: ADM IN Attending Dr: Stewart Carlton [...] 3 days prior. She was brought to [facility] emergency department. Initial NIH was 18. CT imaging demonstrated left ICA occlusion as well as left common carotid artery and right carotid bulb stenosis, which prompted a transfer to tertiary care center. 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 in [...] mg 10/25/22 19:50 Bisacodyl 10 Mg Supp.Rect NM 10/25/23 19:49 DAILY PRN Constipation Calcium Carbonate [...] 19:50 Docusate Enema 283 Mg/5 Ml Enema NM 10/25/23 19:49 DAILY PRN Constipation Famotidine 20 [...] 1 applic 10/27/22 09:00 11/11/22 08:58 Lanolin Alcohol/Mo/W.Pet/Rolfe (Minerin) 454 Gm Jar TOPICAL 10/27/23 08:59 [...] equipment to enhance the patient's a functional baptism Encourage deep breathing exercises and incentive spirometry [...] equipment to enhance the patient's a functional baptism Ensure adequate nutrition and hydration Sleep: Continues trazodone 50 mg at bedtime Pain: No issues Discharge planning: SNF v home with son. I spent greater than 15 minutes for services, including ypud-ws-muhf encounter with the patient, discussion of the case, plan of care, and exam; and cyahfnu-ki-gmst activities, such as reviewing pertinent mainframe consultant documentation, recent therapy notes, laboratory and radiology studies, and discussion of case with care team including physician, nursing, bilingual patient support caseworker, and therapists. More than 50 % of time was spent on patient/family counseling or coordination ofcare. I completed a substantive portion of this encounter, the medical decision makingportion of this note in its entirety, including Allied health note review, nursing note review, mainframe consultant note review, discussion with nursing and case management, and more than 50% of my time was spent on counseling and coordination of care, time spent 23 minutes Patient was personally seen by me, Dr. Carlton, on the day of encounter, reviewed the history and the relevant portions of the chart, including current orders, allied health and mainframe consultant notes, labs/imaging and performed bhagat elements of exam and I formulated the plan of care and facilitated the medical decision making. CT head with resolved hemorrhage. Documented By: Kendra Stern APRN 11/11/22 1 410 Signed By: <Electronically signed by VALE Stern> 11/11/22 1424 <Electronically signed by Stewart Carlton MD> 11/12/22 1443 [facility] Work Phone: 1(527) 389-379103-09-2023 Progress note Author Stewart Carlton [facility] November 10, 2022 11:05pm Note Date/Time November 10, 2022 11:0 5pm [facility] [address] [place] [address] Physiatry(Rehab) Progress Note Signed Patient: Gilma Mock MR#: [id number] : 1955 Acct:[id number] Age/Sex: 67 / F Adm Date: 3 Loc: Room: 6E2829-9 Type: ADM IN Attending Dr: Stewart Carlton [...] 3 days prior. She was brought to [facility] emergency department. Initial NIH was 18. CT imaging demonstrated left ICA occlusion as well as left common carotid artery and right carotid bulb stenosis, which prompted a transfer to tertiary care center. 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 in [...] mg 10/25/22 19:50 Bisacodyl 10 Mg Supp.Rect NM 10/25/23 19:49 DAILY PRN Constipation Calcium Carbonate [...] 19:50 Docusate Enema 283 Mg/5 Ml Enema NM 10/25/23 19:49 DAILY PRN Constipation Famotidine 20 [...] 1 applic 10/27/22 09:00 11/10/22 08:09 Lanolin Alcohol/Mo/W.Pet/Rolfe (Minerin) 454 Gm Jar TOPICAL 10/27/23 08:59 [...] equipment to enhance the patient's a functional baptism Encourage deep breathing exercises and incentive spirometry [...] equipment to enhance the patient's a functional baptism Ensure adequate nutrition and hydration Sleep: Continues trazodone 50 mg at bedtime Pain: No issues Discharge planning: SNF v home with son. Plan: I completed a substantive portion of this encounter, the medical decision makingportion of this note in its entirety, including Allied health note review, nursing note review, mainframe consultant note review, discussion with nursing and case management, and more than 50% of my time was spent on counseling and coordination of care, time spent 25 minutes Patient was personally seen by me, Dr. Carlton, on the day of encounter, reviewed the history and the relevant portions of the chart, including current orders, allied health and mainframe consultant notes, labs/imaging and performed bhagat elements of exam and I formulated the plan of care and facilitated the medical decision making. Documented By: Stewart Carlton MD 11/10/222302 Signed By: <Electronically signed by Stewart Carlton MD> 11/10/222304 [facility] Work Phone: 1(659) 359-398503-08-2023 Progress note Author Stewart Carlton [facility] November 10, 2022 9:55pm Note Date/Time November 10, 2022 2:18 pm [facility] [address] [place] [address] Physiatry(Rehab) Progress Note Signed Patient: Gilma Mock MR#: [id number] : 1955 Acct:[id number] Age/Sex: 67 / F Adm Date: 3 Loc: 5T Room: 8Y6890-7 Type: ADM IN Attending Dr: Stewart Carlton [...] 3 days prior. She was brought to [facility] emergency department. Initial NIH was 18. CT imaging demonstrated left ICA occlusion as well as left common carotid artery and right carotid bulb stenosis, which prompted a transfer to tertiary care center. 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 in [...] mg 10/25/22 19:50 Bisacodyl 10 Mg Supp.Rect NM 10/25/23 19:49 DAILY PRN Constipation Calcium Carbonate [...] 19:50 Docusate Enema 283 Mg/5 Ml Enema NM 10/25/23 19:49 DAILY PRN Constipation Famotidine 20 [...] 1 applic 10/27/22 09:00 11/10/22 08:09 Lanolin Alcohol/Mo/W.Pet/Rolfe (Minerin) 454 Gm Jar TOPICAL 10/27/23 08:59 [...] equipment to enhance the patient's a functional baptism Encourage deep breathing exercises and incentive spirometry [...] equipment to enhance the patient's a functional baptism Ensure adequate nutrition and hydration Sleep: Continues trazodone 50 mg at bedtime Pain: No issues Discharge planning: Son is requesting SNF and insurance approval. I spent greater than 15 minutes for services, including oxdw-hc-kmqy encounter with the patient, discussion of the case, plan of care, and exam; and uiphxxy-xf-ozbi activities, such as reviewing pertinent mainframe consultant documentation, recent therapy notes, laboratory and radiology studies, and discussion of case with care team including physician, nursing, bilingual patient support caseworker, and therapists. More than 50 % of time was spent on patient/family counseling or coordination ofcare. Plan: I completed a substantive portion of this encounter, the medical decision makingportion of this note in its entirety, including Allied health note review, nursing note review, mainframe consultant note review, discussion with nursing and case management, and more than 50% of my time was spent on counseling and coordination of care, time spent 25 minutes Patient was personally seen by me, Dr. Carlton, on the day of encounter, reviewed the history and the relevant portions of the chart, including current orders, allied health and mainframe consultant notes, labs/imaging and performed bhagat elements of exam and I formulated the plan of care and facilitated the medical decision making. Documented By: Kendra Stern APRN 11/10/22 1 409 Signed By: <Electronically signed by VALE Stern> 11/10/22 1418 <Electronically signed by Stewart Carlton MD> 11/10/22 6448 [facility] Work Phone: 1(259) 468-651103-06-2023 Progress note Author Stewart Carlton [facility] November 08, 2022 5:04pm Note Date/Time November 08, 2022 5:04 pm [facility] [address] [place] [address] Physiatry(Rehab) Progress Note Signed Patient: Gilma Mock MR#: [id number] : 1955 Acct:[id number] Age/Sex: 67 / F Adm Date: 3 Loc: Room: [address] [place] [address] Type: ADM IN Attending Dr: Stewart Carlton [...] 3 days prior. She was brought to [facility] emergency department. Initial NIH was 18. CT imaging demonstrated left ICA occlusion as well as left common carotid artery and right carotid bulb stenosis, which prompted a transfer to tertiary care center. 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 in [...] mg 10/25/22 19:50 Bisacodyl 10 Mg Supp.Rect NM 10/25/23 19:49 DAILY PRN Constipation Calcium Carbonate [...] 19:50 Docusate Enema 283 Mg/5 Ml Enema NM 10/25/23 19:49 DAILY PRN Constipation Famotidine 20 [...] Adh..Patch TOPICAL 11/03/23 08:59 1 patch DAILY [facility] Administration Magnesium Oxide 400 mg 10/26/22 09:00 11/08/22 08:33 Magnesium Oxide 400 Mg Tablet PO 10/26/23 08:59 400 mg DAILY [facility] Administration Metoprolol Tartrate 50 mg 10/25/22 21:00 11/08/22 08:34 Metoprolol Tartrate 50 Mg Tablet PO 10/25/23 20:59 50 mg BID [facility] Administration Multi-Ingredient Cream 1 applic 10/27/22 09:00 11/08/22 08:34 Lanolin Alcohol/Mo/W.Pet/Rolfe (Minerin) 454 Gm Jar TOPICAL 10/27/23 08:59 [...] equipment to enhance the patient's a functional baptism Encourage deep breathing exercises and incentive spirometry [...] equipment to enhance the patient's a functional baptism Ensure adequate nutrition and hydration Sleep: Continues trazodone 50 mg at bedtime Pain: No issues Discharge planning: Home, possibly with son, in a week or 2, pending insurance recert Plan: I completed a substantive portion of this encounter, the medical decision makingportion of this note in its entirety, including Allied health note review, nursing note review, mainframe consultant note review, discussion with nursing and case management, and more than 50% of my time was spent on counseling and coordination of care, time spent 25 minutes Patient was personally seen by me, Dr. Carlton, on the day of encounter, reviewed the history and the relevant portions of the chart, including current orders, allied health and mainframe consultant notes, labs/imaging and performed bhagat elements of exam and I formulated the plan of care and facilitated the medical decision making. Documented By: Stewart Carlton MD 11/08/221702 Signed By: <Electronically signed by Stewart Carlton MD> 11/08/221703 [facility] Work Phone: 1(257) 459-457803-05-2023 Progress note Author Gaby Hernandez [facility] November 07, 2022 4:49pm Note Date/Time November 07, 2022 4:49 pm [facility] [address] [place] [address] Hospitalist Progress Note Signed Patient: Gilma Mock MR#: [id number] : 1955 Acct:[id number] Age/Sex: 67 / F Adm Date: 3 Loc: 5T Room: [address] [place] [address] Type: ADM IN Attending Dr: Stewart Carlton [...] mg 10/25/22 19:50 Bisacodyl 10 Mg Supp.Rect NM 10/25/23 19:49 DAILY PRN Constipation Calcium Carbonate [...] 19:50 Docusate Enema 283 Mg/5 Ml Enema NM 10/25/23 19:49 DAILY PRN Constipation Famotidine 20 [...] 1 applic 10/27/22 09:00 11/06/22 09:14 Lanolin Alcohol/Mo/W.Pet/Rolfe (Minerin) 454 Gm Jar TOPICAL 10/27/23 08:59 [...] By: <Electronically signed by HUY Hernandez> 11/07/22 1644 [facility] Work Phone: 1(113) [phone] Progress note Author Stewart Carlton [facility] November 03, 2022 9:27pm Note Date/Time November 03, 2022 9:27 pm [facility] [address] [place] [address] Physiatry(Rehab) Progress Note Signed Patient: Gilma Mock MR#: [id number] : 1955 Acct:[id number] Age/Sex: 67 / F Adm Date: 3 Loc: Room: [address] [place] [address] Type: ADM IN Attending Dr: Stewart Carlton [...] 3 days prior. She was brought to [facility] emergency department. Initial NIH was 18. CT imaging demonstrated left ICA occlusion as well as left common carotid artery and right carotid bulb stenosis, which prompted a transfer to tertiary care center. 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 in [...] mg 10/25/22 19:50 Bisacodyl 10 Mg Supp.Rect NM 10/25/23 19:49 DAILY PRN Constipation Calcium Carbonate [...] 19:50 Docusate Enema 283 Mg/5 Ml Enema NM 10/25/23 19:49 DAILY PRN Constipation Famotidine 20 [...] 1 applic 10/27/22 09:00 11/03/22 09:47 Lanolin Alcohol/Mo/W.Pet/Rolfe (Minerin) 454 Gm Jar TOPICAL 10/27/23 08:59 [...] equipment to enhance the patient's a functional baptism Encourage deep breathing exercises and incentive spirometry [...] equipment to enhance the patient's a functional baptism Ensure adequate nutrition and hydration Sleep: Continues trazodone 50 mg at bedtime Pain: No issues Discharge planning: Home v. SNF Pending progress. Plan: I completed a substantive portion of this encounter, the medical decision makingportion of this note in its entirety, including Allied health note review, nursing note review, mainframe consultant note review, discussion with nursing and case management, and more than 50% of my time was spent on counseling and coordination of care, time spent 28 minutes Patient was personally seen by me, Dr. Carlton, on the day of encounter, reviewed the history and the relevant portions of the chart, including current orders, allied health and mainframe consultant notes, labs/imaging and performed bhagat elements of exam and I formulated the plan of care and facilitated the medical decision making. Documented By: Stewart Carlton MD 11/03/222124 Signed By: <Electronically signed by Stewart Carlton MD> 11/03/222126 [facility] Work Phone: 1(471) 301-314402-28-2023 Progress note Author Stewart Carlton [facility] November 02, 2022 3:07pm Note Date/Time November 02, 2022 10:32am [facility] [address] [place] [address] Physiatry(Rehab) Progress Note Signed Patient: Gilma Mock MR#: [id number] : 1955 Acct:[id number] Age/Sex: 67 / F Adm Date: 3 Loc: Room: [address] [place] [address] Type: ADM IN Attending Dr: Stewart Carlton [...] 3 days prior. She was brought to [facility] emergency department. Initial NIH was 18. CT imaging demonstrated left ICA occlusion as well as left common carotid artery and right carotid bulb stenosis, which prompted a transfer to tertiary care center. 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 in [...] mg 10/25/22 19:50 Bisacodyl 10 Mg Supp.Rect NM 10/25/23 19:49 DAILY PRN Constipation Calcium Carbonate [...] 19:50 Docusate Enema 283 Mg/5 Ml Enema NM 10/25/23 19:49 DAILY PRN Constipation Famotidine 20 [...] 1 applic 10/27/22 09:00 11/02/22 09:41 Lanolin Alcohol/Mo/W.Pet/Rolfe (Minerin) 454 Gm Jar TOPICAL 10/27/23 08:59 [...] equipment to enhance the patient's a functional baptism Encourage deep breathing exercises and incentive spirometry [...] equipment to enhance the patient's a functional baptism Ensure adequate nutrition and hydration Sleep: Start trazodone 50 mg at bedtime Pain: No issues Discharge planning: Home with family in 3 weeks due to extensive residual deficits. I spent greater than 15 minutes for services, including blpf-sm-iems encounter with the patient, discussion of the case, plan of care, and exam; and cpuiowa-og-qukz activities, such as reviewing pertinent mainframe consultant documentation, recent therapy notes, laboratory and radiology studies, and discussion of case with care team including physician, nursing, bilingual patient support caseworker, and therapists. More than 50 % of [...] equipment to enhance the patient's a functional baptism Encourage deep breathing exercises and incentive spirometry [...] Allied health note review, nursing note review, mainframe consultant note review, discussion with nursing and case management, and more than 50% of my time was spent on counseling and coordination of care, time spent 28 minutes Patient was personally seen by me, Dr. Carlton, on the day of encounter, reviewed the history and the relevant portions of the chart, including current orders, allied health and mainframe consultant notes, labs/imaging and performed bhagat elements of exam and I formulated the plan of care and facilitated the medical decision making. Documented By: Kendra Stern APRN 11/02/22 1 026 Signed By: <Electronically signed by VALE Stern> 11/02/22 1032 <Electronically signed by Stewart Carlton MD> 11/02/22 150 [facility] Work Phone: 1(845) 499-849202-27-2023 Progress note Author Stewart Carlton [facility] November 01, 2022 4:02pm Note Date/Time October 30, 2022 12:02pm [facility] [address] [place] [address] Physiatry(Rehab) Progress Note Signed Patient: Gilma Mock MR#: [id number] : 1955 Acct:[id number] Age/Sex: 67 / F Adm Date: 3 Loc: Room: 0N7140-4 Type: ADM IN Attending Dr: Stewart Carlton [...] 3 days prior. She was brought to [facility] emergency department. Initial NIH was 18. CT imaging demonstrated left ICA occlusion as well as left common carotid artery and right carotid bulb stenosis, which prompted a transfer to tertiary care center. 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 in [...] % (Auto) 84.9 Lymph % (Auto) 6.7 Wolfe % (Auto) 7.7 Eos % (Auto) 0.2 Baso % (Auto) 0.5 Nucleat RBC Rel Count 0.0 Neut # (Auto) 8.1 H Lymph # (Auto) 0.6 L Wolfe # (Auto) 0.7 Eos # (Auto) 0.0 [...] mg 10/25/22 19:50 Bisacodyl 10 Mg Supp.Rect NM 10/25/23 19:49 DAILY PRN Constipation Calcium Carbonate [...] 19:50 Docusate Enema 283 Mg/5 Ml Enema NM 10/25/23 19:49 DAILY PRN Constipation Famotidine 20 [...] 1 applic 10/27/22 09:00 10/30/22 08:16 Lanolin Alcohol/Mo/W.Pet/Rolfe (Minerin) 454 Gm Jar TOPICAL 10/27/23 08:59 [...] equipment to enhance the patient's a functional baptism Encourage deep breathing exercises and incentive spirometry [...] equipment to enhance the patient's a functional baptism Ensure adequate nutrition and hydration Sleep: Start trazodone 50 mg at bedtime Pain: No issues Discharge planning: Home with family in 3 weeks due to extensive residual deficits. I spent greater than 15 minutes for services, including qusg-oc-yyyx encounter with the patient, discussion of the case, plan of care, and exam; and zcbwvwl-qv-lmkp activities, such as reviewing pertinent mainframe consultant documentation, recent therapy notes, laboratory and radiology studies, and discussion of case with care team including physician, nursing, bilingual patient support caseworker, and therapists. More than 50 % of time was spent on patient/family counseling or coordination ofcare. I reviewed the history and the relevant portions of the chart, including currentorders, allied health and mainframe consultant notes, labs/imaging and plan of care as above. Documented By: Kendra Stern APRN 10/30/22 1 157 Signed By: <Electronically signed by VALE Stern> 10/30/22 1202 <Electronically signed by Stewart Carlton MD> 11/01/22 1602 Access [facility] Work Phone: 1(484) 574-540902-27-2023 Progress note Author Stewart Carlton [facility] November 01, 2022 2:57pm Note Date/Time November 01, 2022 12:00pm [facility] [address] [place] [address] Physiatry(Rehab) Progress Note Signed Patient: Gilma Mock MR#: [id number] : 1955 Acct:[id number] Age/Sex: 67 / F Adm Date: 3 Loc: Room: [address] [place] [address] Type: ADM IN Attending Dr: Stewart Carlton [...] 3 days prior. She was brought to [place] emergency department. Initial NIH was 18. CT imaging demonstrated left ICA occlusion as well as left common carotid artery and right carotid bulb stenosis, which prompted a transfer to tertiary care center. 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 in [...] Exam <Kendra Stern APRN - Last Filed: 11/01/22 [...] mg 10/25/22 19:50 Bisacodyl 10 Mg Supp.Rect NM 10/25/23 19:49 DAILY PRN Constipation Calcium Carbonate [...] 19:50 Docusate Enema 283 Mg/5 Ml Enema NM 10/25/23 19:49 DAILY PRN Constipation Famotidine 20 [...] 1 applic 10/27/22 09:00 11/01/22 09:11 Lanolin Alcohol/Mo/W.Pet/Rolfe (Minerin) 454 Gm Jar TOPICAL 10/27/23 08:59 [...] equipment to enhance the patient's a functional baptism Encourage deep breathing exercises and incentive spirometry [...] equipment to enhance the patient's a functional baptism Ensure adequate nutrition and hydration Sleep: Start trazodone 50 mg at bedtime Pain: No issues Discharge planning: Home with family in 3 weeks due to extensive residual deficits. I spent greater than 15 minutes for services, including eikc-bt-[id number] encounter with the patient, discussion of the case, plan of care, and exam; and ejnfazj-jt-idfr activities, such as reviewing pertinent mainframe consultant documentation, recent therapy notes, laboratory and radiology studies, and discussion of case with care team including physician, nursing, bilingual patient support caseworker, and therapists. More than 50 % of [...] Allied health note review, nursing note review, mainframe consultant note review, discussion with nursing and case management, and more than 50% of my time was spent on counseling and coordination of care, time spent 28 minutes Patient was personally seen by me, Dr. Carlton, on the day of encounter, reviewed the history and the relevant portions of the chart, including current orders, allied health and mainframe consultant notes, labs/imaging and performed bhagat elements of exam and I formulated the plan of care and facilitated the medical decision making. Sodium stable, she is progressing towards functional goals. Walking a short distance with therapy.. Documented By: Kendra Stern APRN 11/01/22 1 156 Signed By: <Electronically signed by VAEL Stern> 11/01/22 1206 <Electronically signed by Stewart Carlton MD> 11/01/22 8523 [facility] Work Phone: 1(945) 549-982602-22-2023 Progress note Author Stewart Carlton [facility] October 27, 2022 1:17pm Note Date/Time October 27, 2022 1:17pm [facility] [address] [place] [address] Physiatry(Rehab) Progress Note Signed Patient: Gilma Mock MR#: [id number] : 1955 Acct:[id number] Age/Sex: 67 / F Adm Date: 3 Loc: Room: 5T2748-4 Type: ADM IN Attending Dr: Stewart Carlton [...] 3 days prior. She was brought to [place] emergency department. Initial NIH was 18. CT imaging demonstrated left ICA occlusion as well as left common carotid artery and right carotid bulb stenosis, which prompted a transfer to tertiary care center. 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 in [...] mg 10/25/22 19:50 Bisacodyl 10 Mg Supp.Rect NM 10/25/23 19:49 DAILY PRN Constipation Calcium Carbonate [...] 19:50 Docusate Enema 283 Mg/5 Ml Enema NM 10/25/23 19:49 DAILY PRN Constipation Famotidine 20 [...] 1 applic 10/27/22 09:00 10/27/22 08:08 Lanolin Alcohol/Mo/W.Pet/Rolfe (Minerin) 454 Gm Jar TOPICAL 10/27/23 08:59 [...] equipment to enhance the patient's a functional baptism Encourage deep breathing exercises and incentive spirometry [...] equipment to enhance the patient's a functional baptism Ensure adequate nutrition and hydration Sleep: Start trazodone 50 mg at bedtime Pain: No issues Discharge planning: Home with family in 3 weeks due to extensive residual deficits. Plan: I completed a substantive portion of this encounter, the medical decision makingportion of this note in its entirety, including Allied health note review, nursing note review, mainframe consultant note review, discussion with nursing and case management, and more than 50% of my time was spent on counseling and coordination of care, time spent 25 minutes Patient was personally seen by me, Dr. Carlton, on the day of encounter, reviewed the history and the relevant portions of the chart, including current orders, allied health and mainframe consultant notes, labs/imaging and performed bhagat elements of exam and I formulated the plan of care and facilitated the medical decision making. Documented By: Stewart Carlton MD 10/27/221313 Signed By: <Electronically signed by Stewart Carlton MD> 10/27/224 [facility] Work Phone: 1(283) 284-968802-22-2023 Consult note Author Crystal Meléndez [facility] October 27, 2022 7:00am Note Date/Time October 26, 2022 2:02pm [facility] [address] [place] [address] Hospitalist Consult Note Signed Patient: Gilma Mock MR#: [id number] : 1955 Acct:[id number] Age/Sex: 67 / F Adm Date: 3 Loc: 5T Room: [address] [place] [address] Type: ADM IN Attending Dr: Stewart Carlton [...] abuse and depression who initially presented to [place] emergency department after she was found confused with right-sided weakness by her family. Initial NIH score was 18. CT head/neck showed left COLE occlusion as well as left common carotid artery and right carotid bulb stenosis and patient was transferred to a tertiary care center. MRI of the brain at [facility] showed an acute to subacute watershed infarct [...] mg 10/25/22 19:50 Bisacodyl 10 Mg Supp.Rect NM 10/25/23 19:49 DAILY PRN Constipation Calcium Carbonate [...] 19:50 Docusate Enema 283 Mg/5 Ml Enema NM 10/25/23 19:49 DAILY PRN Constipation Famotidine 20 [...] % (Auto) 80.4, Lymph % (Auto) 8.8, Wolfe % (Auto) 9.8, Eos % (Auto) 0.6, Baso % (Auto) 0.4, Nucleat RBC Rel Count 0.0, Neut # (Auto) 6.8, Lymph # (Auto) 0.7 L, Wolfe # (Auto) 0.8, Eos # (Auto) 0.0, [...] signed by Crystal Meléndez MD> 10/27/22 0700 [facility] Work Phone: 1(859) 974-607702-21-2023 History and physical note Author Stewart Carlton [facility] October 26, 2022 2:11pm Note Date/Time October 26, 2022 8:50am [facility] [address] [place] [address] Physiatry (Rehab) H&P Signed Patient: Gilma Mock MR#: [id number] : 1955 Acct:[id number] Age/Sex: 67 / F Adm Date: 3 Loc: Room: 8M7755-3 Type: ADM IN Attending Dr: Stewart Carlton [...] 3 days prior. She was brought to [place] emergency department. Initial NIH was 18. CT imaging demonstrated left ICA occlusion as well as left common carotid artery and right carotid bulb stenosis, which prompted a transfer to tertiary care center. 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 in [...] and able to manage her medications, cooking, leverman. She lives with a significant other. PMFSH [...] Bisacodyl (Bisacodyl 10 Mg Supp.Rect) 10 mg NM DAILY PRN PRN Reason: Constipation Stop: 10/25/23 19:49 Calcium Carbonate (Calcium Carbonate 500 Mg Tablet) 500 mg PO DAILY ELI Stop: 10/26/23 08:59 Cyanocobalamin (Cyanocobalamin 1,000 Mcg Tablet) 1,000 mcg PO DAILY ELI Stop: 10/26/23 08:59 Docusate Sodium (Docusate 100 Mg Capsule) 100 mg PO BID PRN PRN Reason: Constipation Stop: 10/25/23 19:49 Docusate Sodium (Docusate Enema 283 Mg/5 Ml Enema) 283 mg NM DAILY PRN PRN Reason: Constipation Stop: 10/25/23 [...] 1 Tab Tablet) 1 tab PO DAILY [facility] Stop: 10/26/23 08:59 Nifedipine (Nifedipine Er.24hr 90 [...] PRN Reason: Rash Stop: 10/25/23 19:54 Exam <Kendra Stern APRN - Last Filed: 10/26/22 [...] % (Auto) 80.4 Lymph % (Auto) 8.8 Wolfe % (Auto) 9.8 Eos % (Auto) 0.6 Baso % (Auto) 0.4 Nucleat RBC Rel Count 0.0 Neut # (Auto) 6.8 Lymph # (Auto) 0.7 L Wolfe # (Auto) 0.8 Eos # (Auto) 0.0 [...] 3 weeks Expected Discharge Destination: Home Rehabilitation [facility]: 01.2 Primary Diagnosis: Left brain stroke right hemiplegia To have patient become more independent and to return home. Medical/ Functional Prognosis: Good Anticipated Functional Outcomes/Goals and Interventions: 1.Therapy Functional Outcome/Goal: Anticipate supervision bed mobility Anticipated interventions: Physician management, PT, OT, SUBSTATION OPERATOR CONVERSION, , Dietitian, RehabNursing, Case management 2. Therapy Functional Outcome/Goal: Anticipate supervision for transfers Anticipated interventions: Physician management, PT, OT, SUBSTATION OPERATOR CONVERSION, Case management, Dietitian, Rehab Nursing 3. Therapy Functional Outcome/Goal: Anticipate supervision for ambulation Anticipated interventions: Physician management, PT, OT, SUBSTATION OPERATOR CONVERSION Case management, Dietitian, Rehab Nursing 4.Therapy Functional Outcome/Goal: Anticipate supervision for self care Anticipated interventions: Physician management, PT, OT, SUBSTATION OPERATOR CONVERSION, Case management, Dietitian, Rehab Nursing 5.Therapy Functional Outcome/Goal: Anticipate supervision for functional communication and swallowing Anticipated interventions: Physician management, PT, OT, SUBSTATION OPERATOR CONVERSION, Case management, Dietitian, Rehab Nursing Required Therapy [...] additional therapy on as needed basis. Comments: SUBSTATION OPERATOR CONVERSION to evaluate and treat patient?s cognition, language and communication skills, assess swallow function. Other: Dietitian, Rehab nursing, Wound, P&O, Neuropsychology as needed RATIONALE FOR IRF ADMISSION: Patient has both medical and functional complexities that require 24 hour daily monitoring and intervention from Mechanical Engineering Officer as well as other consulting physicians including internal medicine as well as 24 hour daily single fold machine operator nursing - for medical safe / optimal management. Patient requires interdisciplinary therapy team rehabilitation care including OT, PT, SUBSTATION OPERATOR CONVERSION, SW, Psychology, Rehab Nursing, requires and can [...] equipment to enhance the patient's a functional baptism Ensure adequate nutrition and hydration Sleep: Start trazodone 50 mg at bedtime Pain: No issues Discharge planning: Home with family in 7-10 days. I spent greater than 35 minutes for services, including [id number] encounter with the patient, discussion of the case, plan of care, and exam; and icafcqb-il-ozpk activities, such as reviewing pertinent mainframe consultant documentation, recent therapy notes, laboratory and radiology studies, and discussion of case with care team including physician, nursing, bilingual patient support caseworker, andtherapists. More than 50 % of time [...] equipment to enhance the patient's a functional baptism Encourage deep breathing exercises and incentive spirometry [...] equipment to enhance the patient's a functional baptism Ensure adequate nutrition and hydration Sleep: Start trazodone 50 mg at bedtime Pain: No issues Discharge planning: Home with family in 3 weeks. I spent greater than 35 minutes for services, including [id number] encounter with the patient, discussion of the case, plan of care, and exam; and zchxrek-bn-yqlq activities, such as reviewing pertinent mainframe consultant documentation, recent therapy notes, laboratory and radiology studies, and discussion of case with care team including physician, nursing, bilingual patient support caseworker, and therapists. More than 50 % of time was spent on patient/family counseling or coordination ofcare. Plan: I completed a substantive portion of this encounter, the medical decision makingportion of this note in its entirety, including Allied health note review, nursing note review, mainframe consultant note review, discussion with nursing and case management, and more than 50% of my time was spent on counseling and coordination of care, time spent 65 minutes Patient was personally seen by me, Dr. Carlton, on the day of encounter, within 24hours of rehab admission, reviewed the history and the relevant portions of the chart, including current orders, allied health and mainframe consultant notes, labs/imaging and performed bhagat elements of exam and I formulated the plan of care and facilitated the medical decision making. 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 -Allergies: Sulfa (Sulfonamide Antibiotics), Tetanus Vaccines and Toxoid. -Activity: Weight bearing as tolerated. -Diet: Low fat diet. -Eating strategies: Sit upright at 90 degrees with oral intake, alternate liquids/solids, small bites/sips, built up utensils, intermittent supervision with meals. -Stocking Inspector recommendations: Boost Plus, 1 container, twice daily with meals (or your facility's equivalent). -PT/OT/ST to evaluate and treat at shelter facility.[facility] Work Phone: Summary Purpose Family History [...] section and content) DATE CREATED AUTHOR 11/25/2021 [facility] dical Specialist DATE CREATED AUTHOR AUTHOR'S ORGANIZ ATION 10/19/2022 [facility] DATE CREATED AUTHOR AUTHOR'S ORGANIZ ATION 11/30/2022 [facility] Care Teams (unrecognized sec tion and content) Team Status: Active Member Role Status Dates NON STAFF Primary Care Provider Active Team Status: Inactive Member Role Status Dates NON STAFF Primary Care Provider Active Stewart Carlton MD Admit Provider, Attending Provider A ctive Kaur Silvestre , KAROLINA Other Provider Active Cathryn Menendez , KAROLINA Other Provider Active Belkis Mercado , KAROLINA Other Provider Active Genie Oliveira RN Other Provider Active Luz Marina [...] MD Other Provider Active Kirstin Fragoso , PHYSICAL THERAPY TECHNICIAN-C Other Provider Active Brian New MD Other [...] BE BASED ON THE PRIMARY CLINICAL RECORDS. [facility]. provides no warranty or guarantee of the accuracy or completeness of information in this document.
[2023-11-16 08:09] LABS: Bilirubin Urine NEGATIVE (NEGATIVE); Blood Urine TRACE-I (NEGATIVE); Clarity Urine SL CLOUDY (CLEAR); Color Urine LT. YELLOW (YELLOW); Glucose Urine UA >=1000 mg/dL (NEGATIVE); Ketones Urine NEGATIVE (NEGATIVE); Leukocyte Esterase Urine MODERATE (NEGATIVE); Nitrite Urine POSITIVE (NEGATIVE); Protein Urine NEGATIVE (NEG/TRACE); Specific Gravity Urine <=1.005 (1.005-1.025); Urobilinogen Urine 0.2 EU/dL (0.2-1.0)
[2023-11-16 08:10] LABS: Urine Microscopic Indicated YES
[2023-11-16 08:35] LABS: Bacteria Urine LARGE #/HPF (NONE SEEN); WBC Urine 50-75 #/HPF (NONE SEEN)
[2023-11-16 08:36] LABS: Cast Seen? NONE SEEN #/LPF (NONE SEEN); Crystals Seen? None Seen #/HPF (None Seen); Mucus Urine NONE SEEN (NONE SEEN); Squamous Epithelial Cell Urine MODERATE #/LPF (NONE/RARE); Urine Culture Indicated YES
== END 2023-11-15 20:01 | disposition home or self-care (01) ==
LOC: LAB 20:00
PROVIDERS: PCP Family Medicine; Visit Provider Family Medicine
DX: R30.0 Dysuria (principal)
CPT/HCPCS: 81001; 87086; 87150; 87186